=== PATIENT | female | born 1945 | race Caucasian/White ===

== ENCOUNTER → 2016-07-20 | Day surgery (SDC) | payer OTHER, MEDICARE ==
[2016-07-14 14:09] VITALS: Ht 161.3 cm; Wt 75.0 kg
[~2016-07-20] VITALS: Ht 161.3 cm; Wt 75.0 kg
[~2016-07-20] MED LIST: ACET-1256 PO; ACET-749 PO; ACETAMINOPHEN/CODEINE 300/30MG TAB PO PRN; ASPCH81X PO; ATEN-173 PO; ATOR10TA88 PO; ATROPINE SULFATE 0.1 MG/ML 5ML SYR IV PRN; BACL10TA PO; BIOT1CAP3 PO; BISA10SU3 PR; BUPIVACAINE 0.5 % 5 MG/1 ML MPF 30ML VIAL ONE; Baclofen PO; CEFAZOLIN 1000MG/55 ML D5W IV SCH; CEFAZOLIN SOD 1 GM VIAL IV ONE; CHOL100010 PO; CHOL1CAP95 PO; CLIN1GEL5 TOP; CLTP PO; CRDCD240 PO; Cardizem CD PO; DEXAMETHASONE SOD INJ 4 MG/ML VIAL ONE; DILT300C PO; DILT300C21 PO; DOCU100C31 PO; ESOM20CA PO; ESTR1.252 PO; EpHEDrine SULFATE INJ 50 MG/ML AMP IV PRN; FENTANYL CITRATE INJ 50 MCG/1 ML 2 ML VIAL ONE; FLUMAZENIL 0.1 MG/1 ML 10 ML VIAL IV PRN; FURO-85 PO; GLUC500C4 PO; HYDROmorphone INJ 1 MG/ML SYR IV PRN; KRIL1CAP7 PO; LABETALOL HCL IV 5 MG/ML 20ML IV PRN; LACTATED RINGER'S 1000ML 1,000 ML IV SCH; LIDOCAINE HCL 1% 20 ML VIAL ONE; LIDOCAINE HCL 2% 2 ML VIAL (20MG/ML) ONE; LOSA50TA6 PO; LPR25 PO; LXP10 PO; MAGN400T5 PO; MAGN400T6 PO; MCRK20 PO; METR0.754 TOP; METR1GEL3 TOP; MGCUDL400 PO; MIDAZOLAM HCL 1 MG/ML 2ML VIAL ONE; MOML PO; NALOXONE HCL 0.4 MG/1 ML VIAL/CARP IV PRN; NUTR-1048 PO; NUTR-977 PO; ONDA8TAB6 PO; ONDANSETRON INJ 2 MG/ML 2 ML VIAL IV PRN; ONDANSETRON INJ 2 MG/ML 2 ML VIAL ONE; PRD10 PO; PRED-301 PO; PRLSR20 PO; PROMETHAZINE HCL INJ 12.5 MG in SODIUM CHLORIDE 0.9% 50ML 50 ML IV PRN; PROPOFOL IV EMULSION 10 MG/ML 20 ML VIAL IV ONE; Premarin Cream PV; SENN-63 PO; SIMV10TA2 PO; SLOW; SLWMEC PO; SODIENE PR; SODIUM CHLORIDE 0.9% 1000ML 1,000 ML IV SCH; SPIR25TA PO; THIA50TA3 PO; THM50 PO; TOLV15TA PO; TRMCR515 TOP; Trazodone PO; [UNRECOGNIZED DRUG - CODE] PO; [UNRECOGNIZED DRUG - CODE] PO; [UNRECOGNIZED DRUG - OTHER] PO
--- NOTE | 2016-07-20 06:55 | History & Physical Bridge - SC ---
H&P Re-Evaluation Bridge Note: I have examined the patient, reviewed the History & Physical and in the interval since the performance of the History & Physical I have noted the following changes of clinical significance: No changes noted
[2016-07-20 07:40] VITALS: TEMP 36.4
--- NOTE | 2016-07-20 07:40 | [facility] Post Operative Brief Note ---
Immediate Operative Summary Operative Date Jul 20, 2016. 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 Schofield Washing Machine Repairer Surgeon(s) Trevon Vera PA-C Estimated Blood Loss Minimal Findings Subluxated 2nd claw toe Specimens A: Right second toe Anesthesia Local with sedation Complication(s) None Disposition Recovery Room / PACU
--- NOTE | 2016-07-20 07:40 | Discharge Instructions-SurgCtr ---
Discharge Instructions Visit Reason for Visit: Right Foot Acquired Hallux Malleous Discharge Discharge Diagnosis / Problem: RIGHT SECOND TOE HAMMER TOE Discharge Goals Goal(s): Decrease discomfort Activity Recommendations Weightbearing Status: Right weightbearing (as tolerated) Anesthesia . Post Anesthesia Instructions: If you have had General Anesthesia or IV Sedation: * Do not drive today. * Resume driving when surgeon permits. * Do not make important decisions or sign legal documents today. * Call surgeon for: 1. Temperature elevations greater than 101 degrees F. 2. Uncontrollable pain. 3. Excessive bleeding. 4. Persistent nausea and vomiting. 5. Medication intolerance (nausea, vomiting or rash). * For nausea and vomiting use only clear liquids such as: tea, soda, bouillon until nausea subsides, then gradually increase diet as tolerated. * If you have any concerns or questions, call your surgeon's office. If physician is unavailable and it is an emergency, call 911 or go to the nearest emergency room. . Instructions / Follow-Up Instructions / Follow-Up MEDICATIONS: * Resume previous medications unless instructed otherwise by your surgeon. * Always take pain medication on a full stomach or with food to avoid upset stomach. * Do not drink alcohol or drive while taking narcotics. * Ibuprofen or Tylenol may be taken if narcotic not needed. SPECIAL CARE INSTRUCTIONS: __ None __ Keep extremity elevated and iced x 48 hours; apply ice 20-30 minutes 8-10 times/day. May remove at night. __ Crutches __ May discard when able _X_ Post-op shoe FOR WEIGHTBEARING __ 24 hrs/day __ Remove at night _X_ Dressing _X_ Maintain until seen in office, may shower with plastic over site __ Remove dressings in 24-48 hours and then may shower __ Cover incisions with band-aids after showering __ Do not remove steri-strips Call physician if chills or temperature rises above 102 degrees or pain unrelieved by prescribed pain medications. Office [phone] FOLLOW UP IN 2 WEEKS Diet Recommendations Home Diet: resume previous diet Procedures Procedures Performed: Right Second Toe Amputation Pending Studies Studies pending at discharge: no Medical Emergencies . Who to Call and When: Medical Emergencies: If at any time you feel your situation is an emergency, please call 911 immediately. . Non-Emergent Contact Non-Emergency issues call your: Primary Care Provider, Surgeon . . "Provider Documentation" section prepared by Dominic Vera.
[2016-07-20 08:13] VITALS: BP 144/77; PULSE 63; O2SAT 100
--- NOTE | 2016-07-20 08:16 | Anesthesia Progress Nt - [facility] ---
Anesthesia Post Op Note Date & Time Jul 20, 2016 at 08:15 Vital Signs Pain Intensity: 0 Vital Signs Past 12 Hours Date Time Temp Pulse Resp B/P Pulse Ox O2 Delivery O2 Flow Rate FiO2 07/20/16 08:13 63 16 144/77 100 Room Air 07/20/16 07:40 36.4 64 16 131/76 94 Room Air 07/20/16 06:42 159/92 07/20/16 06:27 36.5 71 20 159/111 97 Room Air Notes Mental Status: alert / awake / arousable, participated in evaluation Pt Amnestic to Procedure: Yes Nausea / Vomiting: adequately controlled Pain: adequately controlled Airway Patency, RR, SpO2: stable & adequate BP & HR: stable & adequate Hydration State: stable & adequate Anesthetic Complications: no major complications apparent
--- NOTE | 2016-07-20 09:18 | OPERATIVE REPORT ---
DATE OF OPERATION: 07/20/2016 PREOPERATIVE DIAGNOSIS: Right 2nd clawtoe deformity with subluxation of the metatarsophalangeal joint. POSTOPERATIVE DIAGNOSIS: Same. PROCEDURE PERFORMED: Right second toe amputation. SURGEON: Berry Schofield M.D. BAKERY ASSOCIATE: Dominic Vera PA-C. COMPLICATIONS: None. ESTIMATED BLOOD LOSS: Minimal. TOURNIQUET TIME: 8 minutes at 300 mmHg. ANESTHESIA: Local with IV sedation. OPERATIVE INDICATIONS: The patient is a 70-year-old female who has had a several month history of right second toe pain, discomfort and swelling, unresponsive to conservative treatment. X-rays revealed clawtoe deformity of the second toe with diffuse fusiform swelling and subluxation of the joint. We talked about treatment options including conservative care versus clawtoe correction versus amputation. Considering everything I really felt amputation was the most predictable thing to give her a quick and predictable result and free of pain. The patient elected to proceed. I did not feel a clawtoe correction would predictably help her and would likely be a source of persistent pain and stiffness in the toe. OPERATION AND FINDINGS: OPERATIVE PROCEDURE: The patient taken to the operating room, identified and placed on the operating table in supine position. All contact areas were appropriately padded. IV antibiotics were provided by the anesthesia team. A right ankle tourniquet was placed. Some IV sedation was provided. The patient did receive preoperative antibiotics. The right foot was cleaned with alcohol. A 20 mL of 50:50 combination of 0.5% Marcaine and 2% lidocaine were then injected just proximal to the incision site. The right foot was then prepped and draped in the usual sterile fashion. The right leg was elevated and exsanguinated with Esmarch and tourniquet was placed at 300 mmHg. A fish mouth incision was made over the base of the second toe, both dorsally and plantarly. I dissected sharply directly down to the bone. The bone was skeletonized and the toe was amputated. It was disarticulated at the MTP joint. I then identified the flexor and extensor tendons, applied traction to them, cut them and allowed them to retract. I then irrigated the wound extensively. We then let the tourniquet down for final tourniquet time of 8 minutes. Hemostasis was assured with use of electrocautery. The skin was then closed with 4-0 nylon suture in a simple fashion. The foot was then cleaned and dried and a sterile dressing of Xeroform, 4 x 4's, sterile cast padding and a Coban wrap followed by postop shoe were applied. The patient then transferred to the recovery room in stable condition. The patient tolerated the procedure with no complications. All needle and sponge counts were correct at the end of the operation. I attest to the content of the Intraoperative Record and any orders documented therein. Any exceptio ns are noted below.
== END | disposition home or self-care (01) ==
LOC: X.SURG 06:05
PROVIDERS: ATTEND Orthopaedic Surgery Sports Medicine
DX: M20.5X1 Other deformities of toe(s) (acquired), right foot (principal); I34.8 Other nonrheumatic mitral valve disorders; I10 Essential (primary) hypertension; I25.10 Atherosclerotic heart disease of native coronary artery without angina pectoris

== ENCOUNTER → 2016-10-20 | Outpatient (CLI) | payer OTHER, MEDICARE ==
[~2016-10-20] MED LIST changes: -ACET-749 PO; -ACETAMINOPHEN/CODEINE 300/30MG TAB PO PRN; -ATEN-173 PO; +ATOR10TA82 PO; -ATOR10TA88 PO; -ATROPINE SULFATE 0.1 MG/ML 5ML SYR IV PRN; -BIOT1CAP3 PO; -BUPIVACAINE 0.5 % 5 MG/1 ML MPF 30ML VIAL ONE; -CEFAZOLIN 1000MG/55 ML D5W IV SCH; -CEFAZOLIN SOD 1 GM VIAL IV ONE; -CHOL100010 PO; -CLTP PO; -CRDCD240 PO; -DEXAMETHASONE SOD INJ 4 MG/ML VIAL ONE; -ESTR1.252 PO; -EpHEDrine SULFATE INJ 50 MG/ML AMP IV PRN; -FENTANYL CITRATE INJ 50 MCG/1 ML 2 ML VIAL ONE; -FLUMAZENIL 0.1 MG/1 ML 10 ML VIAL IV PRN; -GLUC500C4 PO; -HYDROmorphone INJ 1 MG/ML SYR IV PRN; -KRIL1CAP7 PO; -LABETALOL HCL IV 5 MG/ML 20ML IV PRN; -LACTATED RINGER'S 1000ML 1,000 ML IV SCH; -LIDOCAINE HCL 1% 20 ML VIAL ONE; -LIDOCAINE HCL 2% 2 ML VIAL (20MG/ML) ONE; -METR1GEL3 TOP; -MIDAZOLAM HCL 1 MG/ML 2ML VIAL ONE; -NALOXONE HCL 0.4 MG/1 ML VIAL/CARP IV PRN; -ONDANSETRON INJ 2 MG/ML 2 ML VIAL IV PRN; -ONDANSETRON INJ 2 MG/ML 2 ML VIAL ONE; -PROMETHAZINE HCL INJ 12.5 MG in SODIUM CHLORIDE 0.9% 50ML 50 ML IV PRN; -PROPOFOL IV EMULSION 10 MG/ML 20 ML VIAL IV ONE; -SODIUM CHLORIDE 0.9% 1000ML 1,000 ML IV SCH; -SPIR25TA PO
--- NOTE | 2016-10-20 13:07 | MAMMOGRAPHY REPORT ---
BILATERAL DIGITAL SCREENING MAMMOGRAM WITH CAD: 10/20/2016 CLINICAL HISTORY: Routine screening. Patient has no complaints. TECHNIQUE: Current study was also evaluated with a Computer Aided Detection (CAD) system. Bilatera l CC and MLO views were obtained. COMPARISON: Comparison is made to exams dated: 10/20/2015 mammogram, 10/15/2013 mammogram, 10/11/2012 m ammogram, 10/11/2011 mammogram, 10/05/2010 mammogram, and 10/16/2014 mammogram - [facility] nt. BREAST COMPOSITION: The tissue of both breasts is heterogeneously dense, which may obscure small ma sses. FINDINGS: No suspicious masses, calcifications, or areas of architectural distortion are noted in e ither breast. There has been no significant interval change compared to prior exams. Scattered bilat eral benign-appearing calcifications are not significantly changed. IMPRESSION: ACR BI-RADS CATEGORY 2: BENIGN There is no mammographic evidence of malignancy. A 1 year screening mammogram is recommended. The p atient will receive written notification of the results. Approximately 10% of breast cancers are not detected with mammography. A negative mammographic repor t should not delay biopsy if a clinically suggestive mass is present. Duyen James M.D. /:10/20/2016 12:27:07 Paint Spraying Machine Operator Helper: Tiff Velez, [facility] letter sent: Normal 1/2 BI-RADS Code: ACR BI-RADS Category 2: Benign
== END | disposition home or self-care (01) ==
LOC: C.MAMM 09:13
PROVIDERS: ATTEND Internal Medicine
DX: Z51.0 Encounter for antineoplastic radiation therapy (principal); Z12.31 Encounter for screening mammogram for malignant neoplasm of breast; C48.0 Malignant neoplasm of retroperitoneum

== ENCOUNTER 2017-01-20 15:49 | Inpatient (IN) | payer OTHER, MEDICARE ==
[~2017-01-20] VITALS: Ht 160 cm; Wt 65.5 kg
[~2017-01-20 15:49] MED LIST changes: -ACET-1256 PO; -ASPCH81X PO; -ATOR10TA82 PO; -BACL10TA PO; -BISA10SU3 PR; -Baclofen PO; -CHOL1CAP95 PO; -DILT300C PO; -DILT300C21 PO; -DOCU100C31 PO; -ESOM20CA PO; -LPR25 PO; -LXP10 PO; -MAGN400T5 PO; -MAGN400T6 PO; -MCRK20 PO; -MGCUDL400 PO; -MOML PO; -NUTR-1048 PO; -NUTR-977 PO; -ONDA8TAB6 PO; -PRD10 PO; -PRED-301 PO; -PRLSR20 PO; -Premarin Cream PV; -SENN-63 PO; -SIMV10TA2 PO; -SODIENE PR; -THIA50TA3 PO; -THM50 PO; -TOLV15TA PO; -Trazodone PO; -[UNRECOGNIZED DRUG - CODE] PO; -[UNRECOGNIZED DRUG - CODE] PO; -[UNRECOGNIZED DRUG - OTHER] PO
[2017-01-20] MEDS ORDERED: SODIUM CHLORIDE 0.9% 1000ML 1,000 ML IV STA (15:59)
--- NOTE | 2017-01-20 16:10 | EMERGENCY ROOM VISIT NOTE ---
History Report prepared by Ann: Vero Rao Under the Supervision of: Dr. Josiah Ogden D.O. First contact with patient: 15:56 Chief Complaint: ABNORMAL LABS Stated Complaint: LOW SODIUM LEVELS - FATIGUED History of Present Illness The patient is a 71 year old female who presents to the Emergency Room with complaints of abnormal labs which showed low sodium levels today. She also complains of having weakness, nausea, and vomiting. She denies having a headache , urinary symptoms, shortness of breath, and a cough. 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 Her insurance sales supervisor, Dr. Love, referred her to have blood work today and then sent her here because of her abnormal results. The patient denies being on any new medications. Source of History: patient Onset: today Position: other (global) Quality: other (low sodium levels ) Associated Symptoms: + nausea, + vomiting, + weakness, No headache, No cough , No SOB, No urinary symptoms Review of Systems See HPI for pertinent positives & negatives. A total of 10 systems reviewed and were otherwise negative. Past Medical & Surgical Medical Problems: (1) Amputated toe (2) C. difficile diarrhea (3) CAD (coronary artery disease) (4) CAD (coronary artery disease) (5) Dyslipidemia (6) History of nephrectomy, unilateral (7) HTN (hypertension) (8) Hyponatremia (9) Leiomyosarcoma of retroperitoneum (10) Refusal of blood transfusions as patient is Gnosticist Surgical Problems: (1) Carcinoma of kidney (2) H/O splenectomy (3) H/O total hysterectomy (4) History of cataract surgery (5) History of pancreatectomy (6) History of tonsillectomy and adenoidectomy (7) History of total bilateral knee replacement (8) S/P trigger finger release Family History No pertinent family history stated. Social History Smoking Status: Never Smoker Marital Status: Housing Status: lives with family Occupation Status: retired Current/Historical Medications Scheduled Aspirin (Aspirin Chewable), 81 MG PO QPM Atorvastatin (Lipitor), 1 TAB PO HS Diltiazem Hcl Coated Beads (Cartia Xt), 300 MG PO DAILY Furosemide (Lasix), 1 TAB PO DAILY Losartan Potassium (Cozaar), 50 MG PO BID Magnesium Chloride (Slow-Mag Tab), 1 TAB PO TID [Premarin Cream], 1 APPLN PV WK Scheduled PRN Acetaminophen (Tylenol), 500 MG PO Q6 PRN for Pain Clindamycin Phosphate (Topical (Clindamycin Phosphate), 1 APPLN TOP DAILY PRN for Affected Skin Folds Metronidazole (Topical) (Metrocream), 1 APPLN TOP BID PRN for Affected Skin Folds Omeprazole (Prilosec), 20 MG PO DAILY PRN for PRN Ondansetron Hcl (Zofran), 8 MG PO TID PRN for Nausea Triamcinolone Acet (Triamcinolone Acetonide), 1 APPLN TOP BID PRN for Affected Skin Folds Allergies Coded Allergies: Nickel (Verified Allergy, Unknown, RASH, 01/20/17) Physical Exam Vital Signs Date Time Temp Pulse Resp B/P (MAP) Pulse Ox O2 Delivery O2 Flow Rate FiO2 01/20/17 16:40 82 16 173/81 97 Room Air 91 167/97 92 133/88 01/20/17 16:21 82 01/20/17 16:15 Room Air 01/20/17 16:15 Room Air 01/20/17 15:52 36.6 92 15 139/79 97 Room Air Physical Exam GENERAL: Patient is awake, alert, and in no acute distress. Patient is resting comfortably and showing no signs of anxiety EYES: The conjunctivae are clear. The pupils are round and reactive. EARS, NOSE, MOUTH AND THROAT: The nose is without any evidence of any deformity. Mucous membranes are dry tongue is midline NECK: The neck is nontender and supple. RESPIRATORY: Normal respiratory effort is noted there is no evidence of wheezing rhonchi or rales CARDIOVASCULAR: Regular rate and rhythm noted there no murmurs rubs or gallops normal S1 normal S2 GASTROINTESTINAL: The abdomen is soft. Bowel sounds are present in all quadrants. Abdomen is nontender MUSCULOSKELETAL/EXTREMITIES: There is no evidence of gross deformity full range of motion is noted in the hips and shoulders SKIN: There is no obvious evidence of any rash. There are no petechiae, pallor or cyanosis noted. Pedal edema bilaterally. NEUROLOGIC: Patient is awake alert and oriented x3 strength is symmetric patellar reflexes are 1+ bilaterally Medical Decision & Procedures ER Provider Diagnostic Interpretation: X-ray results as stated below per interpretation by me and the radiologist. CHEST ONE VIEW PORTABLE CLINICAL HISTORY: 71 years-old Female presenting with EVALUATE ALTERED MENTAL STATUS/WEAKNESS. TECHNIQUE: Portable upright AP view of the chest was obtained. COMPARISON: 07/06/2012. FINDINGS: Atherosclerosis of aortic arch. Cardiac silhouette normal. Lungs and pleural spaces clear. Osseous structures normal. Upper abdomen normal. IMPRESSION: 1. No acute cardiopulmonary disease. Electronically signed by: Dixon Hernandez M.D. 01/20/2017 4:26 PM Dictated Date/Time: 01/20/2017 4:25 PM Laboratory Results 01/20/17 16:10 Red Blood Count 3.79, Mean Corpuscular Volume 84.7, Mean Corpuscular Hemoglobin 30.3, Mean Corpuscular Hemoglobin Concent 35.8, Mean Platelet Volume 8.8, Neutrophils (%) (Auto) 70.2, Lymphocytes (%) (Auto) 12.8, Monocytes (%) (Auto) 11.4, Eosinophils (%) (Auto) 4.6, Basophils (%) (Auto) 0.7, Neutrophils # (Auto ) 5.03, Lymphocytes # (Auto) 0.92, Monocytes # (Auto) 0.82, Eosinophils # (Auto ) 0.33, Basophils # (Auto) 0.05 01/20/17 16:10 Test 01/20/17 16:10 01/20/17 16:29 White Blood Count 7.17 K/uL (4.8-10.8) Red Blood Count 3.79 M/uL (4.2-5.4) Hemoglobin 11.5 g/dL (12.0-16.0) Hematocrit 32.1 % (37-47) Mean Corpuscular Volume 84.7 fL (80-100) Mean Corpuscular Hemoglobin 30.3 pg (25-34) Mean Corpuscular Hemoglobin Concent 35.8 g/dl (32-36) Platelet Count 677 K/uL (130-400) Mean Platelet Volume 8.8 fL (7.4-10.4) Neutrophils (%) (Auto) 70.2 % Lymphocytes (%) (Auto) 12.8 % Monocytes (%) (Auto) 11.4 % Eosinophils (%) (Auto) 4.6 % Basophils (%) (Auto) 0.7 % Neutrophils # (Auto) 5.03 K/uL (1.4-6.5) Lymphocytes # (Auto) 0.92 K/uL (1.2-3.4) Monocytes # (Auto) 0.82 K/uL (0.11-0.59) Eosinophils # (Auto) 0.33 K/uL (0-0.5) Basophils # (Auto) 0.05 K/uL (0-0.2) RDW Standard Deviation 40.2 fL (36.4-46.3) RDW Coefficient of Variation 13.2 % (11.5-14.5) Immature Granulocyte % (Auto) 0.3 % Immature Granulocyte # (Auto) 0.02 K/uL (0.00-0.02) Prothrombin Time 10.6 SECONDS (9.0-12.0) Prothromb Time International Ratio 1.0 (0.9-1.1) Activated Partial Thromboplast Time 35.3 SECONDS (21.0-31.0) Partial Thromboplastin Ratio 1.4 Anion Gap 12.0 mmol/L (3-11) Est Creatinine Clear Calc Drug Dose 54.4 ml/min Estimated GFR () 79.3 Estimated GFR (Non- 68.4 BUN/Creatinine Ratio 12.8 (10-20) Osmolality 247 mOsm/kg (280-300) Calcium Level 9.4 mg/dl (8.5-10.1) Magnesium Level 1.3 mg/dl (1.8-2.4) Total Bilirubin 0.4 mg/dl (0.2-1) Direct Bilirubin 0.2 mg/dl (0-0.2) Aspartate Amino Transf (AST/SGOT) 37 U/L (15-37) Alanine Aminotransferase (ALT/SGPT) 40 U/L (12-78) Alkaline Phosphatase 196 U/L (45-117) Troponin I < 0.015 ng/ml (0-0.045) Pro-B-Type Natriuretic Peptide 242 pg/ml (0-900) Total Protein 7.0 gm/dl (6.4-8.2) Albumin 2.8 gm/dl (3.4-5.0) Lipase 93 U/L (73-393) Thyroid Stimulating Hormone (TSH) 2.000 uIu/ml (0.300-4.500) Free Thyroxine 1.52 ng/dl (0.80-1.60) Bedside Glucose 115 mg/dl (70-90) Laboratory results per my review. Medications Administered Medications (Trade) Dose Ordered Sig/Ana Route Start Time Stop Time Status Last Admin Dose Admin Sodium Chloride 1,000 ml @ 999 mls/hr Q1H1M STAT IV 01/20/17 15:59 01/20/17 16:59 DC 01/20/17 16:37 999 MLS/HR ECG Indication: weakness Rate (beats per minute): 81 Rhythm: normal sinus Findings: no ectopy, other (no acute ST segments) Change: no significant change (from July 06, 2012) ED Course 1557: The patient was evaluated in room B10. A complete history and physical examination were performed. 1559: Ordered Sodium Chloride 1,000 ml @ 999 mls/hr IV. 1625: I discussed the patient's case with Hyun CARBONE. The patient will be evaluated for further management by her. Medical Decision Differential diagnosis: Etiologies such as metabolic, infection, hypo/hyperglycemia, electrolyte abnormalities, cardiac sources, intracerebral event, toxicologic, neurologic, as well as others were entertained. Nursing notes reviewed. The patient is a 71-year-old female who presented to the emergency department for weakness and abnormal laboratory studies. The patient has had electrolyte problems in the past and had labs drawn by her primary insurance sales supervisor. She was sent to the emergency department for an evaluation of weakness and significant hyponatremia. The patient was treated with IV fluids and also given IV magnesium replacement. I discussed her case with the on-call [facility] hospitalist group. They've agreed to evaluate the patient in the emergency department for further management and disposition of symptomatic hyponatremia. Medication Reconcilliation Current Medication List: was personally reviewed by me Blood Pressure Screening Patient's blood pressure: Normal blood pressure Consults Time Called: 1610 Consulting Physician: Hyun Caal Returned Call: 1625 I discussed the patient's case with Hyun CARBONE. The patient will be evaluated for further management. Impression Primary Impression: Hypernatremia Additional Impressions: Weakness Hypomagnesemia Scribe Attestation The scribe's documentation has been prepared under my direction and personally reviewed by me in its entirety. I confirm that the note above accurately reflects all work, treatment, procedures, and medical decision making performed by me. Departure Information Dispostion Being Evaluated By Hospitalist Referrals Rossy NAPOLES M.D. (PCP) Patient Instructions My [facility] Problem Qualifiers
--- NOTE | 2017-01-20 16:28 | DIAGNOSTIC IMAGING REPORT ---
CHEST ONE VIEW PORTABLE CLINICAL HISTORY: 71 years-old Female presenting with EVALUATE ALTERED MENTAL STATUS/WEAKNESS. TECHNIQUE: Portable upright AP view of the chest was obtained. COMPARISON: 07/06/2012. FINDINGS: Atherosclerosis of aortic arch. Cardiac silhouette normal. Lungs and pleural spaces clear. Osseous structures normal. Upper abdomen normal. IMPRESSION: 1. No acute cardiopulmonary disease. Electronically signed by: Dixon Hernandez M.D. 01/20/2017 4:26 PM Dictated Date/Time: 01/20/2017 4:25 PM
[2017-01-20] MEDS ORDERED: DOCU100C31 PO (16:36)
[2017-01-20] MEDS ORDERED: DILT300C21 PO (16:36)
[2017-01-20] MEDS ORDERED: ONDA8TAB6 PO (16:36)
[2017-01-20] MEDS ORDERED: PRLSR20 PO (16:36)
[2017-01-20 16:42] LABS: BASO % 0.7 %; BASO ABS # 0.05 K/uL (0-0.2); COMPLETE YES; EOS % 4.6 %; HEMATOCRIT 32.1 % (37-47); IG% 0.3 %; LYMPH % 12.8 %; LYMPH ABS # 0.92 K/uL (1.2-3.4); MEAN CELL VOLUME 84.7 fL (80-100); MEAN CORPUSCULAR HEMOGLOBIN 30.3 pg (25-34); MEAN CORPUSCULAR HGB CONC 35.8 g/dl (32-36); MEAN PLATELET VOLUME 8.8 fL (7.4-10.4); MONO % 11.4 %; NEUT % 70.2 %; PLATELET COUNT 677 K/uL (130-400); RED BLOOD COUNT 3.79 M/uL (4.2-5.4); WHITE BLOOD COUNT 7.17 K/uL (4.8-10.8)
[2017-01-20 16:54] LABS: PARTIAL THROMBOPLASTIN RATIO 1.4; PROTHROMBIN TIME (PATIENT) 10.6 SECONDS (9.0-12.0)
[2017-01-20] MEDS ORDERED: ONDANSETRON INJ 2 MG/ML 2 ML VIAL IV PRN (17:15)
[2017-01-20 17:19] LABS: ALT/SGPT 40 U/L (12-78); AST/SGOT 37 U/L (15-37); BLOOD UREA NITROGEN 11 mg/dl (7-18); BUN/CREATININE RATIO 12.8 (10-20); CALCIUM 9.4 mg/dl (8.5-10.1); CARBON DIOXIDE 25 mmol/L (21-32); CHLORIDE 81 mmol/L (98-107); CREATININE 0.86 mg/dl (0.60-1.20); GLUCOSE 101 mg/dl (70-99); MAGNESIUM 1.3 mg/dl (1.8-2.4); SODIUM 118 mmol/L (136-145)
[2017-01-20] MEDS ORDERED: MAGNESIUM SULFATE 1GM / D5W 1 GM BAG IV STA (17:22)
[2017-01-20 17:38] LABS: ALKALINE PHOSPHATASE 196 U/L (45-117)
--- NOTE | 2017-01-20 18:15 | History and Physical ---
History & Physical Date & Time of Service: Jan 20, 2017 ~ 16:45 Chief Complaint: Weakness, Low Sodium Primary Care Physician: Rossy NAPOLES M.D. History of Present Illness Source: patient, family 71 year old female who was referred to the ED by Dr. Escalera for hyponatremia. Patient has a history of chronic hyponatremia. 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 Patient was discharged to [facility] and went home 3 days ago. Post operatively, sodiums have been running in the high 120s. Outpatient labs today showed a critical sodium of 118. Patient reports she continues to feel generally weak since her surgery. She reports her appetite is very poor. She denies lightheadedness, dizziness, diaphoresis, or syncope. No fevers or chills. She reports some occasional incisional pain but denies nausea, vomiting, or diarrhea. She denies chest pain and shortness of breath. She has chronic lower extremity edema which is unchanged. Urine has been cloudy at times but denies dysuria. In the ER, sodium is 118. She was started on NSS infusion. Past Medical/Surgical History Medical Problems: (1) Amputated toe Status: Chronic (2) C. 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/16 - s/p resection with left nephrectomy, distal pancreatectomy, and splenectomy Status: Chronic (10) Refusal of blood transfusions as patient is Baptism Status: Chronic Surgical Problems: (1) Carcinoma of kidney Status: Resolved (2) H/O splenectomy Status: Chronic (3) H/O total hysterectomy Status: Chronic (4) History of cataract surgery Status: Chronic (5) History of pancreatectomy Status: Chronic (6) History of tonsillectomy and adenoidectomy Status: Chronic (7) History of total bilateral knee replacement Status: Chronic (8) S/P trigger finger release Status: Chronic Family History Hypertension BROTHER BROTHER Social History Smoking Status: Never Smoker Alcohol Use: occasionally Marital Status: Housing status: lives with family Immunizations History of Influenza Vaccine: Yes Influenza Vaccine Date: Feb 17, 2016 History of Tetanus Vaccine?: Yes Tetanus Immunization Date: Jul 11, 2009 History of Pneumococcal: Yes Pneumococcal Date: Dec 27, 2013 Multi-Drug Resistant Organisms History of MDRO: No Allergies Coded Allergies: Nickel (Verified Allergy, Unknown, RASH, 01/20/17) Home Medications Scheduled Aspirin (Aspirin Chewable), 81 MG PO QPM Atorvastatin (Lipitor), 1 TAB PO HS Diltiazem Hcl Coated Beads (Cartia Xt), 300 MG PO DAILY Furosemide (Lasix), 1 TAB PO DAILY Losartan Potassium (Cozaar), 50 MG PO BID Magnesium Chloride (Slow-Mag Tab), 1 TAB PO TID [Premarin Cream], 1 APPLN PV WK Scheduled PRN Acetaminophen (Tylenol), 500 MG PO Q6 PRN for Pain Clindamycin Phosphate (Topical (Clindamycin Phosphate), 1 APPLN TOP DAILY PRN for Affected Skin Folds Metronidazole (Topical) (Metrocream), 1 APPLN TOP BID PRN for Affected Skin Folds Omeprazole (Prilosec), 20 MG PO DAILY PRN for PRN Ondansetron Hcl (Zofran), 8 MG PO TID PRN for Nausea Triamcinolone Acet (Triamcinolone Acetonide), 1 APPLN TOP BID PRN for Affected Skin Folds Review of Systems ROS per HPI, all other systems reviewed and negative Physical Exam Vital Signs Date Time Temp Pulse Resp B/P (MAP) Pulse Ox O2 Delivery O2 Flow Rate FiO2 01/20/17 16:40 82 16 173/81 97 Room Air 91 167/97 92 133/88 01/20/17 16:21 82 01/20/17 16:15 Room Air 01/20/17 16:15 Room Air 01/20/17 15:52 36.6 92 15 139/79 97 Room Air General Appearance: no apparent distress Head: normocephalic, atraumatic Eyes: normal inspection, sclerae normal ENT: hearing grossly normal Neck: supple, no JVD Respiratory/Chest: lungs clear, normal breath sounds, no respiratory distress Cardiovascular: regular rate, rhythm, normal peripheral pulses, + pertinent finding (trace edema BLLE) Abdomen/GI: normal bowel sounds, non tender, soft, + pertinent finding (mid line incision scar noted - healing well, no drainage or surrounding redness) Extremities/Musculoskelatal: normal inspection, no calf tenderness Neurologic/Psych: no motor/sensory deficits, alert, normal mood/affect, oriented x 3 Skin: normal color, warm/dry Diagnostics Laboratory Results Results Past 24 Hours Test 01/20/17 16:10 01/20/17 16:29 01/20/17 17:54 Range/Units White Blood Count 7.17 4.8-10.8 K/uL Red Blood Count 3.79 4.2-5.4 M/uL Hemoglobin 11.5 12.0-16.0 g/dL Hematocrit 32.1 37-47 % Mean Corpuscular Volume 84.7 80-100 fL Mean Corpuscular Hemoglobin 30.3 25-34 pg Mean Corpuscular Hemoglobin Concent 35.8 32-36 g/dl Platelet Count 677 130-400 K/uL Mean Platelet Volume 8.8 7.4-10.4 fL Neutrophils (%) (Auto) 70.2 % Lymphocytes (%) (Auto) 12.8 % Monocytes (%) (Auto) 11.4 % Eosinophils (%) (Auto) 4.6 % Basophils (%) (Auto) 0.7 % Neutrophils # (Auto) 5.03 1.4-6.5 K/uL Lymphocytes # (Auto) 0.92 1.2-3.4 K/uL Monocytes # (Auto) 0.82 0.11-0.59 K/uL Eosinophils # (Auto) 0.33 0-0.5 K/uL Basophils # (Auto) 0.05 0-0.2 K/uL RDW Standard Deviation 40.2 36.4-46.3 fL RDW Coefficient of Variation 13.2 11.5-14.5 % Immature Granulocyte % (Auto) 0.3 % Immature Granulocyte # (Auto) 0.02 0.00-0.02 K/uL Prothrombin Time 10.6 9.0-12.0 SECONDS Prothromb Time International Ratio 1.0 0.9-1.1 Activated Partial Thromboplast Time 35.3 21.0-31.0 SECONDS Partial Thromboplastin Ratio 1.4 Sodium Level 118 136-145 mmol/L Potassium Level 4.0 3.5-5.1 mmol/L Chloride Level 81 98-107 mmol/L Carbon Dioxide Level 25 21-32 mmol/L Anion Gap 12.0 3-11 mmol/L Blood Urea Nitrogen 11 7-18 mg/dl Creatinine 0.86 0.60-1.20 mg/dl Est Creatinine Clear Calc Drug Dose 54.4 ml/min Estimated GFR () 79.3 Estimated GFR (Non- 68.4 BUN/Creatinine Ratio 12.8 10-20 Random Glucose 101 70-99 mg/dl Osmolality 247 280-300 mOsm/kg Calcium Level 9.4 8.5-10.1 mg/dl Magnesium Level 1.3 1.8-2.4 mg/dl Total Bilirubin 0.4 0.2-1 mg/dl Direct Bilirubin 0.2 0-0.2 mg/dl Aspartate Amino Transf (AST/SGOT) 37 15-37 U/L Alanine Aminotransferase (ALT/SGPT) 40 12-78 U/L Alkaline Phosphatase 196 45-117 U/L Troponin I < 0.015 0-0.045 ng/ml Pro-B-Type Natriuretic Peptide 242 0-900 pg/ml Total Protein 7.0 6.4-8.2 gm/dl Albumin 2.8 3.4-5.0 gm/dl Lipase 93 73-393 U/L Thyroid Stimulating Hormone (TSH) 2.000 0.300-4.500 uIu/ml Free Thyroxine 1.52 0.80-1.60 ng/dl Bedside Glucose 115 70-90 mg/dl Diagnostic Radiology CXR IMPRESSION: 1. No acute cardiopulmonary disease. Impression Assessment and Plan HYPONATREMIA - admit to tele - patient referred to the ER when outpatient labs showed Na+ 118; has history of chronic hyponatremia and recently underwent retroperitoneal sarcoma resection with left nephrectomy, distal pancreatectomy, and splenectomy at [facility] - Na+ has been running in the high 120s - suspect hyponatremia is due to volume depletion and dehydration from poor PO intake; also noted positive orthostatic BPs in the ED - urine and serum osmo, urine random sodium, U/A - NSS @ 80mls/hr - recheck Na+ at 2200 to monitor for overcorrection - case discussed with Dr. Escalera HYPOMAGNESEMIA - replace, follow up labs in AM THROMBOCYTOSIS - likely due to recent splenectomy - will need outpatient hematology follow up HTN - one high BP reading in ED - will continue Cartia and Losartan for now, make adjustments as needed CAD - stable, no reports of chest pain - 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 and statin MORMON DVT PROPHYLAXIS - SQ Lovenox DISPO - In my clinical judgment this beneficiary meets acute admission criteria, established by [facility], that includes being hospitalized through two midnights. - Recently d/c'd from [facility]; will have PT/OT evaluate patient Attending Note: Patient is a 71 yr female with with PMH of leiomyosarcoma, HTN, chronic hyponatremia and other comorbidities who was recently discharged from [facility] after undergoing surgery for leiomyosarcoma by presents for evaluation and further work up of Hyponatremia, generalized weakness, poor appetite and decreased urine output. Physical Exam: Vitals signs as noted above General Appearance:Moderately built and nourished, no apparent distress Head: normocephalic, Atraumatic Eyes: normal inspection, EOMI, PERRL Neck: supple, Trachea midline Respiratory/Chest: Normal breath sounds, CTA Cardiovascular: S1, S2, No murmur Abdomen/GI:Soft, Non tender, Bowel sounds present Extremities/Musculoskelatal:normal inspection, no edema Neurologic/Psych:grossly no focal neurological deficits, Chronic RLE weakness 4/ 5 Skin:normal color,warm, Surgical scar on abdomen healing Assessment and Plan: Hyposmolar Hyponatremia H/O chronic hyponatremia Likely worsened secondary to dehydration from poor oral intake Discussed with Nephrology Continue IV fluids Check Urine electrolytes monitor sodium levels Liberalize salt in diet Retroperitoneal leiomyosarcoma S/P Left Nephrectomy, Splenectomy and partial pancreatectomy S/P Radiation therapy prior to surgery Follows with at [facility] Planned for repeat CT scan in 4 months Thrombocytosis: Likely secondary to splenectomy worsened in setting of dehydration Monitor platelets My need Hemeonch follow up as OP DVT Px: Lovenox I personally reviewed the record. Patient is interviewed and examined at bedside. Patient's care is coordinated with Hyun Gerard [employer]. Please refer to the documentation above for details of patient's presentation and for discussion of other issues. VTE Prophylaxis VTE Risk Assessment Done? Y/N: Yes Risk Level: Moderate
[2017-01-20 19:36] VITALS: BP 160/86; PULSE 87; TEMP 36.9; O2SAT 99; Ht 160 cm; Wt 65.5 kg
[2017-01-20] MEDS: SODIUM CHLORIDE 0.9% 1000ML 1,000 ML IV SCH ×2 (19:39→23:31)
[2017-01-20 20:05] LABS: URINE APPEARANCE CLEAR (CLEAR); URINE BILIRUBIN NEG (NEG); URINE COLOR YELLOW; URINE EPITHELIAL CELL AUTO 20-30 /lpf (0-5); URINE NITRITE POS (NEG); URINE SPECIFIC GRAVITY 1.013 (1.000-1.030); UROBILINOGEN NEG (NEG); ZZURINE CULT IF INDIC CATH YES
[2017-01-20 20:08] LABS: MANUAL MICROSCOPIC REQUIRED? NO; REVIEW REQ? NO
[2017-01-20] MEDS: MAGNESIUM SULFATE 1GM / D5W 1 GM in PREMIXED IN D5W 100 ML IV SCH ×2 (20:45→21:50)
[2017-01-20 20:48] VITALS: BP 148/81; PULSE 87
[2017-01-20] MEDS: DOCUSATE SODIUM 100 MG CAP PO SCH (20:49)
[2017-01-20] MEDS: ASPIRIN 81 MG CHEW PO SCH (20:50)
[2017-01-20] MEDS: LOSARTAN POTASSIUM 50 MG TAB PO SCH (20:50)
[2017-01-20] MEDS: MAGNESIUM CHLORIDE 64MG DELAYED REL TAB PO SCH (20:51)
[2017-01-20] MEDS: ATORVASTATIN 10 MG TAB PO SCH (20:51)
[2017-01-20] MEDS: ENOXAPARIN 40 MG/0.4 ML SYR SC SCH (21:52)
[2017-01-20 23:41] VITALS: BP 120/68; PULSE 78; TEMP 36.5; O2SAT 95
[2017-01-21] VITALS (7 sets, daily range): BP systolic 112–157; BP diastolic 64–84; PULSE 80–108; TEMP 36.6–36.9; O2SAT 95–98
[2017-01-21 07:12] LABS: HEMATOCRIT 32.4 % (37-47); MEAN CELL VOLUME 86.4 fL (80-100); MEAN CORPUSCULAR HEMOGLOBIN 29.6 pg (25-34); MEAN CORPUSCULAR HGB CONC 34.3 g/dl (32-36); MEAN PLATELET VOLUME 8.3 fL (7.4-10.4); PLATELET COUNT 605 K/uL (130-400); RED BLOOD COUNT 3.75 M/uL (4.2-5.4); WHITE BLOOD COUNT 7.87 K/uL (4.8-10.8)
[2017-01-21 07:37] LABS: BUN/CREATININE RATIO 11.5 (10-20); CALCIUM 8.8 mg/dl (8.5-10.1); CREATININE 0.7 mg/dl (0.60-1.20); MAGNESIUM 1.7 mg/dl (1.8-2.4); POTASSIUM 3.7 mmol/L (3.5-5.1)
[2017-01-21] MEDS: MAGNESIUM CHLORIDE 64MG DELAYED REL TAB PO SCH ×3 (07:49→20:32)
[2017-01-21] MEDS: DILTIAZEM HCL 300 MG CAPCR PO SCH (07:49)
[2017-01-21] MEDS: DOCUSATE SODIUM 100 MG CAP PO SCH ×2 (07:49→20:34)
[2017-01-21] MEDS: LOSARTAN POTASSIUM 50 MG TAB PO SCH ×2 (07:50→20:33)
[2017-01-21] MEDS: MAGNESIUM SULFATE 1GM / D5W 1 GM in PREMIXED IN D5W 100 ML IV SCH ×2 (11:04→12:12)
--- NOTE | 2017-01-21 11:06 | Progress Note ---
Internal Med Progress Note Date of Service: Jan 21, 2017. Provider Documentation: SUBJECTIVE: Seen and examined at bedside States feeling better today but still has significant generalized weakness Denies chest pain, SOB, Urinary symptoms Offers no other complaints OBJECTIVE: Vital Signs-as noted below General Appearance:Moderately built and nourished, no apparent distress Head: normocephalic, Atraumatic Eyes: normal inspection, EOMI, PERRL Neck: supple, Trachea midline Respiratory/Chest: Normal breath sounds, CTA Cardiovascular: S1, S2, No murmur Abdomen/GI:Soft, Non tender, Bowel sounds present Extremities/Musculoskelatal:normal inspection, no edema Neurologic/Psych:grossly no focal neurological deficits, Chronic RLE weakness 4/ 5 Skin:normal color,warm, Surgical scar on abdomen healing Lab data as noted below. ASSESSMENT & PLAN: Patient is a 71 yr female with with PMH of leiomyosarcoma, HTN, chronic hyponatremia and other comorbidities who was recently discharged from [facility] after undergoing surgery for leiomyosarcoma by presents for evaluation and further work up of Hyponatremia, generalized weakness, poor appetite and decreased urine output. Hyposmolar Hyponatremia H/O chronic hyponatremia Likely worsened secondary to dehydration from poor oral intake Appreciate Nephrology help Continue IV fluids monitor sodium levels Liberalize salt in diet Urine sodium:41 UTI: Urine culture: gram negative bacilli Start IV Rocephin Follow up urine culture Hypomagnesemia: Chronic Replace and monitor Generalized weakness Likely Multifactorial TSH:wnl Check Ionized Ca++, Phosphorous H/O Retroperitoneal leiomyosarcoma S/P Left Nephrectomy, Splenectomy and partial pancreatectomy S/P Radiation therapy prior to surgery Follows with at [facility] Planned for repeat CT scan in 4 months Thrombocytosis: Likely secondary to splenectomy worsened in setting of dehydration Monitor platelets My need Hemeonch follow up as OP Improving HTN Continue Cardizem, losartan Lasix on hold CAD stable Denies chest pain 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, Statin DRUZE DVT Px SQ Lovenox DISPOSITION: Monitor in Tele May need SNF/Rehab placement Vital Signs: Date Time Temp Pulse Resp B/P (MAP) Pulse Ox O2 Delivery O2 Flow Rate FiO2 01/21/17 07:40 Room Air 01/21/17 07:38 36.9 81 18 151/76 (101) 98 01/21/17 04:00 Room Air 01/21/17 03:45 36.6 80 20 154/74 (100) 97 Room Air 90 157/77 (103) 88 118/73 (88) 01/21/17 00:00 Room Air 01/20/17 23:41 36.5 78 20 120/68 (85) 95 Room Air 01/20/17 20:48 87 148/81 (103) 01/20/17 20:00 Room Air 01/20/17 19:36 36.9 87 16 160/86 99 Room Air 01/20/17 18:14 87 16 145/80 96 01/20/17 16:40 82 16 173/81 97 Room Air 91 167/97 92 133/88 01/20/17 16:21 82 01/20/17 16:15 Room Air 01/20/17 16:15 Room Air 01/20/17 15:52 36.6 92 15 139/79 97 Room Air Lab Results: Results Past 24 Hours Test 01/20/17 16:10 01/20/17 16:29 01/20/17 19:30 01/20/17 19:49 Range/Units White Blood Count 7.17 4.8-10.8 K/uL Red Blood Count 3.79 4.2-5.4 M/uL Hemoglobin 11.5 12.0-16.0 g/dL Hematocrit 32.1 37-47 % Mean Corpuscular Volume 84.7 80-100 fL Mean Corpuscular Hemoglobin 30.3 25-34 pg Mean Corpuscular Hemoglobin Concent 35.8 32-36 g/dl Platelet Count 677 130-400 K/uL Mean Platelet Volume 8.8 7.4-10.4 fL Neutrophils (%) (Auto) 70.2 % Lymphocytes (%) (Auto) 12.8 % Monocytes (%) (Auto) 11.4 % Eosinophils (%) (Auto) 4.6 % Basophils (%) (Auto) 0.7 % Neutrophils # (Auto) 5.03 1.4-6.5 K/uL Lymphocytes # (Auto) 0.92 1.2-3.4 K/uL Monocytes # (Auto) 0.82 0.11-0.59 K/uL Eosinophils # (Auto) 0.33 0-0.5 K/uL Basophils # (Auto) 0.05 0-0.2 K/uL RDW Standard Deviation 40.2 36.4-46.3 fL RDW Coefficient of Variation 13.2 11.5-14.5 % Immature Granulocyte % (Auto) 0.3 % Immature Granulocyte # (Auto) 0.02 0.00-0.02 K/uL Prothrombin Time 10.6 9.0-12.0 SECONDS Prothromb Time International Ratio 1.0 0.9-1.1 Activated Partial Thromboplast Time 35.3 21.0-31.0 SECONDS Partial Thromboplastin Ratio 1.4 Sodium Level 118 136-145 mmol/L Potassium Level 4.0 3.5-5.1 mmol/L Chloride Level 81 98-107 mmol/L Carbon Dioxide Level 25 21-32 mmol/L Anion Gap 12.0 3-11 mmol/L Blood Urea Nitrogen 11 7-18 mg/dl Creatinine 0.86 0.60-1.20 mg/dl Est Creatinine Clear Calc Drug Dose 54.4 ml/min Estimated GFR () 79.3 Estimated GFR (Non- 68.4 BUN/Creatinine Ratio 12.8 10-20 Random Glucose 101 70-99 mg/dl Osmolality 247 280-300 mOsm/kg Calcium Level 9.4 8.5-10.1 mg/dl Magnesium Level 1.3 1.8-2.4 mg/dl Total Bilirubin 0.4 0.2-1 mg/dl Direct Bilirubin 0.2 0-0.2 mg/dl Aspartate Amino Transf (AST/SGOT) 37 15-37 U/L Alanine Aminotransferase (ALT/SGPT) 40 12-78 U/L Alkaline Phosphatase 196 45-117 U/L Troponin I < 0.015 0-0.045 ng/ml Pro-B-Type Natriuretic Peptide 242 0-900 pg/ml Total Protein 7.0 6.4-8.2 gm/dl Albumin 2.8 3.4-5.0 gm/dl Lipase 93 73-393 U/L Thyroid Stimulating Hormone (TSH) 2.000 0.300-4.500 uIu/ml Free Thyroxine 1.52 0.80-1.60 ng/dl Bedside Glucose 115 70-90 mg/dl Urine Color YELLOW Urine Appearance CLEAR CLEAR Urine pH 7.0 4.5-7.5 Urine Specific [place] 1.013 1.000-1.030 Urine Protein NEG NEG Urine Glucose (UA) NEG NEG Urine Ketones NEG NEG Urine Occult Blood NEG NEG Urine Nitrite POS NEG Urine Bilirubin NEG NEG Urine Urobilinogen NEG NEG Urine Leukocyte Esterase MODERATE NEG Urine WBC (Auto) 10-30 0-5 /hpf Urine RBC (Auto) 0-4 0-4 /hpf Urine Hyaline Casts (Auto) 1-5 0-5 /lpf Urine Epithelial Cells (Auto) 20-30 0-5 /lpf Urine Bacteria (Auto) NEG NEG Urine Osmolality 187 500-800 mOms/kg Urine Random Sodium 41 mEq/L Test 01/20/17 22:31 01/21/17 06:55 Range/Units Sodium Level 119 121 136-145 mmol/L White Blood Count 7.87 4.8-10.8 K/uL Red Blood Count 3.75 4.2-5.4 M/uL Hemoglobin 11.1 12.0-16.0 g/dL Hematocrit 32.4 37-47 % Mean Corpuscular Volume 86.4 80-100 fL Mean Corpuscular Hemoglobin 29.6 25-34 pg Mean Corpuscular Hemoglobin Concent 34.3 32-36 g/dl RDW Standard Deviation 41.9 36.4-46.3 fL RDW Coefficient of Variation 13.2 11.5-14.5 % Platelet Count 605 130-400 K/uL Mean Platelet Volume 8.3 7.4-10.4 fL Potassium Level 3.7 3.5-5.1 mmol/L Chloride Level 87 98-107 mmol/L Carbon Dioxide Level 27 21-32 mmol/L Anion Gap 7.0 3-11 mmol/L Blood Urea Nitrogen 8 7-18 mg/dl Creatinine 0.70 0.60-1.20 mg/dl Est Creatinine Clear Calc Drug Dose 69.5 ml/min Estimated GFR () 101.7 Estimated GFR (Non- 87.8 BUN/Creatinine Ratio 11.5 10-20 Random Glucose 112 70-99 mg/dl Calcium Level 8.8 8.5-10.1 mg/dl Magnesium Level 1.7 1.8-2.4 mg/dl Microbiology Results 01/20/17 Urine Culture - Preliminary, Resulted Gram Negative Bacilli
--- NOTE | 2017-01-21 12:24 | Nephrology Consultation ---
Nephrology Consultation Date of Consultation: Jan 21, 2017. Attending Physician: Dr Ayala Requesting Physician: Dr Ayala Reason for Consultation: Acute on chronic hyponatremia History of Present Illness 71 year old female sent to ER for admission yesterday afternoon on my advice after outpt surveillance labs showed sNa 118, an exacerbation of chronic problem x years for her including prior to recent surgery. Other PMH includes retroperitoneal resection at [facility] preceded by 3 mos of XRT, HTN, ASCVD, CAD, HL, OA. Admitted [facility] 07/2016 for sNa 123, w/ concern for dehydration. She struggles chronically to maintain po intake and this has worsened after recent surgery and contributed to intermittent hypomagnesemia as well. 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 Since surgery her appetite has been even worse than usual and ongoing generalized weakness. She was started on NS yesterday evening at 80 mL hourly and sNa this am is 121. SNa has been running in mid 120s during much of 01/2017 > she was d/c from [facility] on 01/03 after surgery and sent to [facility]. Was d/c'd on prednisone 10 mg daily from [facility] on recommendation of rheumatology after eval for weakness; neurology also saw pt at that admission as well for same issue. D/c sNa from [facility] was 128. Steroids have since been stopped; pt unsure when and records available do not support. Presenting Razia yesterday 41;, uOsm 187. Her biggest complaint is profound generalized weakness; no N/D; + constipation; no CARLOS, malaise. Past Medical/Surgical History Medical Problems: (1) Hypernatremia Status: Acute (2) Hypomagnesemia Status: Acute (3) Weakness Status: Acute Family History Hypertension BROTHER BROTHER Social History Smoking Status: Never Smoker Alcohol Use: none Marital Status: Housing Status: lives with family Allergies Coded Allergies: Nickel (Verified Allergy, Unknown, RASH, 01/20/17) Medications Current Inpatient Medications Medications (Trade) Dose Ordered Sig/Ana Route Start Time Stop Time Status Last Admin Dose Admin Enoxaparin Sodium (Lovenox Inj) 40 mg Q24H SC 01/20/17 21:00 02/19/17 20:59 01/20/17 21:52 40 MG Acetaminophen (Tylenol Tab) 650 mg Q4H PRN PO 01/20/17 17:15 02/19/17 17:14 Ondansetron HCl (Zofran Inj) 4 mg Q6H PRN IV 01/20/17 17:15 02/19/17 17:14 Docusate Sodium (coLACE CAP) 100 mg BID PO 01/20/17 21:00 02/19/17 20:59 01/21/17 07:49 100 MG Sodium Chloride 1,000 ml @ 80 mls/hr [id number] IV 01/20/17 17:15 02/19/17 17:14 01/20/17 23:31 80 MLS/HR Aspirin (Aspirin Chew) 81 mg QPM PO 01/20/17 21:00 02/19/17 20:59 01/20/17 20:50 81 MG Atorvastatin Calcium (Lipitor Tab) 10 mg HS PO 01/20/17 21:00 02/19/17 20:59 01/20/17 20:51 10 MG Diltiazem HCl (Cardizem Cd Cap) 300 mg DAILY PO 01/21/17 09:00 02/20/17 08:59 01/21/17 07:49 300 MG Losartan Potassium (coZAAR TAB) 50 mg BID PO 01/20/17 21:00 02/19/17 20:59 01/21/17 07:50 50 MG Magnesium Chloride (Slow-Mag Tab) 64 mg TID PO 01/20/17 21:00 02/19/17 20:59 01/21/17 07:49 64 MG Home Meds and Scripts Medications Dose Route/Sig Max Daily Dose Days Date Category Dose Instructions Tylenol (Acetaminophen) 500 Mg Tab 500 Mg PO Q6 PRN 01/20/17 Reported Zofran (Ondansetron HCl) 8 Mg Tab 8 Mg PO TID PRN 01/20/17 Reported Cartia Xt (Diltiazem Hcl Coated Beads) 300 Mg Cap 300 Mg PO DAILY 01/20/17 Reported Prilosec (Omeprazole) 20 Mg Capcr 20 Mg PO DAILY PRN 01/20/17 Reported Lipitor (Atorvastatin Calcium) 10 Mg Tab 1 Tab PO HS 30 10/24/16 Reported Lasix (Furosemide) 20 Mg Tab 1 Tab PO DAILY 90 10/10/16 Reported unsure if taking Triamcinolone Acetonide (Triamcinolone Acet) 45 Appln/15 Gm Cr 1 Appln TOP BID PRN 30 09/21/16 Reported 0.1% cream Clindamycin Phosphate (Clindamycin Phosphate (Topical) 1 % Gel 1 Appln TOP DAILY PRN 30 09/21/16 Reported Metrocream (Metronidazole (Topical)) 0.75 % Cre 1 Appln TOP BID PRN 09/21/16 Reported [Premarin Cream] 1 Appln PV WK 09/21/16 Reported 0.625mg/gm vaginal cream Cozaar (Losartan Potassium) 50 Mg Tab 50 Mg PO BID 07/14/16 Reported Aspirin Chewable (Aspirin) 81 Mg Chew 81 Mg PO QPM 07/06/12 Reported Review of Systems Constitutional: + see HPI, + weakness, + fatigue Eyes: No worsening of vision ENT: No hearing loss, No sore throat, No trouble swallowing Respiratory: No cough, No wheezing, No shortness of breath Cardiac: No chest pain, No orthopnea, No edema, No palpitations Abdomen: + see HPI, + constipation, No pain, No nausea, No vomiting, No diarrhea Musculoskeletal: No joint pain, No muscle pain Female : No dysuria, No urinary frequency, No hematuria Neuro: + weakness, + balance problems (unable prior to admission at home last week to ambulate to bathroom w/o assist), No memory loss, No numbness/tingling Psych: No depression symptoms, No anxiety Heme: No abnormal bleeding/bruising Endo: + fatigue, No excessive urination Skin: No rash, No new/changing skin lesions Physical Exam Date Time Temp Pulse Resp B/P (MAP) Pulse Ox O2 Delivery O2 Flow Rate FiO2 01/21/17 07:40 Room Air 01/21/17 07:38 36.9 81 18 151/76 (101) 98 01/21/17 04:00 Room Air 01/21/17 03:45 36.6 80 20 154/74 (100) 97 Room Air 90 157/77 (103) 88 118/73 (88) 01/21/17 00:00 Room Air 01/20/17 23:41 36.5 78 20 120/68 (85) 95 Room Air 01/20/17 20:48 87 148/81 (103) 01/20/17 20:00 Room Air 01/20/17 19:36 36.9 87 16 160/86 99 Room Air 01/20/17 18:14 87 16 145/80 96 01/20/17 16:40 82 16 173/81 97 Room Air 91 167/97 92 133/88 01/20/17 16:21 82 01/20/17 16:15 Room Air 01/20/17 16:15 Room Air 01/20/17 15:52 36.6 92 15 139/79 97 Room Air General Appearance: WD/WN, no apparent distress (on RA) Eyes: EOMI ENT: hearing grossly normal, + pertinent finding (dry mm) Neck: supple Respiratory/Chest: lungs clear, normal breath sounds, no respiratory distress Cardiovascular: regular rate, rhythm, no edema Abdomen: normal bowel sounds, non tender, soft, + pertinent finding (miles w/ ample urine) Extremities: non-tender, no pedal edema Neurologic/Psych: no motor/sensory deficits, alert, normal mood/affect, oriented x 3, + motor weakness (clearly takes effort to hold her head up during interview) Skin: normal color, no jaundice Diagnostics Last 24 Hours Test 01/20/17 16:10 01/20/17 16:29 01/20/17 19:30 01/20/17 19:49 White Blood Count 7.17 K/uL Red Blood Count 3.79 M/uL Hemoglobin 11.5 g/dL Hematocrit 32.1 % Mean Corpuscular Volume 84.7 fL Mean Corpuscular Hemoglobin 30.3 pg Mean Corpuscular Hemoglobin Concent 35.8 g/dl Platelet Count 677 K/uL Mean Platelet Volume 8.8 fL Neutrophils (%) (Auto) 70.2 % Lymphocytes (%) (Auto) 12.8 % Monocytes (%) (Auto) 11.4 % Eosinophils (%) (Auto) 4.6 % Basophils (%) (Auto) 0.7 % Neutrophils # (Auto) 5.03 K/uL Lymphocytes # (Auto) 0.92 K/uL Monocytes # (Auto) 0.82 K/uL Eosinophils # (Auto) 0.33 K/uL Basophils # (Auto) 0.05 K/uL RDW Standard Deviation 40.2 fL RDW Coefficient of Variation 13.2 % Immature Granulocyte % (Auto) 0.3 % Immature Granulocyte # (Auto) 0.02 K/uL Prothrombin Time 10.6 SECONDS Prothromb Time International Ratio 1.0 Activated Partial Thromboplast Time 35.3 SECONDS Partial Thromboplastin Ratio 1.4 Sodium Level 118 mmol/L Potassium Level 4.0 mmol/L Chloride Level 81 mmol/L Carbon Dioxide Level 25 mmol/L Anion Gap 12.0 mmol/L Blood Urea Nitrogen 11 mg/dl Creatinine 0.86 mg/dl Est Creatinine Clear Calc Drug Dose 54.4 ml/min Estimated GFR () 79.3 Estimated GFR (Non- 68.4 BUN/Creatinine Ratio 12.8 Random Glucose 101 mg/dl Osmolality 247 mOsm/kg Calcium Level 9.4 mg/dl Magnesium Level 1.3 mg/dl Total Bilirubin 0.4 mg/dl Direct Bilirubin 0.2 mg/dl Aspartate Amino Transf (AST/SGOT) 37 U/L Alanine Aminotransferase (ALT/SGPT) 40 U/L Alkaline Phosphatase 196 U/L Troponin I < 0.015 ng/ml Pro-B-Type Natriuretic Peptide 242 pg/ml Total Protein 7.0 gm/dl Albumin 2.8 gm/dl Lipase 93 U/L Thyroid Stimulating Hormone (TSH) 2.000 uIu/ml Free Thyroxine 1.52 ng/dl Bedside Glucose 115 mg/dl Urine Color YELLOW Urine Appearance CLEAR Urine pH 7.0 Urine Specific Palmer 1.013 Urine Protein NEG Urine Glucose (UA) NEG Urine Ketones NEG Urine Occult Blood NEG Urine Nitrite POS Urine Bilirubin NEG Urine Urobilinogen NEG Urine Leukocyte Esterase MODERATE Urine WBC (Auto) 10-30 /hpf Urine RBC (Auto) 0-4 /hpf Urine Hyaline Casts (Auto) 1-5 /lpf Urine Epithelial Cells (Auto) 20-30 /lpf Urine Bacteria (Auto) NEG Urine Osmolality 187 mOms/kg Urine Random Sodium 41 mEq/L Test 01/20/17 22:31 01/21/17 06:55 Sodium Level 119 mmol/L 121 mmol/L White Blood Count 7.87 K/uL Red Blood Count 3.75 M/uL Hemoglobin 11.1 g/dL Hematocrit 32.4 % Mean Corpuscular Volume 86.4 fL Mean Corpuscular Hemoglobin 29.6 pg Mean Corpuscular Hemoglobin Concent 34.3 g/dl RDW Standard Deviation 41.9 fL RDW Coefficient of Variation 13.2 % Platelet Count 605 K/uL Mean Platelet Volume 8.3 fL Potassium Level 3.7 mmol/L Chloride Level 87 mmol/L Carbon Dioxide Level 27 mmol/L Anion Gap 7.0 mmol/L Blood Urea Nitrogen 8 mg/dl Creatinine 0.70 mg/dl Est Creatinine Clear Calc Drug Dose 69.5 ml/min Estimated GFR () 101.7 Estimated GFR (Non- 87.8 BUN/Creatinine Ratio 11.5 Random Glucose 112 mg/dl Calcium Level 8.8 mg/dl Magnesium Level 1.7 mg/dl Diagnostic Radiology: CXR > no acute cardiopulmonary disease Assessment & Plan 71 y/o F w/ longstanding chronic hyponatremia, HTN, chronic hypomagnesemia 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, excision tail of pancreas admitted 12/20 for sNa outpt 118 and w/ profound generalized weakness acute on chronic hypotonic hyponatremia w/ chronic hypomagnesemia most consistent with volume depletion though relative excess of water intake w/ uOsm 187 a role as well; in setting of profound weakness, recent adrenalectomy and steroid therapy now stopped need to consider adrenal insuffficiency -sNa improving at acceptable rate > goal sNa for 01/22 am is 127 -would not be in hurry to d/c pt unless sNa maintained on po meds x 24-48 hrs -cont NS at 80 mL hourly -no indication at this time for 24 hr urine -check bmp and mag again 2000 today urgent but also at 1300 check bmp, tsh, phos , ionized Ca -offer protein supplements/solute rich diet <<protein shakes do not count toward fluid limit; d/w hospitalist importance of clarifying her diet prior to admission > currently on liquid diet and would advance as tolerated -2L fluid limit << mostly in interest of preventing low solute diet >>>do not believe she has acute adrenal insufficiency or needs urgent steroids though would consider this dx if she decompensates suddenly; would instead in am tomorrow check basal cortisol, plasma acth w/ am labs; then give 250 mcg IV cosyntropin and repeat cortisol 30-60 min after cosyntropin done; I will enter these orders Appreciate consult; will follow with you. Care coordinated w/ Dr Ayala.
[2017-01-21] MEDS: CEFTRIAXONE SOD INJ 1 GM in DEXTROSE 5% ADD-VANTAGE 50ML 50 ML IV SCH (13:29)
[2017-01-21 14:12] LABS: BUN/CREATININE RATIO 8.5 (10-20); CALCIUM 8.9 mg/dl (8.5-10.1); CREATININE 0.89 mg/dl (0.60-1.20); PHOSPHORUS 2.5 mg/dl (2.5-4.9); POTASSIUM 3.9 mmol/L (3.5-5.1)
[2017-01-21] MEDS ORDERED: FUROSEMIDE INJ 30 MG in SYRINGE 0 ML IV STA (15:20)
[2017-01-21] MEDS: SODIUM CHLORIDE 0.9% 1000ML 1,000 ML IV SCH ×2 (16:17→21:06)
[2017-01-21] MEDS ORDERED: LORAZEPAM 0.5 MG TAB PO ONE (20:15)
[2017-01-21] MEDS ORDERED: POLYETHYLENE (MIRALAX) 17 GM PACK PO PRN (20:15)
[2017-01-21] MEDS ORDERED: POLYETHYLENE (MIRALAX) 17 GM PACK PO ONE (20:15)
[2017-01-21] MEDS: ATORVASTATIN 10 MG TAB PO SCH (20:34)
[2017-01-21] MEDS: ASPIRIN 81 MG CHEW PO SCH (21:01)
[2017-01-21] MEDS: ENOXAPARIN 40 MG/0.4 ML SYR SC SCH (21:05)
[2017-01-21 21:31] LABS: BUN/CREATININE RATIO 9.8 (10-20); CALCIUM 8.6 mg/dl (8.5-10.1); CREATININE 0.85 mg/dl (0.60-1.20); MAGNESIUM 1.6 mg/dl (1.8-2.4); POTASSIUM 3.4 mmol/L (3.5-5.1)
[2017-01-21] MEDS ORDERED: POTASSIUM CHLORIDE 10 MEQ TABCR PO STA (23:00)
[2017-01-21] MEDS ORDERED: MAGNESIUM SULFATE 1GM / D5W 1 GM in PREMIXED IN D5W 100 ML IV ONE (23:15)
[2017-01-22] VITALS (11 sets, daily range): BP systolic 88–151; BP diastolic 57–82; PULSE 88–121; TEMP 36.3–37.1; O2SAT 95–100
[2017-01-22] MEDS ORDERED: POTASSIUM CHLORIDE 20 MEQ TABCR PO ONE (00:33)
[2017-01-22] MEDS: FUROSEMIDE INJ 30 MG in SYRINGE 0 ML IV SCH ×8 (01:15→22:02)
[2017-01-22] MEDS: SODIUM CHLORIDE 0.9% 1000ML 1,000 ML IV SCH (05:36)
[2017-01-22] MEDS ORDERED: COSYNTROPIN INJ 0.25 MCG in SYRINGE 4 ML IV ONE (08:15)
[2017-01-22 08:48] LABS: BUN/CREATININE RATIO 9.6 (10-20); CALCIUM 9.3 mg/dl (8.5-10.1); CREATININE 0.78 mg/dl (0.60-1.20); MAGNESIUM 1.7 mg/dl (1.8-2.4); POTASSIUM 4.3 mmol/L (3.5-5.1)
--- NOTE | 2017-01-22 12:15 | Progress Note ---
Internal Med Progress Note Date of Service: Jan 22, 2017. Provider Documentation: SUBJECTIVE: Seen and examined at bedside Reports still feels tired Has some musculoskeletal abd discomfort Denies chest pain, SOB Reports constipation Family at bedside OBJECTIVE: Vital Signs-as noted below General Appearance:Moderately built and nourished, no apparent distress Head: normocephalic, Atraumatic Eyes: normal inspection, EOMI, PERRL Neck: supple, Trachea midline Respiratory/Chest: Normal breath sounds, CTA Cardiovascular: S1, S2, No murmur Abdomen/GI:Soft, Non tender, Bowel sounds present Extremities/Musculoskelatal:normal inspection, no edema Neurologic/Psych:grossly no focal neurological deficits, Chronic RLE weakness 4/ 5 Skin:normal color,warm, Surgical scar on abdomen healing Lab data as noted below. ASSESSMENT & PLAN: Patient is a 71 yr female with with PMH of leiomyosarcoma, HTN, chronic hyponatremia and other comorbidities who was recently discharged from [facility] after undergoing surgery for leiomyosarcoma by presents for evaluation and further work up of Hyponatremia, generalized weakness, poor appetite and decreased urine output. Hyposmolar Hyponatremia H/O chronic hyponatremia Likely worsened secondary to dehydration Appreciate Nephrology help Continue IV fluids monitor sodium levels Liberalize salt in diet Urine sodium:41 Sodium levels:123 Receiving IV lasix today Adrenal Insufficiency work up pending UTI: Urine culture: gram negative bacilli Continue IV Rocephin Day # 2 Urine culture:E.coli Hypomagnesemia: Chronic Replace and monitor Generalized weakness Likely Multifactorial TSH:wnl Ionized Ca, Phos: wnl H/O Retroperitoneal leiomyosarcoma S/P Left Nephrectomy, Splenectomy and partial pancreatectomy S/P Radiation therapy prior to surgery Follows with at [facility] Planned for repeat CT scan in 4 months Thrombocytosis: Likely secondary to splenectomy worsened in setting of dehydration Monitor platelets My need Heme onch follow up as OP HTN Continue Cardizem, losartan Getting IV lasix Po lasix on hold CAD stable Denies chest pain 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, Statin CONGREGATION DVT Px SQ Lovenox DISPOSITION: Monitor in Tele May need SNF/Rehab placement Vital Signs: Date Time Temp Pulse Resp B/P (MAP) Pulse Ox O2 Delivery O2 Flow Rate FiO2 01/22/17 11:26 36.7 95 17 147/82 (103) 98 Room Air 01/22/17 08:17 104 20 95/61 (72) 96 Room Air 01/22/17 08:16 103 18 134/81 (98) 97 Room Air 01/22/17 08:13 36.8 94 18 122/73 (89) 99 Room Air 01/22/17 08:00 Room Air 01/22/17 04:00 Room Air 01/22/17 03:47 36.6 88 20 145/69 (94) 98 Room Air 104 137/78 (97) 120 107/59 (75) 01/22/17 00:19 36.6 88 18 131/76 (94) 95 Room Air 01/21/17 23:30 Room Air 01/21/17 20:00 95 Room Air 01/21/17 19:27 36.7 93 18 146/82 (103) 95 Room Air Oxymask 01/21/17 16:31 36.7 88 16 130/69 (89) 97 Room Air 144/78 (100) 112/70 (84) 01/21/17 16:00 97 Room Air Lab Results: Results Past 24 Hours Test 01/21/17 13:04 01/21/17 20:53 01/22/17 07:49 Range/Units Sodium Level 118 121 123 136-145 mmol/L Potassium Level 3.9 3.4 4.3 3.5-5.1 mmol/L Chloride Level 86 87 89 98-107 mmol/L Carbon Dioxide Level 23 25 26 21-32 mmol/L Anion Gap 9.0 9.0 8.0 3-11 mmol/L Blood Urea Nitrogen 8 8 8 7-18 mg/dl Creatinine 0.89 0.85 0.78 0.60-1.20 mg/dl Est Creatinine Clear Calc Drug Dose 54.6 57.2 61.3 ml/min Estimated GFR () 76.1 80.5 89.3 Estimated GFR (Non- 65.7 69.4 77.0 BUN/Creatinine Ratio 8.5 9.8 9.6 10-20 Random Glucose 143 130 125 70-99 mg/dl Calcium Level 8.9 8.6 9.3 8.5-10.1 mg/dl Ionized Calcium 1.14 1.12-1.32 mmol/l Phosphorus Level 2.5 2.5-4.9 mg/dl Chemistry Specimen Hemolysis Magnesium Level 1.6 1.7 1.8-2.4 mg/dl Cortisol Response to Stimulation Cortisol Baseline
[2017-01-22] MEDS ORDERED: MAGNESIUM SULFATE 1GM / D5W 1 GM in PREMIXED IN D5W 100 ML IV ONE (12:30)
[2017-01-22] MEDS: CEFTRIAXONE SOD INJ 1 GM in DEXTROSE 5% ADD-VANTAGE 50ML 50 ML IV SCH (12:32)
[2017-01-22] MEDS: POTASSIUM CHLORIDE 20 MEQ TABCR PO SCH ×2 (12:33→20:01)
[2017-01-22] MEDS: DOCUSATE SODIUM 100 MG CAP PO SCH ×2 (12:33→20:00)
[2017-01-22] MEDS: DILTIAZEM HCL 300 MG CAPCR PO SCH (12:34)
[2017-01-22] MEDS: MAGNESIUM CHLORIDE 64MG DELAYED REL TAB PO SCH ×3 (12:34→20:00)
[2017-01-22] MEDS: LOSARTAN POTASSIUM 50 MG TAB PO SCH (12:34)
--- NOTE | 2017-01-22 16:11 | Nephrology Progress Note ---
Nephrology Progress Note Date of Service: Jan 22, 2017. Subjective NS rate upped and started on lasix yesterday d/t worsening sodium back down to 118; at bedside today; 4L negative today; weaker though and ongoing hypotension intermittently/consistently w/ orthostasis; adrenal insufficiency labs show no adrenal insufficiency Objective Date Time Temp Pulse Resp B/P (MAP) Pulse Ox O2 Delivery O2 Flow Rate FiO2 01/22/17 12:00 Room Air 01/22/17 11:26 36.7 95 17 147/82 (103) 98 Room Air 01/22/17 08:17 104 20 95/61 (72) 96 Room Air 01/22/17 08:16 103 18 134/81 (98) 97 Room Air 01/22/17 08:13 36.8 94 18 122/73 (89) 99 Room Air 01/22/17 08:00 Room Air 01/22/17 04:00 Room Air 01/22/17 03:47 36.6 88 20 145/69 (94) 98 Room Air 104 137/78 (97) 120 107/59 (75) 01/22/17 00:19 36.6 88 18 131/76 (94) 95 Room Air 01/21/17 23:30 Room Air 01/21/17 20:00 95 Room Air 01/21/17 19:27 36.7 93 18 146/82 (103) 95 Room Air Oxymask 01/21/17 16:31 36.7 88 16 130/69 (89) 97 Room Air 144/78 (100) 112/70 (84) 01/21/17 16:00 97 Room Air Physical Exam: General Appearance: WD/WN, no apparent distress (on RA), very tired appearing, 2 person assist to sit up in bed Eyes: EOMI ENT: hearing grossly normal, + pertinent finding (dry mm) Neck: supple Respiratory/Chest: lungs clear, normal breath sounds, no respiratory distress Cardiovascular: regular rate, rhythm, no edema Abdomen: normal bowel sounds, non tender, soft, + pertinent finding (miles w/ ample urine) Extremities: non-tender, no pedal edema Neurologic/Psych: no motor/sensory deficits, alert, normal mood/affect, oriented x 3, + motor weakness (clearly takes effort to move during interview) Skin: normal color, no jaundice Current Inpatient Medications Medications (Trade) Dose Ordered Sig/Ana Route Start Time Stop Time Status Last Admin Dose Admin Enoxaparin Sodium (Lovenox Inj) 40 mg Q24H SC 01/20/17 21:00 02/19/17 20:59 01/21/17 21:05 40 MG Acetaminophen (Tylenol Tab) 650 mg Q4H PRN PO 01/20/17 17:15 02/19/17 17:14 Ondansetron HCl (Zofran Inj) 4 mg Q6H PRN IV 01/20/17 17:15 02/19/17 17:14 Docusate Sodium (coLACE CAP) 100 mg BID PO 01/20/17 21:00 02/19/17 20:59 01/22/17 12:33 100 MG Sodium Chloride 1,000 ml @ 125 mls/hr Q8H IV 01/20/17 17:15 02/19/17 17:14 01/22/17 05:36 125 MLS/HR Aspirin (Aspirin Chew) 81 mg QPM PO 01/20/17 21:00 02/19/17 20:59 01/21/17 21:01 81 MG Atorvastatin Calcium (Lipitor Tab) 10 mg HS PO 01/20/17 21:00 02/19/17 20:59 01/21/17 20:34 10 MG Diltiazem HCl (Cardizem Cd Cap) 300 mg DAILY PO 01/21/17 09:00 02/20/17 08:59 01/22/17 12:34 300 MG Losartan Potassium (coZAAR TAB) 50 mg BID PO 01/20/17 21:00 02/19/17 20:59 01/22/17 12:34 50 MG Magnesium Chloride (Slow-Mag Tab) 64 mg TID PO 01/20/17 21:00 02/19/17 20:59 01/22/17 12:34 64 MG Ceftriaxone Sodium 1 gm/ Dextrose 50 ml @ 100 mls/hr DAILY@1200 IV 01/21/17 12:00 01/26/17 11:59 01/22/17 12:32 100 MLS/HR Polyethylene (Miralax Powder Packet) 17 gm DAILY PRN PO 01/21/17 20:15 02/20/17 20:14 Furosemide 30 mg/ Syringe 3 ml @ 4 mls/min Q3H IV 01/22/17 01:00 02/21/17 00:44 01/22/17 12:35 4 MLS/MIN Potassium Chloride (Klor-Con Tab) 40 meq BID PO 01/22/17 09:00 02/21/17 08:59 01/22/17 12:33 40 MEQ Last 24 Hours Test 01/21/17 20:53 01/22/17 07:49 Sodium Level 121 mmol/L 123 mmol/L Potassium Level 3.4 mmol/L 4.3 mmol/L Chloride Level 87 mmol/L 89 mmol/L Carbon Dioxide Level 25 mmol/L 26 mmol/L Anion Gap 9.0 mmol/L 8.0 mmol/L Blood Urea Nitrogen 8 mg/dl 8 mg/dl Creatinine 0.85 mg/dl 0.78 mg/dl Est Creatinine Clear Calc Drug Dose 57.2 ml/min 61.3 ml/min Estimated GFR () 80.5 89.3 Estimated GFR (Non- 69.4 77.0 BUN/Creatinine Ratio 9.8 9.6 Random Glucose 130 mg/dl 125 mg/dl Calcium Level 8.6 mg/dl 9.3 mg/dl Magnesium Level 1.6 mg/dl 1.7 mg/dl Cortisol Response to Stimulation Cortisol Baseline Assessment & Plan 71 y/o F w/ longstanding chronic hyponatremia, HTN, chronic hypomagnesemia 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, excision tail of pancreas admitted 12/20 for sNa outpt 118 and w/ profound generalized weakness acute on chronic hypotonic hyponatremia w/ chronic hypomagnesemia most consistent with volume depletion though relative excess of water intake w/ uOsm 187 a role as well; in setting of profound weakness, recent adrenalectomy and steroid therapy now stopped; cosyntropin stim tests shows no adrenal insuffficiency -sNa worsened yesterday evening , improving this am at acceptable rate > goal sNa for 01/23 am is 128 -would not be in hurry to d/c pt unless sNa maintained on po meds x 24-48 hrs -with acutely worsening weakness, recheck stat labs now; she is already 4L negative; next bmp to depend on results of this one -cont NS at 125 mL hourly, cont 30 mg lasix q3h -offer protein supplements/solute rich diet <<protein shakes do not count toward fluid limit -2L fluid limit << mostly in interest of preventing low solute diet -given worsening generalized weakness, low threshold to continue neurology eval started at [facility] Appreciate consult; will follow with you. Care coordinated w/ Dr Ayala.
[2017-01-22 17:35] LABS: CALCIUM 9.6 mg/dl (8.5-10.1); CREATININE 1.2 mg/dl (0.60-1.20); POTASSIUM 3.8 mmol/L (3.5-5.1)
[2017-01-22] MEDS: NSS + 20MEQ KCL 1000ML 1,000 ML IV SCH (19:49)
[2017-01-22] MEDS: ATORVASTATIN 10 MG TAB PO SCH (20:01)
[2017-01-22] MEDS: ENOXAPARIN 40 MG/0.4 ML SYR SC SCH (20:02)
[2017-01-22] MEDS: ASPIRIN 81 MG CHEW PO SCH (20:02)
[2017-01-23] VITALS (14 sets, daily range): BP systolic 120–165; BP diastolic 72–82; PULSE 82–97; TEMP 36.4–37.1; O2SAT 93–100
[2017-01-23] MEDS: NSS + 20MEQ KCL 1000ML 1,000 ML IV SCH ×4 (00:50→17:10)
[2017-01-23] MEDS: ACETAMINOPHEN 325 MG TAB PO PRN ×2 (00:52→04:41)
[2017-01-23] MEDS: FUROSEMIDE INJ 30 MG in SYRINGE 0 ML IV SCH ×7 (00:52→22:32)
--- NOTE | 2017-01-23 05:08 | Progress Note ---
Internal Med Progress Note Date of Service: Jan 23, 2017. Provider Documentation: Made aware by RN of bradycardic episode, sinus pause during episode of emesis. AP Transient bradycardia, probable vaso-vagal reaction Check lytes Atropine when necessary We relay to AM provider. Vital Signs: Date Time Temp Pulse Resp B/P (MAP) Pulse Ox O2 Delivery O2 Flow Rate FiO2 01/23/17 06:41 82 120/72 (88) 01/23/17 05:15 87 129/76 (93) 01/23/17 04:00 96 Room Air 01/23/17 03:50 37.0 92 17 147/80 (102) 96 Room Air 01/23/17 00:49 97 136/75 (95) 01/22/17 23:59 100 Room Air 01/22/17 23:59 37.1 98 16 89/61 (70) 98 105 135/81 (99) 121 151/82 (105) 01/22/17 20:00 100 Room Air 01/22/17 19:50 100 16 150/76 (100) 100 Room Air 01/22/17 19:07 37.1 109 22 129/73 (91) 97 Room Air 01/22/17 16:00 Room Air 01/22/17 15:38 36.3 110 18 88/57 (67) 97 Room Air 01/22/17 12:00 Room Air 01/22/17 11:26 36.7 95 17 147/82 (103) 98 Room Air 01/22/17 08:17 104 20 95/61 (72) 96 Room Air 01/22/17 08:16 103 18 134/81 (98) 97 Room Air 01/22/17 08:13 36.8 94 18 122/73 (89) 99 Room Air 01/22/17 08:00 Room Air Lab Results: Results Past 24 Hours Test 01/22/17 07:49 01/22/17 16:00 01/22/17 16:15 01/23/17 05:54 Range/Units Sodium Level 123 125 126 136-145 mmol/L Potassium Level 4.3 3.8 4.3 3.5-5.1 mmol/L Chloride Level 89 87 92 98-107 mmol/L Carbon Dioxide Level 26 26 26 21-32 mmol/L Anion Gap 8.0 12.0 8.0 3-11 mmol/L Blood Urea Nitrogen 8 8 9 7-18 mg/dl Creatinine 0.78 1.20 0.89 0.60-1.20 mg/dl Est Creatinine Clear Calc Drug Dose 61.3 39.9 53.3 ml/min Estimated GFR () 89.3 53.0 76.1 Estimated GFR (Non- 77.0 45.8 65.7 BUN/Creatinine Ratio 9.6 7.0 10.4 10-20 Random Glucose 125 152 128 70-99 mg/dl Calcium Level 9.3 9.6 9.7 8.5-10.1 mg/dl Magnesium Level 1.7 2.0 1.5 1.8-2.4 mg/dl Cortisol Response to Stimulation Cortisol Baseline Urine Osmolality 281 500-800 mOms/kg Urine Random Sodium 86 mEq/L White Blood Count 8.80 4.8-10.8 K/uL Red Blood Count 3.60 4.2-5.4 M/uL Hemoglobin 11.0 12.0-16.0 g/dL Hematocrit 31.2 37-47 % Mean Corpuscular Volume 86.7 80-100 fL Mean Corpuscular Hemoglobin 30.6 25-34 pg Mean Corpuscular Hemoglobin Concent 35.3 32-36 g/dl Platelet Count 548 130-400 K/uL Mean Platelet Volume 8.2 7.4-10.4 fL Neutrophils (%) (Auto) 73.7 % Lymphocytes (%) (Auto) 11.5 % Monocytes (%) (Auto) 12.6 % Eosinophils (%) (Auto) 1.1 % Basophils (%) (Auto) 0.5 % Neutrophils # (Auto) 6.49 1.4-6.5 K/uL Lymphocytes # (Auto) 1.01 1.2-3.4 K/uL Monocytes # (Auto) 1.11 0.11-0.59 K/uL Eosinophils # (Auto) 0.10 0-0.5 K/uL Basophils # (Auto) 0.04 0-0.2 K/uL RDW Standard Deviation 43.0 36.4-46.3 fL RDW Coefficient of Variation 13.5 11.5-14.5 % Immature Granulocyte % (Auto) 0.6 % Immature Granulocyte # (Auto) 0.05 0.00-0.02 K/uL
[2017-01-23] MEDS ORDERED: ATROPINE SULFATE 0.1 MG/ML 5ML SYR IV PRN (06:00)
[2017-01-23 06:08] LABS: BASO % 0.5 %; BASO ABS # 0.04 K/uL (0-0.2); EOS % 1.1 %; HEMATOCRIT 31.2 % (37-47); IG% 0.6 %; LYMPH % 11.5 %; LYMPH ABS # 1.01 K/uL (1.2-3.4); MEAN CELL VOLUME 86.7 fL (80-100); MEAN CORPUSCULAR HEMOGLOBIN 30.6 pg (25-34); MEAN PLATELET VOLUME 8.2 fL (7.4-10.4); MONO % 12.6 %; NEUT % 73.7 %; PLATELET COUNT 548 K/uL (130-400)
[2017-01-23 06:20] LABS: COMPLETE YES; MEAN CORPUSCULAR HGB CONC 35.3 g/dl (32-36)
[2017-01-23 06:36] LABS: BUN/CREATININE RATIO 10.4 (10-20); CALCIUM 9.7 mg/dl (8.5-10.1); CREATININE 0.89 mg/dl (0.60-1.20); MAGNESIUM 1.5 mg/dl (1.8-2.4); POTASSIUM 4.3 mmol/L (3.5-5.1)
[2017-01-23] MEDS: MAGNESIUM SULFATE 1GM / D5W 1 GM in PREMIXED IN D5W 100 ML IV SCH ×2 (07:40→09:55)
[2017-01-23] MEDS ORDERED: NSS + 20MEQ KCL 1000ML 1,000 ML IV STA (07:41)
--- NOTE | 2017-01-23 08:30 | Nephrology Progress Note ---
Nephrology Progress Note Date of Service: Jan 23, 2017. Subjective marked emesis ON liquids; + constipation; 4L negative yesterday; sodium slowly improving; ongoing weakness Objective Date Time Temp Pulse Resp B/P (MAP) Pulse Ox O2 Delivery O2 Flow Rate FiO2 01/23/17 07:23 36.5 88 20 132/75 (94) 94 Room Air 01/23/17 06:41 82 120/72 (88) 01/23/17 05:15 87 129/76 (93) 01/23/17 04:00 96 Room Air 01/23/17 03:50 37.0 92 17 147/80 (102) 96 Room Air 01/23/17 00:49 97 136/75 (95) 01/22/17 23:59 100 Room Air 01/22/17 23:59 37.1 98 16 89/61 (70) 98 105 135/81 (99) 121 151/82 (105) 01/22/17 20:00 100 Room Air 01/22/17 19:50 100 16 150/76 (100) 100 Room Air 01/22/17 19:07 37.1 109 22 129/73 (91) 97 Room Air 01/22/17 16:00 Room Air 01/22/17 15:38 36.3 110 18 88/57 (67) 97 Room Air 01/22/17 12:00 Room Air 01/22/17 11:26 36.7 95 17 147/82 (103) 98 Room Air Physical Exam: General Appearance: WD/WN, mildly distressed w/ N, on RA, very tired appearing Eyes: EOMI ENT: hearing grossly normal, + pertinent finding (dry mm) Neck: supple Respiratory/Chest: lungs clear, normal breath sounds, no respiratory distress Cardiovascular: regular rate, rhythm, no edema Abdomen: slightly diminished bowel sounds, non tender, soft, + pertinent finding (miles w/ ample urine) Extremities: non-tender, no pedal edema Neurologic/Psych: no motor/sensory deficits, alert, normal mood/affect, oriented x 3, + motor weakness (clearly takes effort to hold head up during interview) Skin: normal color, no jaundice Current Inpatient Medications Medications (Trade) Dose Ordered Sig/Ana Route Start Time Stop Time Status Last Admin Dose Admin Enoxaparin Sodium (Lovenox Inj) 40 mg Q24H SC 01/20/17 21:00 02/19/17 20:59 01/22/17 20:02 40 MG Acetaminophen (Tylenol Tab) 650 mg Q4H PRN PO 01/20/17 17:15 02/19/17 17:14 01/23/17 04:41 650 MG Ondansetron HCl (Zofran Inj) 4 mg Q6H PRN IV 01/20/17 17:15 02/19/17 17:14 01/23/17 04:49 4 MG Docusate Sodium (coLACE CAP) 100 mg BID PO 01/20/17 21:00 02/19/17 20:59 01/22/17 20:00 100 MG Aspirin (Aspirin Chew) 81 mg QPM PO 01/20/17 21:00 02/19/17 20:59 01/22/17 20:02 81 MG Atorvastatin Calcium (Lipitor Tab) 10 mg HS PO 01/20/17 21:00 02/19/17 20:59 01/22/17 20:01 10 MG Diltiazem HCl (Cardizem Cd Cap) 300 mg DAILY PO 01/21/17 09:00 02/20/17 08:59 01/22/17 12:34 300 MG Magnesium Chloride (Slow-Mag Tab) 64 mg TID PO 01/20/17 21:00 02/19/17 20:59 01/22/17 20:00 64 MG Ceftriaxone Sodium 1 gm/ Dextrose 50 ml @ 100 mls/hr DAILY@1200 IV 01/21/17 12:00 01/26/17 11:59 01/22/17 12:32 100 MLS/HR Polyethylene (Miralax Powder Packet) 17 gm DAILY PRN PO 01/21/17 20:15 02/20/17 20:14 01/22/17 14:33 17 GM Furosemide 30 mg/ Syringe 3 ml @ 4 mls/min Q3H IV 01/22/17 01:00 02/21/17 00:44 01/23/17 06:42 4 MLS/MIN Potassium Chloride (Klor-Con Tab) 40 meq BID PO 01/22/17 09:00 02/21/17 08:59 01/22/17 20:01 40 MEQ Potassium Chloride/Sodium Chloride 1,000 ml @ 150 mls/hr Q6H40M IV 01/22/17 18:15 02/21/17 18:14 01/23/17 02:25 150 MLS/HR Atropine Sulfate (Atropine Sulfate 0.1MG/Ml Inj) 0.5 mg UD PRN IV 01/23/17 06:00 02/22/17 05:59 Magnesium Sulfate 1 gm/Prmx 100 ml @ 100 mls/hr Q1H IV 01/23/17 07:00 01/23/17 08:59 01/23/17 07:40 100 MLS/HR Potassium Chloride/Sodium Chloride 1,000 ml @ 150 mls/hr Q6H40M STAT IV 01/23/17 07:41 01/23/17 14:20 UNV Last 24 Hours Test 01/22/17 16:00 01/22/17 16:15 01/23/17 05:54 Urine Osmolality 281 mOms/kg Urine Random Sodium 86 mEq/L Sodium Level 125 mmol/L 126 mmol/L Potassium Level 3.8 mmol/L 4.3 mmol/L Chloride Level 87 mmol/L 92 mmol/L Carbon Dioxide Level 26 mmol/L 26 mmol/L Anion Gap 12.0 mmol/L 8.0 mmol/L Blood Urea Nitrogen 8 mg/dl 9 mg/dl Creatinine 1.20 mg/dl 0.89 mg/dl Est Creatinine Clear Calc Drug Dose 39.9 ml/min 53.3 ml/min Estimated GFR () 53.0 76.1 Estimated GFR (Non- 45.8 65.7 BUN/Creatinine Ratio 7.0 10.4 Random Glucose 152 mg/dl 128 mg/dl Calcium Level 9.6 mg/dl 9.7 mg/dl Magnesium Level 2.0 mg/dl 1.5 mg/dl White Blood Count 8.80 K/uL Red Blood Count 3.60 M/uL Hemoglobin 11.0 g/dL Hematocrit 31.2 % Mean Corpuscular Volume 86.7 fL Mean Corpuscular Hemoglobin 30.6 pg Mean Corpuscular Hemoglobin Concent 35.3 g/dl Platelet Count 548 K/uL Mean Platelet Volume 8.2 fL Neutrophils (%) (Auto) 73.7 % Lymphocytes (%) (Auto) 11.5 % Monocytes (%) (Auto) 12.6 % Eosinophils (%) (Auto) 1.1 % Basophils (%) (Auto) 0.5 % Neutrophils # (Auto) 6.49 K/uL Lymphocytes # (Auto) 1.01 K/uL Monocytes # (Auto) 1.11 K/uL Eosinophils # (Auto) 0.10 K/uL Basophils # (Auto) 0.04 K/uL RDW Standard Deviation 43.0 fL RDW Coefficient of Variation 13.5 % Immature Granulocyte % (Auto) 0.6 % Immature Granulocyte # (Auto) 0.05 K/uL Assessment & Plan 71 y/o F w/ longstanding chronic hyponatremia, HTN, chronic hypomagnesemia 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, excision tail of pancreas admitted 12/20 for sNa outpt 118 and w/ profound generalized weakness acute on chronic hypotonic hyponatremia w/ chronic hypomagnesemia most consistent with volume depletion though relative excess of water intake w/ uOsm 187 on admission a role as well; in setting of profound weakness, recent adrenalectomy and steroid therapy now stopped; cosyntropin stim tests shows no adrenal insuffficiency -goal sNa for 01/24 am is 133 -would not be in hurry to d/c pt unless sNa maintained on po meds x 24-48 hrs -cont NS w/ 20 mEq K at 125 mL hourly, cont 30 mg lasix IVq3h -offer protein supplements/solute rich diet <<protein shakes do not count toward fluid limit -2L fluid limit << mostly in interest of preventing low solute diet -f/u neurology recs -control N -r/o small bowel obstruction Appreciate consult; will follow with you. Care coordinated w/ Dr Ayala.
--- NOTE | 2017-01-23 09:28 | Progress Note ---
Internal Med Progress Note Date of Service: Jan 23, 2017. Provider Documentation: SUBJECTIVE: Seen and examined at bedside Reports feeling extremely tired even with minimal activity Denies chest pain, SOB Had nausea overnight but resolved currently Reports constipation, small BM Transient bradycardia overnight while vomiting OBJECTIVE: Vital Signs-as noted below General Appearance:Moderately built and nourished, no apparent distress Head: normocephalic, Atraumatic Eyes: normal inspection, EOMI, PERRL Neck: supple, Trachea midline Respiratory/Chest: Normal breath sounds, CTA Cardiovascular: S1, S2, No murmur Abdomen/GI:Soft, Non tender, Bowel sounds present Extremities/Musculoskelatal:normal inspection, no edema Neurologic/Psych:grossly no focal neurological deficits, Chronic RLE weakness 4/ 5 Skin:normal color,warm, Surgical scar on abdomen healing Lab data as noted below. ASSESSMENT & PLAN: Patient is a 71 yr female with with PMH of leiomyosarcoma, HTN, chronic hyponatremia and other comorbidities who was recently discharged from [facility] after undergoing surgery for leiomyosarcoma by presents for evaluation and further work up of Hyponatremia, generalized weakness, poor appetite and decreased urine output. Hyposmolar Hyponatremia H/O chronic hyponatremia Likely worsened secondary to dehydration Appreciate Nephrology help Continue IV fluids monitor sodium levels Urine sodium:41 Sodium levels:118>>>123 >>>126. Goal 133 on 01/24 On IV lasix as well Adrenal Insufficiency work:cosyntropin stim tests shows no adrenal insufficiency UTI: Urine culture: gram negative bacilli Continue IV Rocephin Day # 3 Urine culture:E.coli Nausea and Vomiting: Nausea improved Check KUB to r/o SBO Continue bowel regimen for constipation Hypomagnesemia: Chronic Replace and monitor Generalized weakness Likely Multifactorial TSH, B12:wnl Ionized Ca, Phos: wnl RPR:pending Will consult Neurology H/O Retroperitoneal leiomyosarcoma S/P Left Nephrectomy, Splenectomy and partial pancreatectomy S/P Radiation therapy prior to surgery Follows with at [facility] [place] Planned for repeat CT scan in 4 months Thrombocytosis: Likely secondary to splenectomy worsened in setting of dehydration Monitor platelets My need Heme onch follow up as OP Severe Protein Calorie Malnutrition: Creative Services Writer consulted HTN Continue Cardizem Getting IV lasix Po lasix on hold CAD stable Denies chest pain 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, Statin SABIANISM DVT Px SQ Lovenox DISPOSITION: Monitor in Tele May need SNF/Rehab placement Vital Signs: Date Time Temp Pulse Resp B/P (MAP) Pulse Ox O2 Delivery O2 Flow Rate FiO2 01/23/17 15:03 36.9 87 19 165/82 (109) 97 Room Air 01/23/17 12:35 36.5 82 18 121/79 (93) 100 Room Air 01/23/17 12:00 97 Room Air 01/23/17 08:33 122/75 (91) 01/23/17 08:30 96 Room Air 01/23/17 07:23 36.5 88 20 132/75 (94) 94 Room Air 01/23/17 06:41 82 120/72 (88) 01/23/17 05:15 87 129/76 (93) 01/23/17 04:00 96 Room Air 01/23/17 03:50 37.0 92 17 147/80 (102) 96 Room Air 01/23/17 00:49 97 136/75 (95) 01/22/17 23:59 100 Room Air 01/22/17 23:59 37.1 98 16 89/61 (70) 98 105 135/81 (99) 121 151/82 (105) 01/22/17 20:00 100 Room Air 01/22/17 19:50 100 16 150/76 (100) 100 Room Air 01/22/17 19:07 37.1 109 22 129/73 (91) 97 Room Air 01/22/17 16:00 Room Air 01/22/17 15:38 36.3 110 18 88/57 (67) 97 Room Air Lab Results: Results Past 24 Hours Test 01/22/17 16:00 01/22/17 16:15 01/23/17 05:54 01/23/17 14:01 Range/Units Urine Osmolality 281 500-800 mOms/kg Urine Random Sodium 86 mEq/L Sodium Level 125 126 126 136-145 mmol/L Potassium Level 3.8 4.3 4.0 3.5-5.1 mmol/L Chloride Level 87 92 89 98-107 mmol/L Carbon Dioxide Level 26 26 26 21-32 mmol/L Anion Gap 12.0 8.0 11.0 3-11 mmol/L Blood Urea Nitrogen 8 9 10 7-18 mg/dl Creatinine 1.20 0.89 0.93 0.60-1.20 mg/dl Est Creatinine Clear Calc Drug Dose 39.9 53.3 51.0 ml/min Estimated GFR () 53.0 76.1 72.2 Estimated GFR (Non- 45.8 65.7 62.3 BUN/Creatinine Ratio 7.0 10.4 10.5 10-20 Random Glucose 152 128 140 70-99 mg/dl Calcium Level 9.6 9.7 10.1 8.5-10.1 mg/dl Magnesium Level 2.0 1.5 2.1 1.8-2.4 mg/dl White Blood Count 8.80 4.8-10.8 K/uL Red Blood Count 3.60 4.2-5.4 M/uL Hemoglobin 11.0 12.0-16.0 g/dL Hematocrit 31.2 37-47 % Mean Corpuscular Volume 86.7 80-100 fL Mean Corpuscular Hemoglobin 30.6 25-34 pg Mean Corpuscular Hemoglobin Concent 35.3 32-36 g/dl Platelet Count 548 130-400 K/uL Mean Platelet Volume 8.2 7.4-10.4 fL Neutrophils (%) (Auto) 73.7 % Lymphocytes (%) (Auto) 11.5 % Monocytes (%) (Auto) 12.6 % Eosinophils (%) (Auto) 1.1 % Basophils (%) (Auto) 0.5 % Neutrophils # (Auto) 6.49 1.4-6.5 K/uL Lymphocytes # (Auto) 1.01 1.2-3.4 K/uL Monocytes # (Auto) 1.11 0.11-0.59 K/uL Eosinophils # (Auto) 0.10 0-0.5 K/uL Basophils # (Auto) 0.04 0-0.2 K/uL RDW Standard Deviation 43.0 36.4-46.3 fL RDW Coefficient of Variation 13.5 11.5-14.5 % Immature Granulocyte % (Auto) 0.6 % Immature Granulocyte # (Auto) 0.05 0.00-0.02 K/uL Vitamin B12 Level 986 211-911 pg/mL
--- NOTE | 2017-01-23 09:46 | Clinical Documentation Query ---
CLINICAL DOCUMENTATION QUERY Dr. MCGHEE, In your clinical opinion is this patient being managed for: ( X ) severe protein-calorie malnutrition ( ) Other explanation of clinical findings (Please Explain) ( ) Unable to determine (Please Define) ( ) Need to Discuss ( ) Not Agree The medical record reflects the following clinical findings, treatment, and risk factors. Clinical Indicators: 71 yo female presenting with hyponatremia. Noted to have had a wt loss of 7.4 kg (10%) in 2 1/2 months. Also reported as having a poor appetite. Treatment: daily wts being done in tele, monitor electrolytes and supplement prn, IV fluids, currently pt is NPO due to nausea and vomiting. Risk Factors: Leiomyosarcoma of retroperitoneum, poor appetite Severe Malnutrition Criteria: (2 criteria needed) Energy intake: <75% of estimated energy requirement for > 1 month Wt loss: >5% in 1 month, > 7.5% in 3 months, >10% in 6 months, >20% in 1 year Body fat: severe loss of SQ fat from the orbits, triceps or fat overlying the ribs Muscle mass: severe muscle wasting at the temples, clavicles, shoulders, interosseous spaces, scapula, thigh, calf Fluid accumulation: severe localized or generalized edema of the extremities, vulva, scrotum-wt loss may be masked by edema Please clarify and document your clinical opinion in the progress notes and discharge summary. Terms such as "probable", "suspected", "likely", "questionable", "possible", or "still to be ruled out" are acceptable. IF IN AGREEMENT, YOU MUST DOCUMENT ABOVE DIAGNOSTIC STATEMENT IN DAILY PROGRESS NOTES AND DISCHARGE SUMMARY. This document is not part of the patient's record. Thank You, Chantell Franks, CECE [phone]
--- NOTE | 2017-01-23 11:09 | DIAGNOSTIC IMAGING REPORT ---
KUB CLINICAL HISTORY: 71 years-old Female presenting with Nausea, vomiting, R/O SBO. TECHNIQUE: Single supine view of the abdomen was obtained. COMPARISON: CT from 08/30/2016. FINDINGS: Surgical clips noted in the region of the left renal hilum. Suture margins also noted in this region. Nonobstructive bowel gas pattern with gas noted in the colon. Large stool burden in the rectum. No gross pneumoperitoneum, pneumatosis, or portal venous gas. Degenerative changes of the lower lumbar spine. IMPRESSION: 1. No evidence of bowel obstruction. 2. Large stool burden in the rectum. Electronically signed by: Dixon Hernandez M.D. 01/23/2017 11:07 AM Dictated Date/Time: 01/23/2017 11:05 AM
[2017-01-23] MEDS: DILTIAZEM HCL 300 MG CAPCR PO SCH (11:39)
[2017-01-23] MEDS: DOCUSATE SODIUM 100 MG CAP PO SCH ×2 (11:39→19:55)
[2017-01-23] MEDS: MAGNESIUM CHLORIDE 64MG DELAYED REL TAB PO SCH ×3 (11:40→19:56)
[2017-01-23] MEDS: POTASSIUM CHLORIDE 20 MEQ TABCR PO SCH ×2 (11:40→19:55)
[2017-01-23] MEDS: CEFTRIAXONE SOD INJ 1 GM in DEXTROSE 5% ADD-VANTAGE 50ML 50 ML IV SCH (11:41)
[2017-01-23] MEDS ORDERED: SOD PHOSPHATE/SOD BIPHOSPHATE ENEMA 132 ML BTL PR ONE (11:45)
[2017-01-23] MEDS ORDERED: SOD PHOSPHATE/SOD BIPHOSPHATE ENEMA 132 ML BTL ONE (14:10)
[2017-01-23 14:28] LABS: BUN/CREATININE RATIO 10.5 (10-20); CALCIUM 10.1 mg/dl (8.5-10.1); CREATININE 0.93 mg/dl (0.60-1.20); MAGNESIUM 2.1 mg/dl (1.8-2.4)
[2017-01-23] MEDS: ATORVASTATIN 10 MG TAB PO SCH (19:55)
[2017-01-23] MEDS: ENOXAPARIN 40 MG/0.4 ML SYR SC SCH (19:55)
[2017-01-23] MEDS: ASPIRIN 81 MG CHEW PO SCH (20:27)
[2017-01-23] MEDS: POTASSIUM CHLORIDE 20 MEQ/15 ML UDC PO SCH (20:28)
[2017-01-24] MEDS: FUROSEMIDE INJ 30 MG in SYRINGE 0 ML IV SCH ×3 (01:19→06:40)
[2017-01-24] MEDS ORDERED: SIMETHICONE 80 MG CHEW PO STA (02:56)
[2017-01-24 03:26] VITALS: BP 137/79; PULSE 88; TEMP 36.8; O2SAT 96
[2017-01-24] MEDS: NSS + 20MEQ KCL 1000ML 1,000 ML IV SCH ×3 (04:00→18:06)
[2017-01-24] MEDS: METOCLOPRAMIDE HCL INJ 5 MG/ML 2 ML VIAL IV PRN (04:36)
[2017-01-24 06:54] LABS: HEMATOCRIT 35.3 % (37-47); MEAN CELL VOLUME 88.9 fL (80-100); MEAN CORPUSCULAR HEMOGLOBIN 29.5 pg (25-34); MEAN CORPUSCULAR HGB CONC 33.1 g/dl (32-36); MEAN PLATELET VOLUME 8.4 fL (7.4-10.4); PLATELET COUNT 604 K/uL (130-400); RED BLOOD COUNT 3.97 M/uL (4.2-5.4); WHITE BLOOD COUNT 8.56 K/uL (4.8-10.8)
[2017-01-24 07:32] LABS: CALCIUM 10.1 mg/dl (8.5-10.1); CREATININE 0.83 mg/dl (0.60-1.20); MAGNESIUM 1.5 mg/dl (1.8-2.4)
[2017-01-24 08:09] VITALS: BP 131/57; PULSE 89; TEMP 36.9; O2SAT 97
[2017-01-24] MEDS: POTASSIUM CHLORIDE 20 MEQ/15 ML UDC PO SCH (09:30)
[2017-01-24] MEDS: DOCUSATE SODIUM 100 MG CAP PO SCH ×2 (09:31→20:08)
[2017-01-24] MEDS: DILTIAZEM HCL 300 MG CAPCR PO SCH (09:31)
[2017-01-24] MEDS: MAGNESIUM CHLORIDE 64MG DELAYED REL TAB PO SCH ×3 (09:31→20:07)
[2017-01-24] MEDS: MAGNESIUM SULFATE 1GM / D5W 1 GM in PREMIXED IN D5W 100 ML IV SCH ×2 (09:32→10:59)
[2017-01-24] MEDS: FUROSEMIDE INJ 40 MG in SYRINGE 0 ML IV SCH ×5 (09:33→22:51)
[2017-01-24 11:52] VITALS: BP 126/82; PULSE 92; TEMP 36.8; O2SAT 98
[2017-01-24] MEDS ORDERED: MEGESTROL ACETATE 400 MG/10 ML UDP PO ONE (12:38)
[2017-01-24] MEDS ORDERED: PANTOprazole SOD 40 MG TAB PO ONE (12:38)
[2017-01-24] MEDS: CEFTRIAXONE SOD INJ 1 GM in DEXTROSE 5% ADD-VANTAGE 50ML 50 ML IV SCH (12:50)
--- NOTE | 2017-01-24 12:50 | Progress Note ---
Internal Med Progress Note Date of Service: Jan 24, 2017. Provider Documentation: SUBJECTIVE: The patient was seen and examined Complains of generalized weakness Denies any other symptoms OBJECTIVE: Vital Signs-as noted below Exam: General-no distress at rest Eyes-Normal ENT-normal Neck-supple Lungs-clear to auscultate bilaterally Heart-Regular,no murmur appreciated Abdomen-Benign,no masses,bowel sound present Extremities-Trace edema bilaterally Neuro-AAOx3 Generally weak ,no focal neuro deficit Lab data as noted below. 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 Hyposmolar Hyponatremia with H/O chronic hyponatremia Likely worsened secondary to dehydration Appreciate Nephrology input Urine sodium:41 Sodium levels:118>>>123 >>>126-127 0n 01/24/17. Goal 133 on 01/24 On IV lasix as well Adrenal Insufficiency work:cosyntropin stim tests shows no adrenal insufficiency Feeling better generally Will start PT/OT UTI: Urine culture: gram negative bacilli Continue IV Rocephin Day # 4 Urine culture:E.coli Will stop antibiotic after 5 days of IV Nausea and Vomiting-Improved : Check KUB to r/o SBO Continue bowel regimen for constipation Will start PPI and appetite stimulant Electrolytes Imbalance Chronic Replace and monitor Generalized weakness Likely Multifactorial TSH, B12:wnl Ionized Ca, Phos: wnl Will consult Neurology H/O Retroperitoneal leiomyosarcoma S/P Left Nephrectomy, Splenectomy and partial pancreatectomy S/P Radiation therapy prior to surgery [place] [facility] [place] Planned for repeat CT scan in 4 months PT/OT ordered Thrombocytosis: Likely secondary to splenectomy worsened in setting of dehydration Monitor platelets My need Heme oncology follow up as OP Severe Protein Calorie Malnutrition: Instrument/Control Technician consulted HTN Continue Cardizem Getting IV Lasix Po Lasix on hold CAD stable Denies chest pain 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, Statin HOLINESS Does not want any Blood products DVT Px SQ Lovenox DISPOSITION: Monitor in Tele May need SNF/Rehab placement Vital Signs: Date Time Temp Pulse Resp B/P (MAP) Pulse Ox O2 Delivery O2 Flow Rate FiO2 01/24/17 11:52 36.8 92 16 126/82 (97) 98 Room Air 01/24/17 08:09 36.9 89 16 131/57 (81) 97 Room Air 01/24/17 04:00 Room Air 01/24/17 03:26 36.8 88 20 137/79 (98) 96 Room Air 01/23/17 23:59 Room Air 01/23/17 23:54 36.4 93 18 156/79 (104) 97 Room Air 01/23/17 20:00 Room Air 01/23/17 19:10 37.1 90 19 129/76 (93) 93 Room Air 01/23/17 16:10 97 Room Air 01/23/17 15:03 36.9 87 19 165/82 (109) 97 Room Air Lab Results: Results Past 24 Hours Test 01/23/17 14:01 01/24/17 06:42 Range/Units Sodium Level 126 127 136-145 mmol/L Potassium Level 4.0 4.0 3.5-5.1 mmol/L Chloride Level 89 93 98-107 mmol/L Carbon Dioxide Level 26 26 21-32 mmol/L Anion Gap 11.0 8.0 3-11 mmol/L Blood Urea Nitrogen 10 9 7-18 mg/dl Creatinine 0.93 0.83 0.60-1.20 mg/dl Est Creatinine Clear Calc Drug Dose 51.0 56.7 ml/min Estimated GFR () 72.2 82.8 Estimated GFR (Non- 62.3 71.4 BUN/Creatinine Ratio 10.5 11.0 10-20 Random Glucose 140 135 70-99 mg/dl Calcium Level 10.1 10.1 8.5-10.1 mg/dl Magnesium Level 2.1 1.5 1.8-2.4 mg/dl White Blood Count 8.56 4.8-10.8 K/uL Red Blood Count 3.97 4.2-5.4 M/uL Hemoglobin 11.7 12.0-16.0 g/dL Hematocrit 35.3 37-47 % Mean Corpuscular Volume 88.9 80-100 fL Mean Corpuscular Hemoglobin 29.5 25-34 pg Mean Corpuscular Hemoglobin Concent 33.1 32-36 g/dl RDW Standard Deviation 44.6 36.4-46.3 fL RDW Coefficient of Variation 13.7 11.5-14.5 % Platelet Count 604 130-400 K/uL Mean Platelet Volume 8.4 7.4-10.4 fL
[2017-01-24 15:05] VITALS: BP 149/80; PULSE 91; TEMP 36.7; O2SAT 96
--- NOTE | 2017-01-24 15:57 | PROGRESS NOTE ---
DATE: 01/24/2017 DATE: 01/24/2017 Dilia looks actually better today. There are some mild elements of weakness in her extremities, again with the right side being a little more than the left, but compared to yesterday she is at least up a full grade weakness in all tested muscle groups and feels well. I did have a chance to review Dr. Martinez's note from her admission at [facility] following surgery back in late December and it looks as though she was diagnosed with a motor neuropathy syndrome of unknown causation. It sounds as though the workup, at least according to Dr. Martinez's note was fairly extensive and there are plans to have her followed up in February in their clinic. In light of all of this, I do not think neurology has much more to offer here. It sounds as though her workup has been complete. An electrodiagnostic study has shown a mild motor neuropathy. The exam does not show that much in terms of actual muscle weakness and I think a lot of this is a mixed picture due to her metabolic issues, perhaps underlying cancer and the effects of recovery from surgery. According to the history; however, there were elements of motor weakness preceding the diagnosis and treatment of her retroperitoneal sarcoma so a paraneoplastic process still might be in the running. I will yield the ultimate diagnosis of Dr. Martinez however and will be happy to take a look at her here in the hospital again as needed but for now we are going to sign off the case.
[2017-01-24 17:05] LABS: BUN/CREATININE RATIO 13.4 (10-20); CALCIUM 9.8 mg/dl (8.5-10.1); CREATININE 0.86 mg/dl (0.60-1.20); MAGNESIUM 1.8 mg/dl (1.8-2.4); POTASSIUM 4.1 mmol/L (3.5-5.1)
--- NOTE | 2017-01-24 17:56 | Nephrology Progress Note ---
Nephrology Progress Note Date of Service: Jan 24, 2017. Subjective nearly even I/O yesterday; some improvement in how she is feeling > looking to do PT; no further N/emesis. Objective Date Time Temp Pulse Resp B/P (MAP) Pulse Ox O2 Delivery O2 Flow Rate FiO2 01/24/17 08:09 36.9 89 16 131/57 (81) 97 Room Air 01/24/17 04:00 Room Air 01/24/17 03:26 36.8 88 20 137/79 (98) 96 Room Air 01/23/17 23:59 Room Air 01/23/17 23:54 36.4 93 18 156/79 (104) 97 Room Air 01/23/17 20:00 Room Air 01/23/17 19:10 37.1 90 19 129/76 (93) 93 Room Air 01/23/17 16:10 97 Room Air 01/23/17 15:03 36.9 87 19 165/82 (109) 97 Room Air 01/23/17 12:35 36.5 82 18 121/79 (93) 100 Room Air 01/23/17 12:00 97 Room Air Physical Exam: General Appearance: WD/WN, on RA, less tired appearing up in chair Eyes: EOMI ENT: hearing grossly normal, + pertinent finding (dry mm) Neck: supple Respiratory/Chest: lungs clear, normal breath sounds, no respiratory distress Cardiovascular: regular rate, rhythm, no edema Abdomen: slightly diminished bowel sounds, non tender, soft, + pertinent finding (miles w/ ample urine) Extremities: non-tender, no pedal edema Neurologic/Psych: no sensory deficits, alert, normal mood/affect, oriented x 3 , + motor weakness (today less effort to hold head up during interview; some odd facial expressions at times) Skin: normal color, no jaundice Current Inpatient Medications Medications (Trade) Dose Ordered Sig/Ana Route Start Time Stop Time Status Last Admin Dose Admin Enoxaparin Sodium (Lovenox Inj) 40 mg Q24H SC 01/20/17 21:00 02/19/17 20:59 01/23/17 19:55 40 MG Acetaminophen (Tylenol Tab) 650 mg Q4H PRN PO 01/20/17 17:15 02/19/17 17:14 01/23/17 04:41 650 MG Ondansetron HCl (Zofran Inj) 4 mg Q6H PRN IV 01/20/17 17:15 02/19/17 17:14 01/23/17 04:49 4 MG Docusate Sodium (coLACE CAP) 100 mg BID PO 01/20/17 21:00 02/19/17 20:59 01/23/17 19:55 100 MG Aspirin (Aspirin Chew) 81 mg QPM PO 01/20/17 21:00 02/19/17 20:59 01/23/17 20:27 81 MG Atorvastatin Calcium (Lipitor Tab) 10 mg HS PO 01/20/17 21:00 02/19/17 20:59 01/23/17 19:55 10 MG Diltiazem HCl (Cardizem Cd Cap) 300 mg DAILY PO 01/21/17 09:00 02/20/17 08:59 01/23/17 11:39 300 MG Magnesium Chloride (Slow-Mag Tab) 64 mg TID PO 01/20/17 21:00 02/19/17 20:59 01/23/17 19:56 64 MG Ceftriaxone Sodium 1 gm/ Dextrose 50 ml @ 100 mls/hr DAILY@1200 IV 01/21/17 12:00 01/26/17 11:59 01/23/17 11:41 100 MLS/HR Polyethylene (Miralax Powder Packet) 17 gm DAILY PRN PO 01/21/17 20:15 02/20/17 20:14 01/22/17 14:33 17 GM Furosemide 30 mg/ Syringe 3 ml @ 4 mls/min Q3H IV 01/22/17 01:00 02/21/17 00:44 01/24/17 06:40 4 MLS/MIN Potassium Chloride/Sodium Chloride 1,000 ml @ 150 mls/hr Q6H40M IV 01/22/17 18:15 02/21/17 18:14 01/24/17 04:00 150 MLS/HR Atropine Sulfate (Atropine Sulfate 0.1MG/Ml Inj) 0.5 mg UD PRN IV 01/23/17 06:00 02/22/17 05:59 Potassium Chloride (Paty Ciel Elix) 40 meq BID PO 01/23/17 21:00 02/22/17 20:59 01/23/17 20:28 40 MEQ Metoclopramide HCl (Reglan Inj) 10 mg Q6H PRN IV 01/24/17 03:00 02/23/17 02:59 01/24/17 04:36 10 MG Last 24 Hours Test 01/23/17 14:01 01/24/17 06:42 Sodium Level 126 mmol/L 127 mmol/L Potassium Level 4.0 mmol/L 4.0 mmol/L Chloride Level 89 mmol/L 93 mmol/L Carbon Dioxide Level 26 mmol/L 26 mmol/L Anion Gap 11.0 mmol/L 8.0 mmol/L Blood Urea Nitrogen 10 mg/dl 9 mg/dl Creatinine 0.93 mg/dl 0.83 mg/dl Est Creatinine Clear Calc Drug Dose 51.0 ml/min 56.7 ml/min Estimated GFR () 72.2 82.8 Estimated GFR (Non- 62.3 71.4 BUN/Creatinine Ratio 10.5 11.0 Random Glucose 140 mg/dl 135 mg/dl Calcium Level 10.1 mg/dl 10.1 mg/dl Magnesium Level 2.1 mg/dl 1.5 mg/dl White Blood Count 8.56 K/uL Red Blood Count 3.97 M/uL Hemoglobin 11.7 g/dL Hematocrit 35.3 % Mean Corpuscular Volume 88.9 fL Mean Corpuscular Hemoglobin 29.5 pg Mean Corpuscular Hemoglobin Concent 33.1 g/dl RDW Standard Deviation 44.6 fL RDW Coefficient of Variation 13.7 % Platelet Count 604 K/uL Mean Platelet Volume 8.4 fL Assessment & Plan 71 y/o F w/ longstanding chronic hyponatremia, HTN, chronic hypomagnesemia 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, excision tail of pancreas admitted 12/20 for sNa outpt 118 and w/ profound generalized weakness acute on chronic hypotonic hyponatremia w/ chronic hypomagnesemia, correcting slowly most consistent with volume depletion though relative excess of water intake w/ uOsm 187 on admission a role as well; in setting of profound weakness, recent adrenalectomy and steroid therapy now stopped; cosyntropin stim tests shows no adrenal insuffficiency -goal sNa for 823 am is 133 -would not be in hurry to d/c pt unless sNa maintained on po meds x 24-48 hrs -lowered rate of NS w/ 20 mEq K to 125 mL hourly; increased dose of 30 mg lasix IVq3h to 40 mg same frequency -offer protein supplements/solute rich diet <<protein shakes do not count toward fluid limit -2L fluid limit << mostly in interest of preventing low solute diet -f/u neurology recs -control N -recheck bmp ordered late this afternoon Appreciate consult; will follow with you. Care coordinated w/ Dr Chapa
[2017-01-24 18:39] VITALS: BP 138/86; PULSE 97; TEMP 36.8; O2SAT 99
[2017-01-24] MEDS: ASPIRIN 81 MG CHEW PO SCH (20:08)
[2017-01-24] MEDS: ENOXAPARIN 40 MG/0.4 ML SYR SC SCH (20:08)
[2017-01-24] MEDS: ATORVASTATIN 10 MG TAB PO SCH (20:09)
[2017-01-24] MEDS: POTASSIUM CHLORIDE 20 MEQ TABCR PO SCH (21:12)
[2017-01-24 23:23] VITALS: BP 153/76; PULSE 87; TEMP 36.6; O2SAT 99
[2017-01-25] MEDS: NSS + 20MEQ KCL 1000ML 1,000 ML IV SCH ×3 (01:05→19:35)
[2017-01-25] MEDS: FUROSEMIDE INJ 40 MG in SYRINGE 0 ML IV SCH ×8 (01:05→22:10)
[2017-01-25 03:48] VITALS: BP 160/83; PULSE 92; TEMP 36.6; O2SAT 99
[2017-01-25] MEDS: BOOST PLUS VANILLA PO SCH ×2 (07:30)
[2017-01-25 07:54] LABS: BUN/CREATININE RATIO 13.1 (10-20); CALCIUM 10.3 mg/dl (8.5-10.1); CREATININE 0.78 mg/dl (0.60-1.20); MAGNESIUM 1.2 mg/dl (1.8-2.4); POTASSIUM 3.8 mmol/L (3.5-5.1)
[2017-01-25 07:55] LABS: PHOSPHORUS 3.3 mg/dl (2.5-4.9)
[2017-01-25] MEDS: MEGESTROL ACETATE 400 MG/10 ML UDP PO SCH (08:03)
[2017-01-25] MEDS: POTASSIUM CHLORIDE 20 MEQ TABCR PO SCH ×2 (08:03→21:05)
[2017-01-25] MEDS: DILTIAZEM HCL 300 MG CAPCR PO SCH (08:04)
[2017-01-25] MEDS: MAGNESIUM CHLORIDE 64MG DELAYED REL TAB PO SCH ×3 (08:04→21:04)
[2017-01-25] MEDS: PANTOprazole SOD 40 MG TAB PO SCH (08:04)
[2017-01-25] MEDS: DOCUSATE SODIUM 100 MG CAP PO SCH ×2 (08:07→21:03)
[2017-01-25 08:09] VITALS: BP 138/74; PULSE 100; TEMP 37.1; O2SAT 98
[2017-01-25] MEDS: MAGNESIUM SULFATE 1GM / D5W 1 GM in PREMIXED IN D5W 100 ML IV SCH ×2 (10:13→10:30)
[2017-01-25 12:13] VITALS: BP 114/66; PULSE 102; TEMP 36.4; O2SAT 100
[2017-01-25] MEDS: CEFTRIAXONE SOD INJ 1 GM in DEXTROSE 5% ADD-VANTAGE 50ML 50 ML IV SCH (13:14)
--- NOTE | 2017-01-25 15:20 | Nephrology Progress Note ---
Nephrology Progress Note Date of Service: Jan 25, 2017. Subjective changed IVF/diuretics yesterday to have more negative; sNa plateau'd mid/high 120s; was weaker last night after doing better /more strong during day and stronger again this am Objective Date Time Temp Pulse Resp B/P (MAP) Pulse Ox O2 Delivery O2 Flow Rate FiO2 01/25/17 04:00 Room Air 01/25/17 03:48 36.6 92 18 160/83 (108) 99 Room Air 01/24/17 23:59 Room Air 01/24/17 23:23 36.6 87 18 153/76 (101) 99 Room Air 01/24/17 20:00 Room Air 01/24/17 18:39 36.8 97 20 138/86 (103) 99 Room Air 01/24/17 16:15 Room Air 01/24/17 15:05 36.7 91 20 149/80 (103) 96 Room Air 01/24/17 12:00 Room Air 01/24/17 11:52 36.8 92 16 126/82 (97) 98 Room Air 01/24/17 08:09 36.9 89 16 131/57 (81) 97 Room Air 01/24/17 08:00 Room Air Physical Exam: General Appearance: WD/WN, on RA, less tired appearing up in bed Eyes: EOMI ENT: hearing grossly normal, + pertinent finding (dry mm) Neck: supple Respiratory/Chest: lungs clear, normal breath sounds, no respiratory distress Cardiovascular: regular rate, rhythm, no edema Abdomen: slightly diminished bowel sounds, non tender, soft, + pertinent finding (miles w/ ample urine) Extremities: non-tender, no pedal edema Neurologic/Psych: no sensory deficits, alert, normal mood/affect, oriented x 3 , + motor weakness (today less effort to hold head up during interview; some odd facial expressions at times) Skin: normal color, no jaundice Current Inpatient Medications Medications (Trade) Dose Ordered Sig/Ana Route Start Time Stop Time Status Last Admin Dose Admin Enoxaparin Sodium (Lovenox Inj) 40 mg Q24H SC 01/20/17 21:00 02/19/17 20:59 01/24/17 20:08 40 MG Acetaminophen (Tylenol Tab) 650 mg Q4H PRN PO 01/20/17 17:15 9/17/17 17:14 01/23/17 04:41 650 MG Ondansetron HCl (Zofran Inj) 4 mg Q6H PRN IV 01/20/17 17:15 02/19/17 17:14 01/23/17 04:49 4 MG Docusate Sodium (coLACE CAP) 100 mg BID PO 01/20/17 21:00 02/19/17 20:59 01/24/17 20:08 100 MG Aspirin (Aspirin Chew) 81 mg QPM PO 01/20/17 21:00 02/19/17 20:59 01/24/17 20:08 81 MG Atorvastatin Calcium (Lipitor Tab) 10 mg HS PO 01/20/17 21:00 02/19/17 20:59 01/24/17 20:09 10 MG Diltiazem HCl (Cardizem Cd Cap) 300 mg DAILY PO 01/21/17 09:00 02/20/17 08:59 01/24/17 09:31 300 MG Magnesium Chloride (Slow-Mag Tab) 64 mg TID PO 01/20/17 21:00 02/19/17 20:59 01/24/17 20:07 64 MG Ceftriaxone Sodium 1 gm/ Dextrose 50 ml @ 100 mls/hr DAILY@1200 IV 01/21/17 12:00 01/26/17 11:59 01/24/17 12:50 100 MLS/HR Polyethylene (Miralax Powder Packet) 17 gm DAILY PRN PO 01/21/17 20:15 02/20/17 20:14 01/22/17 14:33 17 GM Potassium Chloride/Sodium Chloride 1,000 ml @ 125 mls/hr Q8H IV 01/22/17 18:15 02/21/17 18:14 01/25/17 01:05 125 MLS/HR Atropine Sulfate (Atropine Sulfate 0.1MG/Ml Inj) 0.5 mg UD PRN IV 01/23/17 06:00 02/22/17 05:59 Metoclopramide HCl (Reglan Inj) 10 mg Q6H PRN IV 01/24/17 03:00 02/23/17 02:59 01/24/17 04:36 10 MG Furosemide 40 mg/ Syringe 4 ml @ 4 mls/min Q3H IV 01/24/17 10:00 02/21/17 00:44 01/25/17 06:35 4 MLS/MIN Enteral Nutritional Formula (Boost Plus Vanilla) 1 can QDB PO 01/25/17 07:30 02/24/17 07:29 Pantoprazole Sodium (Protonix Tab) 40 mg QAM PO 01/25/17 09:00 02/24/17 08:59 Megestrol Acetate (Megace Susp) 400 mg QAM PO 01/25/17 09:00 02/24/17 08:59 Potassium Chloride (Klor-Con Tab) 40 meq BID PO 01/24/17 21:00 02/23/17 20:59 01/24/17 21:12 40 MEQ Last 24 Hours Test 01/24/17 16:30 01/25/17 06:54 Sodium Level 126 mmol/L Potassium Level 4.1 mmol/L Chloride Level 91 mmol/L Carbon Dioxide Level 27 mmol/L Anion Gap 8.0 mmol/L Blood Urea Nitrogen 12 mg/dl Creatinine 0.86 mg/dl Est Creatinine Clear Calc Drug Dose 54.7 ml/min Estimated GFR () 79.3 Estimated GFR (Non- 68.4 BUN/Creatinine Ratio 13.4 Random Glucose 142 mg/dl Calcium Level 9.8 mg/dl Magnesium Level 1.8 mg/dl Chemistry Specimen Hemolysis Assessment & Plan 71 y/o F w/ longstanding chronic hyponatremia, HTN, chronic hypomagnesemia 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, excision tail of pancreas admitted 12/20 for sNa outpt 118 and w/ profound generalized weakness acute on chronic hypotonic hyponatremia w/ chronic hypomagnesemia, correcting slowly most consistent with volume depletion though relative excess of water intake w/ uOsm 187 on admission a role as well; in setting of profound weakness, recent adrenalectomy and steroid therapy now stopped; cosyntropin stim tests shows no adrenal insuffficiency -goal sNa for 824 am is 135 > f/u pending labs -would not be in hurry to d/c pt unless sNa maintained on po meds x 24-48 hrs -cont current rate of NS w/ 20 mEq K to 125 mL hourly; cont increased dose of 30 mg lasix IVq3h to 40 mg same frequency -offer protein supplements/solute rich diet <<protein shakes do not count toward fluid limit -2L fluid limit << mostly in interest of preventing low solute diet -control N Appreciate consult; will follow with you. Care coordinated w/ Dr Chapa
[2017-01-25 15:22] VITALS: BP 149/85; PULSE 101; TEMP 36.5; O2SAT 97
[2017-01-25] MEDS: METOCLOPRAMIDE HCL INJ 5 MG/ML 2 ML VIAL IV PRN ×2 (15:46→22:11)
--- NOTE | 2017-01-25 15:56 | Progress Note ---
Internal Med Progress Note Date of Service: Jan 25, 2017. Provider Documentation: SUBJECTIVE: The patient was seen and examined Complains of generalized weakness Denies any other symptoms A little better today but remains weak and lethargic OBJECTIVE: Vital Signs-as noted below Exam: General-no distress at rest Eyes-Normal ENT-normal Neck-supple Lungs-clear to auscultate bilaterally Heart-Regular,no murmur appreciated Abdomen-Benign,no masses,bowel sound present Extremities-Trace edema bilaterally Neuro-AAOx3 Generally weak ,no focal neuro deficit Lab data as noted below. 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 Generalized weakness Likely Multifactorial and may be secondary to Leiomyosarcoma,recent extensive surgery and associated neuropathy Complicated by Hyponatremia TSH, B12:wnl Ionized Ca, Phos: wnl Appreciate Neurology input-no new recommendation Continue PT/OT Hyposmolar Hyponatremia with H/O chronic hyponatremia Likely worsened secondary to dehydration Appreciate Nephrology input Urine sodium:41 Sodium levels:118>>>123 >>>126-127 0n 01/24/17. Goal 133 on 01/24 On IV lasix as well Adrenal Insufficiency work:cosyntropin stim tests shows no adrenal insufficiency PT/OT requested Sodium 130 this morning Keep monitoring UTI: Urine culture: gram negative bacilli Continue IV Rocephin Day # 5 Urine culture:E.coli Will stop antibiotic after 5 days of IV Nausea and Vomiting-Improved : Check KUB to r/o SBO Continue bowel regimen for constipation Will start PPI and appetite stimulant Electrolytes Imbalance Chronic Replace and monitor H/O Retroperitoneal leiomyosarcoma S/P Left Nephrectomy, Splenectomy and partial pancreatectomy S/P Radiation therapy prior to surgery Follows with at [facility] [place] Planned for repeat CT scan in 4 months PT/OT ordered Thrombocytosis: Likely secondary to splenectomy worsened in setting of dehydration Monitor platelets My need Heme oncology follow up as OP Severe Protein Calorie Malnutrition: Route Sales Driver consulted HTN Continue Cardizem Getting IV Lasix Po Lasix on hold CAD stable Denies chest pain 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, 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 any Blood products DVT Px SQ Lovenox DISPOSITION: Monitor in Tele May need SNF/Rehab placement Vital Signs: Date Time Temp Pulse Resp B/P (MAP) Pulse Ox O2 Delivery O2 Flow Rate FiO2 01/25/17 15:06 Room Air 01/25/17 12:35 Room Air 01/25/17 12:13 36.4 102 16 114/66 (82) 100 Room Air 01/25/17 08:09 37.1 100 16 138/74 (95) 98 Room Air 01/25/17 08:00 Room Air 01/25/17 04:00 Room Air 01/25/17 03:48 36.6 92 18 160/83 (108) 99 Room Air 01/24/17 23:59 Room Air 01/24/17 23:23 36.6 87 18 153/76 (101) 99 Room Air 01/24/17 20:00 Room Air 01/24/17 18:39 36.8 97 20 138/86 (103) 99 Room Air 01/24/17 16:15 Room Air Lab Results: Results Past 24 Hours Test 01/24/17 16:30 01/25/17 06:54 01/25/17 15:43 Range/Units Sodium Level 126 130 136-145 mmol/L Potassium Level 4.1 3.8 3.5-5.1 mmol/L Chloride Level 91 92 98-107 mmol/L Carbon Dioxide Level 27 29 21-32 mmol/L Anion Gap 8.0 9.0 3-11 mmol/L Blood Urea Nitrogen 12 10 7-18 mg/dl Creatinine 0.86 0.78 0.60-1.20 mg/dl Est Creatinine Clear Calc Drug Dose 54.7 60.3 ml/min Estimated GFR () 79.3 89.3 Estimated GFR (Non- 68.4 77.0 BUN/Creatinine Ratio 13.4 13.1 10-20 Random Glucose 142 143 70-99 mg/dl Calcium Level 9.8 10.3 8.5-10.1 mg/dl Magnesium Level 1.8 1.2 1.8-2.4 mg/dl Chemistry Specimen Hemolysis Phosphorus Level 3.3 2.5-4.9 mg/dl
[2017-01-25 16:55] LABS: BUN/CREATININE RATIO 13.8 (10-20); CALCIUM 10.1 mg/dl (8.5-10.1); CREATININE 1.2 mg/dl (0.60-1.20); POTASSIUM 4.6 mmol/L (3.5-5.1)
[2017-01-25 19:47] VITALS: BP 155/82; PULSE 95; TEMP 37; O2SAT 99
[2017-01-25] MEDS: ATORVASTATIN 10 MG TAB PO SCH (21:03)
[2017-01-25] MEDS: ASPIRIN 81 MG CHEW PO SCH (21:03)
[2017-01-25] MEDS: ENOXAPARIN 40 MG/0.4 ML SYR SC SCH (21:04)
[2017-01-25 23:06] VITALS: BP 158/94; PULSE 94; TEMP 36.8; O2SAT 94
[2017-01-26] VITALS (7 sets, daily range): BP systolic 124–156; BP diastolic 79–82; PULSE 89–99; TEMP 36.4–36.9; O2SAT 95–99
[2017-01-26] MEDS: FUROSEMIDE INJ 40 MG in SYRINGE 0 ML IV SCH ×7 (01:17→19:33)
[2017-01-26] MEDS: NSS + 20MEQ KCL 1000ML 1,000 ML IV SCH ×2 (03:52→15:49)
[2017-01-26 07:48] LABS: BUN/CREATININE RATIO 13.9 (10-20); CALCIUM 10.4 mg/dl (8.5-10.1); MAGNESIUM 1.5 mg/dl (1.8-2.4); POTASSIUM 3.6 mmol/L (3.5-5.1)
[2017-01-26] MEDS: MAGNESIUM CHLORIDE 64MG DELAYED REL TAB PO SCH ×3 (07:48→19:41)
[2017-01-26] MEDS: BOOST PLUS VANILLA PO SCH ×2 (07:48)
[2017-01-26] MEDS: DILTIAZEM HCL 300 MG CAPCR PO SCH (07:49)
[2017-01-26] MEDS: MEGESTROL ACETATE 400 MG/10 ML UDP PO SCH (07:49)
[2017-01-26] MEDS: POTASSIUM CHLORIDE 20 MEQ TABCR PO SCH ×2 (07:50→19:41)
[2017-01-26] MEDS: DOCUSATE SODIUM 100 MG CAP PO SCH ×2 (07:50→19:42)
[2017-01-26] MEDS: PANTOprazole SOD 40 MG TAB PO SCH (07:50)
[2017-01-26] MEDS: MAGNESIUM SULFATE 1GM / D5W 1 GM in PREMIXED IN D5W 100 ML IV SCH ×2 (11:55→13:14)
--- NOTE | 2017-01-26 14:55 | Progress Note ---
Internal Med Progress Note Date of Service: Jan 26, 2017. Provider Documentation: SUBJECTIVE: The patient was seen and examined Complains of generalized weakness Denies any other symptoms Feels much better today OBJECTIVE: Vital Signs-as noted below Exam: General-no distress at rest Eyes-Normal ENT-normal Neck-supple Lungs-clear to auscultate bilaterally No crackles at the bases Heart-Regular,no murmur appreciated Abdomen-Benign,no masses,bowel sound present Extremities-Trace edema bilaterally Neuro-AAOx3 Generally weak ,no focal neuro deficit Lab data as noted below. 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 Generalized weakness Likely Multifactorial and may be secondary to Leiomyosarcoma,recent extensive surgery and associated neuropathy Complicated by Hyponatremia TSH, B12:wnl Ionized Ca, Phos: wnl Appreciate Neurology input-no new recommendation Continue PT/OT-participating and improving Hyposmolar Hyponatremia with H/O chronic hyponatremia Likely worsened secondary to dehydration Appreciate Nephrology input Urine sodium:41 Sodium levels:118>>>123 >>>126-127 0n 01/24/17. Goal 133 on 01/24 On IV lasix as well Adrenal Insufficiency work:cosyntropin stim tests shows no adrenal insufficiency PT/OT requested Sodium 130 this morning Keep monitoring:IVF and Lasix and electrolytes supplements as per Nephrology UTI: Urine culture: gram negative bacilli Continue IV Rocephin Day # 5 Urine culture:E.coli Will stop antibiotic after 5 days of IV Antibiotic stopped Nausea and Vomiting-Improved : Check KUB to r/o SBO Continue bowel regimen for constipation Will start PPI and appetite stimulant Eating reasonably well Electrolytes Imbalance Chronic Replace and monitor H/O Retroperitoneal leiomyosarcoma S/P Left Nephrectomy, Splenectomy and partial pancreatectomy S/P Radiation therapy prior to surgery Follows with at [facility] [place] Planned for repeat CT scan in 4 months PT/OT ordered Thrombocytosis: Likely secondary to splenectomy worsened in setting of dehydration Monitor platelets My need Heme oncology follow up as OP Severe Protein Calorie Malnutrition: Immigration Guard consulted HTN Continue Cardizem Getting IV Lasix Po Lasix on hold CAD stable Denies chest pain 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, Statin RASTAFARI Does not want any Blood products DVT Px SQ Lovenox DISPOSITION: Monitor in Tele May need SNF/Rehab placement Vital Signs: Date Time Temp Pulse Resp B/P (MAP) Pulse Ox O2 Delivery O2 Flow Rate FiO2 01/26/17 11:42 36.4 99 17 155/80 (105) 99 Room Air 01/26/17 11:20 Room Air 01/26/17 08:00 Room Air 01/26/17 07:27 36.9 89 18 124/79 (94) 95 Room Air 01/26/17 04:00 Room Air 01/26/17 03:28 36.9 91 20 143/80 (101) 97 Room Air 01/26/17 00:00 Room Air 01/25/17 23:06 36.8 94 18 158/94 (115) 94 Room Air 01/25/17 20:00 Room Air 01/25/17 19:47 37.0 95 20 155/82 (106) 99 Room Air 01/25/17 15:22 36.5 101 18 149/85 (106) 97 Room Air 01/25/17 15:06 Room Air Lab Results: Results Past 24 Hours Test 01/25/17 15:43 01/26/17 06:38 Range/Units Sodium Level 128 130 136-145 mmol/L Potassium Level 4.6 3.6 3.5-5.1 mmol/L Chloride Level 91 94 98-107 mmol/L Carbon Dioxide Level 28 30 21-32 mmol/L Anion Gap 9.0 6.0 3-11 mmol/L Blood Urea Nitrogen 17 14 7-18 mg/dl Creatinine 1.20 1.00 0.60-1.20 mg/dl Est Creatinine Clear Calc Drug Dose 39.2 47.1 ml/min Estimated GFR () 53.0 66.1 Estimated GFR (Non- 45.8 57.0 BUN/Creatinine Ratio 13.8 13.9 10-20 Random Glucose 137 145 70-99 mg/dl Calcium Level 10.1 10.4 8.5-10.1 mg/dl Magnesium Level 1.5 1.8-2.4 mg/dl Chemistry Specimen Hemolysis
--- NOTE | 2017-01-26 18:00 | Nephrology Progress Note ---
Nephrology Progress Note Date of Service: Jan 26, 2017. Subjective seen on rounds this am at 0930; feeling a bit stronger this am; no N but minimal po Objective Date Time Temp Pulse Resp B/P (MAP) Pulse Ox O2 Delivery O2 Flow Rate FiO2 01/26/17 16:08 36.9 98 20 150/82 (104) 95 Room Air 01/26/17 15:10 Room Air 01/26/17 11:42 36.4 99 17 155/80 (105) 99 Room Air 01/26/17 11:20 Room Air 01/26/17 08:00 Room Air 01/26/17 07:27 36.9 89 18 124/79 (94) 95 Room Air 01/26/17 04:00 Room Air 01/26/17 03:28 36.9 91 20 143/80 (101) 97 Room Air 01/26/17 00:00 Room Air 01/25/17 23:06 36.8 94 18 158/94 (115) 94 Room Air 01/25/17 20:00 Room Air 01/25/17 19:47 37.0 95 20 155/82 (106) 99 Room Air Physical Exam: General Appearance: WD/WN, on RA, less tired appearing up in chair Eyes: EOMI ENT: hearing grossly normal, + pertinent finding (dry mm) Neck: supple Respiratory/Chest: lungs clear, normal breath sounds, no respiratory distress Cardiovascular: regular rate, rhythm, no edema Abdomen: slightly diminished bowel sounds, non tender, soft, + pertinent finding (miles w/ ample urine) Extremities: non-tender, no pedal edema Neurologic/Psych: no sensory deficits, alert, normal mood/affect, oriented x 3 , + motor weakness (today still some effort to hold head up during interview; some odd facial expressions at times) Skin: normal color, no jaundice Current Inpatient Medications Medications (Trade) Dose Ordered Sig/Ana Route Start Time Stop Time Status Last Admin Dose Admin Enoxaparin Sodium (Lovenox Inj) 40 mg Q24H SC 01/20/17 21:00 02/19/17 20:59 01/25/17 21:04 40 MG Acetaminophen (Tylenol Tab) 650 mg Q4H PRN PO 01/20/17 17:15 02/19/17 17:14 01/23/17 04:41 650 MG Ondansetron HCl (Zofran Inj) 4 mg Q6H PRN IV 01/20/17 17:15 02/19/17 17:14 01/23/17 04:49 4 MG Docusate Sodium (coLACE CAP) 100 mg BID PO 01/20/17 21:00 02/19/17 20:59 01/26/17 07:50 100 MG Aspirin (Aspirin Chew) 81 mg QPM PO 01/20/17 21:00 02/19/17 20:59 01/25/17 21:03 81 MG Atorvastatin Calcium (Lipitor Tab) 10 mg HS PO 01/20/17 21:00 02/19/17 20:59 01/25/17 21:03 10 MG Diltiazem HCl (Cardizem Cd Cap) 300 mg DAILY PO 01/21/17 09:00 02/20/17 08:59 01/26/17 07:49 300 MG Magnesium Chloride (Slow-Mag Tab) 64 mg TID PO 01/20/17 21:00 02/19/17 20:59 01/26/17 13:15 64 MG Polyethylene (Miralax Powder Packet) 17 gm DAILY PRN PO 01/21/17 20:15 02/20/17 20:14 01/22/17 14:33 17 GM Potassium Chloride/Sodium Chloride 1,000 ml @ 125 mls/hr Q8H IV 01/22/17 18:15 02/21/17 18:14 01/26/17 15:49 125 MLS/HR Atropine Sulfate (Atropine Sulfate 0.1MG/Ml Inj) 0.5 mg UD PRN IV 01/23/17 06:00 02/22/17 05:59 Metoclopramide HCl (Reglan Inj) 10 mg Q6H PRN IV 01/24/17 03:00 02/23/17 02:59 01/25/17 22:11 10 MG Furosemide 40 mg/ Syringe 4 ml @ 4 mls/min Q3H IV 01/24/17 10:00 02/21/17 00:44 01/26/17 15:50 4 MLS/MIN Enteral Nutritional Formula (Boost Plus Vanilla) 1 can QDB PO 01/25/17 07:30 02/24/17 07:29 01/26/17 07:48 1 CAN Pantoprazole Sodium (Protonix Tab) 40 mg QAM PO 01/25/17 09:00 02/24/17 08:59 01/26/17 07:50 40 MG Megestrol Acetate (Megace Susp) 400 mg QAM PO 01/25/17 09:00 02/24/17 08:59 01/26/17 07:49 400 MG Potassium Chloride (Klor-Con Tab) 40 meq BID PO 01/24/17 21:00 02/23/17 20:59 01/26/17 07:50 40 MEQ Last 24 Hours Test 01/26/17 06:38 Sodium Level 130 mmol/L Potassium Level 3.6 mmol/L Chloride Level 94 mmol/L Carbon Dioxide Level 30 mmol/L Anion Gap 6.0 mmol/L Blood Urea Nitrogen 14 mg/dl Creatinine 1.00 mg/dl Est Creatinine Clear Calc Drug Dose 47.1 ml/min Estimated GFR () 66.1 Estimated GFR (Non- 57.0 BUN/Creatinine Ratio 13.9 Random Glucose 145 mg/dl Calcium Level 10.4 mg/dl Magnesium Level 1.5 mg/dl Chemistry Specimen Hemolysis Assessment & Plan 71 y/o F w/ longstanding chronic hyponatremia, HTN, chronic hypomagnesemia 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, excision tail of pancreas admitted 12/20 for sNa outpt 118 and w/ profound generalized weakness acute on chronic hypotonic hyponatremia w/ chronic hypomagnesemia, correcting slowly most consistent with volume depletion though relative excess of water intake w/ uOsm 187 on admission a role as well; in setting of profound weakness, recent adrenalectomy and steroid therapy now stopped; cosyntropin stim tests shows no adrenal insuffficiency -goal sNa for 01/27 am is 135 > f/u pending labs for this evening -cont po mag and prn IV -would not be in hurry to d/c pt unless sNa maintained on po meds x 24-48 hrs -cont current rate of NS w/ 20 mEq K to 125 mL hourly; cont increased dose of 30 mg lasix IVq3h to 40 mg same frequency -offer protein supplements/solute rich diet <<protein shakes do not count toward fluid limit -2L fluid limit << mostly in interest of preventing low solute diet -control N Appreciate consult; will follow with you. Care coordinated w/ Dr Chapa
[2017-01-26 19:04] LABS: CALCIUM 10.3 mg/dl (8.5-10.1); CREATININE 1.1 mg/dl (0.60-1.20); MAGNESIUM 1.9 mg/dl (1.8-2.4)
[2017-01-26] MEDS: METOCLOPRAMIDE HCL INJ 5 MG/ML 2 ML VIAL IV PRN (19:34)
[2017-01-26] MEDS: ATORVASTATIN 10 MG TAB PO SCH (19:41)
[2017-01-26] MEDS: ENOXAPARIN 40 MG/0.4 ML SYR SC SCH (19:42)
[2017-01-26] MEDS: ASPIRIN 81 MG CHEW PO SCH (19:42)
[2017-01-27 03:00] VITALS: BP 148/77; PULSE 97; TEMP 37.1; O2SAT 94
[2017-01-27] MEDS: FUROSEMIDE INJ 30 MG in SYRINGE 0 ML IV SCH ×3 (03:30→19:36)
[2017-01-27] MEDS: ACETAMINOPHEN 325 MG TAB PO PRN (03:39)
[2017-01-27] MEDS: BOOST PLUS VANILLA PO SCH ×2 (07:30)
[2017-01-27 07:47] VITALS: BP 132/74; PULSE 99; TEMP 36.8; O2SAT 93
[2017-01-27 07:53] LABS: HEMATOCRIT 31.7 % (37-47); MEAN CELL VOLUME 88.1 fL (80-100); MEAN CORPUSCULAR HEMOGLOBIN 30.3 pg (25-34); MEAN CORPUSCULAR HGB CONC 34.4 g/dl (32-36); MEAN PLATELET VOLUME 8.5 fL (7.4-10.4); PLATELET COUNT 677 K/uL (130-400); WHITE BLOOD COUNT 8.84 K/uL (4.8-10.8)
[2017-01-27 08:23] LABS: BUN/CREATININE RATIO 17.8 (10-20); CALCIUM 10.3 mg/dl (8.5-10.1); CREATININE 0.91 mg/dl (0.60-1.20); MAGNESIUM 1.4 mg/dl (1.8-2.4); POTASSIUM 3.6 mmol/L (3.5-5.1)
[2017-01-27] MEDS: DOCUSATE SODIUM 100 MG CAP PO SCH ×2 (08:33→20:32)
[2017-01-27] MEDS: DILTIAZEM HCL 300 MG CAPCR PO SCH (08:33)
[2017-01-27] MEDS: PANTOprazole SOD 40 MG TAB PO SCH (08:33)
[2017-01-27] MEDS: POTASSIUM CHLORIDE 20 MEQ TABCR PO SCH ×2 (08:34→20:33)
[2017-01-27] MEDS: MAGNESIUM CHLORIDE 64MG DELAYED REL TAB PO SCH ×3 (08:34→20:33)
[2017-01-27] MEDS: MEGESTROL ACETATE 400 MG/10 ML UDP PO SCH (08:41)
[2017-01-27] MEDS: MAGNESIUM SULFATE 1GM / D5W 1 GM in PREMIXED IN D5W 100 ML IV SCH ×2 (11:58→14:18)
[2017-01-27 12:01] VITALS: BP 129/81; PULSE 107; TEMP 36.4; O2SAT 97
[2017-01-27 15:43] VITALS: BP 164/85; PULSE 90; TEMP 36.4; O2SAT 99
--- NOTE | 2017-01-27 16:57 | Nephrology Progress Note ---
Nephrology Progress Note Date of Service: Jan 27, 2017. Subjective seen on rounds this am at 0930; feeling a bit stronger this am; still minimal po ; I had stopped IVF last evening Objective Date Time Temp Pulse Resp B/P (MAP) Pulse Ox O2 Delivery O2 Flow Rate FiO2 01/27/17 16:00 Room Air 01/27/17 15:43 36.4 90 20 164/85 (111) 99 Room Air 01/27/17 12:01 36.4 107 18 129/81 (97) 97 Room Air 01/27/17 12:00 Room Air 01/27/17 08:00 Room Air 01/27/17 07:47 36.8 99 18 132/74 (93) 93 Room Air 01/27/17 04:00 Room Air 01/27/17 03:00 37.1 97 18 148/77 (100) 94 Room Air 01/27/17 00:00 Room Air 01/26/17 23:33 36.9 94 18 146/80 (102) 96 Room Air 01/26/17 20:04 36.4 98 20 156/80 (105) 96 Room Air 01/26/17 20:00 96 Room Air Physical Exam: General Appearance: WD/WN, on RA, less tired appearing up in chair Eyes: EOMI ENT: hearing grossly normal, + pertinent finding (dry mm) Neck: supple Respiratory/Chest: lungs clear, normal breath sounds, no respiratory distress Cardiovascular: regular rate, rhythm, no edema Abdomen: slightly diminished bowel sounds, non tender, soft, + pertinent finding (miles w/ ample urine but darker today) Extremities: non-tender, no pedal edema Neurologic/Psych: no sensory deficits, alert, normal mood/affect, oriented x 3 , + motor weakness (today still some effort to hold head up during interview; some odd facial expressions at times) Skin: normal color, no jaundice Current Inpatient Medications Medications (Trade) Dose Ordered Sig/Ana Route Start Time Stop Time Status Last Admin Dose Admin Enoxaparin Sodium (Lovenox Inj) 40 mg Q24H SC 01/20/17 21:00 02/19/17 20:59 01/26/17 19:42 40 MG Acetaminophen (Tylenol Tab) 650 mg Q4H PRN PO 01/20/17 17:15 02/19/17 17:14 01/27/17 03:39 650 MG Ondansetron HCl (Zofran Inj) 4 mg Q6H PRN IV 01/20/17 17:15 02/19/17 17:14 01/23/17 04:49 4 MG Docusate Sodium (coLACE CAP) 100 mg BID PO 01/20/17 21:00 02/19/17 20:59 01/27/17 08:33 100 MG Aspirin (Aspirin Chew) 81 mg QPM PO 01/20/17 21:00 02/19/17 20:59 01/26/17 19:42 81 MG Atorvastatin Calcium (Lipitor Tab) 10 mg HS PO 01/20/17 21:00 02/19/17 20:59 01/26/17 19:41 10 MG Diltiazem HCl (Cardizem Cd Cap) 300 mg DAILY PO 01/21/17 09:00 02/20/17 08:59 01/27/17 08:33 300 MG Magnesium Chloride (Slow-Mag Tab) 64 mg TID PO 01/20/17 21:00 02/19/17 20:59 01/27/17 14:18 64 MG Polyethylene (Miralax Powder Packet) 17 gm DAILY PRN PO 01/21/17 20:15 02/20/17 20:14 01/22/17 14:33 17 GM Atropine Sulfate (Atropine Sulfate 0.1MG/Ml Inj) 0.5 mg UD PRN IV 01/23/17 06:00 02/22/17 05:59 Metoclopramide HCl (Reglan Inj) 10 mg Q6H PRN IV 01/24/17 03:00 02/23/17 02:59 01/26/17 19:34 10 MG Enteral Nutritional Formula (Boost Plus Vanilla) 1 can QDB PO 01/25/17 07:30 02/24/17 07:29 01/27/17 07:30 1 CAN Pantoprazole Sodium (Protonix Tab) 40 mg QAM PO 01/25/17 09:00 02/24/17 08:59 01/27/17 08:33 40 MG Megestrol Acetate (Megace Susp) 400 mg QAM PO 01/25/17 09:00 02/24/17 08:59 01/27/17 08:41 400 MG Potassium Chloride (Klor-Con Tab) 40 meq BID PO 01/24/17 21:00 02/23/17 20:59 01/27/17 08:34 40 MEQ Furosemide 30 mg/ Syringe 3 ml @ 4 mls/min Q8H IV 01/27/17 03:00 02/21/17 00:44 01/27/17 11:15 4 MLS/MIN Last 24 Hours Test 01/26/17 18:07 01/27/17 07:18 Sodium Level 126 mmol/L 127 mmol/L Potassium Level 4.0 mmol/L 3.6 mmol/L Chloride Level 89 mmol/L 90 mmol/L Carbon Dioxide Level 25 mmol/L 27 mmol/L Anion Gap 12.0 mmol/L 10.0 mmol/L Blood Urea Nitrogen 16 mg/dl 16 mg/dl Creatinine 1.10 mg/dl 0.91 mg/dl Est Creatinine Clear Calc Drug Dose 42.8 ml/min 51.8 ml/min Estimated GFR () 58.9 74.1 Estimated GFR (Non- 50.8 63.9 BUN/Creatinine Ratio 15.0 17.8 Random Glucose 192 mg/dl 144 mg/dl Calcium Level 10.3 mg/dl 10.3 mg/dl Magnesium Level 1.9 mg/dl 1.4 mg/dl White Blood Count 8.84 K/uL Red Blood Count 3.60 M/uL Hemoglobin 10.9 g/dL Hematocrit 31.7 % Mean Corpuscular Volume 88.1 fL Mean Corpuscular Hemoglobin 30.3 pg Mean Corpuscular Hemoglobin Concent 34.4 g/dl RDW Standard Deviation 44.6 fL RDW Coefficient of Variation 13.8 % Platelet Count 677 K/uL Mean Platelet Volume 8.5 fL Assessment & Plan 71 y/o F w/ longstanding chronic hyponatremia, HTN, chronic hypomagnesemia 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, excision tail of pancreas admitted 12/20 for sNa outpt 118 and w/ profound generalized weakness acute on chronic hypotonic hyponatremia w/ chronic hypomagnesemia, correcting slowly most consistent with volume depletion though relative excess of water intake w/ uOsm 187 on admission a role as well; in setting of profound weakness, recent adrenalectomy and steroid therapy now stopped; cosyntropin stim tests shows no adrenal insuffficiency -goal sNa for 01/28 am is 132 > f/u pending labs for this evening -cont po mag and prn IV -would not be in hurry to d/c pt unless sNa maintained on po meds x 24-48 hrs -off IVF since 01/26 hs; now on 30 mg lasix IVq8h and if labs stable will consider change to po in am -offer protein supplements/solute rich diet <<protein shakes do not count toward fluid limit -2L fluid limit << mostly in interest of preventing low solute diet -control N -if cloudy urine persists, needs uacm/and if indicated cx Appreciate consult; will follow with you. Care coordinated w/ Dr Chapa
[2017-01-27] MEDS ORDERED: LIDOCAINE HCL 2% JELLY 30 ML TUBE EXT ONE (17:46)
[2017-01-27 18:18] LABS: BUN/CREATININE RATIO 18.8 (10-20); CALCIUM 10.7 mg/dl (8.5-10.1); POTASSIUM 3.6 mmol/L (3.5-5.1)
--- NOTE | 2017-01-27 18:28 | Progress Note ---
Internal Med Progress Note Date of Service: Jan 27, 2017. Provider Documentation: SUBJECTIVE: The patient was seen and examined Complains of generalized weakness Denies any other symptoms Feels much better today but remains generally weak OBJECTIVE: Vital Signs-as noted below Exam: General-no distress at rest Eyes-Normal ENT-normal Neck-supple Lungs-clear to auscultate bilaterally No crackles at the bases Heart-Regular,no murmur appreciated Abdomen-Benign,no masses,bowel sound present Extremities-Trace edema bilaterally -improved Neuro-AAOx3 Generally weak ,no focal neuro deficit Lab data as noted below. 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 Generalized weakness Likely Multifactorial and may be secondary to Leiomyosarcoma,recent extensive surgery and associated neuropathy Complicated by Hyponatremia TSH, B12:wnl Ionized Ca, Phos: wnl Appreciate Neurology input-no new recommendation Continue PT/OT-participating and improving No new issues Wants to go home Hyposmolar Hyponatremia with H/O chronic hyponatremia Likely worsened secondary to dehydration Appreciate Nephrology input Urine sodium:41 Sodium levels:118>>>123 >>>126-127 0n 01/24/17. Goal 133 on 01/24 On IV lasix as well Adrenal Insufficiency work:cosyntropin stim tests shows no adrenal insufficiency PT/OT requested Sodium 130 this morning 01/26/17 Keep monitoring:IVF and Lasix and electrolytes supplements as per Nephrology Sodium decreased to 125 today on 01/27/17 UTI: Urine culture: gram negative bacilli Continue IV Rocephin Day # 5 Urine culture:E.coli Will stop antibiotic after 5 days of IV Antibiotic stopped Denies any symptoms Nausea and Vomiting-Improved : Check KUB to r/o SBO Continue bowel regimen for constipation Will start PPI and appetite stimulant Eating reasonably well Symptomatic treatment for Nausea Electrolytes Imbalance Chronic Replace and monitor H/O Retroperitoneal leiomyosarcoma S/P Left Nephrectomy, Splenectomy and partial pancreatectomy S/P Radiation therapy prior to surgery Follows with [place] [facility] [place] Planned for repeat CT scan in 4 months PT/OT ordered Thrombocytosis: Likely secondary to splenectomy worsened in setting of dehydration Monitor platelets My need Heme oncology follow up as OP Severe Protein Calorie Malnutrition: County Surveyor consulted HTN Continue Cardizem Getting IV Lasix Po Lasix on hold CAD stable Denies chest pain 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, Statin ALEVISM Does not want any Blood products DVT Px SQ Lovenox DISPOSITION: Monitor in Tele May need SNF/Rehab placement Vital Signs: Date Time Temp Pulse Resp B/P (MAP) Pulse Ox O2 Delivery O2 Flow Rate FiO2 01/27/17 16:00 Room Air 01/27/17 15:43 36.4 90 20 164/85 (111) 99 Room Air 01/27/17 12:01 36.4 107 18 129/81 (97) 97 Room Air 01/27/17 12:00 Room Air 01/27/17 08:00 Room Air 01/27/17 07:47 36.8 99 18 132/74 (93) 93 Room Air 01/27/17 04:00 Room Air 01/27/17 03:00 37.1 97 18 148/77 (100) 94 Room Air 01/27/17 00:00 Room Air 01/26/17 23:33 36.9 94 18 146/80 (102) 96 Room Air 01/26/17 20:04 36.4 98 20 156/80 (105) 96 Room Air 01/26/17 20:00 96 Room Air Lab Results: Results Past 24 Hours Test 01/27/17 07:18 01/27/17 17:30 Range/Units White Blood Count 8.84 4.8-10.8 K/uL Red Blood Count 3.60 4.2-5.4 M/uL Hemoglobin 10.9 12.0-16.0 g/dL Hematocrit 31.7 37-47 % Mean Corpuscular Volume 88.1 80-100 fL Mean Corpuscular Hemoglobin 30.3 25-34 pg Mean Corpuscular Hemoglobin Concent 34.4 32-36 g/dl RDW Standard Deviation 44.6 36.4-46.3 fL RDW Coefficient of Variation 13.8 11.5-14.5 % Platelet Count 677 130-400 K/uL Mean Platelet Volume 8.5 7.4-10.4 fL Sodium Level 127 125 136-145 mmol/L Potassium Level 3.6 3.6 3.5-5.1 mmol/L Chloride Level 90 89 98-107 mmol/L Carbon Dioxide Level 27 26 21-32 mmol/L Anion Gap 10.0 10.0 3-11 mmol/L Blood Urea Nitrogen 16 19 7-18 mg/dl Creatinine 0.91 1.00 0.60-1.20 mg/dl Est Creatinine Clear Calc Drug Dose 51.8 47.1 ml/min Estimated GFR () 74.1 66.1 Estimated GFR (Non- 63.9 57.0 BUN/Creatinine Ratio 17.8 18.8 10-20 Random Glucose 144 214 70-99 mg/dl Calcium Level 10.3 10.7 8.5-10.1 mg/dl Magnesium Level 1.4 1.8-2.4 mg/dl
[2017-01-27 18:49] VITALS: BP 161/84; PULSE 101; TEMP 36.6; O2SAT 96
[2017-01-27] MEDS: ASPIRIN 81 MG CHEW PO SCH (20:32)
[2017-01-27] MEDS: ATORVASTATIN 10 MG TAB PO SCH (20:33)
[2017-01-27] MEDS: ENOXAPARIN 40 MG/0.4 ML SYR SC SCH (20:34)
[2017-01-27] MEDS: METOCLOPRAMIDE HCL INJ 5 MG/ML 2 ML VIAL IV PRN (20:37)
[2017-01-27 23:19] VITALS: BP 139/84; PULSE 90; TEMP 37.1; O2SAT 97
[2017-01-28 02:27] VITALS: BP 130/72; PULSE 91; TEMP 37.1; O2SAT 95
[2017-01-28] MEDS: FUROSEMIDE INJ 30 MG in SYRINGE 0 ML IV SCH ×3 (03:53→19:28)
[2017-01-28] MEDS: BOOST PLUS VANILLA PO SCH ×2 (07:30)
[2017-01-28 08:01] VITALS: BP 135/77; PULSE 97; TEMP 36.7; O2SAT 95
[2017-01-28] MEDS: MAGNESIUM CHLORIDE 64MG DELAYED REL TAB PO SCH ×3 (08:28→20:22)
[2017-01-28] MEDS: DOCUSATE SODIUM 100 MG CAP PO SCH ×2 (08:28→20:22)
[2017-01-28] MEDS: DILTIAZEM HCL 300 MG CAPCR PO SCH (08:28)
[2017-01-28] MEDS: PANTOprazole SOD 40 MG TAB PO SCH (08:30)
[2017-01-28] MEDS: MEGESTROL ACETATE 400 MG/10 ML UDP PO SCH (08:30)
[2017-01-28] MEDS: POTASSIUM CHLORIDE 20 MEQ TABCR PO SCH ×2 (08:30→20:23)
[2017-01-28 08:36] LABS: CALCIUM 10.5 mg/dl (8.5-10.1); CREATININE 0.87 mg/dl (0.60-1.20); MAGNESIUM 1.4 mg/dl (1.8-2.4); POTASSIUM 3.3 mmol/L (3.5-5.1)
[2017-01-28] MEDS ORDERED: POTASSIUM CHLORIDE 10 MEQ TABCR PO STA (09:38)
[2017-01-28] MEDS: MAGNESIUM SULFATE 1GM / D5W 1 GM in PREMIXED IN D5W 100 ML IV SCH ×2 (10:30→11:39)
[2017-01-28 12:10] VITALS: BP 137/85; PULSE 110; TEMP 36.9; O2SAT 98
[2017-01-28] MEDS: ACETAMINOPHEN 325 MG TAB PO PRN (13:51)
--- NOTE | 2017-01-28 15:15 | Nephrology Progress Note ---
Nephrology Progress Note Date of Service: Jan 28, 2017. Subjective feeling a bit stronger this am; still minimal po; currently on intermittentlasix ; N better controlled Objective Date Time Temp Pulse Resp B/P (MAP) Pulse Ox O2 Delivery O2 Flow Rate FiO2 01/28/17 12:10 36.9 110 18 137/85 (102) 98 Room Air 01/28/17 08:01 36.7 97 18 135/77 (96) 95 Room Air 01/28/17 08:00 Room Air 01/28/17 04:00 Room Air 01/28/17 02:27 37.1 91 19 130/72 (91) 95 Room Air 01/28/17 00:01 Room Air 01/27/17 23:19 37.1 90 19 139/84 (102) 97 Room Air 01/27/17 20:00 Room Air 01/27/17 18:49 36.6 101 18 161/84 (109) 96 Room Air 01/27/17 16:00 Room Air 01/27/17 15:43 36.4 90 20 164/85 (111) 99 Room Air Physical Exam: General Appearance: WD/WN, on RA, less tired appearing up in bed Eyes: EOMI ENT: hearing grossly normal, + pertinent finding (dry mm) Neck: supple Respiratory/Chest: lungs clear, normal breath sounds, no respiratory distress Cardiovascular: regular rate, rhythm, no edema Abdomen: slightly diminished bowel sounds, non tender, soft, + pertinent finding (miles w/ ample urine) Extremities: non-tender, no pedal edema Neurologic/Psych: no sensory deficits, alert, normal mood/affect, oriented x 3 , + motor weakness ( some odd facial expressions/ hand positions at times) Skin: normal color, no jaundice Current Inpatient Medications Medications (Trade) Dose Ordered Sig/Ana Route Start Time Stop Time Status Last Admin Dose Admin Enoxaparin Sodium (Lovenox Inj) 40 mg Q24H SC 01/20/17 21:00 02/19/17 20:59 01/27/17 20:34 40 MG Acetaminophen (Tylenol Tab) 650 mg Q4H PRN PO 01/20/17 17:15 02/19/17 17:14 01/28/17 13:51 650 MG Ondansetron HCl (Zofran Inj) 4 mg Q6H PRN IV 01/20/17 17:15 02/19/17 17:14 01/23/17 04:49 4 MG Docusate Sodium (coLACE CAP) 100 mg BID PO 01/20/17 21:00 02/19/17 20:59 01/28/17 08:28 100 MG Aspirin (Aspirin Chew) 81 mg QPM PO 01/20/17 21:00 02/19/17 20:59 01/27/17 20:32 81 MG Atorvastatin Calcium (Lipitor Tab) 10 mg HS PO 01/20/17 21:00 02/19/17 20:59 01/27/17 20:33 10 MG Diltiazem HCl (Cardizem Cd Cap) 300 mg DAILY PO 01/21/17 09:00 02/20/17 08:59 01/28/17 08:28 300 MG Magnesium Chloride (Slow-Mag Tab) 64 mg TID PO 01/20/17 21:00 02/19/17 20:59 01/28/17 13:50 64 MG Polyethylene (Miralax Powder Packet) 17 gm DAILY PRN PO 01/21/17 20:15 02/20/17 20:14 01/22/17 14:33 17 GM Atropine Sulfate (Atropine Sulfate 0.1MG/Ml Inj) 0.5 mg UD PRN IV 01/23/17 06:00 02/22/17 05:59 Metoclopramide HCl (Reglan Inj) 10 mg Q6H PRN IV 01/24/17 03:00 02/23/17 02:59 01/27/17 20:37 10 MG Enteral Nutritional Formula (Boost Plus Vanilla) 1 can QDB PO 01/25/17 07:30 02/24/17 07:29 01/28/17 07:30 1 CAN Pantoprazole Sodium (Protonix Tab) 40 mg QAM PO 01/25/17 09:00 02/24/17 08:59 01/28/17 08:30 40 MG Megestrol Acetate (Megace Susp) 400 mg QAM PO 01/25/17 09:00 02/24/17 08:59 01/28/17 08:30 400 MG Potassium Chloride (Klor-Con Tab) 40 meq BID PO 01/24/17 21:00 02/23/17 20:59 01/28/17 08:30 40 MEQ Furosemide 30 mg/ Syringe 3 ml @ 4 mls/min Q8H IV 01/27/17 03:00 02/21/17 00:44 01/28/17 11:13 4 MLS/MIN Last 24 Hours Test 01/27/17 17:30 01/28/17 07:33 Sodium Level 125 mmol/L 127 mmol/L Potassium Level 3.6 mmol/L 3.3 mmol/L Chloride Level 89 mmol/L 89 mmol/L Carbon Dioxide Level 26 mmol/L 28 mmol/L Anion Gap 10.0 mmol/L 10.0 mmol/L Blood Urea Nitrogen 19 mg/dl 17 mg/dl Creatinine 1.00 mg/dl 0.87 mg/dl Est Creatinine Clear Calc Drug Dose 47.1 ml/min 55.7 ml/min Estimated GFR () 66.1 78.2 Estimated GFR (Non- 57.0 67.5 BUN/Creatinine Ratio 18.8 20.0 Random Glucose 214 mg/dl 144 mg/dl Calcium Level 10.7 mg/dl 10.5 mg/dl Osmolality 265 mOsm/kg Magnesium Level 1.4 mg/dl Albumin 2.7 gm/dl Assessment & Plan 71 y/o F w/ longstanding chronic hyponatremia, HTN, chronic hypomagnesemia 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, excision tail of pancreas admitted 12/20 for sNa outpt 118 and w/ profound generalized weakness acute on chronic hypotonic hyponatremia w/ chronic hypomagnesemia, correcting slowly most consistent with volume depletion though relative excess of water intake w/ uOsm 187 on admission a role as well; in setting of profound weakness, recent adrenalectomy and steroid therapy now stopped; cosyntropin stim tests shows no adrenal insuffficiency -goal sNa for 01/28 am is 132 > f/u pending labs for this afternoon -on max po mag and cont prn IV -would not be in hurry to d/c pt unless sNa maintained on po meds x 24-48 hrs -off IVF since 01/26 hs; now on 30 mg lasix IVq8h and if afternoon/ am labs stable will consider change to po in am -offer protein supplements/solute rich diet <<protein shakes do not count toward fluid limit -2L fluid limit << mostly in interest of preventing low solute diet -control N Appreciate consult; will follow with you. Care coordinated w/ Dr Chapa
[2017-01-28 15:44] VITALS: BP 147/82; PULSE 95; TEMP 37.1; O2SAT 96
--- NOTE | 2017-01-28 16:27 | Progress Note ---
Internal Med Progress Note Date of Service: Jan 28, 2017. Provider Documentation: SUBJECTIVE: The patient was seen and examined Complains of generalized weakness Denies any other symptoms Feels much better today OBJECTIVE: Vital Signs-as noted below Exam: General-no distress at rest Eyes-Normal ENT-normal Neck-supple Lungs-clear to auscultate bilaterally No crackles at the bases Heart-Regular,no murmur appreciated Abdomen-Benign,no masses,bowel sound present Extremities-Trace edema bilaterally -improved Neuro-AAOx3 Generally weak ,no focal neuro deficit Lab data as noted below. 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 Generalized weakness Likely Multifactorial and may be secondary to Leiomyosarcoma,recent extensive surgery and associated neuropathy Complicated by Hyponatremia TSH, B12:wnl Ionized Ca, Phos: wnl Appreciate Neurology input-no new recommendation Continue PT/OT-participating and improving No new issues Wants to go home but likely to need short term Rehab Hyposmolar Hyponatremia with H/O chronic hyponatremia Likely worsened secondary to dehydration Appreciate Nephrology input Urine sodium:41 Sodium levels:118>>>123 >>>126-127 0n 01/24/17. Goal 133 on 01/24 On IV lasix as well Adrenal Insufficiency work:cosyntropin stim tests shows no adrenal insufficiency PT/OT requested Sodium 130 this morning 01/26/17 Keep monitoring:IVF and Lasix and electrolytes supplements as per Nephrology Sodium decreased to 125 today on 01/27/17>127 on 01/28 UTI: Urine culture: gram negative bacilli Continue IV Rocephin Day # 5 Urine culture:E.coli Will stop antibiotic after 5 days of IV Antibiotic stopped Denies any symptoms Nausea and Vomiting-Improved : Check KUB to r/o SBO Continue bowel regimen for constipation Will start PPI and appetite stimulant Eating reasonably well Symptomatic treatment for Nausea Electrolytes Imbalance Chronic with acute worsening Replace and monitor H/O Retroperitoneal leiomyosarcoma S/P Left Nephrectomy, Splenectomy and partial pancreatectomy S/P Radiation therapy prior to surgery Follows with at [facility] [place] Planned for repeat CT scan in 4 months PT/OT ordered Thrombocytosis: Likely secondary to splenectomy worsened in setting of dehydration Monitor platelets My need Heme oncology follow up as OP Severe Protein Calorie Malnutrition: International Representative consulted HTN Continue Cardizem Getting IV Lasix Po Lasix on hold CAD stable Denies chest pain 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, Statin MANDAEN Does not want any Blood products DVT Px SQ Lovenox DISPOSITION: Monitor in Tele May need SNF/Rehab placement Vital Signs: Date Time Temp Pulse Resp B/P (MAP) Pulse Ox O2 Delivery O2 Flow Rate FiO2 01/28/17 15:44 37.1 95 22 147/82 (103) 96 Room Air 01/28/17 12:10 36.9 110 18 137/85 (102) 98 Room Air 01/28/17 12:00 Room Air 01/28/17 08:01 36.7 97 18 135/77 (96) 95 Room Air 01/28/17 08:00 Room Air 01/28/17 04:00 Room Air 01/28/17 02:27 37.1 91 19 130/72 (91) 95 Room Air 01/28/17 00:01 Room Air 01/27/17 23:19 37.1 90 19 139/84 (102) 97 Room Air 01/27/17 20:00 Room Air 01/27/17 18:49 36.6 101 18 161/84 (109) 96 Room Air Lab Results: Results Past 24 Hours Test 01/27/17 17:30 01/28/17 07:33 01/28/17 11:00 01/28/17 16:06 Range/Units Sodium Level 125 127 136-145 mmol/L Potassium Level 3.6 3.3 3.5-5.1 mmol/L Chloride Level 89 89 98-107 mmol/L Carbon Dioxide Level 26 28 21-32 mmol/L Anion Gap 10.0 10.0 3-11 mmol/L Blood Urea Nitrogen 19 17 7-18 mg/dl Creatinine 1.00 0.87 0.60-1.20 mg/dl Est Creatinine Clear Calc Drug Dose 47.1 55.7 ml/min Estimated GFR () 66.1 78.2 Estimated GFR (Non- 57.0 67.5 BUN/Creatinine Ratio 18.8 20.0 10-20 Random Glucose 214 144 70-99 mg/dl Calcium Level 10.7 10.5 8.5-10.1 mg/dl Osmolality 265 280-300 mOsm/kg Magnesium Level 1.4 1.8-2.4 mg/dl Albumin 2.7 3.4-5.0 gm/dl Urine Osmolality 295 500-800 mOms/kg Urine Random Sodium 58 mEq/L
[2017-01-28 17:08] LABS: BUN/CREATININE RATIO 18.2 (10-20); CALCIUM 10.4 mg/dl (8.5-10.1); CREATININE 1.2 mg/dl (0.60-1.20); POTASSIUM 4.4 mmol/L (3.5-5.1)
[2017-01-28 19:47] VITALS: BP 171/95; PULSE 104; TEMP 36.9; O2SAT 97
[2017-01-28] MEDS: ASPIRIN 81 MG CHEW PO SCH (20:22)
[2017-01-28] MEDS: ATORVASTATIN 10 MG TAB PO SCH (20:22)
[2017-01-28] MEDS: ENOXAPARIN 40 MG/0.4 ML SYR SC SCH (20:23)
[2017-01-28] MEDS: METOCLOPRAMIDE HCL INJ 5 MG/ML 2 ML VIAL IV PRN (20:27)
[2017-01-28 23:00] VITALS: BP 149/84; PULSE 96; TEMP 36.8; O2SAT 97
[2017-01-28] MEDS ORDERED: TOLVAPTAN TAB 15 MG TAB PO STA (23:41)
[2017-01-29 03:50] VITALS: BP 157/84; PULSE 92; TEMP 36.4; O2SAT 96
[2017-01-29] MEDS: BOOST PLUS VANILLA PO SCH ×2 (07:51)
[2017-01-29] MEDS: MAGNESIUM CHLORIDE 64MG DELAYED REL TAB PO SCH ×3 (07:53→21:08)
[2017-01-29] MEDS: DOCUSATE SODIUM 100 MG CAP PO SCH ×2 (07:55→21:09)
[2017-01-29] MEDS: PANTOprazole SOD 40 MG TAB PO SCH (07:55)
[2017-01-29] MEDS: DILTIAZEM HCL 300 MG CAPCR PO SCH (07:55)
[2017-01-29] MEDS: MEGESTROL ACETATE 400 MG/10 ML UDP PO SCH (07:55)
[2017-01-29 08:01] LABS: BLOOD UREA NITROGEN 23 mg/dl (7-18); CARBON DIOXIDE 28 mmol/L (21-32); CHLORIDE 92 mmol/L (98-107); GLUCOSE 182 mg/dl (70-99); SODIUM 127 mmol/L (136-145)
[2017-01-29 08:46] VITALS: BP 152/80; PULSE 97; TEMP 36.7; O2SAT 97
[2017-01-29 09:17] LABS: POTASSIUM 4.2 mmol/L (3.5-5.1)
[2017-01-29 09:19] LABS: MAGNESIUM 1.5 mg/dl (1.8-2.4)
[2017-01-29] MEDS ORDERED: THIAMINE HCL 50 MG TAB PO ONE (09:52)
[2017-01-29] MEDS ORDERED: MAGNESIUM SULFATE 1GM / D5W 1 GM in PREMIXED IN D5W 100 ML IV STA (10:06)
[2017-01-29 11:39] VITALS: BP 163/83; PULSE 98; TEMP 36.8; O2SAT 99
[2017-01-29 12:47] LABS: BUN/CREATININE RATIO 19.8 (10-20); CALCIUM 10.5 mg/dl (8.5-10.1); CREATININE 1.2 mg/dl (0.60-1.20); POTASSIUM 4.3 mmol/L (3.5-5.1)
[2017-01-29 12:59] LABS: BETA-HYDROXYBUTYRATE 0.97 mg/dL (0.2-2.81)
--- NOTE | 2017-01-29 14:05 | Nephrology Progress Note ---
Nephrology Progress Note Date of Service: Jan 29, 2017. Subjective see separate note same date Objective Date Time Temp Pulse Resp B/P (MAP) Pulse Ox O2 Delivery O2 Flow Rate FiO2 01/29/17 12:00 Room Air 01/29/17 11:39 36.8 98 18 163/83 (109) 99 Room Air 01/29/17 08:46 36.7 97 18 152/80 (104) 97 Room Air 01/29/17 08:00 Room Air 01/29/17 04:00 Room Air 01/29/17 03:50 36.4 92 16 157/84 (108) 96 Room Air 01/28/17 23:59 Room Air 01/28/17 23:00 36.8 96 16 149/84 (105) 97 Room Air 01/28/17 20:00 Room Air 01/28/17 19:47 36.9 104 22 171/95 (120) 97 Room Air 01/28/17 16:00 Room Air 01/28/17 15:44 37.1 95 22 147/82 (103) 96 Room Air Current Inpatient Medications Medications (Trade) Dose Ordered Sig/Ana Route Start Time Stop Time Status Last Admin Dose Admin Enoxaparin Sodium (Lovenox Inj) 40 mg Q24H SC 01/20/17 21:00 02/19/17 20:59 01/28/17 20:23 40 MG Acetaminophen (Tylenol Tab) 650 mg Q4H PRN PO 01/20/17 17:15 02/19/17 17:14 01/28/17 13:51 650 MG Ondansetron HCl (Zofran Inj) 4 mg Q6H PRN IV 01/20/17 17:15 02/19/17 17:14 01/23/17 04:49 4 MG Docusate Sodium (coLACE CAP) 100 mg BID PO 01/20/17 21:00 02/19/17 20:59 01/29/17 07:55 100 MG Aspirin (Aspirin Chew) 81 mg QPM PO 01/20/17 21:00 02/19/17 20:59 01/28/17 20:22 81 MG Atorvastatin Calcium (Lipitor Tab) 10 mg HS PO 01/20/17 21:00 02/19/17 20:59 01/28/17 20:22 10 MG Diltiazem HCl (Cardizem Cd Cap) 300 mg DAILY PO 01/21/17 09:00 02/20/17 08:59 01/29/17 07:55 300 MG Magnesium Chloride (Slow-Mag Tab) 64 mg TID PO 01/20/17 21:00 02/19/17 20:59 01/29/17 07:53 64 MG Polyethylene (Miralax Powder Packet) 17 gm DAILY PRN PO 01/21/17 20:15 02/20/17 20:14 01/22/17 14:33 17 GM Atropine Sulfate (Atropine Sulfate 0.1MG/Ml Inj) 0.5 mg UD PRN IV 01/23/17 06:00 02/22/17 05:59 Metoclopramide HCl (Reglan Inj) 10 mg Q6H PRN IV 01/24/17 03:00 02/23/17 02:59 01/28/17 20:27 10 MG Enteral Nutritional Formula (Boost Plus Vanilla) 1 can QDB PO 01/25/17 07:30 02/24/17 07:29 01/29/17 07:51 1 CAN Pantoprazole Sodium (Protonix Tab) 40 mg QAM PO 01/25/17 09:00 02/24/17 08:59 01/29/17 07:55 40 MG Megestrol Acetate (Megace Susp) 400 mg QAM PO 01/25/17 09:00 02/24/17 08:59 01/29/17 07:55 400 MG Thiamine HCl (Vitamin B-1 Tab) 50 mg QAM PO 01/30/17 09:00 03/01/17 08:59 Last 24 Hours Test 01/28/17 16:06 01/28/17 23:59 01/29/17 00:00 01/29/17 06:00 Sodium Level 123 mmol/L Potassium Level 4.4 mmol/L Chloride Level 87 mmol/L Carbon Dioxide Level 27 mmol/L Anion Gap 9.0 mmol/L Blood Urea Nitrogen 22 mg/dl Creatinine 1.20 mg/dl Est Creatinine Clear Calc Drug Dose 40.4 ml/min Estimated GFR () 53.0 Estimated GFR (Non- 45.8 BUN/Creatinine Ratio 18.2 Random Glucose 245 mg/dl Calcium Level 10.4 mg/dl Magnesium Level 2.0 mg/dl Urine Osmolality 348 mOms/kg 349 mOms/kg 274 mOms/kg Test 01/29/17 07:01 01/29/17 08:40 01/29/17 12:03 Sodium Level 127 mmol/L 123 mmol/L Potassium Level mmol/L 4.2 mmol/L 4.3 mmol/L Chloride Level 92 mmol/L 88 mmol/L Carbon Dioxide Level 28 mmol/L 25 mmol/L Anion Gap 7.0 mmol/L 10.0 mmol/L Blood Urea Nitrogen 23 mg/dl 24 mg/dl Creatinine 1.10 mg/dl 1.20 mg/dl Est Creatinine Clear Calc Drug Dose 43.3 ml/min 39.7 ml/min Estimated GFR () 58.9 53.0 Estimated GFR (Non- 50.8 45.8 BUN/Creatinine Ratio 21.0 19.8 Random Glucose 182 mg/dl 340 mg/dl Calcium Level 11.0 mg/dl 10.5 mg/dl Magnesium Level mg/dl 1.5 mg/dl Beta-Hydroxybutyric Acid 0.97 mg/dL
[2017-01-29] MEDS ORDERED: TOLVAPTAN TAB 15 MG TAB PO STA (14:14)
--- NOTE | 2017-01-29 15:26 | Progress Note ---
Internal Med Progress Note Date of Service: Jan 29, 2017. Provider Documentation: SUBJECTIVE: The patient was seen and examined Complains of generalized weakness Denies any other symptoms Feels much better today Participating in PT OBJECTIVE: Vital Signs-as noted below Exam: General-no distress at rest Eyes-Normal ENT-normal Neck-supple Lungs-clear to auscultate bilaterally No crackles at the bases Heart-Regular,no murmur appreciated Abdomen-Benign,no masses,bowel sound present Extremities-Trace edema bilaterally -improved Neuro-AAOx3 Generally weak ,no focal neuro deficit Lab data as noted below. 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 Generalized weakness Likely Multifactorial and may be secondary to Leiomyosarcoma,recent extensive surgery and associated neuropathy Complicated by Hyponatremia TSH, B12:wnl Ionized Ca, Phos: wnl Appreciate Neurology input-no new recommendation Continue PT/OT-participating and improving Wants to go home but likely to need short term Rehab Thiamin was borderline Low-supplementing Hyposmolar Hyponatremia with H/O chronic hyponatremia Likely worsened secondary to dehydration Appreciate Nephrology input Urine sodium:41 Sodium levels:118>>>123 >>>126-127 0n 01/24/17. Goal 133 on 01/24 On IV lasix as well Adrenal Insufficiency work:cosyntropin stim tests shows no adrenal insufficiency PT/OT requested Sodium 130 this morning 01/26/17 Keep monitoring:IVF and Lasix and electrolytes supplements as per Nephrology Sodium decreased to 125 today on 01/27/17>127 on 01/28 Sodium is 123 today Tried 1 dose of Tolvaptan yesterday without any increase in Sodium Tolvaptan started on daily basis Monitor PRP and Sodium UTI: Urine culture: gram negative bacilli Continue IV Rocephin Day # 5 Urine culture:E.coli Will stop antibiotic after 5 days of IV Antibiotic stopped Denies any symptoms Nausea and Vomiting-Improved : Check KUB to r/o SBO Continue bowel regimen for constipation Will start PPI and appetite stimulant Eating reasonably well Symptomatic treatment for Nausea Electrolytes Imbalance Chronic with acute worsening Replace and monitor H/O Retroperitoneal leiomyosarcoma S/P Left Nephrectomy, Splenectomy and partial pancreatectomy S/P Radiation therapy prior to surgery Follows with at [facility] [place] Planned for repeat CT scan in 4 months PT/OT ordered Thrombocytosis: Likely secondary to splenectomy worsened in setting of dehydration Monitor platelets My need Heme oncology follow up as OP Severe Protein Calorie Malnutrition: Delivery Rn consulted HTN Continue Cardizem Getting IV Lasix Po Lasix on hold CAD stable Denies chest pain 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, Statin SHINTO Does not want any Blood products DVT Px SQ Lovenox DISPOSITION: Monitor in Tele May need SNF/Rehab placement Vital Signs: Date Time Temp Pulse Resp B/P (MAP) Pulse Ox O2 Delivery O2 Flow Rate FiO2 01/29/17 12:00 Room Air 01/29/17 11:39 36.8 98 18 163/83 (109) 99 Room Air 01/29/17 08:46 36.7 97 18 152/80 (104) 97 Room Air 01/29/17 08:00 Room Air 01/29/17 04:00 Room Air 01/29/17 03:50 36.4 92 16 157/84 (108) 96 Room Air 01/28/17 23:59 Room Air 01/28/17 23:00 36.8 96 16 149/84 (105) 97 Room Air 01/28/17 20:00 Room Air 01/28/17 19:47 36.9 104 22 171/95 (120) 97 Room Air 01/28/17 16:00 Room Air 01/28/17 15:44 37.1 95 22 147/82 (103) 96 Room Air Lab Results: Results Past 24 Hours Test 01/28/17 16:06 01/28/17 23:59 01/29/17 00:00 01/29/17 06:00 Range/Units Sodium Level 123 136-145 mmol/L Potassium Level 4.4 3.5-5.1 mmol/L Chloride Level 87 98-107 mmol/L Carbon Dioxide Level 27 21-32 mmol/L Anion Gap 9.0 3-11 mmol/L Blood Urea Nitrogen 22 7-18 mg/dl Creatinine 1.20 0.60-1.20 mg/dl Est Creatinine Clear Calc Drug Dose 40.4 ml/min Estimated GFR () 53.0 Estimated GFR (Non- 45.8 BUN/Creatinine Ratio 18.2 10-20 Random Glucose 245 70-99 mg/dl Calcium Level 10.4 8.5-10.1 mg/dl Magnesium Level 2.0 1.8-2.4 mg/dl Urine Osmolality 348 349 274 500-800 mOms/kg Test 01/29/17 07:01 01/29/17 08:40 01/29/17 12:03 Range/Units Sodium Level 127 123 136-145 mmol/L Potassium Level 4.2 4.3 3.5-5.1 mmol/L Chloride Level 92 88 98-107 mmol/L Carbon Dioxide Level 28 25 21-32 mmol/L Anion Gap 7.0 10.0 3-11 mmol/L Blood Urea Nitrogen 23 24 7-18 mg/dl Creatinine 1.10 1.20 0.60-1.20 mg/dl Est Creatinine Clear Calc Drug Dose 43.3 39.7 ml/min Estimated GFR () 58.9 53.0 Estimated GFR (Non- 50.8 45.8 BUN/Creatinine Ratio 21.0 19.8 10-20 Random Glucose 182 340 70-99 mg/dl Calcium Level 11.0 10.5 8.5-10.1 mg/dl Magnesium Level 1.5 1.8-2.4 mg/dl Beta-Hydroxybutyric Acid 0.97 0.2-2.81 mg/dL
--- NOTE | 2017-01-29 15:29 | Nephrology Progress Note ---
Nephrology Progress Note Date of Service: Jan 29, 2017. Subjective optical effects line up person following/calorie count underway as is thiamine repletion; still minimal po no swallowing issues; hiccups miles frequent lab sticks bother her; no n or uncontrolled pain Objective Date Time Temp Pulse Resp B/P (MAP) Pulse Ox O2 Delivery O2 Flow Rate FiO2 01/29/17 04:00 Room Air 01/29/17 03:50 36.4 92 16 157/84 (108) 96 Room Air 01/28/17 23:59 Room Air 01/28/17 23:00 36.8 96 16 149/84 (105) 97 Room Air 01/28/17 20:00 Room Air 01/28/17 19:47 36.9 104 22 171/95 (120) 97 Room Air 01/28/17 16:00 Room Air 01/28/17 15:44 37.1 95 22 147/82 (103) 96 Room Air 01/28/17 12:10 36.9 110 18 137/85 (102) 98 Room Air 01/28/17 12:00 Room Air Physical Exam: General Appearance: WD/WN, on RA, less tired appearing up in bed Eyes: EOMI ENT: hearing grossly normal, + pertinent finding (dry mm) Neck: supple Respiratory/Chest: lungs clear, normal breath sounds, no respiratory distress Cardiovascular: regular rate, rhythm, no edema Abdomen: slightly diminished bowel sounds, non tender, soft, + pertinent finding (miles w/ ample urine) Extremities: non-tender, no pedal edema Neurologic/Psych: no sensory deficits, alert, normal mood/affect, oriented x 3 , + motor weakness ( some odd facial expressions/ hand and head positions at times) Skin: normal color, no jaundice Current Inpatient Medications Medications (Trade) Dose Ordered Sig/Ana Route Start Time Stop Time Status Last Admin Dose Admin Enoxaparin Sodium (Lovenox Inj) 40 mg Q24H SC 01/20/17 21:00 02/19/17 20:59 01/28/17 20:23 40 MG Acetaminophen (Tylenol Tab) 650 mg Q4H PRN PO 01/20/17 17:15 02/19/17 17:14 01/28/17 13:51 650 MG Ondansetron HCl (Zofran Inj) 4 mg Q6H PRN IV 01/20/17 17:15 02/19/17 17:14 01/23/17 04:49 4 MG Docusate Sodium (coLACE CAP) 100 mg BID PO 01/20/17 21:00 02/19/17 20:59 01/29/17 07:55 100 MG Aspirin (Aspirin Chew) 81 mg QPM PO 01/20/17 21:00 02/19/17 20:59 01/28/17 20:22 81 MG Atorvastatin Calcium (Lipitor Tab) 10 mg HS PO 01/20/17 21:00 02/19/17 20:59 01/28/17 20:22 10 MG Diltiazem HCl (Cardizem Cd Cap) 300 mg DAILY PO 01/21/17 09:00 02/20/17 08:59 01/29/17 07:55 300 MG Magnesium Chloride (Slow-Mag Tab) 64 mg TID PO 01/20/17 21:00 02/19/17 20:59 01/29/17 07:53 64 MG Polyethylene (Miralax Powder Packet) 17 gm DAILY PRN PO 01/21/17 20:15 02/20/17 20:14 01/22/17 14:33 17 GM Atropine Sulfate (Atropine Sulfate 0.1MG/Ml Inj) 0.5 mg UD PRN IV 01/23/17 06:00 02/22/17 05:59 Metoclopramide HCl (Reglan Inj) 10 mg Q6H PRN IV 01/24/17 03:00 02/23/17 02:59 01/28/17 20:27 10 MG Enteral Nutritional Formula (Boost Plus Vanilla) 1 can QDB PO 01/25/17 07:30 02/24/17 07:29 01/29/17 07:51 1 CAN Pantoprazole Sodium (Protonix Tab) 40 mg QAM PO 01/25/17 09:00 02/24/17 08:59 01/29/17 07:55 40 MG Megestrol Acetate (Megace Susp) 400 mg QAM PO 01/25/17 09:00 02/24/17 08:59 01/29/17 07:55 400 MG Last 24 Hours Test 01/28/17 11:00 01/28/17 16:06 01/28/17 23:59 01/29/17 06:00 Urine Osmolality 295 mOms/kg 348 mOms/kg 274 mOms/kg Urine Random Sodium 58 mEq/L Sodium Level 123 mmol/L Potassium Level 4.4 mmol/L Chloride Level 87 mmol/L Carbon Dioxide Level 27 mmol/L Anion Gap 9.0 mmol/L Blood Urea Nitrogen 22 mg/dl Creatinine 1.20 mg/dl Est Creatinine Clear Calc Drug Dose 40.4 ml/min Estimated GFR () 53.0 Estimated GFR (Non- 45.8 BUN/Creatinine Ratio 18.2 Random Glucose 245 mg/dl Calcium Level 10.4 mg/dl Magnesium Level 2.0 mg/dl Test 01/29/17 07:01 01/29/17 08:01 Sodium Level 127 mmol/L Potassium Level mmol/L Chloride Level 92 mmol/L Carbon Dioxide Level 28 mmol/L Anion Gap 7.0 mmol/L Blood Urea Nitrogen 23 mg/dl Creatinine 1.10 mg/dl Est Creatinine Clear Calc Drug Dose 43.3 ml/min Estimated GFR () 58.9 Estimated GFR (Non- 50.8 BUN/Creatinine Ratio 21.0 Random Glucose 182 mg/dl Calcium Level 11.0 mg/dl Magnesium Level mg/dl Assessment & Plan 71 y/o F w/ longstanding chronic hyponatremia, HTN, chronic hypomagnesemia 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 most consistent with volume depletion though relative excess of water intake w/ uOsm 187 on admission a role as well; in setting of profound weakness, recent adrenalectomy and steroid therapy now stopped; cosyntropin stim tests shows no adrenal insuffficiency. started tolvaptan 01/28 >acute on chronic hypotonic hyponatremia w/ chronic hypomagnesemia, resistant to correction w/ lasix/fluid restriction to achieve free water diuresis >on tolvaptan trial >started tolvaptan 01/28 and fluid limit stopped then; for another 7.5 mg today and to start qAM 7.5 tomorrow >FLUID LIMIT ON HOLD while on tolvaptan and monitoring urine osms, bmp regularly -goal sNa for 01/30 am is 129 -on max po mag and cont prn IV -would not be in hurry to d/c pt unless sNa maintained on po meds x 24-48 hrs -off IVF since 01/26 hs; stopped lasix IV q8h 01/28 -offer protein supplements/solute rich diet <<protein shakes do not count toward fluid limit -monitor fluid intake but stopped fluid limit on vaptan >> she is at risk to overcorrect -control N now w/ hypercalcemia worse as well but hope it will improve off of diuretics/ fluid limit > observe before beginning work up /tx Spent >20 min talking today w/ pt and about goals of sodium/electrolyte care, pathophysiology, mcc plan >pt interested in care / eval for depression and also in meds if possible to help w/ hiccup > did warn her that latter may not work w/ movement issues but will update Dr. Chapa Appreciate consult; will follow with you. Care coordinated w/ Dr Chapa
[2017-01-29 15:41] VITALS: BP 149/82; PULSE 98; TEMP 36.8; O2SAT 98
[2017-01-29 19:42] VITALS: BP 161/98; PULSE 102; TEMP 36.8; O2SAT 99
[2017-01-29 20:44] LABS: BUN/CREATININE RATIO 21.3 (10-20); CALCIUM 10.6 mg/dl (8.5-10.1); CREATININE 1.1 mg/dl (0.60-1.20); POTASSIUM 4.3 mmol/L (3.5-5.1)
[2017-01-29] MEDS: ASPIRIN 81 MG CHEW PO SCH (21:08)
[2017-01-29] MEDS: ATORVASTATIN 10 MG TAB PO SCH (21:08)
[2017-01-29] MEDS: ENOXAPARIN 40 MG/0.4 ML SYR SC SCH (21:10)
[2017-01-29 23:53] VITALS: BP 164/92; PULSE 93; TEMP 36.6; O2SAT 96
[2017-01-30] VITALS (9 sets, daily range): BP systolic 135–158; BP diastolic 74–85; PULSE 92–103; TEMP 36.4–37; O2SAT 95–99
[2017-01-30] MEDS: DILTIAZEM HCL 300 MG CAPCR PO SCH (07:16)
[2017-01-30] MEDS: DOCUSATE SODIUM 100 MG CAP PO SCH ×2 (07:16→21:17)
[2017-01-30] MEDS: THIAMINE HCL 50 MG TAB PO SCH (07:16)
[2017-01-30] MEDS: MEGESTROL ACETATE 400 MG/10 ML UDP PO SCH (07:16)
[2017-01-30] MEDS: PANTOprazole SOD 40 MG TAB PO SCH (07:16)
[2017-01-30] MEDS: TOLVAPTAN TAB 15 MG TAB PO SCH (07:17)
[2017-01-30] MEDS: MAGNESIUM CHLORIDE 64MG DELAYED REL TAB PO SCH ×3 (07:17→21:17)
[2017-01-30] MEDS: BOOST PLUS VANILLA PO SCH ×2 (07:30)
[2017-01-30 07:38] LABS: HEMATOCRIT 32.9 % (37-47); MEAN CELL VOLUME 86.8 fL (80-100); MEAN CORPUSCULAR HEMOGLOBIN 30.1 pg (25-34); MEAN CORPUSCULAR HGB CONC 34.7 g/dl (32-36); MEAN PLATELET VOLUME 8.4 fL (7.4-10.4); PLATELET COUNT 767 K/uL (130-400); RED BLOOD COUNT 3.79 M/uL (4.2-5.4); WHITE BLOOD COUNT 9.36 K/uL (4.8-10.8)
[2017-01-30 08:10] LABS: BUN/CREATININE RATIO 21.5 (10-20); CALCIUM 10.9 mg/dl (8.5-10.1); CREATININE 0.86 mg/dl (0.60-1.20); MAGNESIUM 1.4 mg/dl (1.8-2.4)
[2017-01-30] MEDS: MAGNESIUM SULFATE 1GM / D5W 1 GM in PREMIXED IN D5W 100 ML IV SCH ×2 (10:08→11:17)
--- NOTE | 2017-01-30 16:58 | Progress Note ---
Internal Med Progress Note Date of Service: Jan 30, 2017. Provider Documentation: SUBJECTIVE: The patient was seen and examined Complains of generalized weakness Denies any other symptoms Feels much better today Participating in PT and doing reasonably well OBJECTIVE: Vital Signs-as noted below Exam: General-no distress at rest Eyes-Normal ENT-normal Neck-supple Lungs-clear to auscultate bilaterally No crackles at the bases Heart-Regular,no murmur appreciated Abdomen-Benign,no masses,bowel sound present Extremities-Trace edema bilaterally -improved Neuro-AAOx3 Generally weak ,no focal neuro deficit Lab data as noted below. 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 Generalized weakness Likely Multifactorial and may be secondary to Leiomyosarcoma,recent extensive surgery and associated neuropathy Complicated by Hyponatremia TSH, B12:wnl Ionized Ca, Phos: wnl Appreciate Neurology input-no new recommendation Continue PT/OT-participating and improving Wants to go home but likely to need short term Rehab Thiamin was borderline Low-supplementing Clinically better and slowly improving Hyposmolar Hyponatremia with H/O chronic hyponatremia Likely worsened secondary to dehydration Appreciate Nephrology input Urine sodium:41 Sodium levels:118>>>123 >>>126-127 0n 01/24/17. Goal 133 on 01/24 On IV lasix as well Adrenal Insufficiency work:cosyntropin stim tests shows no adrenal insufficiency Sodium 130 this morning 01/26/17 Keep monitoring:IVF and Lasix and electrolytes supplements as per Nephrology Sodium decreased to 125 today on 01/27/17>127 on 01/28 Sodium is 123 today Tried 1 dose of Tolvaptan yesterday without any increase in Sodium Tolvaptan started on daily basis Sodium is up at 131 today Likely discharge tomorrow to short term rehab UTI: Urine culture: gram negative bacilli Continue IV Rocephin Day # 5 Urine culture:E.coli Will stop antibiotic after 5 days of IV Antibiotic stopped Denies any symptoms Nausea and Vomiting-Improved : Check KUB to r/o SBO Continue bowel regimen for constipation Will start PPI and appetite stimulant Eating reasonably well Symptomatic treatment for Nausea Electrolytes Imbalance Chronic with acute worsening Replace and monitor -improving H/O Retroperitoneal leiomyosarcoma S/P Left Nephrectomy, Splenectomy and partial pancreatectomy S/P Radiation therapy prior to surgery Follows with at [facility] Planned for repeat CT scan in 4 months PT/OT ordered Thrombocytosis: Likely secondary to splenectomy worsened in setting of dehydration Monitor platelets My need Heme oncology follow up as OP Severe Protein Calorie Malnutrition: Cyber Ops Planner consulted HTN Continue Cardizem Getting IV Lasix Po Lasix on hold CAD stable Denies chest pain 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, Statin BAHAI Does not want any Blood products DVT Px SQ Lovenox DISPOSITION: Monitor in Tele May need SNF/Rehab placement Vital Signs: Date Time Temp Pulse Resp B/P (MAP) Pulse Ox O2 Delivery O2 Flow Rate FiO2 01/30/17 16:20 98 Room Air 01/30/17 15:02 36.8 103 18 157/74 (101) 99 Room Air 01/30/17 12:28 36.9 102 19 135/85 (102) 97 Room Air 01/30/17 12:13 98 Room Air 01/30/17 08:20 98 Room Air 01/30/17 07:56 36.4 96 19 156/84 (108) 98 Room Air 01/30/17 04:20 36.8 92 16 146/82 (103) 95 Room Air 01/30/17 04:00 Room Air 01/30/17 00:01 Room Air 01/29/17 23:53 36.6 93 18 164/92 (116) 96 Room Air 01/29/17 20:10 Room Air 01/29/17 19:42 36.8 102 16 161/98 (119) 99 Room Air Lab Results: Results Past 24 Hours Test 01/29/17 19:08 01/29/17 19:46 01/30/17 00:54 01/30/17 07:21 Range/Units Urine Osmolality 312 213 500-800 mOms/kg Sodium Level 125 131 136-145 mmol/L Potassium Level 4.3 4.0 3.5-5.1 mmol/L Chloride Level 90 96 98-107 mmol/L Carbon Dioxide Level 27 25 21-32 mmol/L Anion Gap 8.0 10.0 3-11 mmol/L Blood Urea Nitrogen 23 19 7-18 mg/dl Creatinine 1.10 0.86 0.60-1.20 mg/dl Est Creatinine Clear Calc Drug Dose 43.3 55.6 ml/min Estimated GFR () 58.9 79.3 Estimated GFR (Non- 50.8 68.4 BUN/Creatinine Ratio 21.3 21.5 10-20 Random Glucose 269 153 70-99 mg/dl Calcium Level 10.6 10.9 8.5-10.1 mg/dl White Blood Count 9.36 4.8-10.8 K/uL Red Blood Count 3.79 4.2-5.4 M/uL Hemoglobin 11.4 12.0-16.0 g/dL Hematocrit 32.9 37-47 % Mean Corpuscular Volume 86.8 80-100 fL Mean Corpuscular Hemoglobin 30.1 25-34 pg Mean Corpuscular Hemoglobin Concent 34.7 32-36 g/dl RDW Standard Deviation 43.8 36.4-46.3 fL RDW Coefficient of Variation 13.8 11.5-14.5 % Platelet Count 767 130-400 K/uL Mean Platelet Volume 8.4 7.4-10.4 fL Magnesium Level 1.4 1.8-2.4 mg/dl
[2017-01-30] MEDS: ATORVASTATIN 10 MG TAB PO SCH (21:17)
[2017-01-30] MEDS: ENOXAPARIN 40 MG/0.4 ML SYR SC SCH (21:17)
[2017-01-30] MEDS: ASPIRIN 81 MG CHEW PO SCH (21:17)
[2017-01-31] VITALS (9 sets, daily range): BP systolic 150–166; BP diastolic 83–96; PULSE 79–113; TEMP 36.6–37.1; O2SAT 95–99
[2017-01-31] MEDS: BOOST PLUS VANILLA PO SCH ×2 (07:45)
[2017-01-31] MEDS: DOCUSATE SODIUM 100 MG CAP PO SCH ×2 (07:47→21:18)
[2017-01-31] MEDS: TOLVAPTAN TAB 15 MG TAB PO SCH (07:47)
[2017-01-31] MEDS: THIAMINE HCL 50 MG TAB PO SCH (07:47)
[2017-01-31] MEDS: MAGNESIUM CHLORIDE 64MG DELAYED REL TAB PO SCH ×3 (07:47→21:18)
[2017-01-31] MEDS: DILTIAZEM HCL 300 MG CAPCR PO SCH (07:47)
[2017-01-31] MEDS: MEGESTROL ACETATE 400 MG/10 ML UDP PO SCH (07:47)
[2017-01-31] MEDS: PANTOprazole SOD 40 MG TAB PO SCH (07:47)
[2017-01-31] MEDS: MAGNESIUM SULFATE 1GM / D5W 1 GM in PREMIXED IN D5W 100 ML IV SCH ×3 (09:36→12:21)
[2017-01-31 11:01] LABS: BUN/CREATININE RATIO 19.8 (10-20); CALCIUM 10.7 mg/dl (8.5-10.1); CREATININE 1.1 mg/dl (0.60-1.20); MAGNESIUM 1.4 mg/dl (1.8-2.4); POTASSIUM 3.9 mmol/L (3.5-5.1)
--- NOTE | 2017-01-31 13:50 | Progress Note ---
Medicine Progress Note Date & Time of Visit: Jan 31, 2017 at 13:10. Subjective Pt was seen and examined Sitting in chair comfortable with no distress Pt said that she continues to feel weak She denies any chest pain, palpitation, dizziness and SOB Objective Last 8 Hrs Date Time Temp Pulse Resp B/P (MAP) Pulse Ox O2 Delivery O2 Flow Rate FiO2 01/31/17 12:11 98 Room Air 01/31/17 10:49 37.1 113 18 150/90 (110) 98 Room Air 01/31/17 08:01 98 Room Air 01/31/17 06:49 36.8 79 16 166/90 (115) 97 Room Air Physical Exam: General- No acute distress Head- atraumatic Eyes- PERRL, EOMI ENT- oropharynx clear Neck- supple, no JVD Lungs- clear to auscultation Heart- regular rhythm; no murmur Abdomen- normal bowel sounds, soft, nontender Extremities- no calf tenderness Neuro- alert, oriented x 3; PERRL, EOMI; no facial palsy; no dysarthria; motor 5 /5 bilaterally Skin- warm & dry Laboratory Results: Last 24 Hours Test 01/31/17 10:12 Sodium Level 128 mmol/L Potassium Level 3.9 mmol/L Chloride Level 95 mmol/L Carbon Dioxide Level 22 mmol/L Anion Gap 11.0 mmol/L Blood Urea Nitrogen 22 mg/dl Creatinine 1.10 mg/dl Est Creatinine Clear Calc Drug Dose 43.2 ml/min Estimated GFR () 58.9 Estimated GFR (Non- 50.8 BUN/Creatinine Ratio 19.8 Random Glucose 267 mg/dl Calcium Level 10.7 mg/dl Magnesium Level 1.4 mg/dl Assessment & Plan Generalized weakness Likely Multifactorial and may be secondary to Leiomyosarcoma,recent extensive surgery and associated neuropathy Complicated by Hyponatremia TSH, B12:wnl Ionized Ca, Phos: wnl Appreciate Neurology input-no new recommendation Continue PT/OT-participating and improving PT recommended inpatient rehab, but pt wants to go home Continue PT/OT Hyposmolar Hyponatremia with H/O chronic hyponatremia Likely worsened secondary to dehydration Appreciate Nephrology input Serum Na on admission 118 and Urine sodium 41 Na dropped to 128 today from 131 yesterday Continue Tolvaptan that started on daily basis Continue monitor Na Na need to maintain on po meds x 24-48 hrs, before considering to discharge Will discuss case with Nephrology UTI: Urine culture: gram negative bacilli Urine culture:E.coli Completed 5 days course of IV Rocephin Nausea and Vomiting KUB showed no evidence of bowel obstruction. Large stool burden in the rectum. Continue bowel regimen for constipation Continue Zofran Resolved Electrolytes Imbalance Chronic with acute worsening Mg replaced continue mg supplement continue monitor electrolytes H/O Retroperitoneal leiomyosarcoma S/P Left Nephrectomy, Splenectomy and partial pancreatectomy S/P Radiation therapy prior to surgery Follows with at [facility] Planned for repeat CT scan in 4 months Thrombocytosis Likely secondary to splenectomy worsened in setting of dehydration Monitor platelets Follow up with Hem/Oncology as an outpatient Severe Protein Calorie Malnutrition advised pt to increase calories intake Continue Boost nutrition Nutrient Management Specialist consulted HTN Continue Cardizem BP has been fluctuated was on Losartan Will be cautions when restarted losartan because pt is on Tolvaptan continue hydralazine prn CAD stable Denies chest pain 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, Statin CATHOLIC Does not want any Blood products DVT Px SQ Lovenox DISPOSITION: Monitor in Tele Refused to go to SNF/Rehab placement Consultants: Neurology Nephrology Current Inpatient Medications: Current Inpatient Medications Medications (Trade) Dose Ordered Sig/Ana Route Start Time Stop Time Status Last Admin Dose Admin Enoxaparin Sodium (Lovenox Inj) 40 mg Q24H SC 01/20/17 21:00 02/19/17 20:59 01/30/17 21:17 40 MG Acetaminophen (Tylenol Tab) 650 mg Q4H PRN PO 01/20/17 17:15 02/19/17 17:14 01/28/17 13:51 650 MG Ondansetron HCl (Zofran Inj) 4 mg Q6H PRN IV 01/20/17 17:15 02/19/17 17:14 01/23/17 04:49 4 MG Docusate Sodium (coLACE CAP) 100 mg BID PO 01/20/17 21:00 02/19/17 20:59 01/31/17 07:47 100 MG Aspirin (Aspirin Chew) 81 mg QPM PO 01/20/17 21:00 02/19/17 20:59 01/30/17 21:17 81 MG Atorvastatin Calcium (Lipitor Tab) 10 mg HS PO 01/20/17 21:00 02/19/17 20:59 01/30/17 21:17 10 MG Diltiazem HCl (Cardizem Cd Cap) 300 mg DAILY PO 01/21/17 09:00 02/20/17 08:59 01/31/17 07:47 300 MG Magnesium Chloride (Slow-Mag Tab) 64 mg TID PO 01/20/17 21:00 02/19/17 20:59 01/31/17 12:22 64 MG Polyethylene (Miralax Powder Packet) 17 gm DAILY PRN PO 01/21/17 20:15 02/20/17 20:14 01/22/17 14:33 17 GM Atropine Sulfate (Atropine Sulfate 0.1MG/Ml Inj) 0.5 mg UD PRN IV 01/23/17 06:00 02/22/17 05:59 Metoclopramide HCl (Reglan Inj) 10 mg Q6H PRN IV 01/24/17 03:00 02/23/17 02:59 01/28/17 20:27 10 MG Enteral Nutritional Formula (Boost Plus Vanilla) 1 can QDB PO 01/25/17 07:30 02/24/17 07:29 01/31/17 07:45 1 CAN Pantoprazole Sodium (Protonix Tab) 40 mg QAM PO 01/25/17 09:00 02/24/17 08:59 01/31/17 07:47 40 MG Megestrol Acetate (Megace Susp) 400 mg QAM PO 01/25/17 09:00 02/24/17 08:59 01/31/17 07:47 400 MG Thiamine HCl (Vitamin B-1 Tab) 50 mg QAM PO 01/30/17 09:00 03/01/17 08:59 01/31/17 07:47 50 MG Tolvaptan (Samsca Tab) 7.5 mg QAM PO 01/30/17 09:00 03/01/17 08:59 01/31/17 07:47 7.5 MG Hydralazine HCl (HydrALAZINE INJ) 10 mg Q8 PRN IV. 01/30/17 02:15 03/01/17 02:14
[2017-01-31] MEDS: ASPIRIN 81 MG CHEW PO SCH (21:18)
[2017-01-31] MEDS: ENOXAPARIN 40 MG/0.4 ML SYR SC SCH (21:18)
[2017-01-31] MEDS: ATORVASTATIN 10 MG TAB PO SCH (21:18)
[2017-02-01] VITALS (8 sets, daily range): BP systolic 143–171; BP diastolic 76–96; PULSE 90–107; TEMP 36.5–37.2; O2SAT 96–100
[2017-02-01] MEDS: DOCUSATE SODIUM 100 MG CAP PO SCH ×2 (08:06→20:58)
[2017-02-01] MEDS: MAGNESIUM CHLORIDE 64MG DELAYED REL TAB PO SCH ×3 (08:06→20:57)
[2017-02-01] MEDS: PANTOprazole SOD 40 MG TAB PO SCH (08:06)
[2017-02-01] MEDS: TOLVAPTAN TAB 15 MG TAB PO SCH (08:06)
[2017-02-01] MEDS: THIAMINE HCL 50 MG TAB PO SCH (08:07)
[2017-02-01] MEDS: DILTIAZEM HCL 300 MG CAPCR PO SCH (08:07)
[2017-02-01] MEDS: MEGESTROL ACETATE 400 MG/10 ML UDP PO SCH (08:08)
[2017-02-01] MEDS: BOOST PLUS VANILLA PO SCH ×2 (08:08)
[2017-02-01 08:16] LABS: HEMATOCRIT 32.5 % (37-47); MEAN CELL VOLUME 88.6 fL (80-100); MEAN CORPUSCULAR HEMOGLOBIN 28.9 pg (25-34); MEAN CORPUSCULAR HGB CONC 32.6 g/dl (32-36); MEAN PLATELET VOLUME 8.9 fL (7.4-10.4); PLATELET COUNT 843 K/uL (130-400); RED BLOOD COUNT 3.67 M/uL (4.2-5.4); WHITE BLOOD COUNT 11.93 K/uL (4.8-10.8)
[2017-02-01 08:47] LABS: BUN/CREATININE RATIO 21.7 (10-20); CALCIUM 10.7 mg/dl (8.5-10.1); CREATININE 0.71 mg/dl (0.60-1.20); MAGNESIUM 1.4 mg/dl (1.8-2.4); POTASSIUM 3.6 mmol/L (3.5-5.1)
--- NOTE | 2017-02-01 09:17 | Nephrology Progress Note ---
Nephrology Progress Note Date of Service: Feb 01, 2017. Subjective 71 yo female with hypoosmolar hyponatremia, chronic hypomag, generalized weakness following extensive surgery in december while in [place] and then went to [facility] and finally home. while at home, found to have sodium of 118 and brought back into hospital. sodium levels have improved with the use of tolvaptan. looking at rehab to help regain strength. Objective Date Time Temp Pulse Resp B/P (MAP) Pulse Ox O2 Delivery O2 Flow Rate FiO2 02/01/17 09:08 37.2 95 18 97 02/01/17 08:38 97 Room Air 02/01/17 07:13 37.2 95 18 171/82 (111) 97 Room Air 02/01/17 04:39 36.7 90 16 164/80 (108) 96 Room Air 02/01/17 04:00 Room Air 02/01/17 00:15 36.5 96 16 152/82 (105) 99 Room Air 02/01/17 00:01 Room Air 01/31/17 20:00 Room Air 01/31/17 18:57 36.8 104 18 156/96 (116) 98 Room Air 01/31/17 16:00 Room Air 01/31/17 15:31 36.6 91 16 159/83 (108) 99 Room Air 01/31/17 14:59 36.7 96 162/83 (109) 98 Room Air 01/31/17 14:56 98 Room Air 01/31/17 12:11 98 Room Air 01/31/17 10:49 37.1 113 18 150/90 (110) 98 Room Air Physical Exam: General-aaox3 Eyes-no scleral icterus ENT-mmm Neck-supple Lungs-cta Heart-rrr Abdomen-bs+ s/nt/nd Extremities-no edema Neuro-nonfocal Current Inpatient Medications Medications (Trade) Dose Ordered Sig/Ana Route Start Time Stop Time Status Last Admin Dose Admin Enoxaparin Sodium (Lovenox Inj) 40 mg Q24H SC 01/20/17 21:00 02/19/17 20:59 01/31/17 21:18 40 MG Acetaminophen (Tylenol Tab) 650 mg Q4H PRN PO 01/20/17 17:15 02/19/17 17:14 01/28/17 13:51 650 MG Ondansetron HCl (Zofran Inj) 4 mg Q6H PRN IV 01/20/17 17:15 02/19/17 17:14 01/23/17 04:49 4 MG Docusate Sodium (coLACE CAP) 100 mg BID PO 01/20/17 21:00 02/19/17 20:59 02/01/17 08:06 100 MG Aspirin (Aspirin Chew) 81 mg QPM PO 01/20/17 21:00 02/19/17 20:59 01/31/17 21:18 81 MG Atorvastatin Calcium (Lipitor Tab) 10 mg HS PO 01/20/17 21:00 02/19/17 20:59 01/31/17 21:18 10 MG Diltiazem HCl (Cardizem Cd Cap) 300 mg DAILY PO 01/21/17 09:00 02/20/17 08:59 02/01/17 08:07 300 MG Magnesium Chloride (Slow-Mag Tab) 64 mg TID PO 01/20/17 21:00 02/19/17 20:59 02/01/17 08:06 64 MG Polyethylene (Miralax Powder Packet) 17 gm DAILY PRN PO 01/21/17 20:15 02/20/17 20:14 01/22/17 14:33 17 GM Atropine Sulfate (Atropine Sulfate 0.1MG/Ml Inj) 0.5 mg UD PRN IV 01/23/17 06:00 02/22/17 05:59 Metoclopramide HCl (Reglan Inj) 10 mg Q6H PRN IV 01/24/17 03:00 02/23/17 02:59 01/28/17 20:27 10 MG Enteral Nutritional Formula (Boost Plus Vanilla) 1 can QDB PO 01/25/17 07:30 02/24/17 07:29 02/01/17 08:08 1 CAN Pantoprazole Sodium (Protonix Tab) 40 mg QAM PO 01/25/17 09:00 02/24/17 08:59 02/01/17 08:06 40 MG Megestrol Acetate (Megace Susp) 400 mg QAM PO 01/25/17 09:00 02/24/17 08:59 02/01/17 08:08 400 MG Thiamine HCl (Vitamin B-1 Tab) 50 mg QAM PO 01/30/17 09:00 03/01/17 08:59 8/30/17 08:07 50 MG Tolvaptan (Samsca Tab) 7.5 mg QAM PO 01/30/17 09:00 03/01/17 08:59 02/01/17 08:06 7.5 MG Hydralazine HCl (HydrALAZINE INJ) 10 mg Q8 PRN IV. 01/30/17 02:15 03/01/17 02:14 Magnesium Sulfate 2 gm/Prmx 100 ml @ 100 mls/hr ONE ONCE IV 02/01/17 09:00 02/01/17 09:59 UNV Last 24 Hours Test 01/31/17 10:12 02/01/17 07:08 Sodium Level 128 mmol/L 132 mmol/L Potassium Level 3.9 mmol/L 3.6 mmol/L Chloride Level 95 mmol/L 97 mmol/L Carbon Dioxide Level 22 mmol/L 24 mmol/L Anion Gap 11.0 mmol/L 11.0 mmol/L Blood Urea Nitrogen 22 mg/dl 15 mg/dl Creatinine 1.10 mg/dl 0.71 mg/dl Est Creatinine Clear Calc Drug Dose 43.2 ml/min 67.1 ml/min Estimated GFR () 58.9 100.0 Estimated GFR (Non- 50.8 86.3 BUN/Creatinine Ratio 19.8 21.7 Random Glucose 267 mg/dl 142 mg/dl Calcium Level 10.7 mg/dl 10.7 mg/dl Magnesium Level 1.4 mg/dl 1.4 mg/dl White Blood Count 11.93 K/uL Red Blood Count 3.67 M/uL Hemoglobin 10.6 g/dL Hematocrit 32.5 % Mean Corpuscular Volume 88.6 fL Mean Corpuscular Hemoglobin 28.9 pg Mean Corpuscular Hemoglobin Concent 32.6 g/dl RDW Standard Deviation 44.9 fL RDW Coefficient of Variation 13.9 % Platelet Count 843 K/uL Mean Platelet Volume 8.9 fL Assessment & Plan hypoosmolar hyponatremia-sodium levels are improved. not on fluid restriction. continue tolvaptan at low dose of 7.5mg a day. on regular diet and on appetite stimulant as well. hypomag-mag stable at 1.4 and on oral mag supplementation and getting intermittent doses of iv mag. for additional 2 grams iv this morning. hypercalcemia-pt continues to have mild hypercalcemia. thought it would improve by stopping the fluid restriction. will check vitamin d, pth, pthrp, spep, constance to be thorough. When discharged to rehab, will need twice a week bmp and mag levels to follow sodium trend and mag trend.
[2017-02-01] MEDS: MAGNESIUM SULFATE 1GM / D5W 1 GM in PREMIXED IN D5W 100 ML IV SCH ×2 (09:59→11:25)
[2017-02-01] MEDS: HydrALAZINE HCL 20 MG/ML VIAL IV. PRN (10:03)
[2017-02-01] MEDS: METOCLOPRAMIDE HCL INJ 5 MG/ML 2 ML VIAL IV PRN (10:04)
--- NOTE | 2017-02-01 11:16 | Progress Note ---
Medicine Progress Note Date & Time of Visit: Feb 01, 2017 at 11:08. Subjective Pt was seen and examined Lying in bed with no distress Pt said the only thing that is bothering her is the hiccup Pt said that he feels fine Denies any chest pain, palpitation, dizziness and sob Objective Last 8 Hrs Date Time Temp Pulse Resp B/P (MAP) Pulse Ox O2 Delivery O2 Flow Rate FiO2 02/01/17 09:30 97 Room Air 02/01/17 09:08 37.2 95 18 97 02/01/17 08:38 97 Room Air 02/01/17 07:13 37.2 95 18 171/82 (111) 97 Room Air 02/01/17 04:39 36.7 90 16 164/80 (108) 96 Room Air 02/01/17 04:00 Room Air Physical Exam: General- No acute distress Head- atraumatic Eyes- PERRL, EOMI ENT- oropharynx clear Neck- supple, no JVD Lungs- clear to auscultation Heart- regular rhythm; no murmur Abdomen- normal bowel sounds, soft, nontender Extremities- no calf tenderness Neuro- alert, oriented x 3; PERRL, EOMI; no facial palsy; no dysarthria; motor 5 /5 bilaterally Skin- warm & dry Laboratory Results: Last 24 Hours Test 02/01/17 07:08 White Blood Count 11.93 K/uL Red Blood Count 3.67 M/uL Hemoglobin 10.6 g/dL Hematocrit 32.5 % Mean Corpuscular Volume 88.6 fL Mean Corpuscular Hemoglobin 28.9 pg Mean Corpuscular Hemoglobin Concent 32.6 g/dl RDW Standard Deviation 44.9 fL RDW Coefficient of Variation 13.9 % Platelet Count 843 K/uL Mean Platelet Volume 8.9 fL Sodium Level 132 mmol/L Potassium Level 3.6 mmol/L Chloride Level 97 mmol/L Carbon Dioxide Level 24 mmol/L Anion Gap 11.0 mmol/L Blood Urea Nitrogen 15 mg/dl Creatinine 0.71 mg/dl Est Creatinine Clear Calc Drug Dose 67.1 ml/min Estimated GFR () 100.0 Estimated GFR (Non- 86.3 BUN/Creatinine Ratio 21.7 Random Glucose 142 mg/dl Calcium Level 10.7 mg/dl Magnesium Level 1.4 mg/dl Assessment & Plan Generalized weakness Likely Multifactorial and may be secondary to Leiomyosarcoma,recent extensive surgery and associated neuropathy Complicated by Hyponatremia TSH, B12:wnl Ionized Ca, Phos: wnl Appreciate Neurology input-no new recommendation Continue PT/OT-participating and improving PT recommended inpatient rehab Continue PT/OT Agreed to go to inpatient rehab Hyposmolar Hyponatremia with H/O chronic hyponatremia Likely worsened secondary to dehydration Appreciate Nephrology input Serum Na on admission 118 and Urine sodium 41 Na dropped to 132 today from 128 yesterday Continue Tolvaptan that started on daily basis Continue monitor Na Na need to maintain on po meds x 24-48 hrs, before considering to discharge Will discuss case with Nephrology UTI: Urine culture: gram negative bacilli Urine culture:E.coli Completed 5 days course of IV Rocephin Nausea and Vomiting and hiccup KUB showed no evidence of bowel obstruction. Large stool burden in the rectum. 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 worsened in setting of dehydration Monitor platelets Follow up with Hem/Oncology as an outpatient Severe Protein Calorie Malnutrition advised pt to increase calories intake Continue Boost nutrition Accounts Supervisor consulted HTN Continue Cardizem BP has been fluctuated was on Losartan Will be cautions when restarted losartan because pt is on Tolvaptan continue hydralazine prn CAD stable Denies chest pain 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, Statin CHURCH Does not want any Blood products DVT Px SQ Lovenox DISPOSITION: Monitor in Tele Agreed to go to SNF/Rehab placement Consultants: Neurology Nephrology Current Inpatient Medications: Current Inpatient Medications Medications (Trade) Dose Ordered Sig/Ana Route Start Time Stop Time Status Last Admin Dose Admin Enoxaparin Sodium (Lovenox Inj) 40 mg Q24H SC 01/20/17 21:00 02/19/17 20:59 01/31/17 21:18 40 MG Acetaminophen (Tylenol Tab) 650 mg Q4H PRN PO 01/20/17 17:15 02/19/17 17:14 01/28/17 13:51 650 MG Ondansetron HCl (Zofran Inj) 4 mg Q6H PRN IV 01/20/17 17:15 02/19/17 17:14 01/23/17 04:49 4 MG Docusate Sodium (coLACE CAP) 100 mg BID PO 01/20/17 21:00 02/19/17 20:59 02/01/17 08:06 100 MG Aspirin (Aspirin Chew) 81 mg QPM PO 01/20/17 21:00 02/19/17 20:59 01/31/17 21:18 81 MG Atorvastatin Calcium (Lipitor Tab) 10 mg HS PO 01/20/17 21:00 02/19/17 20:59 01/31/17 21:18 10 MG Diltiazem HCl (Cardizem Cd Cap) 300 mg DAILY PO 01/21/17 09:00 02/20/17 08:59 02/01/17 08:07 300 MG Magnesium Chloride (Slow-Mag Tab) 64 mg TID PO 01/20/17 21:00 02/19/17 20:59 02/01/17 08:06 64 MG Polyethylene (Miralax Powder Packet) 17 gm DAILY PRN PO 01/21/17 20:15 02/20/17 20:14 01/22/17 14:33 17 GM Atropine Sulfate (Atropine Sulfate 0.1MG/Ml Inj) 0.5 mg UD PRN IV 01/23/17 06:00 02/22/17 05:59 Metoclopramide HCl (Reglan Inj) 10 mg Q6H PRN IV 01/24/17 03:00 02/23/17 02:59 02/01/17 10:04 10 MG Enteral Nutritional Formula (Boost Plus Vanilla) 1 can QDB PO 01/25/17 07:30 02/24/17 07:29 02/01/17 08:08 1 CAN Pantoprazole Sodium (Protonix Tab) 40 mg QAM PO 01/25/17 09:00 02/24/17 08:59 02/01/17 08:06 40 MG Megestrol Acetate (Megace Susp) 400 mg QAM PO 01/25/17 09:00 02/24/17 08:59 02/01/17 08:08 400 MG Thiamine HCl (Vitamin B-1 Tab) 50 mg QAM PO 01/30/17 09:00 03/01/17 08:59 02/01/17 08:07 50 MG Tolvaptan (Samsca Tab) 7.5 mg QAM PO 01/30/17 09:00 03/01/17 08:59 02/01/17 08:06 7.5 MG Hydralazine HCl (HydrALAZINE INJ) 10 mg Q8 PRN IV. 01/30/17 02:15 03/01/17 02:14 02/01/17 10:03 10 MG Magnesium Sulfate 1 gm/Prmx 100 ml @ 100 mls/hr Q1H IV 02/01/17 09:30 02/01/17 11:29 02/01/17 09:59 100 MLS/HR
[2017-02-01] MEDS: ACETAMINOPHEN 325 MG TAB PO PRN ×2 (13:33→21:03)
[2017-02-01] MEDS: ENOXAPARIN 40 MG/0.4 ML SYR SC SCH (20:57)
[2017-02-01] MEDS: ATORVASTATIN 10 MG TAB PO SCH (21:01)
[2017-02-01] MEDS: ASPIRIN 81 MG CHEW PO SCH (21:02)
[2017-02-02] VITALS (7 sets, daily range): BP systolic 111–182; BP diastolic 74–94; PULSE 89–100; TEMP 36.7–37.1; O2SAT 96–98
[2017-02-02] MEDS: BOOST PLUS VANILLA PO SCH ×2 (07:38)
[2017-02-02] MEDS: MEGESTROL ACETATE 400 MG/10 ML UDP PO SCH (07:38)
[2017-02-02] MEDS: MAGNESIUM CHLORIDE 64MG DELAYED REL TAB PO SCH ×2 (07:38→13:51)
[2017-02-02] MEDS: THIAMINE HCL 50 MG TAB PO SCH (07:39)
[2017-02-02] MEDS: PANTOprazole SOD 40 MG TAB PO SCH (07:39)
[2017-02-02] MEDS: HydrALAZINE HCL 20 MG/ML VIAL IV. PRN (07:39)
[2017-02-02] MEDS: TOLVAPTAN TAB 15 MG TAB PO SCH (07:39)
[2017-02-02] MEDS: DOCUSATE SODIUM 100 MG CAP PO SCH (07:39)
[2017-02-02] MEDS: DILTIAZEM HCL 300 MG CAPCR PO SCH (07:39)
[2017-02-02] MEDS: ACETAMINOPHEN 325 MG TAB PO PRN (07:42)
[2017-02-02 07:55] LABS: HEMATOCRIT 30.7 % (37-47); MEAN CORPUSCULAR HEMOGLOBIN 29.8 pg (25-34); MEAN CORPUSCULAR HGB CONC 33.9 g/dl (32-36); MEAN PLATELET VOLUME 8.7 fL (7.4-10.4); PLATELET COUNT 842 K/uL (130-400); RED BLOOD COUNT 3.49 M/uL (4.2-5.4); WHITE BLOOD COUNT 9.62 K/uL (4.8-10.8)
[2017-02-02 08:26] LABS: CREATININE 0.77 mg/dl (0.60-1.20)
[2017-02-02] MEDS: METOCLOPRAMIDE HCL INJ 5 MG/ML 2 ML VIAL IV PRN (10:48)
[2017-02-02 11:13] LABS: BUN/CREATININE RATIO 14.5 (10-20); CALCIUM 11.1 mg/dl (8.5-10.1); MAGNESIUM 1.4 mg/dl (1.8-2.4); POTASSIUM 3.6 mmol/L (3.5-5.1)
[2017-02-02] MEDS: MAGNESIUM SULFATE 1GM / D5W 1 GM in PREMIXED IN D5W 100 ML IV SCH ×3 (13:51→16:42)
[2017-02-02 14:09] LABS: ESTIMATED AVERAGE GLUCOSE 154 mg/dl; HA1C FLAG Normal (Normal)
--- NOTE | 2017-02-02 16:58 | Progress Note ---
Medicine Progress Note Date & Time of Visit: Feb 02, 2017 at 16:54. Subjective Pt was seen and examined Pt lying in bed with no distress Pt said that she feels weak Denies any chest pain, palpitation, dizziness and SOB Objective Last 8 Hrs Date Time Temp Pulse Resp B/P (MAP) Pulse Ox O2 Delivery O2 Flow Rate FiO2 02/02/17 16:03 36.8 100 20 98 Room Air 02/02/17 14:51 36.8 100 20 124/76 (92) 98 02/02/17 09:53 99 111/74 (86) Physical Exam: General- No acute distress Head- atraumatic Eyes- PERRL, EOMI ENT- oropharynx clear Neck- supple, no JVD Lungs- clear to auscultation Heart- regular rhythm; no murmur Abdomen- normal bowel sounds, soft, nontender Extremities- no calf tenderness Neuro- alert, oriented x 3; PERRL, EOMI; no facial palsy; no dysarthria; motor 5 /5 bilaterally Skin- warm & dry Laboratory Results: Last 24 Hours Test 02/02/17 06:56 02/02/17 10:18 02/02/17 10:31 White Blood Count 9.62 K/uL Red Blood Count 3.49 M/uL Hemoglobin 10.4 g/dL Hematocrit 30.7 % Mean Corpuscular Volume 88.0 fL Mean Corpuscular Hemoglobin 29.8 pg Mean Corpuscular Hemoglobin Concent 33.9 g/dl RDW Standard Deviation 45.0 fL RDW Coefficient of Variation 14.0 % Platelet Count 842 K/uL Mean Platelet Volume 8.7 fL Creatinine 0.77 mg/dl 1.00 mg/dl Est Creatinine Clear Calc Drug Dose 61.9 ml/min 47.6 ml/min Estimated GFR () 90.7 66.1 Estimated GFR (Non- 78.2 57.0 Estimated Average Glucose 154 mg/dl Hemoglobin A1c 7.0 % 25-Hydroxy Vitamin D Total 32.3 ng/ml Sodium Level 131 mmol/L Potassium Level 3.6 mmol/L Chloride Level 98 mmol/L Carbon Dioxide Level 20 mmol/L Anion Gap 13.0 mmol/L Blood Urea Nitrogen 15 mg/dl BUN/Creatinine Ratio 14.5 Random Glucose 297 mg/dl Calcium Level 11.1 mg/dl Magnesium Level 1.4 mg/dl Parathyroid Hormone (Intact) 15.5 pg/mL Assessment & Plan Generalized weakness Likely Multifactorial and may be secondary to Leiomyosarcoma,recent extensive surgery and associated neuropathy Complicated by Hyponatremia TSH, B12:wnl Ionized Ca, Phos: wnl Appreciate Neurology input-no new recommendation Continue PT/OT-participating and improving PT recommended inpatient rehab Continue PT/OT Agreed to go to inpatient rehab will transfer to rehab today for inpt PT Hyposmolar Hyponatremia with H/O chronic hyponatremia Likely worsened secondary to dehydration Appreciate Nephrology input Serum Na on admission 118 and Urine sodium 41 Na dropped to 132 today from 128 yesterday Continue Tolvaptan that started on daily basis Continue monitor Na Na need to maintain on po meds x 24-48 hrs, before considering to discharge Will discuss case with Nephrology UTI: Urine culture: gram negative bacilli Urine culture:E.coli Completed 5 days course of IV Rocephin New onset of DM type 2 Hba1c 7 (01/19) will not start on any med discussed about Lifestyle modification Limited concentrated sweet intake Will change ensure to Glucerna Check Hab1c in 3 months Nausea and Vomiting and hiccup KUB showed no evidence of bowel obstruction. Large stool burden in the rectum. Continue bowel regimen for constipation Continue Zofran and Reglan prn Resolved Electrolytes Imbalance Chronic with acute worsening Mg continue to drop Mg replaced continue Mg supplement continue monitor electrolytes will check BMP and Mg twice weekly while in Rehab H/O Retroperitoneal leiomyosarcoma S/P Left Nephrectomy, Splenectomy and partial pancreatectomy S/P Radiation therapy prior to surgery Follows with at [facility] Plan to repeat CT scan in 4 months Thrombocytosis Likely secondary to splenectomy worsened in setting of dehydration Monitor platelets Follow up with Hem/Oncology as an outpatient Severe Protein Calorie Malnutrition advised pt to increase calories intake Continue Boost nutrition Distance Learning Coordinator consulted HTN Continue Cardizem BP has been fluctuated was on Losartan Will be cautions when restarted losartan because pt is on Tolvaptan continue hydralazine prn CAD stable Denies chest pain 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, Statin YARSANI Does not want any Blood products DVT Px SQ Lovenox DISPOSITION: Monitor in Tele transfer to SNF/Rehab today Consultants: Neurology Nephrology Current Inpatient Medications: Current Inpatient Medications Medications (Trade) Dose Ordered Sig/Ana Route Start Time Stop Time Status Last Admin Dose Admin Enoxaparin Sodium (Lovenox Inj) 40 mg Q24H SC 01/20/17 21:00 02/19/17 20:59 02/01/17 20:57 40 MG Acetaminophen (Tylenol Tab) 650 mg Q4H PRN PO 01/20/17 17:15 02/19/17 17:14 02/02/17 07:42 650 MG Ondansetron HCl (Zofran Inj) 4 mg Q6H PRN IV 01/20/17 17:15 02/19/17 17:14 01/23/17 04:49 4 MG Docusate Sodium (coLACE CAP) 100 mg BID PO 01/20/17 21:00 02/19/17 20:59 02/02/17 07:39 100 MG Aspirin (Aspirin Chew) 81 mg QPM PO 01/20/17 21:00 02/19/17 20:59 02/01/17 21:02 81 MG Atorvastatin Calcium (Lipitor Tab) 10 mg HS PO 01/20/17 21:00 02/19/17 20:59 02/01/17 21:01 10 MG Diltiazem HCl (Cardizem Cd Cap) 300 mg DAILY PO 01/21/17 09:00 02/20/17 08:59 02/02/17 07:39 300 MG Magnesium Chloride (Slow-Mag Tab) 64 mg TID PO 01/20/17 21:00 02/19/17 20:59 02/02/17 13:51 64 MG Polyethylene (Miralax Powder Packet) 17 gm DAILY PRN PO 01/21/17 20:15 02/20/17 20:14 01/22/17 14:33 17 GM Atropine Sulfate (Atropine Sulfate 0.1MG/Ml Inj) 0.5 mg UD PRN IV 01/23/17 06:00 02/22/17 05:59 Metoclopramide HCl (Reglan Inj) 10 mg Q6H PRN IV 01/24/17 03:00 02/23/17 02:59 02/02/17 10:48 10 MG Enteral Nutritional Formula (Boost Plus Vanilla) 1 can QDB PO 01/25/17 07:30 02/24/17 07:29 02/02/17 07:38 1 CAN Pantoprazole Sodium (Protonix Tab) 40 mg QAM PO 01/25/17 09:00 02/24/17 08:59 02/02/17 07:39 40 MG Megestrol Acetate (Megace Susp) 400 mg QAM PO 01/25/17 09:00 02/24/17 08:59 02/02/17 07:38 400 MG Thiamine HCl (Vitamin B-1 Tab) 50 mg QAM PO 01/30/17 09:00 03/01/17 08:59 02/02/17 07:39 50 MG Tolvaptan (Samsca Tab) 7.5 mg QAM PO 01/30/17 09:00 03/01/17 08:59 02/02/17 07:39 7.5 MG Hydralazine HCl (HydrALAZINE INJ) 10 mg Q8 PRN IV. 01/30/17 02:15 03/01/17 02:14 02/02/17 07:39 10 MG
[2017-02-02] MEDS ORDERED: [UNRECOGNIZED DRUG - CODE] PO (17:10)
[2017-02-02] MEDS ORDERED: MGCUDL400 PO (17:10)
[2017-02-02] MEDS ORDERED: NUTR-977 PO (17:10)
[2017-02-02] MEDS ORDERED: THM50 PO (17:10)
--- NOTE | 2017-02-02 17:19 | Discharge Instructions ---
Discharge Instructions Date of Service Feb 02, 2017. Admission Reason for Admission: Hyponatremia Discharge Discharge Diagnosis / Problem: Hyponatremia, Generalized Weakness, Hypomagnesemia, New onset DM Type 2 Discharge Goals Goal(s): Decrease discomfort, Improve function, Improve disease control Activity Recommendations Activity Limitations: resume your previous activity (as tolerated) . Instructions / Follow-Up Instructions / Follow-Up Discharge to [facility] Follow up with your PCP once discharge from rehab Follow up with nephrology Check BMP and Magnesium twice a week Resume Lasix and losartan after you see the nephrology next week ( appointment already schedule) Monitor blood pressure Continue Tolvaptan daily Follow a low salt diet and limited concentrated sugar Continue PT/OT Fall precaution Current Hospital Diet Patient's current hospital diet: Regular Diet Discharge Diet Recommended Diet: Diabetes Type 2 Diet Pending Studies Studies pending at discharge: no Laboratory Results Hemoglobin A1c Test 02/02/17 06:56 Range/Units Estimated Average Glucose 154 mg/dl Hemoglobin A1c 7.0 H 4.5-5.6 % Medical Emergencies . Who to Call and When: Medical Emergencies: If at any time you feel your situation is an emergency, please call 911 immediately. . Non-Emergent Contact Non-Emergency issues call your: Primary Care Provider Call Non-Emergent contact if: you have any medication questions . . "Provider Documentation" section prepared by Siddhartha Sanchez. . VTE Core Measure Inpt VTE Proph given/why not?: Enoxaparin (Lovenox)SQ
[2017-02-02] MEDS ORDERED: [UNRECOGNIZED DRUG - CODE] PO (17:39)
--- NOTE | 2017-02-05 16:04 | Discharge Summary ---
Discharge Summary Date of Service Feb 05, 2017. Discharge Summary Admission Date: Jan 20, 2017 at 17:06 Discharge Date: Feb 02, 2017 Discharge Disposition: Rehab Principal Diagnosis: Generalized Weakness Secondary Diagnoses/Problems: Hyponatremia Hypomagnesemia New onset DM Type 2 Nausea and Vomiting and hiccup UTI Electrolytes Imbalance Thrombocytosis H/O Retroperitoneal leiomyosarcoma HTN CAD Severe Protein Calorie Malnutrition Jehovah' s Witness Procedures: KUB CLINICAL HISTORY: 71 years-old Female presenting with Nausea, vomiting, R/O SBO. TECHNIQUE: Single supine view of the abdomen was obtained. COMPARISON: CT from 08/30/2016. FINDINGS: Surgical clips noted in the region of the left renal hilum. Suture margins also noted in this region. Nonobstructive bowel gas pattern with gas noted in the colon. Large stool burden in the rectum. No gross pneumoperitoneum, pneumatosis, or portal venous gas. Degenerative changes of the lower lumbar spine. IMPRESSION: 1. No evidence of bowel obstruction. 2. Large stool burden in the rectum. Electronically signed by: Dixon Hernandez M.D. 01/23/2017 11:07 AM Dictated Date/Time: 01/23/2017 11:05 AM [~ rep ct add3]] CHEST ONE VIEW PORTABLE CLINICAL HISTORY: 71 years-old Female presenting with EVALUATE ALTERED MENTAL STATUS/WEAKNESS. TECHNIQUE: Portable upright AP view of the chest was obtained. COMPARISON: 07/06/2012. FINDINGS: Atherosclerosis of aortic arch. Cardiac silhouette normal. Lungs and pleural spaces clear. Osseous structures normal. Upper abdomen normal. IMPRESSION: 1. No acute cardiopulmonary disease. Electronically signed by: Dixon Hernandez M.D. 01/20/2017 4:26 PM Dictated Date/Time: 01/20/2017 4:25 PM Consultations: Neurology Nephrology Medication Reconciliation New Medications: Nutritional Supplements (Glucerna 1.0 [place]/Fiber) 1 Liq Liq 1 CAN PO DAILY for 7 Days Thiamine HCl (Vitamin B-1) 50 Mg Tab 50 MG PO QAM for 30 Days, TAB Tolvaptan (Samsca) 15 Mg Tab 7.5 MG PO QAM for 30 Days, TAB Continued Medications: Acetaminophen (Tylenol) 500 Mg Tab 500 MG PO Q6 PRN for Pain, TAB Aspirin (Aspirin Chewable) 81 Mg Chew 81 MG PO QPM, TAB Atorvastatin (Lipitor) 10 Mg Tab 1 TAB PO HS for 30 Days, TAB 5 Refills Clindamycin Phosphate (Topical (Clindamycin Phosphate) 1 % Gel 1 APPLN TOP DAILY PRN for Affected Skin Folds for 30 Days, #30 GM 5 Refills Diltiazem Hcl Coated Beads (Cartia Xt) 300 Mg Cap 300 MG PO DAILY Magnesium Chloride (Slow-Mag Tab) 64 Mg Tabcr 1 TAB PO TID, TAB Metronidazole (Topical) (Metrocream) 0.75 % Cre 1 APPLN TOP BID PRN for Affected Skin Folds, #45 GM Omeprazole (Prilosec) 20 Mg Capcr 20 MG PO DAILY PRN for PRN, CAP Ondansetron Hcl (Zofran) 8 Mg Tab 8 MG PO TID PRN for Nausea, TAB Triamcinolone Acet (Triamcinolone Acetonide) 45 Appln/15 Gm Cr 1 APPLN TOP BID PRN for Affected Skin Folds for 30 Days, #30 GM 0.1% cream [Premarin Cream] () 1 APPLN PV WK 0.625mg/gm vaginal cream Discontinued Medications: Furosemide (Lasix) 20 Mg Tab 1 TAB PO DAILY for 90 Days, #90 TAB 1 Refill unsure if taking Losartan Potassium (Cozaar) 50 Mg Tab 50 MG PO BID, TAB Admission Information HPI (per Admitting provider): 71 year old female who was referred to the ED by Dr. Escalera for hyponatremia. Patient has a history of chronic hyponatremia. She was recently found to have a retroperitoneal sarcoma and underwent resection with left nephrectomy, distal pancreatectomy, and splenectomy at [facility] 12/30/16. Patient was discharged to [facility] and went home 3 days ago. Post operatively, sodiums have been running in the high 120s. Outpatient labs today showed a critical sodium of 118. Patient reports she continues to feel generally weak since her surgery. She reports her appetite is very poor. She denies lightheadedness, dizziness, diaphoresis, or syncope. No fevers or chills. She reports some occasional incisional pain but denies nausea, vomiting, or diarrhea. She denies chest pain and shortness of breath. She has chronic lower extremity edema which is unchanged. Urine has been cloudy at times but denies dysuria. In the ER, sodium is 118. She was started on NSS infusion. Physical Exam (per Admitting): General Appearance: no apparent distress Head: normocephalic, atraumatic Eyes: normal inspection, sclerae normal ENT: hearing grossly normal Neck: supple, no JVD Respiratory/Chest: lungs clear, normal breath sounds, no respiratory distress Cardiovascular: regular rate, rhythm, normal peripheral pulses, + pertinent finding (trace edema BLLE) Abdomen/GI: normal bowel sounds, non tender, soft, + pertinent finding (mid line incision scar noted - healing well, no drainage or surrounding redness) Extremities/Musculoskelatal: normal inspection, no calf tenderness Neurologic/Psych: no motor/sensory deficits, alert, normal mood/affect, oriented x 3 Skin: normal color, warm/dry Hospital Course Generalized weakness Likely Multifactorial and may be secondary to Leiomyosarcoma,recent extensive surgery and associated neuropathy Complicated by Hyponatremia TSH, B12:wnl Ionized Ca, Phos: wnl Appreciate Neurology input-no new recommendation Continue PT/OT-participating and improving PT recommended inpatient rehab Continue PT/OT Agreed to go to inpatient rehab will transfer to rehab today for inpt PT Hyposmolar Hyponatremia with H/O chronic hyponatremia Likely worsened secondary to dehydration Appreciate Nephrology input Serum Na on admission 118 and Urine sodium 41 Na dropped to 132 today from 128 yesterday Continue Tolvaptan that started on daily basis Continue monitor Na Na need to maintain on po meds x 24-48 hrs, before considering to discharge Will discuss case with Nephrology UTI: Urine culture: gram negative bacilli Urine culture:E.coli Completed 5 days course of IV Rocephin New onset of DM type 2 Hba1c 7 (01/19) will not start on any med discussed about Lifestyle modification Limited concentrated sweet intake Will change ensure to Glucerna Check Hab1c in 3 months Nausea and Vomiting and hiccup KUB showed no evidence of bowel obstruction. Large stool burden in the rectum. Continue bowel regimen for constipation Continue Zofran and Reglan prn Resolved Electrolytes Imbalance Chronic with acute worsening Mg continue to drop Mg replaced continue Mg supplement continue monitor electrolytes will check BMP and Mg twice weekly while in Rehab H/O Retroperitoneal leiomyosarcoma S/P Left Nephrectomy, Splenectomy and partial pancreatectomy S/P Radiation therapy prior to surgery Follows with at [facility] Plan to repeat CT scan in 4 months Thrombocytosis Likely secondary to splenectomy worsened in setting of dehydration Monitor platelets Follow up with Hem/Oncology as an outpatient Severe Protein Calorie Malnutrition advised pt to increase calories intake Continue Boost nutrition Batch Or Continuous Still Operator consulted HTN Continue Cardizem BP has been fluctuated was on Losartan Will be cautions when restarted losartan because pt is on Tolvaptan continue hydralazine prn CAD stable Denies chest pain 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, Statin ORTHODOXY Does not want any Blood products DVT Px SQ Lovenox DISPOSITION: Monitor in Tele transfer to SNF/Rehab today Total time spent on discharge = 35 minutes This includes examination of the patient, discharge planning, medication reconciliation, and communication with other providers. Discharge Instructions Discharge Instructions Date of Service Feb 02, 2017. Admission Reason for Admission: Hyponatremia Discharge Discharge Diagnosis / Problem: Hyponatremia, Generalized Weakness, Hypomagnesemia, New onset DM Type 2 Discharge Goals Goal(s): Decrease discomfort, Improve function, Improve disease control Activity Recommendations Activity Limitations: resume your previous activity (as tolerated) . Instructions / Follow-Up Instructions / Follow-Up [facility]charge to [facility] Follow up with your PCP once discharge from rehab Follow up with nephrology Check BMP and Magnesium twice a week Resume Lasix and losartan after you see the nephrology next week ( appointment already schedule) Monitor blood pressure Continue Tolvaptan daily Follow a low salt diet and limited concentrated sugar Continue PT/OT Fall precaution Current Hospital Diet Patient's current hospital diet: Regular Diet Discharge Diet Recommended Diet: Diabetes Type 2 Diet Pending Studies Studies pending at discharge: no Laboratory Results Hemoglobin A1c Test 02/02/17 06:56 Range/Units Estimated Average Glucose 154 mg/dl Hemoglobin A1c 7.0 H 4.5-5.6 % Medical Emergencies . Who to Call and When: Medical Emergencies: If at any time you feel your situation is an emergency, please call 911 immediately. . Non-Emergent Contact Non-Emergency issues call your: Primary Care Provider Call Non-Emergent contact if: you have any medication questions . . "Provider Documentation" section prepared by Siddhartha Sanchez. . VTE Core Measure Inpt VTE Proph given/why not?: Enoxaparin (Lovenox)SQ Additional Copies To Priyanka Curtis Anitha ., M.D.
[2017-02-08] MEDS ORDERED: Baclofen PO (13:00)
[2017-02-08] MEDS ORDERED: Trazodone PO (13:04)
[2017-02-08] MEDS ORDERED: TOLV15TA PO (13:04)
[2017-02-09 02:22] LABS: ALBUMIN 2.7 G/DL (3.8-4.8); GAMMA GLOBULIN 0.7 G/DL (0.8-1.7); PARATHYR RELATED PROT *34478X 12 pg/mL (14-27); TOTAL PROTEIN 6.1 G/DL (6.2-8.3)
[2017-02-21] MEDS ORDERED: ASPCH81X PO (06:43)
[2017-02-21] MEDS ORDERED: Premarin Cream PV (11:17)
[2017-02-21] MEDS ORDERED: ESOM20CA PO (13:00)
[2017-02-21] MEDS ORDERED: ACET-1256 PO ×2 (16:36→18:28)
[2017-03-02] MEDS ORDERED: PRD10 PO (10:15)
[2017-03-02] MEDS ORDERED: LPR25 PO (10:15)
[2017-03-02] MEDS ORDERED: LXP10 PO (10:15)
[2017-03-02] MEDS ORDERED: MCRK20 PO (10:36)
== END 2017-02-02 19:59 | DRG 640 ==
LOC: C.EDB 15:51 → C.2T 17:06 → ENRESERV 17:57 → C.MS4W 02-01 09:32
PROVIDERS: ADMIT Internal Medicine; ATTEND Internal Medicine
DX: E87.1 Hypo-osmolality and hyponatremia (principal); E43 Unspecified severe protein-calorie malnutrition; N39.0 Urinary tract infection, site not specified; C48.0 Malignant neoplasm of retroperitoneum; Z90.5 Acquired absence of kidney; Z90.411 Acquired partial absence of pancreas; Z90.81 Acquired absence of spleen; Z92.3 Personal history of irradiation; E83.42 Hypomagnesemia; B96.20 Unspecified Escherichia coli [E. coli] as the cause of diseases classified elsewhere; R53.1 Weakness; D47.3 Essential (hemorrhagic) thrombocythemia; K59.00 Constipation, unspecified; E83.52 Hypercalcemia; E11.9 Type 2 diabetes mellitus without complications; R00.1 Bradycardia, unspecified; R11.2 Nausea with vomiting, unspecified; R06.6 Hiccough; G60.9 Hereditary and idiopathic neuropathy, unspecified; I10 Essential (primary) hypertension; I25.10 Atherosclerotic heart disease of native coronary artery without angina pectoris; E78.5 Hyperlipidemia, unspecified; Z72.89 Other problems related to lifestyle; Z79.82 Long term (current) use of aspirin; Z79.890 Hormone replacement therapy; Z79.899 Other long term (current) drug therapy; Z90.710 Acquired absence of both cervix and uterus; Z96.653 Presence of artificial knee joint, bilateral; Z82.49 Family history of ischemic heart disease and other diseases of the circulatory system

== ENCOUNTER 2017-02-21 17:03 | Inpatient (IN) | payer OTHER, MEDICARE ==
[~2017-02-21] VITALS: Ht 160 cm; Wt 64.5 kg
[~2017-02-21 17:03] MED LIST changes: +ACET-1256 PO; +ASPCH81X PO; +Baclofen PO; -Cardizem CD PO; +DILT300C21 PO; +ESOM20CA PO; -FURO-85 PO; -LOSA50TA6 PO; +ONDA8TAB6 PO; +Premarin Cream PV; -SLOW; +THM50 PO; +TOLV15TA PO; +Trazodone PO
[2017-02-21] MEDS ORDERED: ATOR10TA88 PO (17:11)
--- NOTE | 2017-02-21 17:39 | EMERGENCY ROOM VISIT NOTE ---
History Report prepared by Ann: Cruzito Farah Under the Supervision of: Dr. Jesus Naranjo M.D. First contact with patient: 17:12 Stated Complaint: WEAKNESS, LETHARGY History of Present Illness The patient is a 71 year old white female with a past medical history of CAD, HTN, dyslipidemia who presents to the ED via EMS from [facility] with a cc of worsening weakness recently. Positive fatigue, difficulty walking. Negative fever, chills, cp, sob, nausea, vomiting, congestion. The patient had her left kidney and spleen removed 3 weeks ago due to cancer. The patient has been in rehab after her surgery. Per the nursing report, she had lab-work yesterday that was abnormal, with an elevated SED rate and a sodium of 133. Per the patient's doctor, the patient has had a major decline in her neurologic status the past 2 weeks. She has been unable to sit or walk. Source of History: patient, other (nursing report) Onset: Recently Position: other (global - weakness) Symptom Intensity: difficulty walking Timing: worsening Associated Symptoms: + fatigue, No fevers, No chills, No chest pain, No SOB , No nausea, No vomiting Note: Associated symptoms: Abnormal labs yesterday. Negative congestion. Review of Systems See HPI for pertinent positives and negatives. A total of ten systems were reviewed and were otherwise negative. Past Medical & Surgical Medical Problems: (1) Amputated toe (2) C. difficile diarrhea (3) CAD (coronary artery disease) (4) CAD (coronary artery disease) (5) Dyslipidemia (6) History of nephrectomy, unilateral (7) HTN (hypertension) (8) Hyponatremia (9) Leiomyosarcoma of retroperitoneum (10) Refusal of blood transfusions as patient is [employer] Surgical Problems: (1) Carcinoma of kidney (2) H/O splenectomy (3) H/O total hysterectomy (4) History of cataract surgery (5) History of pancreatectomy (6) History of tonsillectomy and adenoidectomy (7) History of total bilateral knee replacement (8) S/P trigger finger release Family History Hypertension BROTHER BROTHER Social History Smoking Status: Never Smoker Alcohol Use: none Marital Status: Housing Status: lives with family Current/Historical Medications Scheduled Acetaminophen (Tylenol), 500 MG PO Q6H Aspirin (Aspirin Chewable), 81 MG PO QPM Atorvastatin (Lipitor), 10 MG PO HS Cholecalciferol (Vitamin D3), 50,000 INTER.UNIT PO 2XWK Diltiazem Hcl Coated Beads (Diltiazem Hcl Er), 300 MG PO DAILY Esomeprazole Magnesium (Nexium), 20 MG PO DAILY Magnesium Oxide (Mag-Ox), 400 MG PO QID Nutritional Supplements (Prosource), 30 ML PO BID Prednisone (Prednisone), 5 MG PO QAM Sennosides (Senokot), 8.6 MG PO QAM Thiamine Hcl (Vitamin B-1), 50 MG PO QAM [Fortified Milkshake], 1 EA PO DAILY [Premarin Cream], 1 APPLN PV WK Scheduled PRN Acetaminophen (Tylenol), 500 MG PO Q6H PRN for Pain Bisacodyl (Dulcolax), 1 SUPP VT UD PRN for Constipation Magnesium Hydroxide (Milk Of Magnesia), 30 ML PO UD PRN for Constipation Sodium Phosphate/Biphosphate (Fleet Enema), 1 EA VT UD PRN for Constipation Allergies Coded Allergies: Nickel (Verified Allergy, Unknown, RASH, 01/20/17) Physical Exam Vital Signs Date Time Temp Pulse Resp B/P (MAP) Pulse Ox O2 Delivery O2 Flow Rate FiO2 02/21/17 19:57 99 18 170/99 96 02/21/17 18:03 101 20 98 02/21/17 17:59 97 Room Air 02/21/17 17:33 100 20 97 02/21/17 17:16 36.8 98 18 175/99 95 Room Air 02/21/17 17:07 100 02/21/17 17:05 175/99 Physical Exam GENERAL: Awake, alert, well-appearing, NAD HENT: Normocephalic, atraumatic. EYES: Normal conjunctiva. Sclera non-icteric. NECK: Supple. No nuchal rigidity. FROM. RESPIRATORY: CTAB, no rhonchi, wheezing, crackles CARDIAC: RRR, no MRG. Systolic ejection murmur. ABDOMEN: Soft, NTND, BS+. Midline incisional scar well-healing, no erythema, tenderness, calor or fluctuance. MSK: No chest wall TTP, no LE edema NEURO: GCS 15, follows commands. CN 2-12 intact, moves all 4s on command. 5/5 UE strength, 4/5 LE strength sabrina. Prolonged finger to nose in RUE, not complete finger to nose in LUE. Normal reflexes 2+ bilaterally. SKIN: No rash or jaundice noted. Medical Decision & Procedures ER Provider Diagnostic Interpretation: Radiology results as stated below per my review and radiologist interpretation: HEAD WITHOUT CONTRAST (CT) CT DOSE: 537.48 mGy.cm HISTORY: Mental status change EVALUATE WEAKNESS TECHNIQUE: Multiaxial CT images of the head were performed without the use of intravenous contrast. A dose lowering technique was utilized adhering to the principles of ALARA. Comparison: None. Findings: The paranasal sinuses and mastoid air cells are clear. The calvarium and skull base are intact. The ventricles and sulci are within normal limits. There is no mass, hematoma, midline shift, or acute infarct. Age-related atrophy and chronic small vessel change Impression: No acute intracranial abnormality. Age-related change The above report was generated using voice recognition software. It may contain grammatical, syntax or spelling errors. Electronically signed by: Anurag Loving M.D 02/21/2017 7:09 PM Dictated Date/Time: 02/21/2017 7:09 PM CHEST ONE VIEW PORTABLE CLINICAL HISTORY: weakness dyspnea COMPARISON STUDY: 01/20/2017 FINDINGS: The bones soft tissues and hemidiaphragms are normal. The cardiomediastinal silhouette is normal. The lungs are clear. The pulmonary vasculature is normal. IMPRESSION: Negative chest. The above report was generated using voice recognition software. It may contain grammatical, syntax or spelling errors. Electronically signed by: Anurag Loving M.D. 02/21/2017 7:42 PM Dictated Date/Time: 02/21/2017 7:42 PM Laboratory Results 02/21/17 18:35 Red Blood Count 4.15, Mean Corpuscular Volume 86.5, Mean Corpuscular Hemoglobin 28.9, Mean Corpuscular Hemoglobin Concent 33.4, Mean Platelet Volume 9.0, Neutrophils (%) (Auto) 78.9, Lymphocytes (%) (Auto) 13.7, Monocytes (%) (Auto) 5.5, Eosinophils (%) (Auto) 1.1, Basophils (%) (Auto) 0.5, Neutrophils # (Auto) 8.64, Lymphocytes # (Auto) 1.50, Monocytes # (Auto) 0.60, Eosinophils # (Auto) 0.12, Basophils # (Auto) 0.05 02/21/17 18:35 Test 02/21/17 18:35 White Blood Count 10.94 K/uL (4.8-10.8) Red Blood Count 4.15 M/uL (4.2-5.4) Hemoglobin 12.0 g/dL (12.0-16.0) Hematocrit 35.9 % (37-47) Mean Corpuscular Volume 86.5 fL (80-100) Mean Corpuscular Hemoglobin 28.9 pg (25-34) Mean Corpuscular Hemoglobin Concent 33.4 g/dl (32-36) Platelet Count 669 K/uL (130-400) Mean Platelet Volume 9.0 fL (7.4-10.4) Neutrophils (%) (Auto) 78.9 % Lymphocytes (%) (Auto) 13.7 % Monocytes (%) (Auto) 5.5 % Eosinophils (%) (Auto) 1.1 % Basophils (%) (Auto) 0.5 % Neutrophils # (Auto) 8.64 K/uL (1.4-6.5) Lymphocytes # (Auto) 1.50 K/uL (1.2-3.4) Monocytes # (Auto) 0.60 K/uL (0.11-0.59) Eosinophils # (Auto) 0.12 K/uL (0-0.5) Basophils # (Auto) 0.05 K/uL (0-0.2) RDW Standard Deviation 47.0 fL (36.4-46.3) RDW Coefficient of Variation 14.9 % (11.5-14.5) Immature Granulocyte % (Auto) 0.3 % Immature Granulocyte # (Auto) 0.03 K/uL (0.00-0.02) Prothrombin Time 10.4 SECONDS (9.0-12.0) Prothromb Time International Ratio 1.0 (0.9-1.1) Activated Partial Thromboplast Time 28.4 SECONDS (21.0-31.0) Partial Thromboplastin Ratio 1.1 Anion Gap 11.0 mmol/L (3-11) Est Creatinine Clear Calc Drug Dose 52.9 ml/min Estimated GFR () 75.1 Estimated GFR (Non- 64.8 BUN/Creatinine Ratio 14.8 (10-20) Calcium Level 11.4 mg/dl (8.5-10.1) Magnesium Level 1.4 mg/dl (1.8-2.4) Total Bilirubin 0.2 mg/dl (0.2-1) Direct Bilirubin < 0.1 mg/dl (0-0.2) Aspartate Amino Transf (AST/SGOT) 22 U/L (15-37) Alanine Aminotransferase (ALT/SGPT) 25 U/L (12-78) Alkaline Phosphatase 150 U/L (45-117) Troponin I < 0.015 ng/ml (0-0.045) Total Protein 7.2 gm/dl (6.4-8.2) Albumin 3.3 gm/dl (3.4-5.0) Lipase 57 U/L (73-393) Thyroid Stimulating Hormone (TSH) 1.490 uIu/ml (0.300-4.500) Laboratory results reviewed by me Medications Administered Medications (Trade) Dose Ordered Sig/Ana Route Start Time Stop Time Status Last Admin Dose Admin Sodium Chloride 500 ml @ 999 mls/hr Q31M STAT IV 02/21/17 17:53 02/21/17 18:23 DC 02/21/17 18:38 999 MLS/HR ECG Indication: weakness Rate (beats per minute): 96 Rhythm: normal sinus Findings: other (normal axis, normal intervals, no sts changes or TWI) ED Course 1731: The patient was evaluated in room B11B. A complete history and physical exam was performed. 1934: I reevaluated the patient and she is resting. The patient verbally expressed understanding and agreement of the treatment plan. The patient will be evaluated for further treatment. 1948: I discussed the patient with Dr. Guzman - Diana supervisor gas meter repair - he will evaluate the patient for further treatment. Medical Decision The patient is a 71 year old white female with a past medical history of CAD, HTN, dyslipidemia who presents to the ED via EMS from [facility] with a cc of worsening weakness beginning today. Positive fatigue, difficulty walking. Negative fever, chills, cp, sob, n/v, congestion. Differential diagnosis: Etiologies such as metabolic, infection, hypo/hyperglycemia, electrolyte abnormalities, cardiac sources, intracerebral event, toxicologic, neurologic, as well as others were entertained. Patient was seen and evaluated at the bedside. Patient had blood work and imaging completed. Patient did have noted bilateral lower extremity weakness greater than upper extremity. Patient denied any additional symptoms. Patient denies any chest pain, shortness of breath, fevers, chills, infectious symptoms , urinary symptoms. Patient denies any bowel or bladder incontinence. Patient denied any recent trauma. Patient's blood work showed that she had improving hyponatremia and sodium was 132. Patient's chest x-ray and CT negative acute. Patient was still pending a urinalysis. Patient did have some thrombocytosis likely secondary to her prior splenectomy. The electronic medical record was further reviewed in the neurology note was seen and it appears as though there is a fair amount of work done at [facility] and she had some sort of motor neuropathy of unclear etiology. Unsure as to total workup at this time given inability to view in current EMR. It is unclear whether or not she is having acute or chronic symptoms. However per the custodial physician's report to nursing, they had an acute concern for worsening clinical neurologic deterioration over last 1-2 weeks. I spoke with the admitting physician agreed that the patient would benefit from further treatment and testing and observation. Medication Reconcilliation Current Medication List: was personally reviewed by me Blood Pressure Screening Patient's blood pressure: Elevated blood pressure Referred to hospitalist. Consults Time Called: 1934 Consulting Physician: Dr. Thomas Ortiz supervisor gas meter repair Returned Call: 1948 (in person) I discussed the patient with Dr. Thomas Ortiz supervisor gas meter repair - he will evaluate the patient for further treatment. Impression Primary Impression: Generalized weakness Scribe Attestation The scribe's documentation has been prepared under my direction and personally reviewed by me in its entirety. I confirm that the note above accurately reflects all work, treatment, procedures, and medical decision making performed by me. Departure Information Dispostion Being Evaluated By Hospitalist Referrals No Doctor, Assigned (PCP)
[2017-02-21] MEDS ORDERED: SODIUM CHLORIDE 0.9% 500ML 500 ML IV STA (17:53)
[2017-02-21] MEDS ORDERED: BISA10SU3 PR (18:01)
[2017-02-21] MEDS ORDERED: MOML PO (18:01)
[2017-02-21] MEDS ORDERED: NUTR-1048 PO (18:08)
[2017-02-21] MEDS ORDERED: [UNRECOGNIZED DRUG - OTHER] PO (18:08)
[2017-02-21] MEDS ORDERED: SODIENE PR (18:08)
[2017-02-21] MEDS ORDERED: PRED-301 PO (18:26)
[2017-02-21] MEDS ORDERED: DILT300C PO (18:26)
[2017-02-21] MEDS ORDERED: SENN-63 PO (18:26)
[2017-02-21] MEDS ORDERED: MAGN400T5 PO (18:26)
[2017-02-21] MEDS ORDERED: THIA50TA3 PO (18:27)
[2017-02-21] MEDS ORDERED: ACET-1256 PO (18:28)
[2017-02-21] MEDS ORDERED: CHOL1CAP95 PO (18:31)
[2017-02-21 18:53] LABS: BASO % 0.5 %; BASO ABS # 0.05 K/uL (0-0.2); COMPLETE YES; EOS % 1.1 %; HEMATOCRIT 35.9 % (37-47); IG% 0.3 %; LYMPH % 13.7 %; MEAN CELL VOLUME 86.5 fL (80-100); MEAN CORPUSCULAR HEMOGLOBIN 28.9 pg (25-34); MEAN CORPUSCULAR HGB CONC 33.4 g/dl (32-36); MONO % 5.5 %; NEUT % 78.9 %; PLATELET COUNT 669 K/uL (130-400); RED BLOOD COUNT 4.15 M/uL (4.2-5.4); WHITE BLOOD COUNT 10.94 K/uL (4.8-10.8)
[2017-02-21 19:09] LABS: PARTIAL THROMBOPLASTIN RATIO 1.1; PROTHROMBIN TIME (PATIENT) 10.4 SECONDS (9.0-12.0)
--- NOTE | 2017-02-21 19:11 | DIAGNOSTIC IMAGING REPORT ---
HEAD WITHOUT CONTRAST (CT) CT DOSE: 537.48 mGy.cm HISTORY: Mental status change EVALUATE WEAKNESS TECHNIQUE: Multiaxial CT images of the head were performed without the use of intravenous contrast. A dose lowering technique was utilized adhering to the principles of ALARA. Comparison: None. Findings: The paranasal sinuses and mastoid air cells are clear. The calvarium and skull base are intact. The ventricles and sulci are within normal limits. There is no mass, hematoma, midline shift, or acute infarct. Age-related atrophy and chronic small vessel change Impression: No acute intracranial abnormality. Age-related change The above report was generated using voice recognition software. It may contain grammatical, syntax or spelling errors. Electronically signed by: Anurag Loving M.D. 02/21/2017 7:09 PM Dictated Date/Time: 02/21/2017 7:09 PM
[2017-02-21 19:15] LABS: ALT/SGPT 25 U/L (12-78); BLOOD UREA NITROGEN 13 mg/dl (7-18); BUN/CREATININE RATIO 14.8 (10-20); CALCIUM 11.4 mg/dl (8.5-10.1); CARBON DIOXIDE 22 mmol/L (21-32); CHLORIDE 99 mmol/L (98-107); GLUCOSE 166 mg/dl (70-99); MAGNESIUM 1.4 mg/dl (1.8-2.4); POTASSIUM 3.9 mmol/L (3.5-5.1); SODIUM 132 mmol/L (136-145)
[2017-02-21 19:27] LABS: ALKALINE PHOSPHATASE 150 U/L (45-117); AST/SGOT 22 U/L (15-37)
--- NOTE | 2017-02-21 19:43 | DIAGNOSTIC IMAGING REPORT ---
CHEST ONE VIEW PORTABLE CLINICAL HISTORY: weakness dyspnea COMPARISON STUDY: 01/20/2017 FINDINGS: The bones soft tissues and hemidiaphragms are normal. The cardiomediastinal silhouette is normal. The lungs are clear. The pulmonary vasculature is normal. IMPRESSION: Negative chest. The above report was generated using voice recognition software. It may contain grammatical, syntax or spelling errors. Electronically signed by: Anurag Loving M.D. 02/21/2017 7:42 PM Dictated Date/Time: 02/21/2017 7:42 PM
[2017-02-21] MEDS: ATORVASTATIN 10 MG TAB PO SCH (21:00)
[2017-02-21 21:53] VITALS: Ht 160 cm; Wt 64.5 kg
[2017-02-21] MEDS ORDERED: BACL10TA PO (22:07)
[2017-02-21] MEDS ORDERED: MAGNESIUM SULFATE 1GM / D5W 1 GM BAG ONE ×2 (22:14→22:20)
[2017-02-21] MEDS ORDERED: BISACODYL 10 MG SUPP PR PRN (22:15)
[2017-02-21] MEDS ORDERED: MAGNESIUM HYDROXIDE SUSP 30 ML UDC PO PRN (22:15)
[2017-02-21] MEDS ORDERED: BACLOFEN 10 MG TAB PO PRN (22:15)
[2017-02-21 23:11] LABS: URINE APPEARANCE CLOUDY (CLEAR); URINE BILIRUBIN NEG (NEG); URINE COLOR YELLOW; URINE EPITHELIAL CELL AUTO >30 /lpf (0-5); URINE NITRITE NEG (NEG); URINE SPECIFIC GRAVITY 1.023 (1.000-1.030); UROBILINOGEN NEG (NEG)
[2017-02-21 23:12] LABS: MANUAL MICROSCOPIC REQUIRED? NO; REVIEW REQ? NO
[2017-02-21] MEDS ORDERED: LORAZEPAM INJ 0.5 MG in SYRINGE 0.25 ML IV PRN (23:15)
--- NOTE | 2017-02-21 23:38 | History and Physical ---
History & Physical Date & Time of Service: Feb 21, 2017 ~ 21:30 Chief Complaint: Weakness Primary Care Physician: Dr. Vance History of Present Illness 71 year old female who presents to the ER with worsening generalized weakness. Patient recent past medical is complication. A few months ago, patient was found to have a retroperitoneal sarcoma and underwent resection with left nephrectomy, distal pancreatectomy, and splenectomy at [facility] 12/30/16. Course has been complicated since that time with progressive generalized weakness and critical hyponatremia. Patient was admitted to [facility] 01/20 - 02/02 for generalized weakness and hyponatremia. Patient was evaluated by neurology who advised no further work up at that time. Weakness was felt to be due to patient's recent surgery and electrolyte derangements. At discharge, patient was started on Tolvaptan for the hyponatremia which can only be taken for month. Patient completed the course a couple of days ago. She was discharged to [facility] for rehab. Patient has continued to get worse. She currently requires assist of two to get out of bed to the chair and cannot bear weight on her legs. She has weakness in her upper extremities as well however the legs are worse. She denies any pain, numbness, or tingling. She denies any difficulty speaking or swallowing. No chest pain or shortness of breath. Chronic lower extremity weakness is unchanged. She denies lightheadedness and dizziness. Appetite has been fair. She denies abdominal pain, nausea, vomiting, or diarrhea. She reports feeling chills on occasion but denies fevers. Reports some urinary burning recently. Work up in the ED is unremarkable. Past Medical/Surgical History Medical Problems: (1) Amputated toe Status: Chronic (2) C. 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 Surgical Problems: (1) Carcinoma of kidney Status: Resolved (2) H/O splenectomy Status: Chronic (3) H/O total hysterectomy Status: Chronic (4) History of cataract surgery Status: Chronic (5) History of pancreatectomy Status: Chronic (6) History of tonsillectomy and adenoidectomy Status: Chronic (7) History of total bilateral knee replacement Status: Chronic (8) S/P trigger finger release Status: Chronic Family History Hypertension BROTHER BROTHER Social History Smoking Status: Never Smoker Alcohol Use: none Marital Status: Immunizations History of Influenza Vaccine: Yes Influenza Vaccine Date: Feb 17, 2016 History of Tetanus Vaccine?: Yes Tetanus Immunization Date: Jul 11, 2009 History of Pneumococcal: Yes Pneumococcal Date: Dec 27, 2013 Multi-Drug Resistant Organisms History of MDRO: No Allergies Coded Allergies: Nickel (Verified Allergy, Unknown, RASH, 01/20/17) Home Medications Scheduled Aspirin (Aspirin Chewable), 81 MG PO QPM Atorvastatin (Lipitor), 10 MG PO HS Cholecalciferol (Vitamin D3), 50,000 INTER.UNIT PO 2XWK Diltiazem Hcl Coated Beads (Diltiazem Hcl Er), 300 MG PO DAILY Esomeprazole Magnesium (Nexium), 20 MG PO DAILY Magnesium Oxide (Mag-Ox), 400 MG PO QID Nutritional Supplements (Prosource), 30 ML PO BID Prednisone (Prednisone), 5 MG PO QAM Sennosides (Senokot), 8.6 MG PO QAM Thiamine Hcl (Vitamin B-1), 50 MG PO QAM [Fortified Milkshake], 1 EA PO DAILY [Premarin Cream], 1 APPLN PV WK Scheduled PRN Acetaminophen (Tylenol), 500 MG PO Q6H PRN for Pain Baclofen (Lioresal), 5 MG PO Q12H PRN for hiccups Bisacodyl (Dulcolax), 1 SUPP PA UD PRN for Constipation Magnesium Hydroxide (Milk Of Magnesia), 30 ML PO UD PRN for Constipation Sodium Phosphate/Biphosphate (Fleet Enema), 1 EA PA UD PRN for Constipation Review of Systems ROS per HPI, all other systems reviewed and negative Physical Exam Vital Signs Date Time Temp Pulse Resp B/P (MAP) Pulse Ox O2 Delivery O2 Flow Rate FiO2 02/21/17 22:25 99 18 159/91 96 Room Air 02/21/17 21:53 Room Air 02/21/17 21:07 98 02/21/17 19:57 99 18 170/99 96 02/21/17 18:03 101 20 98 02/21/17 17:59 97 Room Air 02/21/17 17:33 100 20 97 02/21/17 17:16 36.8 98 18 175/99 95 Room Air 02/21/17 17:07 100 02/21/17 17:05 175/99 General Appearance: no apparent distress Head: normocephalic, atraumatic Eyes: normal inspection, sclerae normal ENT: hearing grossly normal Neck: supple, no JVD Respiratory/Chest: lungs clear, normal breath sounds, no respiratory distress Cardiovascular: regular rate, rhythm, normal peripheral pulses, + pertinent finding (+1-2 BLLE edema) Abdomen/GI: normal bowel sounds, non tender, soft Extremities/Musculoskelatal: normal inspection, no calf tenderness Neurologic/Psych: alert, oriented x 3, + motor weakness (BLLE > BLUE ) Skin: normal color, warm/dry Diagnostics Laboratory Results Results Past 24 Hours Test 02/21/17 18:35 02/21/17 22:17 Range/Units White Blood Count 10.94 4.8-10.8 K/uL Red Blood Count 4.15 4.2-5.4 M/uL Hemoglobin 12.0 12.0-16.0 g/dL Hematocrit 35.9 37-47 % Mean Corpuscular Volume 86.5 80-100 fL Mean Corpuscular Hemoglobin 28.9 25-34 pg Mean Corpuscular Hemoglobin Concent 33.4 32-36 g/dl Platelet Count 669 130-400 K/uL Mean Platelet Volume 9.0 7.4-10.4 fL Neutrophils (%) (Auto) 78.9 % Lymphocytes (%) (Auto) 13.7 % Monocytes (%) (Auto) 5.5 % Eosinophils (%) (Auto) 1.1 % Basophils (%) (Auto) 0.5 % Neutrophils # (Auto) 8.64 1.4-6.5 K/uL Lymphocytes # (Auto) 1.50 1.2-3.4 K/uL Monocytes # (Auto) 0.60 0.11-0.59 K/uL Eosinophils # (Auto) 0.12 0-0.5 K/uL Basophils # (Auto) 0.05 0-0.2 K/uL RDW Standard Deviation 47.0 36.4-46.3 fL RDW Coefficient of Variation 14.9 11.5-14.5 % Immature Granulocyte % (Auto) 0.3 % Immature Granulocyte # (Auto) 0.03 0.00-0.02 K/uL Prothrombin Time 10.4 9.0-12.0 SECONDS Prothromb Time International Ratio 1.0 0.9-1.1 Activated Partial Thromboplast Time 28.4 21.0-31.0 SECONDS Partial Thromboplastin Ratio 1.1 Sodium Level 132 136-145 mmol/L Potassium Level 3.9 3.5-5.1 mmol/L Chloride Level 99 98-107 mmol/L Carbon Dioxide Level 22 21-32 mmol/L Anion Gap 11.0 3-11 mmol/L Blood Urea Nitrogen 13 7-18 mg/dl Creatinine 0.90 0.60-1.20 mg/dl Est Creatinine Clear Calc Drug Dose 52.9 ml/min Estimated GFR () 75.1 Estimated GFR (Non- 64.8 BUN/Creatinine Ratio 14.8 10-20 Random Glucose 166 70-99 mg/dl Calcium Level 11.4 8.5-10.1 mg/dl Magnesium Level 1.4 1.8-2.4 mg/dl Total Bilirubin 0.2 0.2-1 mg/dl Direct Bilirubin < 0.1 0-0.2 mg/dl Aspartate Amino Transf (AST/SGOT) 22 15-37 U/L Alanine Aminotransferase (ALT/SGPT) 25 12-78 U/L Alkaline Phosphatase 150 45-117 U/L Troponin I < 0.015 0-0.045 ng/ml Total Protein 7.2 6.4-8.2 gm/dl Albumin 3.3 3.4-5.0 gm/dl Lipase 57 73-393 U/L Thyroid Stimulating Hormone (TSH) 1.490 0.300-4.500 uIu/ml Microbiology Results 02/21/17 Urine Culture, Received Pending 02/21/17 Urine Culture, Anibal Batch Pending Diagnostic Radiology Head CT Impression: No acute intracranial abnormality. Age-related change CXR IMPRESSION: Negative chest. Impression Assessment and Plan PROGRESSIVE WEAKNESS HX LEIOMYOSARCOMA - admit to med/surg - patient presenting with progressive generalized weakness, BLLE > BLUE over the past couple of months - patient is s/p resection retroperitoneal sarcoma with left nephrectomy, distal pancreatectomy, and splenectomy at [facility] 12/30/16 - has had progressive weakness that started during her hospitalization for the surgery - had extensive work up with rheumatology and neurology prior to discharge - will start with repeating brain and c-spine MRIs and also obtain thoracic and lumbar MRIs - neurology consult with Dr. Hoang; consider contact [facility] neurology Dr. Martinez - noted PA-C at [facility] ordered for Prednisone to start today to santa's helper with symptoms - will hold on starting for now HYPONATREMIA, HYPOMAGNESEMIA, HYPERCALCEMIA - has been a chronic ongoing issue; Na+ and Mg+ mildly low today - Ca+ with steady rise over the past month - patient recently completed 30 days of Tolvaptan - continue outpatient regimen of 1500ml FR and Mg+ replacements - s/p 1 liter IVF in the ED, will hold on further for now - nephro consult UTI - patient reports dysuria, U/A suggest UTI - last urine culture grew E. Coli, sensitive to ceftriaxone - will start and adjust per cultures results - no signs of sepsis HTN - continue diltiazem HLD - continue statin DVT PROPHYLAXIS - SQ Lovenox CODE STATUS - Patient is a full code as per my discussion with her. DISPO - In my clinical judgment this beneficiary meets acute admission criteria, established by [facility], that includes being hospitalized through two midnights. Advanced Directives Existing Living Will: Yes Existing Power of Dive Master: Yes VTE Prophylaxis VTE Risk Assessment Done? Y/N: Yes Risk Level: Moderate Note ATTENDING ADDENDUM Record reviewed. Patient interviewed and examined. Care coordinated with [facility]. Please refer to her documentation for patient's history. Briefly, 71 YO female with retroperitoneal leiomyosarcoma resected in December with progressive weakness since then- mostly in lower extremities. EXAM: General- no acute distress VS- as noted HEENT- anicteric Neck- supple Lungs- clear Heart- RRR Abdomen- + BS, soft, nontender; midline incision well-healed Extremities- trace pretibial edema, no calf tenderness Neuro- alert, oriented to person, place, month and year; PERRL, EOMI; no facial palsy; soft phonation; no dysarthria or aphasia; motor strength upper extremities 4/5; strength lower extremities 3/5 proximally, 4/5 distally; patellar reflexes 1/2 bilat; plantar reflexes equivocal, probably downgoing bilat DATA: Lab studies as noted. ASSESSMENT AND PLAN: Progressive weakness. Resection of retroperitoneal leiomyosarcoma about 2 months ago. Consider metastatic disease- check MRI brain and spine. Consider paraneoplastic syndrome. Calcium has risen since December; hypercalcemia may explain some of her symptoms. Consult Neurology and Nephrology. PT / OT as tolerated. Please refer to RADHA Gerard's documentation for discussion of other issues. Hector Guzman MD .
[2017-02-22 00:30] VITALS: BP 186/96; PULSE 98; TEMP 36.7; O2SAT 97
[2017-02-22] MEDS ORDERED: MAGNESIUM SULFATE 1GM / D5W 1 GM in PREMIXED IN D5W 100 ML IV SCH ×2 (01:15→19:15)
[2017-02-22 01:25] VITALS: O2SAT 97
[2017-02-22] MEDS: CEFTRIAXONE SOD INJ 1 GM in DEXTROSE 5% ADD-VANTAGE 50ML 50 ML IV SCH (02:51)
[2017-02-22 07:16] LABS: MEAN CELL VOLUME 85.2 fL (80-100); MEAN CORPUSCULAR HEMOGLOBIN 28.1 pg (25-34); MEAN CORPUSCULAR HGB CONC 32.9 g/dl (32-36); MEAN PLATELET VOLUME 8.5 fL (7.4-10.4); PLATELET COUNT 614 K/uL (130-400); RED BLOOD COUNT 3.99 M/uL (4.2-5.4); WHITE BLOOD COUNT 9.88 K/uL (4.8-10.8)
[2017-02-22 07:35] VITALS: BP 176/90; PULSE 92; TEMP 36.8; O2SAT 97
[2017-02-22 07:51] LABS: BUN/CREATININE RATIO 14.2 (10-20); CALCIUM 11.3 mg/dl (8.5-10.1); CREATININE 0.67 mg/dl (0.60-1.20); MAGNESIUM 1.7 mg/dl (1.8-2.4); POTASSIUM 3.1 mmol/L (3.5-5.1)
[2017-02-22 08:00] VITALS: O2SAT 97
[2017-02-22] MEDS ORDERED: PROSOURCE NOCARB 30ML/PKT PO SCH (08:00)
[2017-02-22] MEDS: SENNA 8.6 MG TAB PO SCH (08:23)
[2017-02-22] MEDS: DILTIAZEM HCL 300 MG CAPCR PO SCH (08:23)
[2017-02-22] MEDS: MAGNESIUM OXIDE 400 MG TAB PO SCH ×4 (08:23→19:57)
[2017-02-22] MEDS: THIAMINE HCL 50 MG TAB PO SCH (08:23)
[2017-02-22] MEDS: PANTOprazole SOD 40 MG TAB PO SCH (08:23)
[2017-02-22] MEDS: ASPIRIN 81 MG ECTAB PO SCH (08:24)
[2017-02-22] MEDS ORDERED: MAGNESIUM SULFATE 1GM / D5W 1 GM in PREMIXED IN D5W 100 ML IV ONE (08:30)
[2017-02-22] MEDS ORDERED: POTASSIUM CHLORIDE 10 MEQ TABCR PO ONE ×2 (08:30→15:00)
[2017-02-22] MEDS: ENOXAPARIN 40 MG/0.4 ML SYR SQ SCH (08:32)
[2017-02-22] MEDS: SODIUM CHLORIDE 0.9% 1000ML 1,000 ML IV SCH ×2 (09:41→14:55)
--- NOTE | 2017-02-22 10:19 | DIAGNOSTIC IMAGING REPORT ---
ORBITS FOR MRI HISTORY: Pre-MRI pre-MRI screening. COMPARISON: None. FINDINGS: There are no radiopaque foreign bodies identified within the orbits. IMPRESSION: No radiopaque foreign bodies identified within the orbits. The above report was generated using voice recognition software. It may contain grammatical, syntax or spelling errors. Electronically signed by: Anurag Loving M.D. 02/22/2017 10:17 AM Dictated Date/Time: 02/22/2017 10:17 AM
--- NOTE | 2017-02-22 10:49 | NEPHROLOGY CONSULTATION ---
DATE OF CONSULTATION: 02/22/2017 ATTENDING OF RECORD: Dr. Soto. REASON FOR CONSULTATION: Hypercalcemia, chronic hyponatremia and hypomagnesemia. HISTORY OF PRESENT ILLNESS: This is a 71-year-old female followed closely by my partner, Dr. Tiff Escalera, last seen in the office February 08. 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 Did do radiation therapy prior to the surgery. The patient went from [place] to [facility] and eventually home and then at home, the patient did not do well and was subsequently readmitted to [facility] and then from [facility] discharged to a residential. The patient has had hyponatremia dating back to last summer as well as a chronically low magnesium levels as well. The patient once again had the significant surgery on December 30 in [place], sent to [facility]. He went home from [facility] January 17 with a serum sodium in the high 120s and was subsequently readmitted January 20 with a serum sodium 118 and generalized weakness, was discharged from [facility] on February 02 on tolvaptan and in the residential, the sodium levels were stable with the tolvaptan; however tolvaptan was recently stopped since only can use it for a month. The patient has had generalized weakness and chronic hypercalcemia. The patient did do an outpatient workup for the hypercalcemia with an SPEP, which was negative, 1,25-dihydroxy vitamin D level was low at 9, a 25-hydroxy vitamin D which was normal at 39. A PTHrP which was normal at 14. Sed rate is mildly elevated at 49. The patient's labs on admission here have a sodium level of 132, which is good for her. Creatinine is normal at 0.9. Her magnesium level is chronically low at 1.4 and a calcium level was elevated at 11.4. Thyroid levels are stable at 1.49, albumin levels are relatively good at 3.3 as well. H&H of 12 and 35 and a platelet count is 669. UA is concerning for urinary tract infection. Urine culture is pending and the patient is currently on ceftriaxone for the presumed urinary tract infection and continuing with the magnesium oxide 4 times a day for her chronically low magnesium levels. The patient this morning has a stiff neck, generalized weakness and overall has been slowly worsening. There is a consideration to start oral prednisone in the residential; however, that has not been started yet and is currently on hold. PAST MEDICAL HISTORY: Coronary artery disease, hyperlipidemia, hypertension, leiomyosarcoma. The patient is a [employer] and no blood transfusions, hypomagnesemia, hypercalcemia of unclear etiology. PAST SURGICAL HISTORY: Splenectomy, nephrectomy, pancreatectomy, cataract surgery, tonsillectomy, bilateral knee replacements. FAMILY HISTORY: Significant for hypertension. SOCIAL HISTORY: No smoking, no alcohol. CURRENT MEDICATIONS: Vitamin D 50,000 units twice a week, Lovenox 40 mg a day, aspirin 81 mg daily, magnesium 400 mg four times a day, Boost nutrition 30 mL p.o. twice a day, senna 8.6 mg daily, thiamine 50 mg daily, Protonix 40 mg daily, ceftriaxone 1 gram IV daily, Lipitor 10 mg at night. REVIEW OF SYSTEMS: Positive generalized weakness. No headaches, no blurry vision, no dysphagia, no chest pain, no shortness of breath. No nausea, vomiting. Positive neck stiffness which she attributes to sleeping the wrong way. All other review of systems otherwise negative. PHYSICAL EXAMINATION: VITAL SIGNS: Temperature 36.7, pulse 98, respiratory rate is 20, blood pressure is 186/96, satting 97% on room air. GENERAL: Awake, alert, oriented x3, answering questions appropriately, very fatigued. EYES: No scleral icterus. HEENT: Moist mucous membranes. NECK: Supple/stiff. PULMONARY: Decreased breath sounds at bases. CARDIAC: Regular rate and rhythm. ABDOMEN: Bowel sounds positive, soft, nontender. EXTREMITIES: Mild edema, no clubbing or cyanosis. NEUROLOGICALLY: significant lower extremity weakness DERMATOLOGIC: No rash or ulcers noted. LABORATORY DATA: UA suggests urinary tract infection with moderate leuk esterase, greater than 30 WBCs, 10-30 RBCs and sodium level is good at 132, potassium 3.9, chloride 99, bicarb of 22, BUN 13, creatinine 0.9, calcium level 11.4, mag is 1.4, albumin is 3.3. TSH 1.49. White count is 10, H&H 12 and 35, platelet count 669. INR is 1. Urine culture is pending. IMAGING DATA: Chest x-ray shows normal chest. Head CT shows no acute intracranial abnormalities. ASSESSMENT AND PLAN: 1. Hyponatremia. The patient with history of hyponatremia, sodium levels stable at 132, was on tolvaptan. No longer on tolvaptan. We will follow sodium levels closely. For now, no changes to the current medical regimen. 2. Hypomagnesemia. The patient on oral magnesium supplementation. Last magnesium was 1.4. We will redose IV magnesium accordingly and would recommend following magnesium levels on a daily basis. 3. Hypercalcemia. A workup as an outpatient was unrevealing and my clinical opinion, this is hypercalcemia from immobilization since the patient has been quite lethargic, and bed bound. Treatment for hypercalcemia would be normal saline. However, we will discuss further with the primary hospitalist and follow this morning's labs to follow the trend, hesitant to start normal saline currently at this time. 4. Generalized malaise and fatigue. Question if the patient would benefit from steroids, would recommend doing a cosyntropin stim test to check to see if the adrenal glands are working well. Given the fact that she has a stiff neck, question other neurologic etiologies. With the generalized weakness, limited mobility and now stiff neck, although no documented fevers, I will discuss further with the hospitalist. For now, I feel the worsening lethargy could be attributed to urinary tract infection, although likely multifactorial. The patient overall has not been doing well over the past year, and trying our best to optimize electrolytes as well as possible. Question would be does this patient have need for steroids at this time or not. I recommend a cosyntropin stim test to see if there is an appropriate response and consider gentle hydration to help with the hypercalcemia. I appreciate the consultation. ABHIJEET
[2017-02-22 11:47] VITALS: BP 176/79; PULSE 93; TEMP 36.7; O2SAT 97
--- NOTE | 2017-02-22 13:10 | Progress Note ---
Medicine Progress Note Date & Time of Visit: Feb 22, 2017 at 13:10. Subjective seen with at bedside patient alert, appears weak but in good spirits states she feels slightly better but still has generalized weakness denies shortness of breath, dysphagia no other symptoms Objective Last 8 Hrs Date Time Temp Pulse Resp B/P (MAP) Pulse Ox O2 Delivery O2 Flow Rate FiO2 02/22/17 11:47 36.7 93 18 176/79 (111) 97 Room Air 02/22/17 08:00 97 Room Air 02/22/17 07:35 36.8 92 18 176/90 (118) 97 Room Air Physical Exam: General- oriented x 3, not in distress, speaks in sentences with no effort Eyes- EOMI, anicteric Neck- supple, no JVD Lungs- clear breath sounds bilaterally Heart- regular rhythm; no murmur, normal rate Abdomen- normal bowel sounds, soft, nontender, no masses Extremities- no pretibial edema, no calf tenderness Neuro- alert, oriented x 3; PERRL, EOMI; no facial palsy; no dysarthria; motor 3 -4/5 Upper Ext and 3/5 Lower Ext ; sensation 100% Skin- warm & dry Laboratory Results: Last 24 Hours Test 02/21/17 18:35 02/21/17 22:17 02/22/17 07:04 02/22/17 08:43 White Blood Count 10.94 K/uL 9.88 K/uL Red Blood Count 4.15 M/uL 3.99 M/uL Hemoglobin 12.0 g/dL 11.2 g/dL Hematocrit 35.9 % 34.0 % Mean Corpuscular Volume 86.5 fL 85.2 fL Mean Corpuscular Hemoglobin 28.9 pg 28.1 pg Mean Corpuscular Hemoglobin Concent 33.4 g/dl 32.9 g/dl Platelet Count 669 K/uL 614 K/uL Mean Platelet Volume 9.0 fL 8.5 fL Neutrophils (%) (Auto) 78.9 % Lymphocytes (%) (Auto) 13.7 % Monocytes (%) (Auto) 5.5 % Eosinophils (%) (Auto) 1.1 % Basophils (%) (Auto) 0.5 % Neutrophils # (Auto) 8.64 K/uL Lymphocytes # (Auto) 1.50 K/uL Monocytes # (Auto) 0.60 K/uL Eosinophils # (Auto) 0.12 K/uL Basophils # (Auto) 0.05 K/uL RDW Standard Deviation 47.0 fL 46.5 fL RDW Coefficient of Variation 14.9 % 14.9 % Immature Granulocyte % (Auto) 0.3 % Immature Granulocyte # (Auto) 0.03 K/uL Prothrombin Time 10.4 SECONDS Prothromb Time International Ratio 1.0 Activated Partial Thromboplast Time 28.4 SECONDS Partial Thromboplastin Ratio 1.1 Sodium Level 132 mmol/L 132 mmol/L Potassium Level 3.9 mmol/L 3.1 mmol/L Chloride Level 99 mmol/L 100 mmol/L Carbon Dioxide Level 22 mmol/L 23 mmol/L Anion Gap 11.0 mmol/L 9.0 mmol/L Blood Urea Nitrogen 13 mg/dl 10 mg/dl Creatinine 0.90 mg/dl 0.67 mg/dl Est Creatinine Clear Calc Drug Dose 52.9 ml/min 70.6 ml/min Estimated GFR () 75.1 103.2 Estimated GFR (Non- 64.8 89.1 BUN/Creatinine Ratio 14.8 14.2 Random Glucose 166 mg/dl 126 mg/dl Calcium Level 11.4 mg/dl 11.3 mg/dl Magnesium Level 1.4 mg/dl 1.7 mg/dl Total Bilirubin 0.2 mg/dl Direct Bilirubin < 0.1 mg/dl Aspartate Amino Transf (AST/SGOT) 22 U/L Alanine Aminotransferase (ALT/SGPT) 25 U/L Alkaline Phosphatase 150 U/L Troponin I < 0.015 ng/ml Total Protein 7.2 gm/dl Albumin 3.3 gm/dl Lipase 57 U/L Thyroid Stimulating Hormone (TSH) 1.490 uIu/ml Urine Color YELLOW Urine Appearance CLOUDY Urine pH 5.0 Urine Specific [place] 1.023 Urine Protein NEG Urine Glucose (UA) NEG Urine Ketones NEG Urine Occult Blood NEG Urine Nitrite NEG Urine Bilirubin NEG Urine Urobilinogen NEG Urine Leukocyte Esterase MODERATE Urine WBC (Auto) >30 /hpf Urine RBC (Auto) 10-30 /hpf Urine Hyaline Casts (Auto) 1-5 /lpf Urine Epithelial Cells (Auto) >30 /lpf Urine Bacteria (Auto) 1+ Ionized Calcium 1.36 mmol/l Test 02/22/17 12:17 02/22/17 12:32 Ionized Calcium 1.32 mmol/l Date/Time Source Procedure Growth Status 02/21/17 22:17 Urine , Clean Catch Urine Culture Pending Received Assessment & Plan PROGRESSIVE WEAKNESS HX LEIOMYOSARCOMA - admit to med/surg - patient presenting with progressive generalized weakness, BLLE > BLUE over the past couple of months - patient is s/p resection retroperitoneal sarcoma with left nephrectomy, distal pancreatectomy, and splenectomy at [facility] 12/30/16 - has had progressive weakness that started during her hospitalization for the surgery - had extensive work up with rheumatology and neurology prior to discharge --likely Multifactorial: Electrolyte Imbalance- management per #1 r/o Neurologic Etiology- Neuro consulted Deconditioning- PT/OT HYPONATREMIA, HYPOMAGNESEMIA, HYPERCALCEMIA - has been a chronic ongoing issue; Na+ and Mg+ mildly low today - Ca+ with steady rise over the past month -- IV fluids ordered replete Mg and K monitor levels -- Nephro consulted UTI - patient reports dysuria, U/A suggest UTI - last urine culture grew E. Coli, sensitive to ceftriaxone - will start and adjust per cultures results - no signs of sepsis HTN - continue diltiazem HLD - continue statin DVT PROPHYLAXIS - SQ Lovenox CODE STATUS - Patient is a full code as per my discussion with her. DISPO pending Current Inpatient Medications: Current Inpatient Medications Medications (Trade) Dose Ordered Sig/Ana Route Start Time Stop Time Status Last Admin Dose Admin Enoxaparin Sodium (Lovenox Inj) 40 mg Q24H SQ 02/22/17 09:00 03/24/17 08:59 02/22/17 08:32 40 MG Acetaminophen (Tylenol Tab) 650 mg Q4H PRN PO 02/21/17 21:45 03/23/17 21:44 Ondansetron HCl (Zofran Inj) 4 mg Q6H PRN IV 02/21/17 21:45 03/23/17 21:44 Aspirin (Ecotrin Tab) 81 mg QAM PO 02/22/17 08:00 03/24/17 08:59 02/22/17 08:24 81 MG Atorvastatin Calcium (Lipitor Tab) 10 mg HS PO 02/21/17 21:00 03/23/17 20:59 Baclofen (Lioresal Tab) 5 mg Q12H PRN PO 02/21/17 22:15 03/23/17 22:14 02/22/17 08:28 5 MG Bisacodyl (Dulcolax Supp) 10 mg DAILY PRN CO 02/21/17 22:15 03/23/17 22:14 Diltiazem HCl (Cardizem Cd Cap) 300 mg DAILY PO 02/22/17 08:00 03/24/17 08:59 02/22/17 08:23 300 MG Magnesium Hydroxide (Milk Of Magnesia Susp) 30 ml DAILY PRN PO 02/21/17 22:15 03/23/17 22:14 Magnesium Oxide (Mag-Ox Tab) 400 mg QID PO 02/22/17 08:00 03/24/17 08:59 02/22/17 12:37 400 MG Enteral Nutritional Formula (Prosource No Carb) 30 ml BID PO 02/22/17 08:00 03/24/17 08:59 02/22/17 08:25 30 ML Senna (Senokot Tab) 8.6 mg QAM PO 02/22/17 08:00 03/24/17 08:59 02/22/17 08:23 8.6 MG Thiamine HCl (Vitamin B-1 Tab) 50 mg QAM PO 02/22/17 08:00 03/24/17 08:59 02/22/17 08:23 50 MG Ergocalciferol (Vitamin D Cap) 50,000 interunit TuFr@0900 PO 02/24/17 09:00 03/26/17 08:59 Pantoprazole Sodium (Protonix Tab) 40 mg QAM PO 02/22/17 08:00 03/24/17 08:59 02/22/17 08:23 40 MG Lorazepam 0.5 mg/ Syringe 0.5 ml @ 0.5 mls/min ONE PRN IV 02/21/17 23:15 02/22/17 18:00 Ceftriaxone Sodium 1 gm/ Dextrose 50 ml @ 100 mls/hr Q24H IV 02/22/17 01:30 02/27/17 01:29 02/22/17 02:51 100 MLS/HR Sodium Chloride 1,000 ml @ 150 mls/hr Q6H40M IV 02/22/17 08:30 03/24/17 08:29 02/22/17 09:41 150 MLS/HR
[2017-02-22 13:20] LABS: BUN/CREATININE RATIO 14.4 (10-20); CALCIUM 10.8 mg/dl (8.5-10.1); CREATININE 0.78 mg/dl (0.60-1.20); MAGNESIUM 1.9 mg/dl (1.8-2.4); POTASSIUM 3.3 mmol/L (3.5-5.1)
--- NOTE | 2017-02-22 13:29 | Neurology Consultation ---
Neurology Consultation Date of Consultation: Feb 22, 2017. Attending Physician: Jamey Soto MD Primary Care Physician: Rossy NAPOLES M.D. Reason for Consultation: progressive weakness History of Present Illness Source: patient Dilia is a 71 year old female with worsening generalized weakness. She had a retroperitoneal sarcoma and underwent resection with left nephrectomy, distal pancreatectomy, and splenectomy at [facility] 12/30/16. Course has been complicated since that time with progressive generalized weakness and critical hyponatremia. Patient was admitted to [facility] 01/20 - 02/02 for generalized weakness and hyponatremia. She was evaluated by neurology who advised no further work up at that time. Weakness was felt to be due to patient's recent surgery and electrolyte derangements. At discharge, patient was started on Tolvaptan for the hyponatremia which can only be taken for month. She completed the course a couple of days ago. She was discharged to [facility] for rehab. Patient has continued to get worse. She currently requires assist of two to get out of bed to the chair and cannot bear weight on her legs. She has weakness in her upper extremities as well however the legs are worse. She denies any pain, numbness, or tingling. She denies any difficulty speaking or swallowing. No chest pain or shortness of breath. Chronic lower extremity weakness is unchanged. Today she does have a headache but she was given Tylenol which is helping. Past Medical/Surgical History Medical Problems: (1) Hypernatremia Status: Acute (2) Hypomagnesemia Status: Acute (3) Weakness Status: Acute Social History Smoking Status: Never smoker Alcohol Use: none Marital Status: Housing Status: lives with family Allergies Coded Allergies: Nickel (Verified Allergy, Unknown, RASH, 01/20/17) Current Inpatient Medications Current Inpatient Medications Medications (Trade) Dose Ordered Sig/Ana Route Start Time Stop Time Status Last Admin Dose Admin Enoxaparin Sodium (Lovenox Inj) 40 mg Q24H SQ 02/22/17 09:00 03/24/17 08:59 02/22/17 08:32 40 MG Acetaminophen (Tylenol Tab) 650 mg Q4H PRN PO 02/21/17 21:45 03/23/17 21:44 Ondansetron HCl (Zofran Inj) 4 mg Q6H PRN IV 02/21/17 21:45 03/23/17 21:44 Aspirin (Ecotrin Tab) 81 mg QAM PO 02/22/17 08:00 03/24/17 08:59 02/22/17 08:24 81 MG Atorvastatin Calcium (Lipitor Tab) 10 mg HS PO 02/21/17 21:00 03/23/17 20:59 Baclofen (Lioresal Tab) 5 mg Q12H PRN PO 02/21/17 22:15 03/23/17 22:14 02/22/17 08:28 5 MG Bisacodyl (Dulcolax Supp) 10 mg DAILY PRN OK 02/21/17 22:15 03/23/17 22:14 Diltiazem HCl (Cardizem Cd Cap) 300 mg DAILY PO 02/22/17 08:00 03/24/17 08:59 02/22/17 08:23 300 MG Magnesium Hydroxide (Milk Of Magnesia Susp) 30 ml DAILY PRN PO 02/21/17 22:15 03/23/17 22:14 Magnesium Oxide (Mag-Ox Tab) 400 mg QID PO 02/22/17 08:00 03/24/17 08:59 02/22/17 12:37 400 MG Enteral Nutritional Formula (Prosource No Carb) 30 ml BID PO 02/22/17 08:00 03/24/17 08:59 02/22/17 08:25 30 ML Senna (Senokot Tab) 8.6 mg QAM PO 02/22/17 08:00 03/24/17 08:59 02/22/17 08:23 8.6 MG Thiamine HCl (Vitamin B-1 Tab) 50 mg QAM PO 02/22/17 08:00 03/24/17 08:59 02/22/17 08:23 50 MG Ergocalciferol (Vitamin D Cap) 50,000 interunit TuFr@0900 PO 02/24/17 09:00 03/26/17 08:59 Pantoprazole Sodium (Protonix Tab) 40 mg QAM PO 02/22/17 08:00 03/24/17 08:59 02/22/17 08:23 40 MG Lorazepam 0.5 mg/ Syringe 0.5 ml @ 0.5 mls/min ONE PRN IV 02/21/17 23:15 02/22/17 18:00 Ceftriaxone Sodium 1 gm/ Dextrose 50 ml @ 100 mls/hr Q24H IV 02/22/17 01:30 02/27/17 01:29 02/22/17 02:51 100 MLS/HR Sodium Chloride 1,000 ml @ 150 mls/hr Q6H40M IV 02/22/17 08:30 03/24/17 08:29 02/22/17 09:41 150 MLS/HR Physical Exam Vital Signs (Past 24 Hrs): Date Time Temp Pulse Resp B/P (MAP) Pulse Ox O2 Delivery O2 Flow Rate FiO2 02/22/17 11:47 36.7 93 18 176/79 (111) 97 Room Air 02/22/17 08:00 97 Room Air 02/22/17 07:35 36.8 92 18 176/90 (118) 97 Room Air 02/22/17 01:25 97 Room Air 02/22/17 00:30 36.7 98 20 186/96 (126) 97 Room Air 02/22/17 00:12 95 20 153/90 95 Room Air 02/21/17 23:35 96 20 158/88 96 Room Air 02/21/17 22:25 99 18 159/91 96 Room Air 02/21/17 21:53 Room Air 02/21/17 21:07 98 02/21/17 19:57 99 18 170/99 96 02/21/17 18:03 101 20 98 02/21/17 17:59 97 Room Air 02/21/17 17:33 100 20 97 02/21/17 17:16 36.8 98 18 175/99 95 Room Air 02/21/17 17:07 100 02/21/17 17:05 175/99 Physical Exam: Constitutional:appearance thin frail Ears, Nose, Mouth and Throat: mucous membranes moist, no injection and skin normal, eyes normal Cardiovascular: normal S-1 and S-2 and regular rate and rhythm Respiratory: clear to auscultation (CTA) and no rales, rhonchi or wheeze Musculoskeletal: no peripheral edema , severe deformity of lumbar spine, bilateral foot deformity Skin: multiple skin tears Eyes: extraocular muscles intact (EOMI) and pupils equal, round and reactive to light (PERRL) NEUROLOGIC EXAMINATION: Mental status: Alert and interactive, denies ever being in [place] but does remember the surgery. 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 biceps triceps 4/5 bilaterally equal, hip flex against gravity but not against resistance, plantar flex ext limited due to foot deformity Laboratory Results Past 24 Hours: 02/22/17 07:04 Test 02/21/17 18:35 02/21/17 22:17 02/22/17 07:04 02/22/17 12:17 Immature Granulocyte % (Auto) 0.3 % White Blood Count 10.94 K/uL (4.8-10.8) Red Blood Count 4.15 M/uL (4.2-5.4) 3.99 M/uL (4.2-5.4) Hemoglobin 12.0 g/dL (12.0-16.0) Hematocrit 35.9 % (37-47) Mean Corpuscular Volume 86.5 fL (80-100) 85.2 fL (80-100) Mean Corpuscular Hemoglobin 28.9 pg (25-34) 28.1 pg (25-34) Mean Corpuscular Hemoglobin Concent 33.4 g/dl (32-36) 32.9 g/dl (32-36) Platelet Count 669 K/uL (130-400) Mean Platelet Volume 9.0 fL (7.4-10.4) 8.5 fL (7.4-10.4) Neutrophils (%) (Auto) 78.9 % Lymphocytes (%) (Auto) 13.7 % Monocytes (%) (Auto) 5.5 % Eosinophils (%) (Auto) 1.1 % Basophils (%) (Auto) 0.5 % Neutrophils # (Auto) 8.64 K/uL (1.4-6.5) Lymphocytes # (Auto) 1.50 K/uL (1.2-3.4) Monocytes # (Auto) 0.60 K/uL (0.11-0.59) Eosinophils # (Auto) 0.12 K/uL (0-0.5) Basophils # (Auto) 0.05 K/uL (0-0.2) Immature Granulocyte # (Auto) 0.03 K/uL (0.00-0.02) Prothrombin Time 10.4 SECONDS (9.0-12.0) Prothromb Time International Ratio 1.0 (0.9-1.1) Activated Partial Thromboplast Time 28.4 SECONDS (21.0-31.0) Partial Thromboplastin Ratio 1.1 Total Bilirubin 0.2 mg/dl (0.2-1) Direct Bilirubin < 0.1 mg/dl (0-0.2) Aspartate Amino Transf (AST/SGOT) 22 U/L (15-37) Alanine Aminotransferase (ALT/SGPT) 25 U/L (12-78) Alkaline Phosphatase 150 U/L (45-117) Troponin I < 0.015 ng/ml (0-0.045) Total Protein 7.2 gm/dl (6.4-8.2) Albumin 3.3 gm/dl (3.4-5.0) Lipase 57 U/L (73-393) Thyroid Stimulating Hormone (TSH) 1.490 uIu/ml (0.300-4.500) Urine Color YELLOW Urine Appearance CLOUDY (CLEAR) Urine pH 5.0 (4.5-7.5) Urine Specific [place] 1.023 (1.000-1.030) Urine Protein NEG (NEG) Urine Glucose (UA) NEG (NEG) Urine Ketones NEG (NEG) Urine Occult Blood NEG (NEG) Urine Nitrite NEG (NEG) Urine Bilirubin NEG (NEG) Urine Urobilinogen NEG (NEG) Urine Leukocyte Esterase MODERATE (NEG) Urine WBC (Auto) >30 /hpf (0-5) Urine RBC (Auto) 10-30 /hpf (0-4) Urine Hyaline Casts (Auto) 1-5 /lpf (0-5) Urine Epithelial Cells (Auto) >30 /lpf (0-5) Urine Bacteria (Auto) 1+ (NEG) RDW Standard Deviation 46.5 fL (36.4-46.3) RDW Coefficient of Variation 14.9 % (11.5-14.5) Est Creatinine Clear Calc Drug Dose 70.6 ml/min Test 02/22/17 12:32 Ionized Calcium 1.32 mmol/l (1.12-1.32) Imaging CT head- No acute intracranial abnormality. Age-related change Impression 71 year old female with progressive LE weakness, electrolyte abnormalities Plan 1. MRI brain, c/t/l spine ordered 2. electrolyte imbalance currently correcting 3. PT/OT for discharge needs 4. will need a muscle biopsy at some point 5. fall precautions 6. 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 despite the "benign" nature of her mass but a low dose of steroids has been recommended Currently back in for weakness electrolyte issues and possible infection and at this point we do not have many suggestions other than those outlined above In the future she will need a muscle nerve biopsy but this is outpatient process I would suggest the rheumatology evaluate her as well possibly as an inpatient in light of the recommendations by [place] [facility] that she be placed on low dose steroids ie 10 mg daily She does have a prominent degree of pain with joint movement today and might improve on steroids and her sodium level may also respond favorably will follow up tomorrow abdirizak Hoang MD
[2017-02-22 15:22] VITALS: BP 150/73; PULSE 93; TEMP 36.7; O2SAT 97
[2017-02-22 17:22] LABS: URINE APPEARANCE CLEAR (CLEAR); URINE BILIRUBIN NEG (NEG); URINE COLOR YELLOW; URINE EPITHELIAL CELL AUTO >30 /lpf (0-5); URINE NITRITE NEG (NEG); URINE PH 5.5 (4.5-7.5); UROBILINOGEN NEG (NEG)
[2017-02-22 17:23] LABS: MANUAL MICROSCOPIC REQUIRED? NO; REVIEW REQ? NO
[2017-02-22 18:14] LABS: CALCIUM 10.5 mg/dl (8.5-10.1); CREATININE 0.74 mg/dl (0.60-1.20); MAGNESIUM 1.7 mg/dl (1.8-2.4); POTASSIUM 4.1 mmol/L (3.5-5.1)
[2017-02-22] MEDS: PROSOURCE NOCARB 30ML/PKT PO SCH (20:16)
[2017-02-22] MEDS ORDERED: LORAZEPAM INJ 0.5 MG in SYRINGE 0.25 ML IV PRN (21:45)
[2017-02-23 02:50] VITALS: BP 179/96; PULSE 94; TEMP 36.7; O2SAT 97
[2017-02-23] MEDS: SODIUM CHLORIDE 0.9% 1000ML 1,000 ML IV SCH ×2 (02:55→20:36)
[2017-02-23] MEDS: CEFTRIAXONE SOD INJ 1 GM in DEXTROSE 5% ADD-VANTAGE 50ML 50 ML IV SCH (02:55)
[2017-02-23 06:25] LABS: BASO % 0.6 %; BASO ABS # 0.07 K/uL (0-0.2); COMPLETE YES; EOS % 3.5 %; HEMATOCRIT 32.5 % (37-47); IG% 0.2 %; LYMPH % 14.7 %; LYMPH ABS # 1.86 K/uL (1.2-3.4); MEAN CELL VOLUME 86.9 fL (80-100); MEAN CORPUSCULAR HEMOGLOBIN 28.9 pg (25-34); MEAN CORPUSCULAR HGB CONC 33.2 g/dl (32-36); MEAN PLATELET VOLUME 8.8 fL (7.4-10.4); MONO % 10.3 %; NEUT % 70.7 %; PLATELET COUNT 670 K/uL (130-400); RED BLOOD COUNT 3.74 M/uL (4.2-5.4); WHITE BLOOD COUNT 12.69 K/uL (4.8-10.8)
--- NOTE | 2017-02-23 06:38 | DIAGNOSTIC IMAGING REPORT ---
MRI OF THE BRAIN WITHOUT CONTRAST CLINICAL HISTORY: Progressive generalized weakness, streaky of leiomyosarcoma. COMPARISON STUDY: Head CT February 21, 2017. TECHNIQUE: Utilizing a 1.5 Hetal magnet and dedicated coil, multiplanar, multiecho imaging of the brain was performed without IV contrast. FINDINGS: There are no areas are restricted diffusion. No acute intracranial hemorrhage, midline shift or mass effect is present. There is moderate dilatation of the lateral and third ventricles. There is moderate atrophy. The basilar cisterns are patent. There may be a retrocerebellar arachnoid cyst versus penny cisterna magna. No intracranial masses are identified on this unenhanced examination. Moderate subcortical and periventricular white matter T2 hypertense foci are noted. Calvarial signal is maintained. Note is made of a mucous retention cyst or polyp within the right maxillary sinus. There is mild mucosal thickening of the ethmoid sinuses. Flow-voids for the major intracranial vessels are present. IMPRESSION: 1. No acute intracranial findings. 2. Moderate ventricular dilatation. This is likely due to central atrophy. Normal pressure hydrocephalus could appear similar although is considered less likely. 3. Numerous white matter T2 hyperintense foci which likely reflect small vessel disease. Electronically signed by: Alvaro Ramos M.D. 02/23/2017 6:37 AM Dictated Date/Time: 02/23/2017 6:32 AM
[2017-02-23 06:54] LABS: BUN/CREATININE RATIO 14.8 (10-20); CALCIUM 10.7 mg/dl (8.5-10.1); CREATININE 0.66 mg/dl (0.60-1.20); MAGNESIUM 1.8 mg/dl (1.8-2.4); POTASSIUM 3.7 mmol/L (3.5-5.1)
--- NOTE | 2017-02-23 06:57 | DIAGNOSTIC IMAGING REPORT ---
CERVICAL WITHOUT CONTRAST HISTORY: Neurologic deficit. Weakness. progressive generalized weakness, hx of leiomyosarcoma TECHNIQUE: Multiplanar multisequence MRI of the cervical spine was performed without the use of contrast. COMPARISON STUDY: None available. FINDINGS: Limited exam due to considerable patient motion and inability to cooperate. Moderate degenerative disc changes throughout. This is most prominent at C6-C7. Signal characteristics of the cervical cord are difficult to quantify given patient motion. Transaxial images indicate signal characteristics to be unremarkable. No major compromise of the spinal canal. Moderate osteophytic narrowing of the bulk of the neuroforamina bilaterally. No major space-occupying lesion. No major compromise of the spinal canal. IMPRESSION: 1. Limited study due to the patient's limited ability to cooperate. 2. Moderate degenerative disc change throughout the entire cervical region most prominent at C6-C7. 3. No major compromise of the spinal canal. 4. Mild/moderate osteophytic narrowing of the bulk of the neuroforamina bilaterally. 5. 9 mm cyst posterior aspect left thyroid lobe. The above report was generated using voice recognition software. It may contain grammatical, syntax or spelling errors. Electronically signed by: Anurag Loving M.D. 02/23/2017 6:55 AM Dictated Date/Time: 02/23/2017 6:48 AM
[2017-02-23 07:20] VITALS: BP 116/65; PULSE 98; TEMP 37.1; O2SAT 95
[2017-02-23 08:00] VITALS: O2SAT 95
[2017-02-23] MEDS ORDERED: COSYNTROPIN INJ 250 MCG in SYRINGE 4 ML IV ONE (08:00)
[2017-02-23] MEDS ORDERED: COSYNTROPIN INJ 0.25 MCG in SYRINGE 4 ML IV ONE (08:00)
--- NOTE | 2017-02-23 08:23 | DIAGNOSTIC IMAGING REPORT ---
MRI OF THE THORACIC SPINE WITHOUT IV CONTRAST CLINICAL HISTORY: Generalized weakness. Reported history of leiomyosarcoma. COMPARISON STUDY: Chest CT dated 09/09/2016. TECHNIQUE: MRI of the thoracic spine is performed utilizing various T1 and T2-weighted sequences in the sagittal and coronal planes. IV contrast was not administered for this examination. The examination is compromised by motion artifact. The STIR sequences are noncontributory. The patient declined further imaging and axial sequences were not obtained. FINDINGS: Vertebral body height and alignment are maintained throughout the thoracic spine. No destructive bony lesion is seen. There is diffuse fatty marrow signal change. The spinous processes appear intact. Tiny anterior osteophytes are seen throughout. Mild degenerative disc desiccation and loss of height is seen throughout the thoracic spine. There is no large disc herniation or acquired compromise of the central canal. The thoracic spinal cord is normal in morphology and signal intensity. The conus medullaris terminates at the level of L1. IMPRESSION: 1. Motion compromised examination. The patient declined to complete all of the sequences for the study. 2. Vertebral body height and alignment are maintained. No destructive lesion is suggested. 3. There is no disc herniation or acquired compromise of the central canal. 4. The thoracic spinal cord is normal in morphology and signal intensity. Dictated: 02/23/2017 7:30 AM Transcribed: 02/23/2017 8:23 AM Cleo Electronically signed by: Jeremias More M.D. 02/23/2017 8:24 AM Dictated Date/Time: 02/23/2017 7:30 AM
[2017-02-23] MEDS: PROSOURCE NOCARB 30ML/PKT PO SCH ×2 (09:08→20:35)
[2017-02-23] MEDS: THIAMINE HCL 50 MG TAB PO SCH (09:09)
[2017-02-23] MEDS: SENNA 8.6 MG TAB PO SCH (09:09)
[2017-02-23] MEDS: ASPIRIN 81 MG ECTAB PO SCH (09:09)
[2017-02-23] MEDS: MAGNESIUM OXIDE 400 MG TAB PO SCH ×4 (09:09→20:34)
[2017-02-23] MEDS: DILTIAZEM HCL 300 MG CAPCR PO SCH (09:09)
[2017-02-23] MEDS: PANTOprazole SOD 40 MG TAB PO SCH (09:09)
[2017-02-23] MEDS: ENOXAPARIN 40 MG/0.4 ML SYR SQ SCH (09:10)
--- NOTE | 2017-02-23 12:57 | Rheumatology Consultation ---
Rheumatology Consultation Date of Consultation: Feb 23, 2017. Requesting Physician: Dr Hoang Attending Physician: Dr Minor Reason for Consultation: weakness, h/o ? seronegative arthritis History of Present Illness Dilia has had a complictaed medical history over these last 3 months. She was admitted to [facility] on December for retroperitoneal mass that ended up being of leiomyosarcoma. she underwent an extensive surgery and radiation treatment. During that hospitalization she had generalized weakness along with a inflammatory arthritis. during the hospitalization December she had a nerve conduction study that showed predominantly motor neuropathy but no evidence of a myopathy. She had been followed by Neurology there and it was noted that she had a diffuse giveaway weakness 1 muscle testing. During that hospitalization she had lab work that showed a sed rate that was greater than 100, a negative rheumatoid factor and CCP antibody and negative ANCA screen. MRI of the brain and C-spine did not show any evidence of stroke or myelitis. There was some question of NPH. Spinal tap was relatively benign with negative cytology but there was oligoclonal bands noted. rheumatology department had seen the patient and noted a synovitis of both hands of this 2nd through 4th MCPs and likely shoulders. She was placed on steroids and that seemed to help and was to be discharged on 10 milligrams of prednisone with outpatient Rheumatology follow-up. OTONIEL testing at that time showed a low positive OTONIEL of 1-160 with a weakly positive CLAIM INSPECTOR. anticardiolipin antibodies Fong and anti DNA were all normal. since her discharge she is unfortunately not gotten better as continued to get worse. She did not come to her outpatient Rheumatology visit likely secondary to repeat hospitalization over these last 2 months. She was recently readmitted for worsening weakness from the [facility]. It was noted that she was failing to progress with PT and was felt to be getting worse. Repeat inflammatory markers several days ago showed a sed rate of 49. in this hospitalization her sed rate was 41. she is also in the last couple months had an admissions for hyponatremia and hypomagnesium. she has been followed by Nephrology as an outpatient and was seen yesterday as an inpatient as well. Her electrolytes so far have been okay. a cortisol stem test is pending. It appears that she has been off steroids since sometime in January. The examination today was very limited at secondary to the patient 's current medical state. She appeared very groggy and tired and was not able to answer many questions. She fell asleep multiple times while talking to her. Most of the history was gathered from reading the medical chart and this hospitalization as well as the [facility] chart. I also spoke with the nursing staff hospitalist and neurologist. the nurses report that her mental status wax and wanes. There time for she is more awake and active in seems to have little better strength and then times where she has really out of it and sleepy and is very diffusely weak. The nurses reported very poor, weak general practice. a report the patient seems to slumped to the left side a lot. Dr. Hoang also reports that he discussed with neurologist and damp fill and her musculoskeletal exam does fluctuate which is unusual. she reports diffuse it joint pains but is not very specific in which joints are hurting her. She was examined lying in the bed. she denied any chest pain shortness of breath nausea vomiting diarrhea or dysphagia. Past Medical/Surgical History Medical History: hypertension, other ( leiomyosarcoma, history of a inflammatory arthritis, generalized weakness) Surgical History: hysterectomy, orthopedic surgery ( bilateral knee replacements, right 2nd toe amputation), other ( cataract surgery, abdominal surgery for leiomyosarcoma with left nephrectomy) Social History Smoking Status: Never Smoker History of Alcohol Use: No Marital Status: Allergies Coded Allergies: Nickel (Verified Allergy, Unknown, RASH, 01/20/17) Medications Current Inpatient Medications Medications (Trade) Dose Ordered Sig/Ana Route Start Time Stop Time Status Last Admin Dose Admin Enoxaparin Sodium (Lovenox Inj) 40 mg Q24H SQ 02/22/17 09:00 03/24/17 08:59 02/22/17 08:32 40 MG Acetaminophen (Tylenol Tab) 650 mg Q4H PRN PO 02/21/17 21:45 03/23/17 21:44 Ondansetron HCl (Zofran Inj) 4 mg Q6H PRN IV 02/21/17 21:45 03/23/17 21:44 Aspirin (Ecotrin Tab) 81 mg QAM PO 02/22/17 08:00 03/24/17 08:59 02/22/17 08:24 81 MG Atorvastatin Calcium (Lipitor Tab) 10 mg HS PO 02/21/17 21:00 03/23/17 20:59 Baclofen (Lioresal Tab) 5 mg Q12H PRN PO 02/21/17 22:15 03/23/17 22:14 02/22/17 08:28 5 MG Bisacodyl (Dulcolax Supp) 10 mg DAILY PRN NE 02/21/17 22:15 03/23/17 22:14 Diltiazem HCl (Cardizem Cd Cap) 300 mg DAILY PO 02/22/17 08:00 03/24/17 08:59 02/22/17 08:23 300 MG Magnesium Hydroxide (Milk Of Magnesia Susp) 30 ml DAILY PRN PO 02/21/17 22:15 03/23/17 22:14 Magnesium Oxide (Mag-Ox Tab) 400 mg QID PO 02/22/17 08:00 03/24/17 08:59 02/22/17 19:57 400 MG Senna (Senokot Tab) 8.6 mg QAM PO 02/22/17 08:00 03/24/17 08:59 02/22/17 08:23 8.6 MG Thiamine HCl (Vitamin B-1 Tab) 50 mg QAM PO 02/22/17 08:00 03/24/17 08:59 02/22/17 08:23 50 MG Ergocalciferol (Vitamin D Cap) 50,000 interunit TuFr@0900 PO 02/24/17 09:00 03/26/17 08:59 Pantoprazole Sodium (Protonix Tab) 40 mg QAM PO 02/22/17 08:00 03/24/17 08:59 02/22/17 08:23 40 MG Ceftriaxone Sodium 1 gm/ Dextrose 50 ml @ 100 mls/hr Q24H IV 02/22/17 01:30 02/27/17 01:29 02/23/17 02:55 100 MLS/HR Sodium Chloride 1,000 ml @ 50 mls/hr Q20H IV 02/22/17 08:30 03/24/17 08:29 02/23/17 02:55 50 MLS/HR Enteral Nutritional Formula (Prosource No Carb) 30 ml BID PO 02/22/17 20:00 03/24/17 19:59 02/22/17 20:16 30 ML Cosyntropin 250 mcg/Syringe 5 ml @ 2.5 mls/min TODAY@0800 ONCE IV 02/23/17 08:00 02/23/17 08:01 Physical Exam Date Time Temp Pulse Resp B/P (MAP) Pulse Ox O2 Delivery O2 Flow Rate FiO2 02/23/17 07:20 37.1 98 16 116/65 (82) 95 Room Air 02/23/17 02:55 Room Air 02/23/17 02:50 36.7 94 18 179/96 (123) 97 Room Air 02/22/17 16:00 Room Air 02/22/17 15:22 36.7 93 18 150/73 (98) 97 Room Air 02/22/17 11:47 36.7 93 18 176/79 (111) 97 Room Air 02/22/17 08:00 97 Room Air General Appearance: + pertinent finding (very lethargic, answers questons at times, fell asleep multiple times during evaluation) ENT: hearing grossly normal Respiratory: chest non-tender, lungs clear, normal breath sounds Cardiovascular: regular rate, rhythm, no edema, no gallop, no murmur Abdomen: normal bowel sounds, soft, + tenderness Musculoskeletal: exam was very limited given patient 's lethargy and cooperation there is no synovitis of the small joints of the hands no synovitis of the feet noted bilateral knee replacements appear to be very weak in the legs with that no bili to hold legs up against gravity patient noted diffuse joint pain on exam but was not specifics which joints hurt her left biceps strength was 3-/ 5 she did not act cooperate for right biceps testing she cannot lift head off pillow Skin: normal color, warm/dry, no rash Laboratory Results Last 24 Hours Test 02/22/17 08:43 02/22/17 12:17 02/22/17 12:32 02/22/17 14:13 Ionized Calcium 1.36 mmol/l 1.32 mmol/l Sodium Level 134 mmol/L Potassium Level 3.3 mmol/L Chloride Level 101 mmol/L Carbon Dioxide Level 23 mmol/L Anion Gap 10.0 mmol/L Blood Urea Nitrogen 11 mg/dl Creatinine 0.78 mg/dl Est Creatinine Clear Calc Drug Dose 60.6 ml/min Estimated GFR () 89.3 Estimated GFR (Non- 77.0 BUN/Creatinine Ratio 14.4 Random Glucose 141 mg/dl Calcium Level 10.8 mg/dl Magnesium Level 1.9 mg/dl Parathyroid Hormone (Intact) 8.1 pg/mL Erythrocyte Sedimentation Rate 41 mm/hr Test 02/22/17 16:55 02/22/17 17:31 02/23/17 04:44 02/23/17 06:05 Urine Color YELLOW Urine Appearance CLEAR Urine pH 5.5 Urine Specific [place] 1.020 Urine Protein NEG Urine Glucose (UA) NEG Urine Ketones NEG Urine Occult Blood TRACE Urine Nitrite NEG Urine Bilirubin NEG Urine Urobilinogen NEG Urine Leukocyte Esterase SMALL Urine WBC (Auto) 10-30 /hpf Urine RBC (Auto) 0-4 /hpf Urine Hyaline Casts (Auto) 1-5 /lpf Urine Epithelial Cells (Auto) >30 /lpf Urine Bacteria (Auto) NEG Sodium Level 134 mmol/L 135 mmol/L Potassium Level 4.1 mmol/L 3.7 mmol/L Chloride Level 104 mmol/L 102 mmol/L Carbon Dioxide Level 23 mmol/L 24 mmol/L Anion Gap 7.0 mmol/L 9.0 mmol/L Blood Urea Nitrogen 13 mg/dl 10 mg/dl Creatinine 0.74 mg/dl 0.66 mg/dl Est Creatinine Clear Calc Drug Dose 63.9 ml/min 71.7 ml/min Estimated GFR () 95.1 103.7 Estimated GFR (Non- 82.1 89.5 BUN/Creatinine Ratio 18.0 14.8 Random Glucose 124 mg/dl 126 mg/dl Calcium Level 10.5 mg/dl 10.7 mg/dl Ionized Calcium 1.33 mmol/l 1.32 mmol/l Magnesium Level 1.7 mg/dl 1.8 mg/dl White Blood Count 12.69 K/uL Red Blood Count 3.74 M/uL Hemoglobin 10.8 g/dL Hematocrit 32.5 % Mean Corpuscular Volume 86.9 fL Mean Corpuscular Hemoglobin 28.9 pg Mean Corpuscular Hemoglobin Concent 33.2 g/dl Platelet Count 670 K/uL Mean Platelet Volume 8.8 fL Neutrophils (%) (Auto) 70.7 % Lymphocytes (%) (Auto) 14.7 % Monocytes (%) (Auto) 10.3 % Eosinophils (%) (Auto) 3.5 % Basophils (%) (Auto) 0.6 % Neutrophils # (Auto) 8.98 K/uL Lymphocytes # (Auto) 1.86 K/uL Monocytes # (Auto) 1.31 K/uL Eosinophils # (Auto) 0.44 K/uL Basophils # (Auto) 0.07 K/uL RDW Standard Deviation 48.0 fL RDW Coefficient of Variation 15.1 % Immature Granulocyte % (Auto) 0.2 % Immature Granulocyte # (Auto) 0.03 K/uL Assessment & Plan Assessment & Plan: assessment: Dilia is a very unfortunate elderly female this had multiple medical issues in the last several months. It appears that she had developed a seroma negative arthritis during her hospitalization in December of 2016 that responded to oral prednisone. Her overall autoimmune workup was relatively benign with only a low positive OTONIEL and weakly positive CLAIM INSPECTOR and highly elevated sed rate. It is unclear if this low positive OTONIEL is relevant. Her exam today does not demonstrate a noticeable active inflammatory arthritis is the hand as noted back in December. It is unclear to me why she is weak and why her status wax and wanes the weighs been reported. It is hard to correlate the inflammatory arthritis with the profound weakness given the lack of synovitis on exam. I have spoken with Neurology in her underlying diagnosis is not clear. Reviewed the MRIs that did not show any evidence of inflammation or transverse myelitis but these MRIs were limited. I have also spoken with the hospitalist regarding her case. I wonder if her weakness is related to inactivity in her multiple hospitalizations and medical issues more than an autoimmune inflammatory process. Doubt myositis given her EMG knees in December, normal CK and lack of rash. Unclear to me how useful a muscle biopsy would be at this time. Given she does keep noting diffuse joint pains might be reasonable to retry prednisone at 10 milligrams a day for a week or 2 to see if that helps. Will need to wait for the cortisol stimulation test 1st though. plan: 1. Await cortisol stem test 2. if cortisol stim test is normal could try prednisone 10 milligrams a day and date response 3. case has been discussed with Neurology and hospital service 4. will try to stop by later today to re-examine given this exam was very limited 5. thank you for the consult involving me in this patient 's care 6. rheumatology Outpatient follow-up will be arranged at the time of discharge
[2017-02-23] MEDS ORDERED: METOCLOPRAMIDE HCL INJ 5 MG/ML 2 ML VIAL IV PRN (13:30)
[2017-02-23] MEDS ORDERED: FLUMAZENIL 0.1 MG/1 ML 10 ML VIAL IV ONE (13:45)
--- NOTE | 2017-02-23 14:09 | Progress Note ---
Medicine Progress Note Date & Time of Visit: Feb 23, 2017 at 13:54. Subjective patient seen resting in bed, drowsy but rousable answers questions appropriately but drifts back to sleep weakness about the same denies abdominal pain, nausea no other symptoms asked patient if she feels sad often, or if she feels depressed, patient became teary eyed, states she misses her family discussed case with Jez states patient seemed to be more withdrawn lately, not motivated compared to when a few weeks ago, also observed to be more tearful lately Objective Last 8 Hrs Date Time Temp Pulse Resp B/P (MAP) Pulse Ox O2 Delivery O2 Flow Rate FiO2 02/23/17 08:00 95 Room Air 02/23/17 07:20 37.1 98 16 116/65 (82) 95 Room Air Physical Exam: General- oriented x 3, not in distress, speaks in sentences with no effort Eyes- anicteric Neck- no JVD Lungs- clear breath sounds bilaterally, no rales/wheezes Heart- regular rhythm; no murmur, normal rate Abdomen- normal bowel sounds, soft, nontender Extremities- no pretibial edema, no calf tenderness Neuro- alert, oriented x 2; motor strength 4/5 UE, 2-3/5 LE Skin- warm & dry Laboratory Results: Last 24 Hours Test 02/22/17 14:13 02/22/17 16:55 02/22/17 17:31 02/23/17 06:05 Erythrocyte Sedimentation Rate 41 mm/hr Urine Color YELLOW Urine Appearance CLEAR Urine pH 5.5 Urine Specific [place] 1.020 Urine Protein NEG Urine Glucose (UA) NEG Urine Ketones NEG Urine Occult Blood TRACE Urine Nitrite NEG Urine Bilirubin NEG Urine Urobilinogen NEG Urine Leukocyte Esterase SMALL Urine WBC (Auto) 10-30 /hpf Urine RBC (Auto) 0-4 /hpf Urine Hyaline Casts (Auto) 1-5 /lpf Urine Epithelial Cells (Auto) >30 /lpf Urine Bacteria (Auto) NEG Sodium Level 134 mmol/L 135 mmol/L Potassium Level 4.1 mmol/L 3.7 mmol/L Chloride Level 104 mmol/L 102 mmol/L Carbon Dioxide Level 23 mmol/L 24 mmol/L Anion Gap 7.0 mmol/L 9.0 mmol/L Blood Urea Nitrogen 13 mg/dl 10 mg/dl Creatinine 0.74 mg/dl 0.66 mg/dl Est Creatinine Clear Calc Drug Dose 63.9 ml/min 71.7 ml/min Estimated GFR () 95.1 103.7 Estimated GFR (Non- 82.1 89.5 BUN/Creatinine Ratio 18.0 14.8 Random Glucose 124 mg/dl 126 mg/dl Calcium Level 10.5 mg/dl 10.7 mg/dl Ionized Calcium 1.33 mmol/l 1.32 mmol/l Magnesium Level 1.7 mg/dl 1.8 mg/dl White Blood Count 12.69 K/uL Red Blood Count 3.74 M/uL Hemoglobin 10.8 g/dL Hematocrit 32.5 % Mean Corpuscular Volume 86.9 fL Mean Corpuscular Hemoglobin 28.9 pg Mean Corpuscular Hemoglobin Concent 33.2 g/dl Platelet Count 670 K/uL Mean Platelet Volume 8.8 fL Neutrophils (%) (Auto) 70.7 % Lymphocytes (%) (Auto) 14.7 % Monocytes (%) (Auto) 10.3 % Eosinophils (%) (Auto) 3.5 % Basophils (%) (Auto) 0.6 % Neutrophils # (Auto) 8.98 K/uL Lymphocytes # (Auto) 1.86 K/uL Monocytes # (Auto) 1.31 K/uL Eosinophils # (Auto) 0.44 K/uL Basophils # (Auto) 0.07 K/uL RDW Standard Deviation 48.0 fL RDW Coefficient of Variation 15.1 % Immature Granulocyte % (Auto) 0.2 % Immature Granulocyte # (Auto) 0.03 K/uL Test 02/23/17 07:52 Cortisol Response to Stimulation Cortisol Baseline Assessment & Plan PROGRESSIVE WEAKNESS HX LEIOMYOSARCOMA - admit to med/surg - patient presenting with progressive generalized weakness, BLLE > BLUE over the past couple of months - patient is s/p resection retroperitoneal sarcoma with left nephrectomy, distal pancreatectomy, and [place] [facility] [place] - has had progressive weakness that started during her hospitalization for the surgery - had extensive work up with rheumatology and neurology prior to discharge --likely Multifactorial: Electrolyte Imbalance - given IV fluids, K and Mg supplements: now normal - Cosyntropin Test negative r/o Neurologic Etiology- Neuro consulted MRI Brain and Cervical Spine: unrevealing studies for MG pending r/o Rheumatologic Etiology discussed with Dr. Bedoya will start trial of Prednisone 10mg po daily for joint pains Deconditioning - STOP Baclofen PRN for hiccups, change to Reglan PRN - PT/OT Component of Depression? will consult Psych HYPONATREMIA, HYPOMAGNESEMIA, HYPERCALCEMIA - has been a chronic ongoing issue; Na+ and Mg+ mildly low today - Ca+ with steady rise over the past month -- IV fluids ordered repleted Mg and K -- improved monitor levels -- Nephro consulted UTI - patient reports dysuria, U/A suggest UTI - last urine culture grew E. Coli, sensitive to ceftriaxone - Streptococcus species 100k ff up final urine cultures - no signs of sepsis HTN - continue diltiazem HLD - continue statin DVT PROPHYLAXIS - SQ Lovenox CODE STATUS - Patient is a full code as per my discussion with her. DISPO pending will need SNF/Rehab Current Inpatient Medications: Current Inpatient Medications Medications (Trade) Dose Ordered Sig/Ana Route Start Time Stop Time Status Last Admin Dose Admin Enoxaparin Sodium (Lovenox Inj) 40 mg Q24H SQ 02/22/17 09:00 03/24/17 08:59 02/23/17 09:10 40 MG Acetaminophen (Tylenol Tab) 650 mg Q4H PRN PO 02/21/17 21:45 03/23/17 21:44 Ondansetron HCl (Zofran Inj) 4 mg Q6H PRN IV 02/21/17 21:45 03/23/17 21:44 Aspirin (Ecotrin Tab) 81 mg QAM PO 02/22/17 08:00 03/24/17 08:59 02/23/17 09:09 81 MG Atorvastatin Calcium (Lipitor Tab) 10 mg HS PO 02/21/17 21:00 03/23/17 20:59 Bisacodyl (Dulcolax Supp) 10 mg DAILY PRN PA 02/21/17 22:15 03/23/17 22:14 Diltiazem HCl (Cardizem Cd Cap) 300 mg DAILY PO 02/22/17 08:00 03/24/17 08:59 02/23/17 09:09 300 MG Magnesium Hydroxide (Milk Of Magnesia Susp) 30 ml DAILY PRN PO 02/21/17 22:15 03/23/17 22:14 Magnesium Oxide (Mag-Ox Tab) 400 mg QID PO 02/22/17 08:00 03/24/17 08:59 02/23/17 09:09 400 MG Senna (Senokot Tab) 8.6 mg QAM PO 02/22/17 08:00 03/24/17 08:59 02/23/17 09:09 8.6 MG Thiamine HCl (Vitamin B-1 Tab) 50 mg QAM PO 02/22/17 08:00 03/24/17 08:59 02/23/17 09:09 50 MG Ergocalciferol (Vitamin D Cap) 50,000 interunit TuFr@0900 PO 02/24/17 09:00 03/26/17 08:59 Pantoprazole Sodium (Protonix Tab) 40 mg QAM PO 02/22/17 08:00 03/24/17 08:59 02/23/17 09:09 40 MG Ceftriaxone Sodium 1 gm/ Dextrose 50 ml @ 100 mls/hr Q24H IV 02/22/17 01:30 02/27/17 01:29 02/23/17 02:55 100 MLS/HR Sodium Chloride 1,000 ml @ 50 mls/hr Q20H IV 02/22/17 08:30 03/24/17 08:29 02/23/17 02:55 50 MLS/HR Enteral Nutritional Formula (Prosource No Carb) 30 ml BID PO 02/22/17 20:00 03/24/17 19:59 02/23/17 09:08 30 ML
[2017-02-23 15:55] VITALS: BP 156/78; PULSE 92; TEMP 37.2; O2SAT 94
--- NOTE | 2017-02-23 16:10 | Nephrology Progress Note ---
Nephrology Progress Note Date of Service: Feb 23, 2017. Subjective 71 yo female with hyponatremia/hypomag who has been slowly worsening over the past couple of months. being treated for uti. continues to have profound muscle weakness. neuro and rheum also following. getting EEG currently. Objective Date Time Temp Pulse Resp B/P (MAP) Pulse Ox O2 Delivery O2 Flow Rate FiO2 02/23/17 15:55 37.2 92 18 156/78 (104) 94 Room Air 02/23/17 08:00 95 Room Air 02/23/17 07:20 37.1 98 16 116/65 (82) 95 Room Air 02/23/17 02:55 Room Air 02/23/17 02:50 36.7 94 18 179/96 (123) 97 Room Air Physical Exam: General-aaox3 Eyes-no scleral icterus ENT-mmm Neck-supple Lungs-cta Heart-rrr Abdomen-bs+ s/nt/nd Extremities-+1 edema Neuro-generalized muscle weakness, limited mobility of the lower extremities. Current Inpatient Medications Medications (Trade) Dose Ordered Sig/Ana Route Start Time Stop Time Status Last Admin Dose Admin Enoxaparin Sodium (Lovenox Inj) 40 mg Q24H SQ 02/22/17 09:00 03/24/17 08:59 02/23/17 09:10 40 MG Acetaminophen (Tylenol Tab) 650 mg Q4H PRN PO 02/21/17 21:45 03/23/17 21:44 Ondansetron HCl (Zofran Inj) 4 mg Q6H PRN IV 02/21/17 21:45 03/23/17 21:44 Aspirin (Ecotrin Tab) 81 mg QAM PO 02/22/17 08:00 03/24/17 08:59 02/23/17 09:09 81 MG Atorvastatin Calcium (Lipitor Tab) 10 mg HS PO 02/21/17 21:00 03/23/17 20:59 Bisacodyl (Dulcolax Supp) 10 mg DAILY PRN ME 02/21/17 22:15 03/23/17 22:14 Diltiazem HCl (Cardizem Cd Cap) 300 mg DAILY PO 02/22/17 08:00 03/24/17 08:59 02/23/17 09:09 300 MG Magnesium Hydroxide (Milk Of Magnesia Susp) 30 ml DAILY PRN PO 02/21/17 22:15 03/23/17 22:14 Magnesium Oxide (Mag-Ox Tab) 400 mg QID PO 02/22/17 08:00 03/24/17 08:59 02/23/17 09:09 400 MG Senna (Senokot Tab) 8.6 mg QAM PO 02/22/17 08:00 03/24/17 08:59 02/23/17 09:09 8.6 MG Thiamine HCl (Vitamin B-1 Tab) 50 mg QAM PO 02/22/17 08:00 03/24/17 08:59 02/23/17 09:09 50 MG Ergocalciferol (Vitamin D Cap) 50,000 interunit TuFr@0900 PO 02/24/17 09:00 03/26/17 08:59 Pantoprazole Sodium (Protonix Tab) 40 mg QAM PO 02/22/17 08:00 03/24/17 08:59 02/23/17 09:09 40 MG Ceftriaxone Sodium 1 gm/ Dextrose 50 ml @ 100 mls/hr Q24H IV 02/22/17 01:30 02/27/17 01:29 02/23/17 02:55 100 MLS/HR Sodium Chloride 1,000 ml @ 50 mls/hr Q20H IV 02/22/17 08:30 03/24/17 08:29 02/23/17 02:55 50 MLS/HR Enteral Nutritional Formula (Prosource No Carb) 30 ml BID PO 02/22/17 20:00 03/24/17 19:59 02/23/17 09:08 30 ML Metoclopramide HCl (Reglan Inj) 10 mg Q6H PRN IV 02/23/17 13:30 03/25/17 13:29 Last 24 Hours Test 02/22/17 16:55 02/22/17 17:31 02/23/17 06:05 02/23/17 07:52 Urine Color YELLOW Urine Appearance CLEAR Urine pH 5.5 Urine Specific [place] 1.020 Urine Protein NEG Urine Glucose (UA) NEG Urine Ketones NEG Urine Occult Blood TRACE Urine Nitrite NEG Urine Bilirubin NEG Urine Urobilinogen NEG Urine Leukocyte Esterase SMALL Urine WBC (Auto) 10-30 /hpf Urine RBC (Auto) 0-4 /hpf Urine Hyaline Casts (Auto) 1-5 /lpf Urine Epithelial Cells (Auto) >30 /lpf Urine Bacteria (Auto) NEG Sodium Level 134 mmol/L 135 mmol/L Potassium Level 4.1 mmol/L 3.7 mmol/L Chloride Level 104 mmol/L 102 mmol/L Carbon Dioxide Level 23 mmol/L 24 mmol/L Anion Gap 7.0 mmol/L 9.0 mmol/L Blood Urea Nitrogen 13 mg/dl 10 mg/dl Creatinine 0.74 mg/dl 0.66 mg/dl Est Creatinine Clear Calc Drug Dose 63.9 ml/min 71.7 ml/min Estimated GFR () 95.1 103.7 Estimated GFR (Non- 82.1 89.5 BUN/Creatinine Ratio 18.0 14.8 Random Glucose 124 mg/dl 126 mg/dl Calcium Level 10.5 mg/dl 10.7 mg/dl Ionized Calcium 1.33 mmol/l 1.32 mmol/l Magnesium Level 1.7 mg/dl 1.8 mg/dl White Blood Count 12.69 K/uL Red Blood Count 3.74 M/uL Hemoglobin 10.8 g/dL Hematocrit 32.5 % Mean Corpuscular Volume 86.9 fL Mean Corpuscular Hemoglobin 28.9 pg Mean Corpuscular Hemoglobin Concent 33.2 g/dl Platelet Count 670 K/uL Mean Platelet Volume 8.8 fL Neutrophils (%) (Auto) 70.7 % Lymphocytes (%) (Auto) 14.7 % Monocytes (%) (Auto) 10.3 % Eosinophils (%) (Auto) 3.5 % Basophils (%) (Auto) 0.6 % Neutrophils # (Auto) 8.98 K/uL Lymphocytes # (Auto) 1.86 K/uL Monocytes # (Auto) 1.31 K/uL Eosinophils # (Auto) 0.44 K/uL Basophils # (Auto) 0.07 K/uL RDW Standard Deviation 48.0 fL RDW Coefficient of Variation 15.1 % Immature Granulocyte % (Auto) 0.2 % Immature Granulocyte # (Auto) 0.03 K/uL Cortisol Response to Stimulation Cortisol Baseline Assessment & Plan hyponatremia-sodium stable in the mid 130s. no changes at this time. hypomag-mag levels are also good. continue current care. hypercalcemia-calcium levels are slowly improving. calcium workup negative as outpt. pth appropriately low. feel hypercalcemia from immobilization. continue low rate of normal saline at 50cc/hr. unclear etiology to the profound weakness. greatly appreciate neuro and rheum input. cortisol stim test is appropriate.
--- NOTE | 2017-02-23 16:13 | PROGRESS NOTE ---
DATE: 02/23/2017 DATE: 02/23/2017 I saw Dilia today. She is more awake, alert. Her exam continues to reveal variable degrees of muscle weakness. She certainly can extend her quads, flex at her thighs and distal weakness is virtually nonexistent in the lower extremities. Upper extremity function today is good, but she does have a lot of pain with passive and active movement of her joints. Dr. Xie saw her today and we discussed her case by phone, but he saw her early in the morning and at the time she was very lethargic and history was hard to obtain. She is apparently going to have another series of tests for possible underlying Kaz's disease, although after discussing things with her today, it appears that she may have had this done on an outpatient basis and this needs to be checked. This will be a nice explanation for her hyponatremia and fluctuating degrees of weakness, but suspect it will not be the diagnosis. I think the plan at this point is to wait for the results of the Kaz's testing and then empirically place her on some low dose steroids 5-10 mg a day and I will defer to Dr. Xie's decision on this one. In terms of neurologic dysfunction, her MRI does show evidence for possible normal pressure hydrocephalus, but this was seen on the MRIs in [place] in December and has not changed and clinically this is not normal pressure hydrocephalus whatsoever. 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 Whatever the case, for now I do not think neurology is going to offer much more. Dr. Martinez has suggested a potential muscle and nerve biopsy but I think this should be done outpatient. I am not sure we will be able to get a nerve biopsy done here by any of our surgeons and a muscle biopsy certainly could be done easily. Pending laboratory studies include the testing for Lambert-Eaton myasthenic syndrome and this is a send out may be weeks away and again clinically I do not think this is operating here. Further imaging studies have included the cervical spine and again there is no cord compromise nor clinically does she have myopathy. The cause for this woman woman's fluctuating weakness remains unclear. I will check back with her tomorrow. [facility] INSANEOwen
[2017-02-23] MEDS: ONDANSETRON INJ 2 MG/ML 2 ML VIAL IV PRN (19:00)
[2017-02-23] MEDS: ATORVASTATIN 10 MG TAB PO SCH (20:35)
[2017-02-23 23:32] VITALS: BP 177/93; PULSE 91; TEMP 36.4; O2SAT 94
[2017-02-24] VITALS (10 sets, daily range): BP systolic 134–183; BP diastolic 78–103; PULSE 91–101; TEMP 36.3–37.1; O2SAT 93–97
[2017-02-24] MEDS: ENALAPRILAT IV 0.625 MG in DEXTROSE 5% 25ML 25 ML IV PRN ×2 (00:06→07:48)
[2017-02-24] MEDS: CEFTRIAXONE SOD INJ 1 GM in DEXTROSE 5% ADD-VANTAGE 50ML 50 ML IV SCH (01:12)
[2017-02-24] MEDS ORDERED: ENALAPRILAT IV 0.625 MG in DEXTROSE 5% 25ML 25 ML IV STA (04:28)
[2017-02-24 07:44] LABS: BASO % 0.2 %; BASO ABS # 0.03 K/uL (0-0.2); COMPLETE YES; EOS % 0.1 %; HEMATOCRIT 32.6 % (37-47); IG% 0.4 %; LYMPH % 14.6 %; LYMPH ABS # 2.07 K/uL (1.2-3.4); MEAN CELL VOLUME 85.8 fL (80-100); MEAN CORPUSCULAR HEMOGLOBIN 29.5 pg (25-34); MEAN CORPUSCULAR HGB CONC 34.4 g/dl (32-36); MEAN PLATELET VOLUME 9.1 fL (7.4-10.4); MONO % 10.9 %; NEUT % 73.8 %; PLATELET COUNT 614 K/uL (130-400); WHITE BLOOD COUNT 14.14 K/uL (4.8-10.8)
[2017-02-24] MEDS: ONDANSETRON INJ 2 MG/ML 2 ML VIAL IV PRN (07:47)
[2017-02-24 08:15] LABS: BUN/CREATININE RATIO 16.3 (10-20); CALCIUM 10.9 mg/dl (8.5-10.1); CREATININE 0.75 mg/dl (0.60-1.20); MAGNESIUM 1.5 mg/dl (1.8-2.4); POTASSIUM 3.9 mmol/L (3.5-5.1)
[2017-02-24] MEDS: SENNA 8.6 MG TAB PO SCH (08:44)
[2017-02-24] MEDS: PROSOURCE NOCARB 30ML/PKT PO SCH ×2 (08:44→20:00)
[2017-02-24] MEDS: PANTOprazole SOD 40 MG TAB PO SCH (08:44)
[2017-02-24] MEDS: THIAMINE HCL 50 MG TAB PO SCH (08:44)
[2017-02-24] MEDS: DILTIAZEM HCL 300 MG CAPCR PO SCH (08:44)
[2017-02-24] MEDS: ERGOCALCIFEROL 50,000 INTER.UNIT CAP PO SCH (08:45)
[2017-02-24] MEDS: MAGNESIUM OXIDE 400 MG TAB PO SCH ×4 (08:45→20:00)
[2017-02-24] MEDS: ENOXAPARIN 40 MG/0.4 ML SYR SQ SCH (08:45)
[2017-02-24] MEDS: ASPIRIN 81 MG ECTAB PO SCH (08:45)
--- NOTE | 2017-02-24 10:29 | Psychiatric Consultation ---
Consultation Date of Consultation Feb 24, 2017. Identifying Data Mrs. Santos is a 71 yo female who has been receiving care at [facility]. She was admitted on 02/21 with generalized weakness and hyponatremia and consult is by Dr. Soto for depression. Much of history was obtained from the patient's as she remains quite fatigued. Chief Complaint "She apologizes a lot for being a burden". 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 Course has been complicated by repeat hospitalizations at [facility] for generalized weakness and hyponatremia. Her reports a progressive decline in her mood and interest in things since July. He describes her "passing out" in his arms around that time and being incontinent and then confused for a few days after. He reports an EEG was performed this admission but report is apparently not yet available. He states she generally experiences some lower energy in the fall/ winter as can't get out as much and feels that it wears on her that she isn't getting better. They are generally very active in their sabianist community but she's not even able to attend to services via phone conference any more. She doesn't seem interested in looking at pictures of their grandchildren. She isn't eating much. She hasn't made any suicidal statements but repeatedly apologizes for being a burden. Past Psychiatric History Current OP Treatment: no current treatment Prior OP Treatment: no prior treatment Access to a Gun: No Suicide Attempts: No Past Medication Trials none Past Medical/Surgical History (1) HTN (hypertension) (2) Hyponatremia (3) Dyslipidemia (4) CAD (coronary artery disease) (5) C. difficile diarrhea (6) Refusal of blood transfusions as patient is [place] (7) Leiomyosarcoma of retroperitoneum (8) Amputated toe (9) History of nephrectomy, unilateral (10) History of cataract surgery (11) History of tonsillectomy and adenoidectomy (12) History of total bilateral knee replacement (13) S/P trigger finger release (14) H/O total hysterectomy (15) History of pancreatectomy (16) H/O splenectomy Allergies Allergies: Coded Allergies: Nickel (Verified Allergy, Unknown, RASH, 01/20/17) Home Medications Scheduled Aspirin (Aspirin Chewable), 81 MG PO QPM Atorvastatin (Lipitor), 10 MG PO HS Cholecalciferol (Vitamin D3), 50,000 INTER.UNIT PO 2XWK Diltiazem Hcl Coated Beads (Diltiazem Hcl Er), 300 MG PO DAILY Esomeprazole Magnesium (Nexium), 20 MG PO DAILY Magnesium Oxide (Mag-Ox), 400 MG PO QID Nutritional Supplements (Prosource), 30 ML PO BID Prednisone (Prednisone), 5 MG PO QAM Sennosides (Senokot), 8.6 MG PO QAM Thiamine Hcl (Vitamin B-1), 50 MG PO QAM [Fortified Milkshake], 1 EA PO DAILY [Premarin Cream], 1 APPLN PV WK Scheduled PRN Acetaminophen (Tylenol), 500 MG PO Q6H PRN for Pain Baclofen (Lioresal), 5 MG PO Q12H PRN for hiccups Bisacodyl (Dulcolax), 1 SUPP GA UD PRN for Constipation Magnesium Hydroxide (Milk Of Magnesia), 30 ML PO UD PRN for Constipation Sodium Phosphate/Biphosphate (Fleet Enema), 1 EA GA UD PRN for Constipation Family History Hypertension BROTHER BROTHER History of Suicide: No History of Substance Abuse: No Psychiatric History: No Alcohol Use Alcohol Use In Past 12 Months: No Smoking Use Smoking Status: Never Smoker Substance History none reported Personal History Lives in: [place] with of [place] years [place] their [address] Children: 1 son and 1 daughter (vacationing in [place]), 1 teenage grandson Spiritual Affiliation: Taoist Legal History: none Psychological Trauma History: Denies Hx Traumatic Event Review of Systems patient unable to complete due to fatigue Examination Vital Signs Vital Signs Past 12 Hours Date Time Temp Pulse Resp B/P (MAP) Pulse Ox O2 Delivery O2 Flow Rate FiO2 02/24/17 07:33 36.8 93 20 179/96 (123) 97 Room Air 02/24/17 07:22 36.6 95 20 167/92 (117) 97 Room Air 02/24/17 06:00 97 165/91 (115) 02/24/17 04:00 101 183/101 (128) 02/24/17 02:30 166/103 (124) 02/23/17 23:35 Room Air 02/23/17 23:32 36.4 91 16 177/93 (121) 94 Room Air Laboratory Results Last 24 Hours Test 02/24/17 07:21 White Blood Count 14.14 K/uL Red Blood Count 3.80 M/uL Hemoglobin 11.2 g/dL Hematocrit 32.6 % Mean Corpuscular Volume 85.8 fL Mean Corpuscular Hemoglobin 29.5 pg Mean Corpuscular Hemoglobin Concent 34.4 g/dl Platelet Count 614 K/uL Mean Platelet Volume 9.1 fL Neutrophils (%) (Auto) 73.8 % Lymphocytes (%) (Auto) 14.6 % Monocytes (%) (Auto) 10.9 % Eosinophils (%) (Auto) 0.1 % Basophils (%) (Auto) 0.2 % Neutrophils # (Auto) 10.43 K/uL Lymphocytes # (Auto) 2.07 K/uL Monocytes # (Auto) 1.54 K/uL Eosinophils # (Auto) 0.02 K/uL Basophils # (Auto) 0.03 K/uL RDW Standard Deviation 48.5 fL RDW Coefficient of Variation 15.4 % Immature Granulocyte % (Auto) 0.4 % Immature Granulocyte # (Auto) 0.05 K/uL Sodium Level 130 mmol/L Potassium Level 3.9 mmol/L Chloride Level 98 mmol/L Carbon Dioxide Level 24 mmol/L Anion Gap 8.0 mmol/L Blood Urea Nitrogen 12 mg/dl Creatinine 0.75 mg/dl Est Creatinine Clear Calc Drug Dose 63.1 ml/min Estimated GFR () 93.6 Estimated GFR (Non- 80.8 BUN/Creatinine Ratio 16.3 Random Glucose 151 mg/dl Calcium Level 10.9 mg/dl Ionized Calcium 1.26 mmol/l Magnesium Level 1.5 mg/dl Mental Examination During interview pt is: other (pleasant/calm but falling asleep repeatedly) Appearance: appropriately groomed Eye contact is: other (limited by sedation) Motor behavior is: no abnormal motor movements Speech: other (soft, slow) Affect: blunted Mood is: anxious Thought process: concrete Thought content: reality based without delusions Suicidal thought are: denied Homicidal thoughts are: denied Hallucinations: other (did not appear to be responding to internal stimuli) Cognition: language grossly intact Insight: limited Judgement: limited Impression / Recommendations Impression 71 yo female with a history of seasonal mood changes who presents with vegetative symptoms of depression in the setting of multiple medical co- morbidities. Major depressive disorder (either primary or due to [facility]) Recommendations is obviously very devoted to the patient, even shaving her legs this am. He supports a trial of an antidepressant medication to hopefully help with her recovery, improve ability to participate in rehab services. Reviewed that SSRIs are generally primary but can contribute to hyponatremia. My preference would be for Lexapro 5 mg daily and increase to 10 mg if sodium remains stable. I'm concerned Remeron may add to her fatigue (though generally less issues with sodium) and would not suggest Wellbutrin until EEG report available. agreed to trial of Lexapro, I did not write order as when reviewed am labs sodium dropped again from 135 yesterday to 130 today. Will defer to primary team on order/timing of trial. There is no indication for inpatient psychiatric hospitalization.
[2017-02-24] MEDS: SODIUM CHLORIDE 0.9% 1000ML 1,000 ML IV SCH (11:53)
[2017-02-24] MEDS: MAGNESIUM SULFATE 1GM / D5W 1 GM in PREMIXED IN D5W 100 ML IV SCH ×2 (12:07→13:04)
[2017-02-24] MEDS ORDERED: INFLUENZA ADMINISTRATION CHARGE ONE (12:30)
[2017-02-24] MEDS ORDERED: INFLUENZA VACCINE HIGH DOSE 65+ 0.5 ML SYR IM. ONE (12:30)
--- NOTE | 2017-02-24 14:44 | Progress Note ---
Medicine Progress Note Date & Time of Visit: Feb 24, 2017 at 14:43. Subjective sitting in bedside chair appears more awake, answers more questions, although still looks weak agrees that she looks improved today still has extremity weakness, slightly better no joint pains no other symptoms Objective Last 8 Hrs Date Time Temp Pulse Resp B/P (MAP) Pulse Ox O2 Delivery O2 Flow Rate FiO2 02/24/17 07:45 97 Room Air 02/24/17 07:33 36.8 93 20 179/96 (123) 97 Room Air 02/24/17 07:22 36.6 95 20 167/92 (117) 97 Room Air Physical Exam: General- oriented x 3, not in distress, speaks in sentences with no effort Eyes- anicteric Neck- no JVD Lungs- clear BS BL, no rales/wheezes Heart- regular rhythm; no murmur, normal rate Abdomen- normal bowel sounds, soft, nontender Extremities- no pretibial edema, no calf tenderness Neuro- alert, oriented x 2; motor strength 4/5 UE, 2-3/5 LE Skin- warm & dry Laboratory Results: Last 24 Hours Test 02/24/17 07:21 White Blood Count 14.14 K/uL Red Blood Count 3.80 M/uL Hemoglobin 11.2 g/dL Hematocrit 32.6 % Mean Corpuscular Volume 85.8 fL Mean Corpuscular Hemoglobin 29.5 pg Mean Corpuscular Hemoglobin Concent 34.4 g/dl Platelet Count 614 K/uL Mean Platelet Volume 9.1 fL Neutrophils (%) (Auto) 73.8 % Lymphocytes (%) (Auto) 14.6 % Monocytes (%) (Auto) 10.9 % Eosinophils (%) (Auto) 0.1 % Basophils (%) (Auto) 0.2 % Neutrophils # (Auto) 10.43 K/uL Lymphocytes # (Auto) 2.07 K/uL Monocytes # (Auto) 1.54 K/uL Eosinophils # (Auto) 0.02 K/uL Basophils # (Auto) 0.03 K/uL RDW Standard Deviation 48.5 fL RDW Coefficient of Variation 15.4 % Immature Granulocyte % (Auto) 0.4 % Immature Granulocyte # (Auto) 0.05 K/uL Sodium Level 130 mmol/L Potassium Level 3.9 mmol/L Chloride Level 98 mmol/L Carbon Dioxide Level 24 mmol/L Anion Gap 8.0 mmol/L Blood Urea Nitrogen 12 mg/dl Creatinine 0.75 mg/dl Est Creatinine Clear Calc Drug Dose 63.1 ml/min Estimated GFR () 93.6 Estimated GFR (Non- 80.8 BUN/Creatinine Ratio 16.3 Random Glucose 151 mg/dl Calcium Level 10.9 mg/dl Ionized Calcium 1.26 mmol/l Magnesium Level 1.5 mg/dl Assessment & Plan PROGRESSIVE WEAKNESS HX LEIOMYOSARCOMA - admit to med/surg - patient presenting with progressive generalized weakness, BLLE > BLUE over the past couple of months - patient is s/p resection retroperitoneal sarcoma with left nephrectomy, distal pancreatectomy, and splenectomy at [facility] [place] [place] 12/30/16 - has had progressive weakness that started during her hospitalization for the surgery - had extensive work up with rheumatology and neurology prior to discharge --likely Multifactorial: Electrolyte Imbalance - given IV fluids, K and Mg supplements: replace Mg, CA and K improved - Cosyntropin Test negative r/o Neurologic Etiology- Neuro consulted MRI Brain and Cervical Spine: unrevealing studies for MG pending r/o Rheumatologic Etiology discussed with Dr. Bedoya started trial of Prednisone 10mg po daily for joint pains, improving Deconditioning - STOP Baclofen PRN for hiccups, change to Reglan PRN - PT/OT Component of Depression consulted Psych, Lexapro to be started when Na has improved HYPONATREMIA, HYPOMAGNESEMIA, HYPERCALCEMIA - has been a chronic ongoing issue; Na+ and Mg+ mildly low today - Ca+ with steady rise over the past month -- IV fluids ordered repleted Mg and K -- Na decreased IV NSS monitor Na -- improved monitor levels -- Nephro consulted UTI - patient reports dysuria, U/A suggest UTI - last urine culture grew E. Coli, sensitive to ceftriaxone - Streptococcus species 100k Ceftri changed to Unasyn - no signs of sepsis HTN - Enalapril PRN added - continue diltiazem HLD - continue statin DVT PROPHYLAXIS - SQ Lovenox CODE STATUS - Patient is a full code as per my discussion with her. DISPO pending will need SNF/Rehab Current Inpatient Medications: Current Inpatient Medications Medications (Trade) Dose Ordered Sig/Ana Route Start Time Stop Time Status Last Admin Dose Admin Enoxaparin Sodium (Lovenox Inj) 40 mg Q24H SQ 02/22/17 09:00 03/24/17 08:59 02/24/17 08:45 40 MG Acetaminophen (Tylenol Tab) 650 mg Q4H PRN PO 02/21/17 21:45 03/23/17 21:44 Ondansetron HCl (Zofran Inj) 4 mg Q6H PRN IV 02/21/17 21:45 03/23/17 21:44 02/24/17 07:47 4 MG Aspirin (Ecotrin Tab) 81 mg QAM PO 02/22/17 08:00 03/24/17 08:59 02/24/17 08:45 81 MG Atorvastatin Calcium (Lipitor Tab) 10 mg HS PO 02/21/17 21:00 03/23/17 20:59 02/23/17 20:35 10 MG Bisacodyl (Dulcolax Supp) 10 mg DAILY PRN LA 02/21/17 22:15 03/23/17 22:14 Diltiazem HCl (Cardizem Cd Cap) 300 mg DAILY PO 02/22/17 08:00 03/24/17 08:59 02/24/17 08:44 300 MG Magnesium Hydroxide (Milk Of Magnesia Susp) 30 ml DAILY PRN PO 02/21/17 22:15 03/23/17 22:14 Magnesium Oxide (Mag-Ox Tab) 400 mg QID PO 02/22/17 08:00 03/24/17 08:59 02/24/17 11:53 400 MG Senna (Senokot Tab) 8.6 mg QAM PO 02/22/17 08:00 03/24/17 08:59 02/24/17 08:44 8.6 MG Thiamine HCl (Vitamin B-1 Tab) 50 mg QAM PO 02/22/17 08:00 03/24/17 08:59 02/24/17 08:44 50 MG Ergocalciferol (Vitamin D Cap) 50,000 interunit TuFr@0900 PO 02/24/17 09:00 03/26/17 08:59 02/24/17 08:45 50,000 INTERUNIT Pantoprazole Sodium (Protonix Tab) 40 mg QAM PO 02/22/17 08:00 03/24/17 08:59 02/24/17 08:44 40 MG Enteral Nutritional Formula (Prosource No Carb) 30 ml BID PO 02/22/17 20:00 03/24/17 19:59 02/24/17 08:44 30 ML Metoclopramide HCl (Reglan Inj) 10 mg Q6H PRN IV 02/23/17 13:30 03/25/17 13:29 02/24/17 07:47 10 MG Prednisone (PredniSONE TAB) 10 mg DAILY PO 02/24/17 08:00 03/26/17 07:59 02/24/17 08:45 10 MG Enalaprilat 0.625 mg/Dextrose 25.5 ml @ 100 mls/hr Q6H PRN IV 02/23/17 23:30 03/25/17 23:29 02/24/17 07:48 100 MLS/HR Sodium Chloride 1,000 ml @ 80 mls/hr [id number] IV 02/24/17 11:15 03/26/17 11:14 02/24/17 11:53 80 MLS/HR Ampicillin Sodium/ Sulbactam Sodium 3000 mg/Sodium Chloride 108 ml @ 200 mls/hr Q6@0200,0800,1400,2000 IV 02/24/17 15:00 03/06/17 14:59
[2017-02-24] MEDS: AMPICILLIN/SULBACTAM SOD INJ 3,000 MG in SODIUM CHLORIDE 0.9% 100ML 100 ML IV SCH ×2 (14:54→20:00)
--- NOTE | 2017-02-24 15:17 | PROGRESS NOTE ---
DATE: 02/24/2017 DATE: 02/24/2017 I saw Dilia today. She is with her family. She is sitting in a chair. She is lethargic. She can move her extremities against gravity and she has been all along and again there is some variability in the degree of effort she puts forth. She is now with her chin hanging down. I really cannot get her to extend her neck muscles but yesterday I could. Here sodium is down a little bit to 130, the tests for Kaz's is negative. She has been placed on 10 mg of prednisone and psychiatry has seen her and started her on some Lexapro as she does have a history of seasonal affective disorder. It is hard to get a feel for her cognitively. 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 I am reluctant to go any further neurologically. Dr. Martinez had talked about a nerve and muscle biopsy, but this certainly could be done outpatient and I am afraid we are not going to see much other than some 2B atrophy of the muscle due to disuse and a nonspecific axonal neuropathy and I really do not want to put this woman through the risk of a burning dysesthetic foot with the sural nerve biopsy at this point. I will continue to follow her episodically, but for now I do not have any further recommendations and hopefully with some Lexapro and steroids things will begin to turn around. ABHIJEET
[2017-02-24 16:40] LABS: BUN/CREATININE RATIO 17.9 (10-20); CALCIUM 10.1 mg/dl (8.5-10.1); CREATININE 0.78 mg/dl (0.60-1.20); MAGNESIUM 2.1 mg/dl (1.8-2.4); POTASSIUM 4.2 mmol/L (3.5-5.1)
[2017-02-24] MEDS: ATORVASTATIN 10 MG TAB PO SCH (20:00)
[2017-02-25] MEDS: AMPICILLIN/SULBACTAM SOD INJ 3,000 MG in SODIUM CHLORIDE 0.9% 100ML 100 ML IV SCH ×4 (01:37→20:09)
[2017-02-25] MEDS: SODIUM CHLORIDE 0.9% 1000ML 1,000 ML IV SCH ×2 (01:37→19:11)
[2017-02-25 07:01] VITALS: BP 176/95; PULSE 90; TEMP 36.9; O2SAT 95
[2017-02-25] MEDS: PANTOprazole SOD 40 MG TAB PO SCH (08:27)
[2017-02-25] MEDS: MAGNESIUM OXIDE 400 MG TAB PO SCH ×4 (08:27→19:55)
[2017-02-25] MEDS: PROSOURCE NOCARB 30ML/PKT PO SCH ×2 (08:27→19:56)
[2017-02-25] MEDS: ASPIRIN 81 MG ECTAB PO SCH (08:27)
[2017-02-25] MEDS: THIAMINE HCL 50 MG TAB PO SCH (08:28)
[2017-02-25] MEDS: SENNA 8.6 MG TAB PO SCH (08:28)
[2017-02-25] MEDS: ENOXAPARIN 40 MG/0.4 ML SYR SQ SCH (08:28)
[2017-02-25] MEDS: DILTIAZEM HCL 300 MG CAPCR PO SCH (08:28)
[2017-02-25 08:55] LABS: BASO % 0.2 %; BASO ABS # 0.03 K/uL (0-0.2); COMPLETE YES; EOS % 1.6 %; HEMATOCRIT 32.3 % (37-47); IG% 0.2 %; LYMPH % 14.4 %; LYMPH ABS # 1.94 K/uL (1.2-3.4); MEAN CELL VOLUME 87.3 fL (80-100); MEAN CORPUSCULAR HEMOGLOBIN 28.4 pg (25-34); MEAN CORPUSCULAR HGB CONC 32.5 g/dl (32-36); MEAN PLATELET VOLUME 9.2 fL (7.4-10.4); MONO % 13.6 %; PLATELET COUNT 706 K/uL (130-400); WHITE BLOOD COUNT 13.48 K/uL (4.8-10.8)
[2017-02-25 09:25] LABS: BUN/CREATININE RATIO 16.3 (10-20); CALCIUM 10.9 mg/dl (8.5-10.1); CREATININE 0.72 mg/dl (0.60-1.20); MAGNESIUM 1.4 mg/dl (1.8-2.4); POTASSIUM 3.2 mmol/L (3.5-5.1)
[2017-02-25] MEDS: ACETAMINOPHEN 325 MG TAB PO PRN (11:34)
[2017-02-25] MEDS: MAGNESIUM SULFATE 1GM / D5W 1 GM in PREMIXED IN D5W 100 ML IV SCH ×2 (14:14→16:12)
[2017-02-25 14:57] VITALS: BP 170/84; PULSE 97; TEMP 36.8; O2SAT 96
--- NOTE | 2017-02-25 15:35 | NEUROLOGY PROGRESS NOTE ---
DATE: 02/25/2017 DATE: 02/25/2017 I saw Dilia today. She is back in bed sitting up, is conversing with her family. She still is somewhat lethargic. Her speech is a little slurred and her ability to cooperate with muscle strength testing is severely limited by less than optimal volitional effort. I can get her to move her legs with a great degree of encouragement and distal strength remains normal or nearly so but proximal strength may actually be a little weak, but it is difficult to rate. In the upper extremities again proximal muscle strength when one continues to stimulate her is nearly normal and distal strength is good. Neck flexor strength is excellent. Extensors are difficult to assess and there is no cranial neuropathies. She does not have any significant sensory loss and the reflexes are hypoactive and absent at the ankles. 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 CPKs have been normal, sed rates were falling, testing for Kaz's disease has been negative. Her electrolytes continue to be abnormal with some persistent recurrent mild hyponatremia and hypomagnesemia but some of this may be nutritional. She has been empirically placed on 10 mg of prednisone which was something Dr. Pandey at [facility] wanted to do back in December and psychiatry has seen her and starting low dose Lexapro 5 mg. She has only been on these 2 medications for a day now. Diagnosis remains uncertain. There are a number of nonorganic elements operating here. This woman appears to be depressed. She has a lot of pain with joint movement and actual pain with touching the actual muscle fibers themselves. One wonders if there is not a secondary fibromyalgia developing or something magalys to fibromyalgia that is coloring the picture. Her weakness correlates with less than optimal volitional effort. At this point, I am not sure neurology has a lot more to offer. Dr. Martinez had suggested a empiric muscle and nerve biopsy but this is something that could be done outpatient and I really as noted previously, do not want to subject this woman a sural nerve biopsy with the possibility of creating post-biopsy dysesthetic pain syndrome in our zeal to make a diagnosis that clinically is not really responsible for her weakness. I would hold off on both these procedures. I would suggest considering a trial of gabapentin or even Lyrica in this setting just to see if some of her pain might respond to that in the future, but until another week or so of lexapro and prednisone is used I would not bother with this. I am going to make one more visit tomorrow, check things out, but if there has been not much progress then I think neurology is going to back out of the case as I do not think we really have anything more to offer here. I will wait to see what the testing for Lambert-Eaton myasthenic syndrome proves to be but this is going to be send out and will be delayed for several weeks and again I really do not think this is a paraneoplastic disorder. 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 She really has not had any significant motor activity for several months now. ABHIJEET
[2017-02-25] MEDS ORDERED: MAGNESIUM SULFATE 1GM / D5W 2 GM in PREMIXED IN D5W 100 ML IV SCH (16:30)
[2017-02-25] MEDS ORDERED: POTASSIUM CHLORIDE 10 MEQ TABCR PO ONE (16:30)
[2017-02-25] MEDS ORDERED: ESCITALOPRAM OXALATE 10 MG TAB PO ONE (16:59)
--- NOTE | 2017-02-25 17:05 | Progress Note ---
Medicine Progress Note Date & Time of Visit: Feb 25, 2017 at 16:54. Subjective patient seen resting in bed, sitting up , awake, alert appears brighter than yesterday, more engaged, conversant less weak today, appetite improving slowly has some low back pain and pain under the left subcostal region no other symptoms would like to go outside if possible Objective Last 8 Hrs Date Time Temp Pulse Resp B/P (MAP) Pulse Ox O2 Delivery O2 Flow Rate FiO2 02/25/17 14:57 36.8 97 20 170/84 (112) 96 Room Air Physical Exam: General- oriented x 3, not in distress, speaks in sentences with no effort Eyes- anicteric Lungs- clear breath sounds Heart- regular rhythm; no murmur, normal rate Abdomen- normal bowel sounds, soft, nontender Back- essentially normal Extremities- no pretibial edema, no calf tenderness Neuro- alert, oriented x 2; motor strength 4/5 UE, 2-3/5 LE Skin- warm & dry Laboratory Results: Last 24 Hours Test 02/25/17 08:30 White Blood Count 13.48 K/uL Red Blood Count 3.70 M/uL Hemoglobin 10.5 g/dL Hematocrit 32.3 % Mean Corpuscular Volume 87.3 fL Mean Corpuscular Hemoglobin 28.4 pg Mean Corpuscular Hemoglobin Concent 32.5 g/dl Platelet Count 706 K/uL Mean Platelet Volume 9.2 fL Neutrophils (%) (Auto) 70.0 % Lymphocytes (%) (Auto) 14.4 % Monocytes (%) (Auto) 13.6 % Eosinophils (%) (Auto) 1.6 % Basophils (%) (Auto) 0.2 % Neutrophils # (Auto) 9.43 K/uL Lymphocytes # (Auto) 1.94 K/uL Monocytes # (Auto) 1.84 K/uL Eosinophils # (Auto) 0.21 K/uL Basophils # (Auto) 0.03 K/uL RDW Standard Deviation 49.6 fL RDW Coefficient of Variation 15.5 % Immature Granulocyte % (Auto) 0.2 % Immature Granulocyte # (Auto) 0.03 K/uL Sodium Level 132 mmol/L Potassium Level 3.2 mmol/L Chloride Level 97 mmol/L Carbon Dioxide Level 24 mmol/L Anion Gap 11.0 mmol/L Blood Urea Nitrogen 12 mg/dl Creatinine 0.72 mg/dl Est Creatinine Clear Calc Drug Dose 65.7 ml/min Estimated GFR () 98.3 Estimated GFR (Non- 84.9 BUN/Creatinine Ratio 16.3 Random Glucose 141 mg/dl Calcium Level 10.9 mg/dl Ionized Calcium 1.24 mmol/l Magnesium Level 1.4 mg/dl Assessment & Plan PROGRESSIVE WEAKNESS HX LEIOMYOSARCOMA - admit to med/surg - patient presenting with progressive generalized weakness, BLLE > BLUE over the past couple of months - patient is s/p resection retroperitoneal sarcoma with left nephrectomy, distal pancreatectomy, [place] [facility] [place] - has had progressive weakness that started during her hospitalization for the surgery - had extensive work up with rheumatology and neurology prior to discharge --likely Multifactorial: Electrolyte Imbalance - IV fluids, K and Mg supplements - Cosyntropin Test negative - Nephro on board, appreciate the consult r/o Neurologic Etiology- Neuro consulted MRI Brain and Cervical Spine: unrevealing studies for MG pending may need muscle and nerve biopsy as an outpatient Neuro on board- appreciate the input r/o Rheumatologic Etiology discussed with Dr. Bedoya started trial of Prednisone 10mg po daily for joint pains, improving otherwise, does not fit any rheumatologic condition Deconditioning - STOP Baclofen PRN for hiccups, change to Reglan PRN - PT/OT Component of Depression consulted Psych, Lexapro to be started when Na has improved -- overall, patient's generalized weakness and mood is improving daily will allow patient to walk/be wheelchaired in the halls and even outside tonight HYPONATREMIA, HYPOMAGNESEMIA, HYPERCALCEMIA - has been a chronic ongoing issue; Na+ and Mg+ mildly low today - Ca+ with steady rise over the past month -- Na stable IV NSS , monitor Na -- replacing K and Mg monitor levels UTI - patient reports dysuria, U/A suggest UTI - last urine culture grew E. Coli, sensitive to ceftriaxone - Streptococcus species 100k Ceftri changed to Unasyn Day 2 - no signs of sepsis - afebrile, clinically improving HTN - Enalapril PRN added - continue diltiazem HLD - check lipid profile - hold lipitor for now as patient having muscle weakness DVT PROPHYLAXIS - SQ Lovenox CODE STATUS - Patient is a full code as per my discussion with her. DISPO pending will need SNF/Rehab Current Inpatient Medications: Current Inpatient Medications Medications (Trade) Dose Ordered Sig/Ana Route Start Time Stop Time Status Last Admin Dose Admin Enoxaparin Sodium (Lovenox Inj) 40 mg Q24H SQ 02/22/17 09:00 03/24/17 08:59 02/25/17 08:28 40 MG Acetaminophen (Tylenol Tab) 650 mg Q4H PRN PO 02/21/17 21:45 03/23/17 21:44 02/25/17 11:34 650 MG Ondansetron HCl (Zofran Inj) 4 mg Q6H PRN IV 02/21/17 21:45 03/23/17 21:44 02/24/17 07:47 4 MG Aspirin (Ecotrin Tab) 81 mg QAM PO 02/22/17 08:00 03/24/17 08:59 02/25/17 08:27 81 MG Atorvastatin Calcium (Lipitor Tab) 10 mg HS PO 02/21/17 21:00 03/23/17 20:59 02/24/17 20:00 10 MG Bisacodyl (Dulcolax Supp) 10 mg DAILY PRN HI 02/21/17 22:15 03/23/17 22:14 Diltiazem HCl (Cardizem Cd Cap) 300 mg DAILY PO 02/22/17 08:00 03/24/17 08:59 02/25/17 08:28 300 MG Magnesium Hydroxide (Milk Of Magnesia Susp) 30 ml DAILY PRN PO 02/21/17 22:15 03/23/17 22:14 Magnesium Oxide (Mag-Ox Tab) 400 mg QID PO 02/22/17 08:00 03/24/17 08:59 02/25/17 16:16 400 MG Senna (Senokot Tab) 8.6 mg QAM PO 02/22/17 08:00 03/24/17 08:59 02/25/17 08:28 8.6 MG Thiamine HCl (Vitamin B-1 Tab) 50 mg QAM PO 02/22/17 08:00 03/24/17 08:59 02/25/17 08:28 50 MG Ergocalciferol (Vitamin D Cap) 50,000 interunit TuFr@0900 PO 02/24/17 09:00 03/26/17 08:59 02/24/17 08:45 50,000 INTERUNIT Pantoprazole Sodium (Protonix Tab) 40 mg QAM PO 02/22/17 08:00 03/24/17 08:59 02/25/17 08:27 40 MG Enteral Nutritional Formula (Prosource No Carb) 30 ml BID PO 02/22/17 20:00 03/24/17 19:59 02/25/17 08:27 30 ML Metoclopramide HCl (Reglan Inj) 10 mg Q6H PRN IV 02/23/17 13:30 03/25/17 13:29 02/24/17 07:47 10 MG Prednisone (PredniSONE TAB) 10 mg DAILY PO 02/24/17 08:00 03/26/17 07:59 02/25/17 08:27 10 MG Enalaprilat 0.625 mg/Dextrose 25.5 ml @ 100 mls/hr Q6H PRN IV 02/23/17 23:30 03/25/17 23:29 02/24/17 07:48 100 MLS/HR Sodium Chloride 1,000 ml @ 60 mls/hr [id number] IV 02/24/17 11:15 03/26/17 11:14 02/25/17 01:37 60 MLS/HR Ampicillin Sodium/ Sulbactam Sodium 3000 mg/Sodium Chloride 108 ml @ 200 mls/hr Q6@0200,0800,1400,2000 IV 02/24/17 15:00 03/06/17 14:59 02/25/17 13:43 200 MLS/HR
[2017-02-25] MEDS ORDERED: LIDODERM (LIDOCAINE) PATCH 5% TD ONE (17:10)
[2017-02-25 17:23] VITALS: BP 169/83; PULSE 98; TEMP 36.8; O2SAT 95
[2017-02-25] MEDS: ENALAPRILAT IV 0.625 MG in DEXTROSE 5% 25ML 25 ML IV PRN (23:18)
[2017-02-25 23:28] VITALS: BP 190/88; PULSE 100; TEMP 36.8; O2SAT 91
[2017-02-26] VITALS (7 sets, daily range): BP systolic 134–183; BP diastolic 70–92; PULSE 77–98; TEMP 36.5–36.7; O2SAT 93–96
[2017-02-26 00:38] LABS: RECEPTOR BINDING AB <0.30 nmol/L (<=0.30)
[2017-02-26] MEDS ORDERED: METOPROLOL TARTRATE 25 MG TAB PO ONE (00:44)
[2017-02-26] MEDS: AMPICILLIN/SULBACTAM SOD INJ 3,000 MG in SODIUM CHLORIDE 0.9% 100ML 100 ML IV SCH ×4 (02:04→20:59)
[2017-02-26 08:08] LABS: BASO % 0.4 %; BASO ABS # 0.05 K/uL (0-0.2); COMPLETE YES; EOS % 1.5 %; HEMATOCRIT 32.4 % (37-47); IG% 0.4 %; LYMPH % 11.7 %; LYMPH ABS # 1.48 K/uL (1.2-3.4); MEAN CELL VOLUME 85.9 fL (80-100); MEAN CORPUSCULAR HEMOGLOBIN 28.4 pg (25-34); MEAN PLATELET VOLUME 9.2 fL (7.4-10.4); PLATELET COUNT 686 K/uL (130-400); RED BLOOD COUNT 3.77 M/uL (4.2-5.4); WHITE BLOOD COUNT 12.68 K/uL (4.8-10.8)
[2017-02-26] MEDS: METOPROLOL TARTRATE 25 MG TAB PO SCH ×2 (08:10→21:03)
[2017-02-26] MEDS: MAGNESIUM OXIDE 400 MG TAB PO SCH ×4 (08:10→21:03)
[2017-02-26] MEDS: THIAMINE HCL 50 MG TAB PO SCH (08:10)
[2017-02-26] MEDS: DILTIAZEM HCL 300 MG CAPCR PO SCH (08:10)
[2017-02-26] MEDS: ESCITALOPRAM OXALATE 10 MG TAB PO SCH (08:12)
[2017-02-26] MEDS: SENNA 8.6 MG TAB PO SCH (08:13)
[2017-02-26] MEDS: ASPIRIN 81 MG ECTAB PO SCH (08:13)
[2017-02-26] MEDS: PROSOURCE NOCARB 30ML/PKT PO SCH ×2 (08:14→21:04)
[2017-02-26] MEDS: ENOXAPARIN 40 MG/0.4 ML SYR SQ SCH (08:16)
[2017-02-26] MEDS: LIDODERM (LIDOCAINE) PATCH 5% TD SCH (08:18)
[2017-02-26 08:39] LABS: BUN/CREATININE RATIO 18.3 (10-20); CALCIUM 10.1 mg/dl (8.5-10.1); CREATININE 0.64 mg/dl (0.60-1.20); MAGNESIUM 1.4 mg/dl (1.8-2.4)
[2017-02-26 08:50] LABS: CHOLESTEROL/HDL RATIO 2.7
[2017-02-26 08:54] LABS: POTASSIUM 3.3 mmol/L (3.5-5.1)
[2017-02-26] MEDS: SODIUM CHLORIDE 0.9% 1000ML 1,000 ML IV SCH ×2 (10:50→21:28)
--- NOTE | 2017-02-26 13:35 | NEPHROLOGY PROGRESS NOTE ---
DATE: 02/26/2017 SUBJECTIVE: Overnight, no new symptoms. She is a 71-year-old female who we are following because of hyponatremia and hypomagnesemia. She has been slowly worsening over the past few months. She is also being treated for a UTI at this time. She continues to have severe weakness. She is not eating. According to the , she eats barely 10% of the food. PHYSICAL EXAMINATION: VITAL SIGNS: Blood pressure 165/88, 95% on room air, pulse rate 77, temperature 36.5. HEENT: Mucous membrane is moist. NECK: Supple. LUNGS: Clear to auscultation. CARDIOVASCULAR: Regular rate and rhythm. ABDOMEN: Soft, nontender. EXTREMITIES: Shows trace to 1+ edema. NEUROLOGIC: Generalized muscle weakness. LABORATORY DATA: Hemoglobin 10.7, WBC count 12.68, platelet count 686. Sodium 130, potassium 3.3, BUN 12, creatinine 0.64, magnesium 1.4. Urine osmolality, I did not see any. ASSESSMENT AND PLAN: 1. Hyponatremia. Serum sodium is drifting down again. We do not have a urine osmolality during this admission, we will do one including urine osmolality, urine sodium and urine creatinine. Given that it is a chronic hyponatremia, which is almost always is caused by the syndrome of inappropriate antidiuretic hormone secretion. She may need saline as well as Lasix to get the serum sodium up. change IV fluids to normal saline at 100 mL per hour and give Lasix 20 mg IV b.i.d. 2. Hypomagnesemia, magnesium levels are low again, will give 2 gram IV today. 3. Hypercalcemia. It is slowly improving and is now normal. Thank you very much for the consult. ABHIJEET
[2017-02-26] MEDS: MAGNESIUM SULFATE 1GM / D5W 1 GM in PREMIXED IN D5W 100 ML IV SCH ×2 (14:38→16:24)
--- NOTE | 2017-02-26 15:19 | PROGRESS NOTE ---
DATE: 02/26/2017 I saw Dilia today. No family members are present in the room, but she was more conversant than usual, states that she feels a little better than she had 2 days ago, but still has a lot of generalized pain, particularly when moving her shoulders now and again has diffuse tenderness to touch over all of her muscles and some pain with joint movement passively and actively at her wrists and obviously the shoulders. Again, I cannot tow picker any clear-cut objective muscle weakness. There is a lot of suboptimal effort and distal function appears to be excellent in the lower extremities when one can get her to cooperate and the upper extremity home health rn strength is good. There is a lot of proximal pain in the shoulders, but in the past her upper extremity function was pretty good. It is the lower extremity function that is in question here and in the past I have had times when I think this was actually fairly strong but today I could not convince her to move or exert much effort. Again, as stated in prior notes, we do not have strong evidence for a significant neuromuscular disorder here other than an EMG that showed a mild motor, more than sensory axonal polyneuropathy and there was nothing about this study to suggest a myopathy or defect in neuromuscular transmission. Anti-acetylcholine receptor antibody titer has been negative, CK levels have been normal and the only outstanding lab is the Lambert-Eaton myasthenic syndrome test which I doubt will be positive and her clinical presentation does make a lot of sense for this. At this point, I would continue the low dose prednisone and Lexapro for another week or so to see if she will improve on this. I mentioned the possibility of trying some Neurontin or Lyrica later, acting on the assumption that some of her complaints might be a variant of fibromyalgia, occurring in the setting of her chronic illness. For now, however, I do not think neurology has much more to offer and are going to sign off. We will be around if there are any changes in her overall condition. ABHIJEET
[2017-02-26] MEDS: FUROSEMIDE INJ 20 MG in SYRINGE 0 ML IV SCH (16:24)
--- NOTE | 2017-02-26 19:03 | Progress Note ---
Medicine Progress Note Date & Time of Visit: Feb 26, 2017 at 18:58. Subjective patient seen resting in bed, sleeping but easily rousable states she feels fine today conversant, smiling weakness about the same as yesterday appetite improving no pain on my exam denies others symptoms Objective Last 8 Hrs Date Time Temp Pulse Resp B/P (MAP) Pulse Ox O2 Delivery O2 Flow Rate FiO2 02/26/17 15:00 36.7 78 18 162/92 (115) 93 Room Air Physical Exam: General- oriented x 3, not in distress, speaks in sentences with no effort Eyes- anicteric Lungs- clear breath sounds, no rales, no wheezes Heart- regular rhythm; no murmur, normal rate Abdomen- normal bowel sounds, soft, nontender Back- essentially normal Extremities- no pretibial edema, no calf tenderness Neuro- alert, oriented x 2; motor strength 4/5 UE, 2-3/5 LE Skin- warm & dry Laboratory Results: Last 24 Hours Test 02/26/17 07:35 02/26/17 16:15 White Blood Count 12.68 K/uL Red Blood Count 3.77 M/uL Hemoglobin 10.7 g/dL Hematocrit 32.4 % Mean Corpuscular Volume 85.9 fL Mean Corpuscular Hemoglobin 28.4 pg Mean Corpuscular Hemoglobin Concent 33.0 g/dl Platelet Count 686 K/uL Mean Platelet Volume 9.2 fL Neutrophils (%) (Auto) 73.0 % Lymphocytes (%) (Auto) 11.7 % Monocytes (%) (Auto) 13.0 % Eosinophils (%) (Auto) 1.5 % Basophils (%) (Auto) 0.4 % Neutrophils # (Auto) 9.26 K/uL Lymphocytes # (Auto) 1.48 K/uL Monocytes # (Auto) 1.65 K/uL Eosinophils # (Auto) 0.19 K/uL Basophils # (Auto) 0.05 K/uL RDW Standard Deviation 48.8 fL RDW Coefficient of Variation 15.4 % Immature Granulocyte % (Auto) 0.4 % Immature Granulocyte # (Auto) 0.05 K/uL Sodium Level 130 mmol/L Potassium Level 3.3 mmol/L Chloride Level 96 mmol/L Carbon Dioxide Level 24 mmol/L Anion Gap 10.0 mmol/L Blood Urea Nitrogen 12 mg/dl Creatinine 0.64 mg/dl Est Creatinine Clear Calc Drug Dose 73.9 ml/min Estimated GFR () 104.8 Estimated GFR (Non- 90.4 BUN/Creatinine Ratio 18.3 Random Glucose 141 mg/dl Calcium Level 10.1 mg/dl Ionized Calcium 1.18 mmol/l Magnesium Level 1.4 mg/dl Triglycerides Level 118 mg/dl Cholesterol Level 156 mg/dl HDL Cholesterol 57 mg/dl LDL Cholesterol, Calculated 75 mg/dl VLDL Cholesterol, Calculated 24 mg/dl Cholesterol/HDL Ratio 2.7 Urine Osmolality 455 mOms/kg Urine Random Creatinine 23.0 mg/dl Urine Random Sodium 121 mEq/L Assessment & Plan PROGRESSIVE WEAKNESS HX LEIOMYOSARCOMA - admit to med/surg - patient presenting with progressive generalized weakness, BLLE > BLUE over the past couple of months - patient is s/p resection retroperitoneal sarcoma with left nephrectomy, distal pancreatectomy, and splenectomy [place] [facility] [place] - has had progressive weakness that started during her hospitalization for the surgery - had extensive work up with rheumatology and neurology prior to discharge --likely Multifactorial: Electrolyte Imbalance - IV lasix and IV NSS, K and Mg supplements - Cosyntropin Test negative - Nephro on board, appreciate the consult r/o Neurologic Etiology- Neuro consulted MRI Brain and Cervical Spine: unrevealing studies for MG pending may need muscle and nerve biopsy as an outpatient Neuro on board- appreciate the input r/o Rheumatologic Etiology discussed with Dr. Bedoya started trial of Prednisone 10mg po daily for joint pains, improving otherwise, does not fit any rheumatologic condition Deconditioning - STOP Baclofen PRN for hiccups, change to Reglan PRN - PT/OT Component of Depression consulted Psych, Nimo started, monitor Na -- overall, patient's generalized weakness and mood is improving daily will allow patient to walk/be wheelchaired in the halls and even outside tonight HYPONATREMIA, HYPOMAGNESEMIA, HYPERCALCEMIA - has been a chronic ongoing issue; Na+ and Mg+ mildly low today - Ca+ with steady rise over the past month -- Na decreased to 130 IV NSS + Lasix -- monitor Na -- replacing K and Mg monitor levels UTI - patient reports dysuria, U/A suggest UTI - last urine culture grew E. Coli, sensitive to ceftriaxone - Streptococcus species 100k Ceftri changed to Unasyn Day 3 - no signs of sepsis - afebrile, clinically improving HTN - Metoprolol 25mg BID added monitor BP - on usual Diltiazem PRN Enalapril HLD - LDL 75 - hold lipitor for now as patient having muscle weakness DVT PROPHYLAXIS - SQ Lovenox CODE STATUS - Patient is a full code as per my discussion with her. DISPO pending will need SNF/Rehab Current Inpatient Medications: Current Inpatient Medications Medications (Trade) Dose Ordered Sig/Ana Route Start Time Stop Time Status Last Admin Dose Admin Enoxaparin Sodium (Lovenox Inj) 40 mg Q24H SQ 02/22/17 09:00 03/24/17 08:59 02/26/17 08:16 40 MG Acetaminophen (Tylenol Tab) 650 mg Q4H PRN PO 02/21/17 21:45 03/23/17 21:44 02/25/17 11:34 650 MG Ondansetron HCl (Zofran Inj) 4 mg Q6H PRN IV 02/21/17 21:45 03/23/17 21:44 02/24/17 07:47 4 MG Aspirin (Ecotrin Tab) 81 mg QAM PO 02/22/17 08:00 03/24/17 08:59 02/26/17 08:13 81 MG Bisacodyl (Dulcolax Supp) 10 mg DAILY PRN ID 02/21/17 22:15 03/23/17 22:14 Diltiazem HCl (Cardizem Cd Cap) 300 mg DAILY PO 02/22/17 08:00 03/24/17 08:59 02/26/17 08:10 300 MG Magnesium Hydroxide (Milk Of Magnesia Susp) 30 ml DAILY PRN PO 02/21/17 22:15 03/23/17 22:14 Magnesium Oxide (Mag-Ox Tab) 400 mg QID PO 02/22/17 08:00 03/24/17 08:59 02/26/17 16:26 400 MG Senna (Senokot Tab) 8.6 mg QAM PO 02/22/17 08:00 03/24/17 08:59 02/26/17 08:13 8.6 MG Thiamine HCl (Vitamin B-1 Tab) 50 mg QAM PO 02/22/17 08:00 03/24/17 08:59 02/26/17 08:10 50 MG Ergocalciferol (Vitamin D Cap) 50,000 interunit TuFr@0900 PO 02/24/17 09:00 03/26/17 08:59 02/24/17 08:45 50,000 INTERUNIT Enteral Nutritional Formula (Prosource No Carb) 30 ml BID PO 02/22/17 20:00 03/24/17 19:59 02/26/17 08:14 30 ML Metoclopramide HCl (Reglan Inj) 10 mg Q6H PRN IV 02/23/17 13:30 03/25/17 13:29 02/24/17 07:47 10 MG Prednisone (PredniSONE TAB) 10 mg DAILY PO 02/24/17 08:00 03/26/17 07:59 02/26/17 08:13 10 MG Enalaprilat 0.625 mg/Dextrose 25.5 ml @ 100 mls/hr Q6H PRN IV 02/23/17 23:30 03/25/17 23:29 02/25/17 23:18 100 MLS/HR Sodium Chloride 1,000 ml @ 100 mls/hr Q10H IV 02/24/17 11:15 03/26/17 11:14 02/26/17 10:50 60 MLS/HR Ampicillin Sodium/ Sulbactam Sodium 3000 mg/Sodium Chloride 108 ml @ 200 mls/hr Q6@0200,0800,1400,2000 IV 02/24/17 15:00 03/06/17 14:59 02/26/17 13:18 200 MLS/HR Escitalopram Oxalate (Lexapro Tab) 5 mg QAM PO 02/26/17 08:00 03/28/17 07:59 02/26/17 08:12 5 MG Lidocaine (Lidoderm Patch 5%) 1 patch QAM TD 02/26/17 08:00 03/28/17 07:59 02/26/17 08:18 1 PATCH Miscellaneous (Remove Lidoderm Patch) 1 ea DAILY@21 N/A 02/25/17 21:00 03/27/17 20:59 02/26/17 03:03 1 EA Metoprolol Tartrate (Lopressor Tab) 25 mg BID PO 02/26/17 08:00 03/28/17 07:59 02/26/17 08:10 25 MG Furosemide 20 mg/ Syringe 2 ml @ 4 mls/min [id number] IV 02/26/17 14:00 03/28/17 13:59 02/26/17 16:24 4 MLS/MIN
[2017-02-27] MEDS: AMPICILLIN/SULBACTAM SOD INJ 3,000 MG in SODIUM CHLORIDE 0.9% 100ML 100 ML IV SCH ×4 (02:21→20:40)
[2017-02-27] MEDS: ACETAMINOPHEN 325 MG TAB PO PRN ×2 (02:30→08:59)
[2017-02-27] MEDS: FUROSEMIDE INJ 20 MG in SYRINGE 0 ML IV SCH ×2 (06:38→13:42)
[2017-02-27] MEDS: SODIUM CHLORIDE 0.9% 1000ML 1,000 ML IV SCH ×2 (06:38→17:19)
[2017-02-27 07:18] VITALS: BP 152/77; PULSE 71; TEMP 36.7; O2SAT 95
[2017-02-27 08:00] VITALS: O2SAT 95
[2017-02-27] MEDS: MAGNESIUM OXIDE 400 MG TAB PO SCH ×4 (08:09→20:44)
[2017-02-27] MEDS: ASPIRIN 81 MG ECTAB PO SCH (08:09)
[2017-02-27] MEDS: PROSOURCE NOCARB 30ML/PKT PO SCH ×2 (08:09→20:45)
[2017-02-27] MEDS: DILTIAZEM HCL 300 MG CAPCR PO SCH (08:09)
[2017-02-27] MEDS: SENNA 8.6 MG TAB PO SCH (08:10)
[2017-02-27] MEDS: THIAMINE HCL 50 MG TAB PO SCH (08:10)
[2017-02-27] MEDS: ESCITALOPRAM OXALATE 10 MG TAB PO SCH (08:10)
[2017-02-27] MEDS: METOPROLOL TARTRATE 25 MG TAB PO SCH ×2 (08:10→20:44)
[2017-02-27] MEDS: LIDODERM (LIDOCAINE) PATCH 5% TD SCH (08:10)
[2017-02-27] MEDS: ENOXAPARIN 40 MG/0.4 ML SYR SQ SCH (08:11)
[2017-02-27 08:41] LABS: BASO % 0.5 %; BASO ABS # 0.05 K/uL (0-0.2); COMPLETE YES; EOS % 1.9 %; HEMATOCRIT 32.6 % (37-47); IG% 0.3 %; LYMPH % 17.1 %; LYMPH ABS # 1.74 K/uL (1.2-3.4); MEAN CELL VOLUME 86.5 fL (80-100); MEAN CORPUSCULAR HEMOGLOBIN 27.9 pg (25-34); MEAN CORPUSCULAR HGB CONC 32.2 g/dl (32-36); MEAN PLATELET VOLUME 8.7 fL (7.4-10.4); MONO % 14.6 %; NEUT % 65.6 %; PLATELET COUNT 743 K/uL (130-400); RED BLOOD COUNT 3.77 M/uL (4.2-5.4); WHITE BLOOD COUNT 10.18 K/uL (4.8-10.8)
[2017-02-27 09:23] LABS: CALCIUM 10.4 mg/dl (8.5-10.1); CREATININE 0.67 mg/dl (0.60-1.20); MAGNESIUM 1.5 mg/dl (1.8-2.4); POTASSIUM 2.6 mmol/L (3.5-5.1)
[2017-02-27] MEDS ORDERED: POTASSIUM CHLORIDE 10 MEQ TABCR PO ONE (11:00)
[2017-02-27] MEDS: MAGNESIUM SULFATE 1GM / D5W 1 GM in PREMIXED IN D5W 100 ML IV SCH ×2 (11:38→12:53)
[2017-02-27] MEDS: POTASSIUM CHLR 10 MEQ / WTR 10 MEQ in PREMIXED WATER 100 ML IV SCH ×4 (11:38→15:55)
[2017-02-27 15:25] VITALS: BP 122/74; PULSE 70; TEMP 36.6; O2SAT 96
[2017-02-27 16:51] LABS: BUN/CREATININE RATIO 22.8 (10-20); CREATININE 0.82 mg/dl (0.60-1.20)
--- NOTE | 2017-02-27 21:39 | Progress Note ---
Medicine Progress Note Date & Time of Visit: Feb 27, 2017 at 14:26. Subjective patient seen resting in bed, comfortable, awake states she feels ok overall today awake, alert, conversant states appetite is improving denies pain no other symptoms Objective Last 8 Hrs Date Time Temp Pulse Resp B/P (MAP) Pulse Ox O2 Delivery O2 Flow Rate FiO2 02/27/17 08:00 95 Room Air 02/27/17 07:18 36.7 71 20 152/77 (102) 95 Room Air Physical Exam: General- oriented x 3, not in distress, speaks in sentences with no effort Lungs- clear BS bilaterally Heart- regular rhythm; no murmur, normal rate Abdomen- normal bowel sounds, soft, nontender Back- essentially normal Extremities- no pretibial edema, no calf tenderness Neuro- alert, oriented x 2; motor strength 4/5 UE, 2-3/5 LE Skin- warm & dry Laboratory Results: Last 24 Hours Test 02/26/17 16:15 02/27/17 08:18 Urine Osmolality 455 mOms/kg Urine Random Creatinine 23.0 mg/dl Urine Random Sodium 121 mEq/L White Blood Count 10.18 K/uL Red Blood Count 3.77 M/uL Hemoglobin 10.5 g/dL Hematocrit 32.6 % Mean Corpuscular Volume 86.5 fL Mean Corpuscular Hemoglobin 27.9 pg Mean Corpuscular Hemoglobin Concent 32.2 g/dl Platelet Count 743 K/uL Mean Platelet Volume 8.7 fL Neutrophils (%) (Auto) 65.6 % Lymphocytes (%) (Auto) 17.1 % Monocytes (%) (Auto) 14.6 % Eosinophils (%) (Auto) 1.9 % Basophils (%) (Auto) 0.5 % Neutrophils # (Auto) 6.68 K/uL Lymphocytes # (Auto) 1.74 K/uL Monocytes # (Auto) 1.49 K/uL Eosinophils # (Auto) 0.19 K/uL Basophils # (Auto) 0.05 K/uL RDW Standard Deviation 48.0 fL RDW Coefficient of Variation 15.2 % Immature Granulocyte % (Auto) 0.3 % Immature Granulocyte # (Auto) 0.03 K/uL Sodium Level 131 mmol/L Potassium Level 2.6 mmol/L Chloride Level 94 mmol/L Carbon Dioxide Level 28 mmol/L Anion Gap 9.0 mmol/L Blood Urea Nitrogen 13 mg/dl Creatinine 0.67 mg/dl Est Creatinine Clear Calc Drug Dose 70.6 ml/min Estimated GFR () 103.2 Estimated GFR (Non- 89.1 BUN/Creatinine Ratio 19.0 Random Glucose 141 mg/dl Calcium Level 10.4 mg/dl Ionized Calcium 1.22 mmol/l Magnesium Level 1.5 mg/dl Assessment & Plan PROGRESSIVE WEAKNESS HX LEIOMYOSARCOMA - admit to med/surg - patient presenting with progressive generalized weakness, BLLE > BLUE over the past couple of months - patient is s/p resection retroperitoneal sarcoma with left nephrectomy, distal pancreatectomy, and [place] [facility] [place] - has had progressive weakness that started during her hospitalization for the surgery - had extensive work up with rheumatology and neurology prior to discharge --likely Multifactorial: Electrolyte Imbalance: Hypo Na, K, Mg - d/c IV lasix and NSS, K and Mg supplements - Cosyntropin Test negative - Nephro on board, appreciate the consult Neurologic Etiology - Neuro consulted MRI Brain and Cervical Spine: unrevealing studies for MG pending may need muscle and nerve biopsy as an outpatient no specific neuromuscular disorder identified at this time Rheumatologic Etiology discussed with Dr. Bedoya started trial of Prednisone 10mg po daily for joint pains, improving otherwise, does not fit any rheumatologic condition Deconditioning - STOP Baclofen PRN for hiccups, change to Reglan PRN - PT/OT Component of Depression consulted Psych, Lexapro started, monitor Na -- will order CT chest and CT of abdomen and pelvis to check for possible recurrence -- overall, patient's generalized weakness and mood is improving daily although slowly HYPONATREMIA, HYPOMAGNESEMIA, HYPERCALCEMIA - has been a chronic ongoing issue; Na+ and Mg+ mildly low today - Ca+ with steady rise over the past month -- Na 129 IV NSS + Lasix--> discontinued per discussion with Nephro -- monitor Na -- replacing K and Mg monitor levels UTI - patient reports dysuria, U/A suggest UTI - last urine culture grew E. Coli, sensitive to ceftriaxone - Streptococcus species 100k Ceftri changed to Unasyn Day 4 - no signs of sepsis - afebrile, clinically improving HTN - Metoprolol 25mg BID added BP improving - on usual Diltiazem PRN Enalapril HLD - LDL 75 - hold lipitor for now as patient having muscle weakness DVT PROPHYLAXIS - SQ Lovenox CODE STATUS - Patient is a full code as per my discussion with her. DISPO pending will need SNF/Rehab Current Inpatient Medications: Current Inpatient Medications Medications (Trade) Dose Ordered Sig/Ana Route Start Time Stop Time Status Last Admin Dose Admin Enoxaparin Sodium (Lovenox Inj) 40 mg Q24H SQ 02/22/17 09:00 03/24/17 08:59 02/27/17 08:11 40 MG Acetaminophen (Tylenol Tab) 650 mg Q4H PRN PO 02/21/17 21:45 03/23/17 21:44 02/27/17 08:59 650 MG Ondansetron HCl (Zofran Inj) 4 mg Q6H PRN IV 02/21/17 21:45 03/23/17 21:44 02/24/17 07:47 4 MG Aspirin (Ecotrin Tab) 81 mg QAM PO 02/22/17 08:00 03/24/17 08:59 02/27/17 08:09 81 MG Bisacodyl (Dulcolax Supp) 10 mg DAILY PRN NV 02/21/17 22:15 03/23/17 22:14 Diltiazem HCl (Cardizem Cd Cap) 300 mg DAILY PO 02/22/17 08:00 03/24/17 08:59 02/27/17 08:09 300 MG Magnesium Hydroxide (Milk Of Magnesia Susp) 30 ml DAILY PRN PO 02/21/17 22:15 03/23/17 22:14 Magnesium Oxide (Mag-Ox Tab) 400 mg QID PO 02/22/17 08:00 03/24/17 08:59 02/27/17 11:38 400 MG Senna (Senokot Tab) 8.6 mg QAM PO 02/22/17 08:00 03/24/17 08:59 02/27/17 08:10 8.6 MG Thiamine HCl (Vitamin B-1 Tab) 50 mg QAM PO 02/22/17 08:00 03/24/17 08:59 02/27/17 08:10 50 MG Ergocalciferol (Vitamin D Cap) 50,000 interunit TuFr@0900 PO 02/24/17 09:00 03/26/17 08:59 02/24/17 08:45 50,000 INTERUNIT Enteral Nutritional Formula (Prosource No Carb) 30 ml BID PO 02/22/17 20:00 03/24/17 19:59 02/27/17 08:09 30 ML Metoclopramide HCl (Reglan Inj) 10 mg Q6H PRN IV 02/23/17 13:30 03/25/17 13:29 02/24/17 07:47 10 MG Prednisone (PredniSONE TAB) 10 mg DAILY PO 02/24/17 08:00 03/26/17 07:59 02/27/17 08:10 10 MG Enalaprilat 0.625 mg/Dextrose 25.5 ml @ 100 mls/hr Q6H PRN IV 02/23/17 23:30 03/25/17 23:29 02/25/17 23:18 100 MLS/HR Sodium Chloride 1,000 ml @ 100 mls/hr Q10H IV 02/24/17 11:15 03/26/17 11:14 02/27/17 06:38 100 MLS/HR Ampicillin Sodium/ Sulbactam Sodium 3000 mg/Sodium Chloride 108 ml @ 200 mls/hr Q6@0200,0800,1400,2000 IV 02/24/17 15:00 03/06/17 14:59 02/27/17 13:42 200 MLS/HR Escitalopram Oxalate (Lexapro Tab) 5 mg QAM PO 02/26/17 08:00 03/28/17 07:59 02/27/17 08:10 5 MG Lidocaine (Lidoderm Patch 5%) 1 patch QAM TD 02/26/17 08:00 03/28/17 07:59 02/27/17 08:10 1 PATCH Miscellaneous (Remove Lidoderm Patch) 1 ea DAILY@21 N/A 02/25/17 21:00 03/27/17 20:59 02/26/17 21:16 1 EA Metoprolol Tartrate (Lopressor Tab) 25 mg BID PO 02/26/17 08:00 03/28/17 07:59 02/27/17 08:10 25 MG Furosemide 20 mg/ Syringe 2 ml @ 4 mls/min [id number] IV 02/26/17 14:00 03/28/17 13:59 02/27/17 13:42 4 MLS/MIN Potassium Chloride 10 meq/ Prmx 100 ml @ 100 mls/hr Q1H IV 02/27/17 11:00 02/27/17 14:59 02/27/17 13:43 100 MLS/HR
[2017-02-27 21:41] VITALS: BP 134/68; PULSE 70; O2SAT 95
[2017-02-27 22:43] LABS: BUN/CREATININE RATIO 23.9 (10-20); CALCIUM 9.5 mg/dl (8.5-10.1); CREATININE 0.75 mg/dl (0.60-1.20); POTASSIUM 3.5 mmol/L (3.5-5.1)
[2017-02-28 00:35] VITALS: BP 148/72; PULSE 74; TEMP 36.7; O2SAT 92
[2017-02-28] MEDS: AMPICILLIN/SULBACTAM SOD INJ 3,000 MG in SODIUM CHLORIDE 0.9% 100ML 100 ML IV SCH ×4 (02:06→20:32)
[2017-02-28 07:37] VITALS: BP 149/70; PULSE 74; TEMP 36.7; O2SAT 95
[2017-02-28] MEDS: THIAMINE HCL 50 MG TAB PO SCH (07:49)
[2017-02-28] MEDS: METOPROLOL TARTRATE 25 MG TAB PO SCH ×2 (07:49→19:47)
[2017-02-28] MEDS: MAGNESIUM OXIDE 400 MG TAB PO SCH ×4 (07:49→19:47)
[2017-02-28] MEDS: ASPIRIN 81 MG ECTAB PO SCH (07:49)
[2017-02-28] MEDS: SENNA 8.6 MG TAB PO SCH (07:49)
[2017-02-28] MEDS: PROSOURCE NOCARB 30ML/PKT PO SCH ×2 (07:49→19:46)
[2017-02-28] MEDS: ESCITALOPRAM OXALATE 10 MG TAB PO SCH (07:49)
[2017-02-28] MEDS: LIDODERM (LIDOCAINE) PATCH 5% TD SCH (07:50)
[2017-02-28] MEDS: ERGOCALCIFEROL 50,000 INTER.UNIT CAP PO SCH (07:50)
[2017-02-28] MEDS: ENOXAPARIN 40 MG/0.4 ML SYR SQ SCH (07:50)
[2017-02-28] MEDS: DILTIAZEM HCL 300 MG CAPCR PO SCH (07:50)
[2017-02-28 08:00] VITALS: O2SAT 95
[2017-02-28 09:22] LABS: BUN/CREATININE RATIO 19.4 (10-20); CALCIUM 10.1 mg/dl (8.5-10.1); CREATININE 0.68 mg/dl (0.60-1.20); POTASSIUM 3.1 mmol/L (3.5-5.1)
[2017-02-28] MEDS ORDERED: POTASSIUM CHLORIDE 10 MEQ TABCR PO STA (10:37)
--- NOTE | 2017-02-28 10:52 | Nephrology Progress Note ---
Nephrology Progress Note Date of Service: Feb 28, 2017. Subjective 71 yo female with hyponatremia/hypomag who has been slowly worsening over the past couple of months. pt with generalized weakness and tender points. has had multiple specialties doing extensive workup trying to determine the etiology of her weakness. Nephrology has been following for hyponatremia and hypomag which are chronic issues for her. pt was started on normal saline and lasix on monday to try to help with her hyponatremia and sodium levels worsened. meds were stopped. Objective Date Time Temp Pulse Resp B/P (MAP) Pulse Ox O2 Delivery O2 Flow Rate FiO2 02/28/17 08:00 95 Room Air 02/28/17 07:37 36.7 74 20 149/70 (96) 95 02/28/17 00:35 36.7 74 18 148/72 (97) 92 Room Air 02/28/17 00:15 Room Air 02/27/17 21:41 70 18 134/68 (90) 95 02/27/17 21:00 Room Air 02/27/17 15:25 36.6 70 18 122/74 (90) 96 Room Air Physical Exam: General-aaox3 Eyes-no scleral icterus ENT-mmm Neck-supple Lungs-clear Heart-regular Abdomen-bs+ s/nt/nd Extremities-no edema Neuro-generalized muscle weakness Current Inpatient Medications Medications (Trade) Dose Ordered Sig/Ana Route Start Time Stop Time Status Last Admin Dose Admin Enoxaparin Sodium (Lovenox Inj) 40 mg Q24H SQ 02/22/17 09:00 03/24/17 08:59 02/28/17 07:50 40 MG Acetaminophen (Tylenol Tab) 650 mg Q4H PRN PO 02/21/17 21:45 03/23/17 21:44 02/27/17 08:59 650 MG Ondansetron HCl (Zofran Inj) 4 mg Q6H PRN IV 02/21/17 21:45 03/23/17 21:44 02/24/17 07:47 4 MG Aspirin (Ecotrin Tab) 81 mg QAM PO 02/22/17 08:00 03/24/17 08:59 02/28/17 07:49 81 MG Bisacodyl (Dulcolax Supp) 10 mg DAILY PRN ID 02/21/17 22:15 03/23/17 22:14 Diltiazem HCl (Cardizem Cd Cap) 300 mg DAILY PO 02/22/17 08:00 03/24/17 08:59 02/28/17 07:50 300 MG Magnesium Hydroxide (Milk Of Magnesia Susp) 30 ml DAILY PRN PO 02/21/17 22:15 03/23/17 22:14 Magnesium Oxide (Mag-Ox Tab) 400 mg QID PO 02/22/17 08:00 03/24/17 08:59 02/28/17 07:49 400 MG Senna (Senokot Tab) 8.6 mg QAM PO 02/22/17 08:00 03/24/17 08:59 02/28/17 07:49 8.6 MG Thiamine HCl (Vitamin B-1 Tab) 50 mg QAM PO 02/22/17 08:00 03/24/17 08:59 02/28/17 07:49 50 MG Ergocalciferol (Vitamin D Cap) 50,000 interunit TuFr@0900 PO 02/24/17 09:00 03/26/17 08:59 02/28/17 07:50 50,000 INTERUNIT Enteral Nutritional Formula (Prosource No Carb) 30 ml BID PO 02/22/17 20:00 03/24/17 19:59 02/28/17 07:49 30 ML Metoclopramide HCl (Reglan Inj) 10 mg Q6H PRN IV 02/23/17 13:30 03/25/17 13:29 02/24/17 07:47 10 MG Prednisone (PredniSONE TAB) 10 mg DAILY PO 02/24/17 08:00 03/26/17 07:59 02/28/17 07:49 10 MG Enalaprilat 0.625 mg/Dextrose 25.5 ml @ 100 mls/hr Q6H PRN IV 02/23/17 23:30 03/25/17 23:29 02/25/17 23:18 100 MLS/HR Ampicillin Sodium/ Sulbactam Sodium 3000 mg/Sodium Chloride 108 ml @ 200 mls/hr Q6@0200,0800,1400,2000 IV 02/24/17 15:00 03/06/17 14:59 02/28/17 07:49 200 MLS/HR Escitalopram Oxalate (Lexapro Tab) 5 mg QAM PO 02/26/17 08:00 03/28/17 07:59 02/28/17 07:49 5 MG Lidocaine (Lidoderm Patch 5%) 1 patch QAM TD 02/26/17 08:00 03/28/17 07:59 02/28/17 07:50 1 PATCH Miscellaneous (Remove Lidoderm Patch) 1 ea DAILY@21 N/A 02/25/17 21:00 03/27/17 20:59 02/27/17 20:57 1 EA Metoprolol Tartrate (Lopressor Tab) 25 mg BID PO 02/26/17 08:00 03/28/17 07:59 02/28/17 07:49 25 MG Last 24 Hours Test 02/27/17 15:54 02/27/17 22:11 02/28/17 08:47 Sodium Level 129 mmol/L 130 mmol/L 132 mmol/L Potassium Level 4.0 mmol/L 3.5 mmol/L 3.1 mmol/L Chloride Level 92 mmol/L 94 mmol/L 96 mmol/L Carbon Dioxide Level 26 mmol/L 25 mmol/L 24 mmol/L Anion Gap 11.0 mmol/L 11.0 mmol/L 12.0 mmol/L Blood Urea Nitrogen 19 mg/dl 18 mg/dl 13 mg/dl Creatinine 0.82 mg/dl 0.75 mg/dl 0.68 mg/dl Est Creatinine Clear Calc Drug Dose 57.7 ml/min 63.1 ml/min 69.6 ml/min Estimated GFR () 84.0 93.6 102.7 Estimated GFR (Non- 72.5 80.8 88.6 BUN/Creatinine Ratio 22.8 23.9 19.4 Random Glucose 256 mg/dl 215 mg/dl 162 mg/dl Calcium Level 10.0 mg/dl 9.5 mg/dl 10.1 mg/dl Assessment & Plan hyponatremia-sodium stable off the normal saline and lasix combination. goal is to keep sodium above 130. no changes for now. volume status appears appropriate to me. hypomag-mag levels are stable. last checked yesterday and were stable at 1.5. hypercalcemia-attributed hypercalcemia to immobilization. calcium levels have improved and are in the normal range now. no changes from renal perspective. will continue to follow labs.
--- NOTE | 2017-02-28 13:54 | DIAGNOSTIC IMAGING REPORT ---
CT OF THE CHEST WITH IV CONTRAST CLINICAL HISTORY: Leiomyosarcoma. History of resection. COMPARISON STUDY: Chest x-ray dated 02/21/2017 TECHNIQUE: Following the IV administration of 94 mL of Optiray-320, CT of the thorax was performed from the thoracic inlet to the lung bases. Images are reviewed in the axial, sagittal, and coronal planes. IV contrast was administered without complication. A dose lowering technique was utilized adhering to the principles of ALARA. CT DOSE: 1479.15 mGycm FINDINGS: Thyroid: Imaged portions of the thyroid gland are normal in appearance. Thoracic aorta: The thoracic aorta is normal in course and caliber, noting standard 3-vessel arch anatomy. No aneurysm or dissection is seen. Pulmonary vasculature: The pulmonary trunk is normal in caliber. There are no central filling defects identified to suggest pulmonary embolus. Note that this examination was not protocoled for the evaluation of pulmonary emboli. HEART: There are coronary artery calcifications present. The heart is normal in size. Lungs and pleural spaces: No pleural effusions are visualized. There is no focal pulmonary consolidation. There are mild bibasal atelectatic changes. There is a 2 mm left lower lobe pulmonary nodule as visualized in image #[id number]. This remains unchanged from the prior outside [facility] CT scan dated 09/09/2016 Mediastinum: There is no mediastinal lymphadenopathy. Kathrin: Clear. Axilla: Clear. Upper abdomen: There is nonspecific soft tissue encasing the visualized portions of the celiac and superior mesenteric arteries. This would better assessed on abdominal CT scan. Skeletal structures: There are no lytic or blastic osseous lesions. IMPRESSION: 1. 2 mm left lower lobe pulmonary nodule, unchanged the prior August 2016 study 2. The visualized portions of the upper abdomen reveal nonspecific soft tissue surrounding the origins of the celiac and superior mesenteric arteries. This is incompletely assessed. Electronically signed by: Juanpablo Steele M.D. 02/28/2017 1:52 PM Dictated Date/Time: 02/28/2017 1:43 PM
--- NOTE | 2017-02-28 14:05 | DIAGNOSTIC IMAGING REPORT ---
ABD/PELVIS IV CONTRAST ONLY HISTORY: 71 years-old Female r/o recurrence acute generalized weakness. Concern for recurrent disease. COMPARISON: CT abdomen and pelvis 09/22/2016 and 08/30/2016 TECHNIQUE: Multiple axial CT images of the abdomen and pelvis were obtained following the intravenous administration of 94 mL Optiray 320. A dose lowering technique was used consistent with the principals of ANTHONY. FINDINGS: There is minimal dependent bibasilar atelectasis. There is no pneumoperitoneum identified. Imaged inferior cardiac chambers are mildly enlarged with coronary arterial calcifications. The liver and right adrenal gland are unremarkable. Gallbladder is mildly contracted. Post surgical changes of the upper abdomen are seen with interval resection of the large heterogeneous lobulated mass of the left upper abdomen. There is been resection of the left adrenal gland and partial resection of the pancreas with removal of the distal body and tail. Prior splenectomy and left-sided nephrectomy as well. There is mild stranding surrounding the celiac axis. Small 1.3 x 1.1 cm low attenuating collection is noted adjacent to suture material in the region of the anterior para renal space at the resection site of the pancreas. There are additional postsurgical changes of the central abdomen and mid mesentery with some stranding and focal fatty attenuating structure, 2.2 x 1.6 cm on image 184 within the right mid mesentery suggesting omental infarction, likely postsurgical. There is mild degree of right-sided perinephric inflammatory stranding. No hydronephrosis or renal calculus. Urinary bladder is collapsed with a Willson catheter in place and large air-fluid level. Prior hysterectomy. Moderate atherosclerotic plaquing of the abdominal aorta is noted. Not enlarged. Aortic lymph nodes are seen without bulky adenopathy identified. There is no bowel obstruction or focal bowel wall thickening. The appendix appears noninflamed. Mild nonspecific stranding is seen within the presacral tissues. Moderate stool burden of the rectum noted. Soft tissues are unremarkable. Bones appear intact without suspicious lytic or blastic foci. Advanced disc disease noted at L5-S1. IMPRESSION: 1. Extensive postsurgical changes of the upper abdomen with interval removal of the previously noted large complex lobulated mass originating within the region of the left adrenal gland. Splenectomy, left-sided nephrectomy and partial resection of the pancreas also noted. There is a small fluid collection, 1.3 cm adjacent to the suture material at the mid pancreatic body which may reflect seroma or pancreatic fluid collection. 2. 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 3. Mild nonspecific right perinephric and presacral edema. 4. Willson catheter noted within a partially collapsed bladder lumen. Large amount of air within the bladder is likely secondary to instrumentation. Correlate with urinalysis. The above report was generated using voice recognition software. It may contain grammatical, syntax or spelling errors. Electronically signed by: Willie Hong M.D. 02/28/2017 2:04 PM Dictated Date/Time: 02/28/2017 1:50 PM
--- NOTE | 2017-02-28 14:41 | Progress Note ---
Medicine Progress Note Date & Time of Visit: Feb 28, 2017 at 14:40. Subjective seen awake, alert, not in distress conversant, smiling more states she feels ok denies pain appetite improving per weakness slightly improving no other symptoms Objective Last 8 Hrs Date Time Temp Pulse Resp B/P (MAP) Pulse Ox O2 Delivery O2 Flow Rate FiO2 02/28/17 08:00 95 Room Air 02/28/17 07:37 36.7 74 20 149/70 (96) 95 Physical Exam: General- oriented x 3, not in distress, speaks in sentences with no effort Lungs- clear breath sounds, no rales/wheezes BL Heart- regular rhythm; no murmur, normal rate Abdomen- normal bowel sounds, soft, nontender Back- essentially normal Extremities- no pretibial edema, no calf tenderness Neuro- alert, oriented x 2; motor strength 4/5 UE, 3/5 LE Skin- warm & dry Laboratory Results: Last 24 Hours Test 02/27/17 15:54 02/27/17 22:11 02/28/17 08:47 Sodium Level 129 mmol/L 130 mmol/L 132 mmol/L Potassium Level 4.0 mmol/L 3.5 mmol/L 3.1 mmol/L Chloride Level 92 mmol/L 94 mmol/L 96 mmol/L Carbon Dioxide Level 26 mmol/L 25 mmol/L 24 mmol/L Anion Gap 11.0 mmol/L 11.0 mmol/L 12.0 mmol/L Blood Urea Nitrogen 19 mg/dl 18 mg/dl 13 mg/dl Creatinine 0.82 mg/dl 0.75 mg/dl 0.68 mg/dl Est Creatinine Clear Calc Drug Dose 57.7 ml/min 63.1 ml/min 69.6 ml/min Estimated GFR () 84.0 93.6 102.7 Estimated GFR (Non- 72.5 80.8 88.6 BUN/Creatinine Ratio 22.8 23.9 19.4 Random Glucose 256 mg/dl 215 mg/dl 162 mg/dl Calcium Level 10.0 mg/dl 9.5 mg/dl 10.1 mg/dl Assessment & Plan PROGRESSIVE WEAKNESS HX LEIOMYOSARCOMA - patient is s/p resection retroperitoneal sarcoma with left nephrectomy, distal pancreatectomy, [place] [facility] [place] - patient presenting with progressive generalized weakness, BLLE > BLUE over the past couple of months - has had progressive weakness that started during her hospitalization for the surgery - had extensive work up with rheumatology and neurology prior to discharge --likely Multifactorial: Electrolyte Imbalance: Hypo Na, K, Mg - d/c IV lasix and NSS, continue PRN K and Mg supplements - Cosyntropin Test negative - Nephro on board, appreciate the consult Neurologic Etiology - Neuro consulted MRI Brain and Cervical Spine: unrevealing no specific neuromuscular disorder identified at this time studies for MG pending may need muscle and nerve biopsy as an outpatient Rheumatologic Etiology discussed with Dr. Bedoya started trial of Prednisone 10mg po daily for joint pains, improving otherwise, does not fit any rheumatologic condition Deconditioning - STOP Baclofen PRN for hiccups, change to Reglan PRN - PT/OT Component of Depression consulted Psych, Nixonapro started, monitor Na -- CT chest and CT of abdomen and pelvis to check for possible recurrence: unrevealing follows with Surgeon in [facility] -- overall, patient's generalized weakness and mood is improving daily although rather slowly continue PT/OT HYPONATREMIA, HYPOMAGNESEMIA, HYPERCALCEMIA - has been a chronic ongoing issue - Ca+ with steady rise over the past month -- Na 129--> 132 IV NSS + Lasix--> discontinued per discussion with Nephro monitor Na -- Hypercalcemia improving -- replacing K and Mg monitor levels UTI, Enterococcus - patient reports dysuria, U/A suggest UTI - Ceftri changed to Unasyn Day 5 - no signs of sepsis - afebrile, clinically improving HTN - Metoprolol 25mg BID added BP improving - on usual Diltiazem PRN Enalapril HLD - LDL 75 - hold lipitor for now as patient having muscle weakness DVT PROPHYLAXIS - SQ Lovenox CODE STATUS - Patient is a full code as per my discussion with her. DISPO pending will need to return to [facility] for further PT/OT when medically stable Current Inpatient Medications: Current Inpatient Medications Medications (Trade) Dose Ordered Sig/Ana Route Start Time Stop Time Status Last Admin Dose Admin Enoxaparin Sodium (Lovenox Inj) 40 mg Q24H SQ 02/22/17 09:00 03/24/17 08:59 02/28/17 07:50 40 MG Acetaminophen (Tylenol Tab) 650 mg Q4H PRN PO 02/21/17 21:45 03/23/17 21:44 02/27/17 08:59 650 MG Ondansetron HCl (Zofran Inj) 4 mg Q6H PRN IV 02/21/17 21:45 03/23/17 21:44 02/24/17 07:47 4 MG Aspirin (Ecotrin Tab) 81 mg QAM PO 02/22/17 08:00 03/24/17 08:59 02/28/17 07:49 81 MG Bisacodyl (Dulcolax Supp) 10 mg DAILY PRN [place] 02/21/17 22:15 03/23/17 22:14 Diltiazem HCl (Cardizem Cd Cap) 300 mg DAILY PO 02/22/17 08:00 03/24/17 08:59 02/28/17 07:50 300 MG Magnesium Hydroxide (Milk Of Magnesia Susp) 30 ml DAILY PRN PO 02/21/17 22:15 03/23/17 22:14 Magnesium Oxide (Mag-Ox Tab) 400 mg QID PO 02/22/17 08:00 03/24/17 08:59 02/28/17 11:12 400 MG Senna (Senokot Tab) 8.6 mg QAM PO 02/22/17 08:00 03/24/17 08:59 02/28/17 07:49 8.6 MG Thiamine HCl (Vitamin B-1 Tab) 50 mg QAM PO 02/22/17 08:00 03/24/17 08:59 02/28/17 07:49 50 MG Ergocalciferol (Vitamin D Cap) 50,000 interunit TuFr@0900 PO 02/24/17 09:00 03/26/17 08:59 02/28/17 07:50 50,000 INTERUNIT Enteral Nutritional Formula (Prosource No Carb) 30 ml BID PO 02/22/17 20:00 03/24/17 19:59 02/28/17 07:49 30 ML Metoclopramide HCl (Reglan Inj) 10 mg Q6H PRN IV 02/23/17 13:30 03/25/17 13:29 02/24/17 07:47 10 MG Prednisone (PredniSONE TAB) 10 mg DAILY PO 02/24/17 08:00 03/26/17 07:59 02/28/17 07:49 10 MG Enalaprilat 0.625 mg/Dextrose 25.5 ml @ 100 mls/hr Q6H PRN IV 02/23/17 23:30 03/25/17 23:29 02/25/17 23:18 100 MLS/HR Ampicillin Sodium/ Sulbactam Sodium 3000 mg/Sodium Chloride 108 ml @ 200 mls/hr Q6@0200,0800,1400,2000 IV 02/24/17 15:00 03/06/17 14:59 02/28/17 13:19 200 MLS/HR Escitalopram Oxalate (Lexapro Tab) 5 mg QAM PO 02/26/17 08:00 03/28/17 07:59 02/28/17 07:49 5 MG Lidocaine (Lidoderm Patch 5%) 1 patch QAM TD 02/26/17 08:00 03/28/17 07:59 02/28/17 07:50 1 PATCH Miscellaneous (Remove Lidoderm Patch) 1 ea DAILY@21 N/A 02/25/17 21:00 03/27/17 20:59 02/27/17 20:57 1 EA Metoprolol Tartrate (Lopressor Tab) 25 mg BID PO 02/26/17 08:00 03/28/17 07:59 02/28/17 07:49 25 MG
[2017-02-28 14:58] VITALS: BP 147/83; PULSE 72; TEMP 36.7; O2SAT 94
[2017-02-28 19:58] VITALS: BP 140/82; PULSE 76
[2017-03-01 00:11] VITALS: BP 168/90; PULSE 76; TEMP 36.7; O2SAT 96
[2017-03-01] MEDS: AMPICILLIN/SULBACTAM SOD INJ 3,000 MG in SODIUM CHLORIDE 0.9% 100ML 100 ML IV SCH ×4 (02:18→21:17)
[2017-03-01 07:12] VITALS: BP 164/76; PULSE 71; TEMP 36.5; O2SAT 95
[2017-03-01] MEDS: LIDODERM (LIDOCAINE) PATCH 5% TD SCH (07:41)
[2017-03-01] MEDS: ENOXAPARIN 40 MG/0.4 ML SYR SQ SCH (07:41)
[2017-03-01] MEDS: METOPROLOL TARTRATE 25 MG TAB PO SCH ×2 (07:42→21:25)
[2017-03-01] MEDS: PROSOURCE NOCARB 30ML/PKT PO SCH ×2 (07:42→21:19)
[2017-03-01] MEDS: ASPIRIN 81 MG ECTAB PO SCH (07:42)
[2017-03-01] MEDS: SENNA 8.6 MG TAB PO SCH (07:42)
[2017-03-01] MEDS: DILTIAZEM HCL 300 MG CAPCR PO SCH (07:42)
[2017-03-01] MEDS: THIAMINE HCL 50 MG TAB PO SCH (07:42)
[2017-03-01] MEDS: ESCITALOPRAM OXALATE 10 MG TAB PO SCH (07:42)
[2017-03-01 08:00] VITALS: O2SAT 95
[2017-03-01 09:50] LABS: BUN/CREATININE RATIO 24.9 (10-20); CALCIUM 10.1 mg/dl (8.5-10.1); CREATININE 0.61 mg/dl (0.60-1.20); POTASSIUM 3.2 mmol/L (3.5-5.1)
[2017-03-01 09:52] LABS: MAGNESIUM 1.4 mg/dl (1.8-2.4)
[2017-03-01 15:05] VITALS: BP 161/91; PULSE 75; TEMP 36.8; O2SAT 95
--- NOTE | 2017-03-01 18:06 | Progress Note ---
Subjective Date of Service: Mar 01, 2017. Subjective Pt evaluation today including: conversation w/ patient, physical exam, lab review, review of studies, review of inpatient medication list Saw/examined the patient in room 460 +weakness persists slowed psychomotor response Has no pain Good PO intake as per patient Problem List Medical Problems: (1) Hypernatremia Status: Acute (2) Hypomagnesemia Status: Acute (3) Weakness Status: Acute Review of Systems Constitutional: + weakness, + fatigue Respiratory: No shortness of breath Cardiac: No chest pain Abdomen: No pain, No nausea, No vomiting, No diarrhea Medications Current Inpatient Medications Medications (Trade) Dose Ordered Sig/Ana Route Start Time Stop Time Status Last Admin Dose Admin Enoxaparin Sodium (Lovenox Inj) 40 mg Q24H SQ 02/22/17 09:00 03/24/17 08:59 03/01/17 07:41 40 MG Acetaminophen (Tylenol Tab) 650 mg Q4H PRN PO 02/21/17 21:45 03/23/17 21:44 02/27/17 08:59 650 MG Ondansetron HCl (Zofran Inj) 4 mg Q6H PRN IV 02/21/17 21:45 03/23/17 21:44 02/24/17 07:47 4 MG Aspirin (Ecotrin Tab) 81 mg QAM PO 02/22/17 08:00 03/24/17 08:59 03/01/17 07:42 81 MG Bisacodyl (Dulcolax Supp) 10 mg DAILY PRN ID 02/21/17 22:15 03/23/17 22:14 Diltiazem HCl (Cardizem Cd Cap) 300 mg DAILY PO 02/22/17 08:00 03/24/17 08:59 03/01/17 07:42 300 MG Magnesium Hydroxide (Milk Of Magnesia Susp) 30 ml DAILY PRN PO 02/21/17 22:15 03/23/17 22:14 Senna (Senokot Tab) 8.6 mg QAM PO 02/22/17 08:00 03/24/17 08:59 03/01/17 07:42 8.6 MG Thiamine HCl (Vitamin B-1 Tab) 50 mg QAM PO 02/22/17 08:00 03/24/17 08:59 03/01/17 07:42 50 MG Ergocalciferol (Vitamin D Cap) 50,000 interunit TuFr@0900 PO 02/24/17 09:00 03/26/17 08:59 02/28/17 07:50 50,000 INTERUNIT Enteral Nutritional Formula (Prosource No Carb) 30 ml BID PO 02/22/17 20:00 03/24/17 19:59 03/01/17 07:42 30 ML Metoclopramide HCl (Reglan Inj) 10 mg Q6H PRN IV 02/23/17 13:30 03/25/17 13:29 02/24/17 07:47 10 MG Prednisone (PredniSONE TAB) 10 mg DAILY PO 02/24/17 08:00 03/26/17 07:59 03/01/17 07:42 10 MG Enalaprilat 0.625 mg/Dextrose 25.5 ml @ 100 mls/hr Q6H PRN IV 02/23/17 23:30 03/25/17 23:29 02/25/17 23:18 100 MLS/HR Ampicillin Sodium/ Sulbactam Sodium 3000 mg/Sodium Chloride 108 ml @ 200 mls/hr Q6@0200,0800,1400,2000 IV 02/24/17 15:00 03/06/17 14:59 03/01/17 13:29 200 MLS/HR Escitalopram Oxalate (Lexapro Tab) 5 mg QAM PO 02/26/17 08:00 03/28/17 07:59 03/01/17 07:42 5 MG Lidocaine (Lidoderm Patch 5%) 1 patch QAM TD 02/26/17 08:00 03/28/17 07:59 03/01/17 07:41 1 PATCH Miscellaneous (Remove Lidoderm Patch) 1 ea DAILY@21 N/A 02/25/17 21:00 03/27/17 20:59 02/28/17 20:33 1 EA Metoprolol Tartrate (Lopressor Tab) 25 mg BID PO 02/26/17 08:00 03/28/17 07:59 03/01/17 07:42 25 MG Objective Vital Signs Date Time Temp Pulse Resp B/P (MAP) Pulse Ox O2 Delivery O2 Flow Rate FiO2 03/01/17 16:00 Room Air 03/01/17 15:05 36.8 75 20 161/91 (114) 95 Room Air 03/01/17 08:00 95 Room Air 03/01/17 07:12 36.5 71 20 164/76 (105) 95 Room Air 03/01/17 00:11 36.7 76 20 168/90 (116) 96 Room Air 03/01/17 00:00 Room Air 02/28/17 19:58 76 140/82 (101) Physical Exam General Appearance: no apparent distress Respiratory/Chest: lungs clear, normal breath sounds, no respiratory distress, no accessory muscle use Cardiovascular: regular rate, rhythm, no edema, no murmur Abdomen: normal bowel sounds, non tender, soft Extremities: normal inspection, no pedal edema Laboratory Results Last 24 Hours Test 03/01/17 08:36 Sodium Level 134 mmol/L Potassium Level 3.2 mmol/L Chloride Level 98 mmol/L Carbon Dioxide Level 27 mmol/L Anion Gap 9.0 mmol/L Blood Urea Nitrogen 15 mg/dl Creatinine 0.61 mg/dl Est Creatinine Clear Calc Drug Dose 77.5 ml/min Estimated GFR () 106.5 Estimated GFR (Non- 91.9 BUN/Creatinine Ratio 24.9 Random Glucose 159 mg/dl Calcium Level 10.1 mg/dl Magnesium Level 1.4 mg/dl Assessment and Plan PROGRESSIVE WEAKNESS 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 patient continues to be weak continue PT/OT while in patient outpatient nerve/muscle biopsy continue prednisone for now as per rheumatology plan is to get patient back to [facility] in 1-2 days - patient is s/p resection retroperitoneal sarcoma with left nephrectomy, distal pancreatectomy, and splenectomy at [facility] 12/30/16 - patient presenting with progressive generalized weakness, BLLE > BLUE over the past couple of months - has had progressive weakness that started during her hospitalization for the surgery - had extensive work up with rheumatology and neurology prior to discharge --likely Multifactorial: Electrolyte Imbalance: Hypo Na, K, Mg - d/c IV lasix and NSS, continue PRN K and Mg supplements - Cosyntropin Test negative - Nephro on board, appreciate the consult Neurologic Etiology - Neuro consulted MRI Brain and Cervical Spine: unrevealing no specific neuromuscular disorder identified at this time studies for MG pending may need muscle and nerve biopsy as an outpatient Rheumatologic Etiology discussed with Dr. Bedoya started trial of Prednisone 10mg po daily for joint pains, improving otherwise, does not fit any rheumatologic condition Deconditioning - STOP Baclofen PRN for hiccups, change to Reglan PRN - PT/OT Component of Depression consulted Psych, Lexapro started, monitor Na -- CT chest and CT of abdomen and pelvis to check for possible recurrence: unrevealing follows with Surgeon in [facility] -- overall, patient's generalized weakness and mood is improving daily although rather slowly continue PT/OT HYPONATREMIA, HYPOMAGNESEMIA, HYPERCALCEMIA - has been a chronic ongoing issue - Ca+ with steady rise over the past month -- Na 129--> 132 IV NSS + Lasix--> discontinued per discussion with Nephro monitor Na -- Hypercalcemia improving -- replacing K and Mg monitor levels UTI, Enterococcus - patient reports dysuria, U/A suggest UTI - Ceftri changed to Unasyn Day 5 - no signs of sepsis - afebrile, clinically improving HTN - Metoprolol 25mg BID added BP improving - on usual Diltiazem PRN Enalapril HLD - LDL 75 - hold lipitor for now as patient having muscle weakness DVT PROPHYLAXIS - SQ Lovenox CODE STATUS - Patient is a full code as per my discussion with her. DISPO pending will need to return to [facility] for further PT/OT when medically stable
[2017-03-01] MEDS ORDERED: POTASSIUM CHLR 20 MEQ / WTR 20 MEQ in PREMIXED WATER 100 ML IV STA (18:09)
--- NOTE | 2017-03-01 18:37 | ELECTROENCEPHALOGRAPH REPORT ---
CLINICAL DIAGNOSIS: Mild encephalopathy with generalized weakness. EEG DIAGNOSIS: Mildly diffusely abnormal EEG during wakefulness. DESCRIPTION OF TRACING: This EEG was done as a bedside recording with a simultaneous video analysis of patient movement and behavior. No stimulus parameters were utilized. Drowsiness is not clearly recorded. During apparent clinical wakefulness, there is evidence for a background rhythm in the lower alpha and upper theta range between 8 and 9 Hz of maximum frequency and 30 microvolts of maximum amplitude. This is maximum in posterior head regions bilaterally symmetrical. Polymorphic mid to lower frequency modest amplitude theta activity intermixed with waveforms in the delta range is seen over all head regions without clear focal or regional predominance other than they are a little more prominent bifrontally. Beta activity is difficult to ascertain beneath the higher amplitude activity in the frontal regions. At no time during the waking tracing is there evidence for potentially epileptogenic activity in the form of polyspike or spike wave bursts, focal sharp waves or focal spikes. INTERPRETATION: This EEG reveals evidence for mild nonspecific generalized encephalopathy without focal abnormalities and without potentially epileptogenic features. The pattern is nonspecific and correlates with any one of a number of toxic or metabolic encephalopathies and in this particular case may correlate with the electrolyte disturbances that are part of the clinical syndrome.
[2017-03-01] MEDS: POTASSIUM CHLR 10MEQ / WTR IV SCH ×2 (19:14→22:02)
[2017-03-01] MEDS: MAGNESIUM SULFATE 1GM / D5W 1 GM in PREMIXED IN D5W 100 ML IV SCH ×2 (19:14→22:01)
[2017-03-01 21:22] VITALS: BP 142/85; PULSE 74; O2SAT 94
[2017-03-02 00:31] VITALS: BP 178/96; PULSE 77; TEMP 36.8; O2SAT 96
[2017-03-02 02:05] VITALS: BP 155/77
[2017-03-02] MEDS: AMPICILLIN/SULBACTAM SOD INJ 3,000 MG in SODIUM CHLORIDE 0.9% 100ML 100 ML IV SCH ×2 (02:15→08:07)
[2017-03-02 07:18] VITALS: BP 164/77; PULSE 68; TEMP 36.8; O2SAT 96
[2017-03-02] MEDS: THIAMINE HCL 50 MG TAB PO SCH (08:49)
[2017-03-02] MEDS: DILTIAZEM HCL 300 MG CAPCR PO SCH (08:50)
[2017-03-02] MEDS: ESCITALOPRAM OXALATE 10 MG TAB PO SCH (08:50)
[2017-03-02] MEDS: METOPROLOL TARTRATE 25 MG TAB PO SCH (08:51)
[2017-03-02] MEDS: ASPIRIN 81 MG ECTAB PO SCH (08:51)
[2017-03-02] MEDS: SENNA 8.6 MG TAB PO SCH (08:52)
[2017-03-02] MEDS: PROSOURCE NOCARB 30ML/PKT PO SCH (08:52)
[2017-03-02] MEDS: ENOXAPARIN 40 MG/0.4 ML SYR SQ SCH (08:53)
[2017-03-02] MEDS: LIDODERM (LIDOCAINE) PATCH 5% TD SCH (08:53)
[2017-03-02 09:09] LABS: BUN/CREATININE RATIO 23.2 (10-20); CALCIUM 10.3 mg/dl (8.5-10.1); CREATININE 0.76 mg/dl (0.60-1.20); MAGNESIUM 1.6 mg/dl (1.8-2.4)
--- NOTE | 2017-03-02 10:08 | Progress Note ---
Subjective Date of Service: Mar 02, 2017. Subjective Pt evaluation today including: conversation w/ patient, physical exam, lab review, review of studies, review of inpatient medication list Saw/examined the patient in room 460 She is weak; but feels ready to go to [facility] no problems/issues to note Problem List Medical Problems: (1) Hypernatremia Status: Acute (2) Hypomagnesemia Status: Acute (3) Weakness Status: Acute Review of Systems Constitutional: + weakness, No fever, No chills Respiratory: No shortness of breath Cardiac: No chest pain Abdomen: No pain, No nausea, No vomiting, No diarrhea Medications Current Inpatient Medications Medications (Trade) Dose Ordered Sig/Ana Route Start Time Stop Time Status Last Admin Dose Admin Enoxaparin Sodium (Lovenox Inj) 40 mg Q24H SQ 02/22/17 09:00 03/24/17 08:59 03/02/17 08:53 40 MG Acetaminophen (Tylenol Tab) 650 mg Q4H PRN PO 02/21/17 21:45 03/23/17 21:44 02/27/17 08:59 650 MG Ondansetron HCl (Zofran Inj) 4 mg Q6H PRN IV 02/21/17 21:45 03/23/17 21:44 02/24/17 07:47 4 MG Aspirin (Ecotrin Tab) 81 mg QAM PO 02/22/17 08:00 03/24/17 08:59 03/02/17 08:51 81 MG Bisacodyl (Dulcolax Supp) 10 mg DAILY PRN NM 02/21/17 22:15 03/23/17 22:14 Diltiazem HCl (Cardizem Cd Cap) 300 mg DAILY PO 02/22/17 08:00 03/24/17 08:59 03/02/17 08:50 300 MG Magnesium Hydroxide (Milk Of Magnesia Susp) 30 ml DAILY PRN PO 02/21/17 22:15 03/23/17 22:14 Senna (Senokot Tab) 8.6 mg QAM PO 02/22/17 08:00 03/24/17 08:59 03/02/17 08:52 8.6 MG Thiamine HCl (Vitamin B-1 Tab) 50 mg QAM PO 02/22/17 08:00 03/24/17 08:59 03/02/17 08:49 50 MG Ergocalciferol (Vitamin D Cap) 50,000 interunit TuFr@0900 PO 02/24/17 09:00 03/26/17 08:59 02/28/17 07:50 50,000 INTERUNIT Enteral Nutritional Formula (Prosource No Carb) 30 ml BID PO 02/22/17 20:00 03/24/17 19:59 03/02/17 08:52 30 ML Metoclopramide HCl (Reglan Inj) 10 mg Q6H PRN IV 02/23/17 13:30 03/25/17 13:29 02/24/17 07:47 10 MG Prednisone (PredniSONE TAB) 10 mg DAILY PO 02/24/17 08:00 03/26/17 07:59 03/02/17 08:52 10 MG Enalaprilat 0.625 mg/Dextrose 25.5 ml @ 100 mls/hr Q6H PRN IV 02/23/17 23:30 03/25/17 23:29 02/25/17 23:18 100 MLS/HR Ampicillin Sodium/ Sulbactam Sodium 3000 mg/Sodium Chloride 108 ml @ 200 mls/hr Q6@0200,0800,1400,2000 IV 02/24/17 15:00 03/06/17 14:59 03/02/17 08:07 200 MLS/HR Escitalopram Oxalate (Lexapro Tab) 5 mg QAM PO 02/26/17 08:00 03/28/17 07:59 03/02/17 08:50 5 MG Lidocaine (Lidoderm Patch 5%) 1 patch QAM TD 02/26/17 08:00 03/28/17 07:59 03/02/17 08:53 1 PATCH Miscellaneous (Remove Lidoderm Patch) 1 ea DAILY@21 N/A 02/25/17 21:00 03/27/17 20:59 03/01/17 21:28 1 EA Metoprolol Tartrate (Lopressor Tab) 25 mg BID PO 02/26/17 08:00 03/28/17 07:59 03/02/17 08:51 25 MG Objective Vital Signs Date Time Temp Pulse Resp B/P (MAP) Pulse Ox O2 Delivery O2 Flow Rate FiO2 03/02/17 07:18 36.8 68 18 164/77 (106) 96 Room Air 03/02/17 02:05 155/77 (103) 03/02/17 00:31 36.8 77 18 178/96 (123) 96 Room Air 03/02/17 00:00 Room Air 03/01/17 21:22 74 142/85 (104) 94 Room Air 03/01/17 20:00 Room Air 03/01/17 16:00 Room Air 03/01/17 15:05 36.8 75 20 161/91 (114) 95 Room Air Physical Exam General Appearance: no apparent distress Respiratory/Chest: no respiratory distress, no accessory muscle use Cardiovascular: regular rate, rhythm Neurologic/Psychiatric: alert, normal mood/affect, + motor weakness Laboratory Results Last 24 Hours Test 03/02/17 08:14 Sodium Level 133 mmol/L Potassium Level 3.0 mmol/L Chloride Level 97 mmol/L Carbon Dioxide Level 25 mmol/L Anion Gap 11.0 mmol/L Blood Urea Nitrogen 18 mg/dl Creatinine 0.76 mg/dl Est Creatinine Clear Calc Drug Dose 62.2 ml/min Estimated GFR () 92.1 Estimated GFR (Non- 79.5 BUN/Creatinine Ratio 23.2 Random Glucose 159 mg/dl Calcium Level 10.3 mg/dl Magnesium Level 1.6 mg/dl Assessment and Plan PROGRESSIVE WEAKNESS HX LEIOMYOSARCOMA 03/02 PT/OT oral K and Mg as per nephrology prednisone outpatient muscle biopsy, nerve testing d/c back to [facility] today 03/01 patient continues to be weak continue PT/OT while in patient outpatient nerve/muscle biopsy continue prednisone for now as per rheumatology plan is to get patient back to [facility] in 1-2 days - patient is s/p resection retroperitoneal sarcoma with left nephrectomy, distal pancreatectomy, and splenectomy at [facility] [place] 12/30/16 - patient presenting with progressive generalized weakness, BLLE > BLUE over the past couple of months - has had progressive weakness that started during her hospitalization for the surgery - had extensive work up with rheumatology and neurology prior to discharge --likely Multifactorial: Electrolyte Imbalance: Hypo Na, K, Mg - d/c IV lasix and NSS, continue PRN K and Mg supplements - Cosyntropin Test negative - Nephro on board, appreciate the consult Neurologic Etiology - Neuro consulted MRI Brain and Cervical Spine: unrevealing no specific neuromuscular disorder identified at this time studies for MG pending may need muscle and nerve biopsy as an outpatient Rheumatologic Etiology discussed with Dr. Bedoya started trial of Prednisone 10mg po daily for joint pains, improving otherwise, does not fit any rheumatologic condition Deconditioning - STOP Baclofen PRN for hiccups, change to Reglan PRN - PT/OT Component of Depression consulted Psych, Lexapro started, monitor Na -- CT chest and CT of abdomen and pelvis to check for possible recurrence: unrevealing follows with Surgeon in [facility] -- overall, patient's generalized weakness and mood is improving daily although rather slowly continue PT/OT HYPONATREMIA, HYPOMAGNESEMIA, HYPERCALCEMIA - has been a chronic ongoing issue - Ca+ with steady rise over the past month -- Na 129--> 132 IV NSS + Lasix--> discontinued per discussion with Nephro monitor Na -- Hypercalcemia improving -- replacing K and Mg monitor levels UTI, Enterococcus - patient reports dysuria, U/A suggest UTI - Ceftri changed to Unasyn Day 5 - no signs of sepsis - afebrile, clinically improving HTN - Metoprolol 25mg BID added BP improving - on usual Diltiazem PRN Enalapril HLD - LDL 75 - hold lipitor for now as patient having muscle weakness DVT PROPHYLAXIS - SQ Lovenox CODE STATUS - Patient is a full code as per my discussion with her. DISPO pending will need to return to [facility] for further PT/OT when medically stable
[2017-03-02] MEDS ORDERED: LPR25 PO (10:15)
[2017-03-02] MEDS ORDERED: LXP10 PO (10:15)
[2017-03-02] MEDS ORDERED: PRD10 PO (10:15)
--- NOTE | 2017-03-02 10:17 | Discharge Instructions ---
Discharge Instructions Date of Service Mar 02, 2017. Admission Reason for Admission: Generalized Weakness Discharge Discharge Diagnosis / Problem: Generalized Weakness Discharge Goals Goal(s): Decrease discomfort, Improve function, Diagnostic testing, Therapeutic intervention Activity Recommendations Activity Level: Up Ad Marylou Therapies: Physical Therapy, Occupational Therapy . Additional Information Patient informed of condition: Yes Advance Directives: No DNR: No Level of Care: Acute Rehab Communicable Disease: No Prognosis: Stable Willson Catheter: Yes Instructions / Follow-Up Instructions / Follow-Up Patient to be on prednisone 10mg daily - outpatient rheumatology input recommended Started on metoprolol 25mg BID - monitor BP and adjust accordingly Outpatient neurology input - possible muscle biopsy, EMG/NCV Current Hospital Diet Patient's current hospital diet: Regular Diet, Low Lactose Diet Discharge Diet Recommended Diet: Regular Diet, Low Lactose Diet Pending Studies Studies pending at discharge: no Laboratory Results Hemoglobin A1c Test 02/02/17 06:56 Range/Units Estimated Average Glucose 154 mg/dl Hemoglobin A1c 7.0 H 4.5-5.6 % Lipid Panel Test 02/26/17 07:35 Range/Units Triglycerides Level 118 0-150 mg/dl Cholesterol Level 156 0-200 mg/dl HDL Cholesterol 57 mg/dl Cholesterol/HDL Ratio 2.7 LDL Cholesterol, Calculated 75 mg/dl Medical Emergencies . Who to Call and When: Medical Emergencies: If at any time you feel your situation is an emergency, please call 911 immediately. . Non-Emergent Contact Non-Emergency issues call your: Primary Care Provider . . "Provider Documentation" section prepared by Marybeth King. . Core Measure Problem Core Measures: None
--- NOTE | 2017-03-02 10:19 | Discharge Summary ---
Discharge Summary Date of Service Mar 02, 2017. Discharge Summary Admission Date: Feb 21, 2017 at 21:46 Discharge Date: Mar 02, 2017 Discharge Disposition: [facility] facility Principal Diagnosis: Generalized Weakness Medication Reconciliation New Medications: Escitalopram Oxalate (Escitalopram Oxalate) 10 Mg Tab 5 MG PO QAM for 30 Days, #30 TAB Metoprolol Tartrate (Lopressor) 25 Mg Tab 25 MG PO BID for 30 Days, #60 TAB Prednisone (Prednisone) 10 Mg Tab 10 MG PO DAILY for 30 Days, #30 TAB Continued Medications: Acetaminophen (Tylenol) 500 Mg Tab 500 MG PO Q6H PRN for Pain, TAB Aspirin (Aspirin Chewable) 81 Mg Chew 81 MG PO QPM, TAB Baclofen (Lioresal) 10 Mg Tab 5 MG PO Q12H PRN for hiccups, TAB Bisacodyl (Dulcolax) 10 Mg Sup 1 SUPP IN UD PRN for Constipation, SUP NEEDED DAY 4 AFTER 9 SHIFTS WITHOUT A BOWEL MOVEMENT, ADMINISTER IN THE AM Cholecalciferol (Vitamin D3) 50,000 Unit Cap 00821 INTER.UNIT PO 2XWK ORDER 02/16/2017 FOR 8 WEEKS. TAKE THIS MEDICATION DIRECTED EVERY MONDAY AND MONDAY Diltiazem Hcl Coated Beads (Diltiazem Hcl Er) 300 Mg Cap 300 MG PO DAILY Esomeprazole Magnesium (Nexium) 20 Mg Cap 20 MG PO DAILY, CAP Magnesium Hydroxide (Milk Of Magnesia) 30 Ml Susp 30 ML PO UD PRN for Constipation, ML NEEDED DAY 3 AFTER 6 SHIFTS WITHOUT A BOWEL MOVEMENT, ADMINISTER IN THE AM Magnesium Oxide (Mag-Ox) 400 Mg Tab 400 MG PO QID, TAB Nutritional Supplements (Prosource) 1 Liq Liq 30 ML PO BID Sennosides (Senokot) 8.6 Mg Tab 8.6 MG PO QAM, TAB Sodium Phosphate/Biphosphate (Fleet Enema) Aneta 1 EA IN UD PRN for Constipation, BTL NEEDED ON DAY 4 IF NO BOWEL MOVEMENT BY 1300 HOURS Thiamine Hcl (Vitamin B-1) 50 Mg Tab 50 MG PO QAM, TAB [Fortified Milkshake] () 1 EA PO DAILY ONE EVERY AFTERNOON [Premarin Cream] () 0.625 MG/GM CR 1 APPLN PV WK Discontinued Medications: Atorvastatin (Lipitor) 10 Mg Tab 10 MG PO HS, TAB Prednisone (Prednisone) 5 Mg Tab 5 MG PO QAM, TAB Admission Information HPI (per Admitting provider): 71 year old female who presents to the ER with worsening generalized weakness. Patient recent past medical is complication. 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 Course has been complicated since that time with progressive generalized weakness and critical hyponatremia. Patient was admitted to [facility] 01/20 - 02/02 for generalized weakness and hyponatremia. Patient was evaluated by neurology who advised no further work up at that time. Weakness was felt to be due to patient's recent surgery and electrolyte derangements. At discharge, patient was started on Tolvaptan for the hyponatremia which can only be taken for month. Patient completed the course a couple of days ago. She was discharged to [facility] for rehab. Patient has continued to get worse. She currently requires assist of two to get out of bed to the chair and cannot bear weight on her legs. She has weakness in her upper extremities as well however the legs are worse. She denies any pain, numbness, or tingling. She denies any difficulty speaking or swallowing. No chest pain or shortness of breath. Chronic lower extremity weakness is unchanged. She denies lightheadedness and dizziness. Appetite has been fair. She denies abdominal pain, nausea, vomiting, or diarrhea. She reports feeling chills on occasion but denies fevers. Reports some urinary burning recently. Work up in the ED is unremarkable. Physical Exam (per Admitting): General Appearance: no apparent distress Head: normocephalic, atraumatic Eyes: normal inspection, sclerae normal ENT: hearing grossly normal Neck: supple, no JVD Respiratory/Chest: lungs clear, normal breath sounds, no respiratory distress Cardiovascular: regular rate, rhythm, normal peripheral pulses, + pertinent finding (+1-2 BLLE edema) Abdomen/GI: normal bowel sounds, non tender, soft Extremities/Musculoskelatal: normal inspection, no calf tenderness Neurologic/Psych: alert, oriented x 3, + motor weakness (BLLE > BLUE ) Skin: normal color, warm/dry Hospital Course PROGRESSIVE WEAKNESS HX LEIOMYOSARCOMA 03/02 PT/OT oral K and Mg as per nephrology prednisone outpatient muscle biopsy, nerve testing d/c back to [facility] 03/01 patient continues to be weak continue PT/OT while in patient outpatient nerve/muscle biopsy continue prednisone for now as per rheumatology plan is to get patient back to [facility] in 1-2 days - patient is s/p resection retroperitoneal sarcoma with left nephrectomy, distal pancreatectomy, and splenectomy at [facility] 12/30/16 - patient presenting with progressive generalized weakness, BLLE > BLUE over the past couple of months - has had progressive weakness that started during her hospitalization for the surgery - had extensive work up with rheumatology and neurology prior to discharge --likely Multifactorial: Electrolyte Imbalance: Hypo Na, K, Mg - d/c IV lasix and NSS, continue PRN K and Mg supplements - Cosyntropin Test negative - Nephro on board, appreciate the consult Neurologic Etiology - Neuro consulted MRI Brain and Cervical Spine: unrevealing no specific neuromuscular disorder identified at this time studies for MG pending may need muscle and nerve biopsy as an outpatient Rheumatologic Etiology discussed with Dr. Bedoya started trial of Prednisone 10mg po daily for joint pains, improving otherwise, does not fit any rheumatologic condition Deconditioning - STOP Baclofen PRN for hiccups, change to Reglan PRN - PT/OT Component of Depression consulted Psych, Lexapro started, monitor Na -- CT chest and CT of abdomen and pelvis to check for possible recurrence: unrevealing follows with Surgeon in [facility] -- overall, patient's generalized weakness and mood is improving daily although rather slowly continue PT/OT HYPONATREMIA, HYPOMAGNESEMIA, HYPERCALCEMIA - has been a chronic ongoing issue - Ca+ with steady rise over the past month -- Na 129--> 132 IV NSS + Lasix--> discontinued per discussion with Nephro monitor Na -- Hypercalcemia improving -- replacing K and Mg monitor levels UTI, Enterococcus - patient reports dysuria, U/A suggest UTI - Ceftri changed to Unasyn Day 5 - no signs of sepsis - afebrile, clinically improving HTN - Metoprolol 25mg BID added BP improving - on usual Diltiazem PRN Enalapril HLD - LDL 75 - hold lipitor for now as patient having muscle weakness DVT PROPHYLAXIS - SQ Lovenox CODE STATUS - Patient is a full code as per my discussion with her. DISPO pending will need to return to [facility] for further PT/OT when medically stable Total time spent on discharge = 45 minutes This includes examination of the patient, discharge planning, medication reconciliation, and communication with other providers. Discharge Instructions Patient to be on prednisone 10mg daily - outpatient rheumatology input recommended Started on metoprolol 25mg BID - monitor BP and adjust accordingly Outpatient neurology input - possible muscle biopsy, EMG/NCV
--- NOTE | 2017-03-02 10:22 | Nephrology Progress Note ---
Nephrology Progress Note Date of Service: Mar 02, 2017. Subjective no pain or dyspnea; still very weak; for poss d/c today; N w/ po frequently ongoing hiccups Objective Date Time Temp Pulse Resp B/P (MAP) Pulse Ox O2 Delivery O2 Flow Rate FiO2 03/02/17 07:18 36.8 68 18 164/77 (106) 96 Room Air 03/02/17 02:05 155/77 (103) 03/02/17 00:31 36.8 77 18 178/96 (123) 96 Room Air 03/02/17 00:00 Room Air 03/01/17 21:22 74 142/85 (104) 94 Room Air 03/01/17 20:00 Room Air 03/01/17 16:00 Room Air 03/01/17 15:05 36.8 75 20 161/91 (114) 95 Room Air Physical Exam: General-aaox3 Eyes-no scleral icterus ENT-mmm Neck-stiff/ pulled to R Lungs-clear but diminished BL bases Heart-regular Abdomen-bs+ s/nt/nd, miles+ Extremities-no edema Neuro-generalized muscle weakness Current Inpatient Medications Medications (Trade) Dose Ordered Sig/Ana Route Start Time Stop Time Status Last Admin Dose Admin Enoxaparin Sodium (Lovenox Inj) 40 mg Q24H SQ 02/22/17 09:00 03/24/17 08:59 03/02/17 08:53 40 MG Acetaminophen (Tylenol Tab) 650 mg Q4H PRN PO 02/21/17 21:45 03/23/17 21:44 02/27/17 08:59 650 MG Ondansetron HCl (Zofran Inj) 4 mg Q6H PRN IV 02/21/17 21:45 03/23/17 21:44 02/24/17 07:47 4 MG Aspirin (Ecotrin Tab) 81 mg QAM PO 02/22/17 08:00 03/24/17 08:59 03/02/17 08:51 81 MG Bisacodyl (Dulcolax Supp) 10 mg DAILY PRN [place] 02/21/17 22:15 03/23/17 22:14 Diltiazem HCl (Cardizem Cd Cap) 300 mg DAILY PO 02/22/17 08:00 03/24/17 08:59 03/02/17 08:50 300 MG Magnesium Hydroxide (Milk Of Magnesia Susp) 30 ml DAILY PRN PO 02/21/17 22:15 03/23/17 22:14 Senna (Senokot Tab) 8.6 mg QAM PO 02/22/17 08:00 03/24/17 08:59 03/02/17 08:52 8.6 MG Thiamine HCl (Vitamin B-1 Tab) 50 mg QAM PO 02/22/17 08:00 03/24/17 08:59 03/02/17 08:49 50 MG Ergocalciferol (Vitamin D Cap) 50,000 interunit TuFr@0900 PO 02/24/17 09:00 03/26/17 08:59 02/28/17 07:50 50,000 INTERUNIT Enteral Nutritional Formula (Prosource No Carb) 30 ml BID PO 02/22/17 20:00 03/24/17 19:59 03/02/17 08:52 30 ML Metoclopramide HCl (Reglan Inj) 10 mg Q6H PRN IV 02/23/17 13:30 03/25/17 13:29 02/24/17 07:47 10 MG Prednisone (PredniSONE TAB) 10 mg DAILY PO 02/24/17 08:00 03/26/17 07:59 03/02/17 08:52 10 MG Enalaprilat 0.625 mg/Dextrose 25.5 ml @ 100 mls/hr Q6H PRN IV 02/23/17 23:30 03/25/17 23:29 02/25/17 23:18 100 MLS/HR Ampicillin Sodium/ Sulbactam Sodium 3000 mg/Sodium Chloride 108 ml @ 200 mls/hr Q6@0200,0800,1400,2000 IV 02/24/17 15:00 03/06/17 14:59 03/02/17 08:07 200 MLS/HR Escitalopram Oxalate (Lexapro Tab) 5 mg QAM PO 02/26/17 08:00 03/28/17 07:59 03/02/17 08:50 5 MG Lidocaine (Lidoderm Patch 5%) 1 patch QAM TD 02/26/17 08:00 03/28/17 07:59 03/02/17 08:53 1 PATCH Miscellaneous (Remove Lidoderm Patch) 1 ea DAILY@21 N/A 02/25/17 21:00 03/27/17 20:59 03/01/17 21:28 1 EA Metoprolol Tartrate (Lopressor Tab) 25 mg BID PO 02/26/17 08:00 03/28/17 07:59 03/02/17 08:51 25 MG Last 24 Hours Test 03/02/17 08:14 Sodium Level 133 mmol/L Potassium Level 3.0 mmol/L Chloride Level 97 mmol/L Carbon Dioxide Level 25 mmol/L Anion Gap 11.0 mmol/L Blood Urea Nitrogen 18 mg/dl Creatinine 0.76 mg/dl Est Creatinine Clear Calc Drug Dose 62.2 ml/min Estimated GFR () 92.1 Estimated GFR (Non- 79.5 BUN/Creatinine Ratio 23.2 Random Glucose 159 mg/dl Calcium Level 10.3 mg/dl Magnesium Level 1.6 mg/dl Assessment & Plan 71 yo female with hyponatremia/hypomag who has been slowly worsening over the past couple of months. pt with generalized weakness and tender points. has had multiple specialties doing extensive workup trying to determine the etiology of her weakness. Nephrology has been following for electrolyte issues , janice hyponatremia and hypomag, low K which are chronic issues for her. hyponatremia-sodium stable off the normal saline and lasix combination. goal is to keep sodium above 130. no changes for now. volume status appears appropriate -- d/c on fluid limit 1.5L daily, to which protein shakes do not count. hypomag-mag levels are stable. last checked yesterday and were stable at 1.5. started po mag hypokalemia > started po K hypercalcemia-attributed hypercalcemia to immobilization. calcium levels have improved and are in the normal range now.
[2017-03-02] MEDS ORDERED: MCRK20 PO (10:36)
[2017-03-02] MEDS ORDERED: MAGNESIUM OXIDE 400 MG TAB PO ONE (10:45)
[2017-03-02] MEDS ORDERED: POTASSIUM CHLORIDE 20 MEQ TABCR PO ONE (10:45)
[2017-03-02 11:18] VITALS: BP 164/77; PULSE 68; TEMP 36.8; O2SAT 96
[2017-03-02] MEDS ORDERED: POTASSIUM CHLORIDE 20 MEQ TABCR PO SCH (20:00)
[2017-03-02] MEDS ORDERED: MAGNESIUM OXIDE 400 MG TAB PO SCH (20:00)
[2017-03-03] MEDS ORDERED: BOOST PLUS VANILLA PO SCH ×2 (08:00)
== END 2017-03-02 12:58 | DRG 690 ==
LOC: EDBD 17:03 → C.EDB 17:04 → C.MS4W 21:46 → ENRESERV 22:05 → C.MS4W 02-27 15:10
PROVIDERS: ADMIT Hospitalist; ATTEND Family Medicine
DX: N39.0 Urinary tract infection, site not specified (principal); E87.1 Hypo-osmolality and hyponatremia; C48.0 Malignant neoplasm of retroperitoneum; I25.10 Atherosclerotic heart disease of native coronary artery without angina pectoris; E78.5 Hyperlipidemia, unspecified; I10 Essential (primary) hypertension; E83.42 Hypomagnesemia; E83.52 Hypercalcemia; Z96.653 Presence of artificial knee joint, bilateral; Z79.82 Long term (current) use of aspirin; Z90.710 Acquired absence of both cervix and uterus

== ENCOUNTER 2018-10-11 11:00 | Inpatient (IN) ==
--- OUTSIDE RECORDS SUMMARY | 2018-10-11 11:03 | External Medical Summary | Continuity of Care Document ---
:1945 Author Name Diana Nance, Provider Address Unavailable Unavailable , Care Team Providers Name Role Phone Trent Nance, Anurag Unavailable [email or web address], UNKNOWN Unavailable Unavailable Problems Active medical history not documented Allergies and Adverse Reactions Allergy history not documented Medications Medications not documented Procedures Procedures not documented Immunizations Immunizations not documented Plan of Treatment Planned Observations Planned Goals not documented Results No Known Results Results not documented
[2018-10-11] MEDS ORDERED: SODIUM CHLORIDE 0.9% 1000ML 1,000 ML IV SCH (11:30)
[2018-10-11 11:54] LABS: Basophils # (auto) 0.02 K/uL (0-0.2); Basophils % (auto) 0.1 %; Eosinophils # (auto) 0.37 K/uL (0-0.5); Eosinophils % (auto) 2.3 %; Hematocrit (blood only) 38.7 % (37-47); Hemoglobin 13.2 g/dL (12.0-16.0); Immature Granulocytes # (auto) 0.08 K/uL (0.00-0.02); Immature Granulocytes % (auto) 0.5 %; Lymphocytes # (auto) 1.38 K/uL (1.2-3.4); Lymphocytes % (auto) 8.5 %; Mean Corpuscular Hgb Conc 34.1 g/dL (32-36); Mean Corpuscular Volume 89.2 fL (80-100); Mean Platelet Volume 9.6 fL (7.4-10.4); Monocytes # (auto) 1.71 K/uL (0.11-0.59); Monocytes % (auto) 10.5 %; Neutrophils # (auto) 12.75 K/uL (1.4-6.5); Neutrophils % (auto) 78.1 %; Platelet Count 577 K/uL (130-400); RDW Coefficient of Variation 14.3 % (11.5-14.5); RDW Standard Deviation 46.5 fL (36.4-46.3); Red Blood Count 4.34 M/uL (4.2-5.4); White Blood Count 16.31 K/uL (4.8-10.8)
[2018-10-11 12:14] LABS: BUN Creatinine Ratio 17.3 (10-20); Blood Urea Nitrogen 16 mg/dl (7-18); Carbon Dioxide 28 mmol/L (21-32); Chloride 90 mmol/L (98-107); Est GFR (African American) 73.6; Est GFR (Non-African American) 63.5; Potassium 3.9 mmol/L (3.5-5.1); Sodium 124 mmol/L (136-145)
[2018-10-11 12:15] LABS: Calcium 9.6 mg/dl (8.5-10.1); Glucose 150 mg/dl (70-99); Magnesium 1.6 mg/dl (1.8-2.4); Phosphorus 2.6 mg/dl (2.5-4.9)
[2018-10-11] MEDS ORDERED: ACETAMINOPHEN 325 MG TAB PO STA (12:45)
[2018-10-11] MEDS: SODIUM CHLORIDE 0.9% 500 ML IV SCH ×3 (14:22→20:45)
--- NOTE | 2018-10-11 14:31 | History & Physical Report ---
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 difficile, who presents to [facility] ED secondary to fatigue and weakness for 10 days. In ED patient serum sodium noted to be 124, K3.9, BUN 16, creatinine 0.91, glucose 150, WBC 16.3, H/H 13.2 and 38.7, platelet 577, mag 1.6. TSH WNL. EKG revealed normal sinus rhythm. Urinalysis was abnormal. She was noted to have slightly elevated temperature at 37.7. Pt with hx of chronic electrolyte abnormalities including Na, Mag. She follows closely with Dr. Escalera. Hospitalized in past requiring tolvaptan. Sx likely secondary to symptomatic hyponatremia as patient appears dry on exam. This may also be multifactorial given below diagnoses. Cannot entirely rule out infection. Spoke with nephrology Dr. Escalera, appreciate her input urine studies still pending Admit to med/surge telemetry Patient to receive 1.5 L of IVF in ED Repeat BMP at 4 PM Consult nephrology Hold Lasix obtain orthostatics Will reevaluate fluid needs/treatment plan according to results of BMP (3) Leukocytosis: WBC 16.3, temp mildly elevated 37.7 Urinalysis negative for infection Blood cultures ordered obtain cxr Follow CBC and temperature curve Will hold off on antibiotics for now, no definitive infection Patient with history of C. difficile (4) Hypomagnesemia: Mag 1.6 Patient continues mag supplementation Give additional mag sulfate 1 g x 2 Repeat mag in a.m. (5) Leiomyosarcoma of retroperitoneum: Hx of Retroperitoneal leiomyosarcoma status post neoadjuvant radiation with resection of sarcoma along with left nephrectomy, distal pancreatectomy, splenectomy 12/30/2016 Now with liver mets s/p chemoembolization and microwave ablation 08/14 and additional chemoembolization 10/01 at [facility] Follows Dr. 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 Hoang 10/15 PT OT consulted (10) Dyslipidemia: Continue statin (11) DVT prophylaxis: Lovenox and SCDs Disposition: Likely home, but tbd, case management consulted, PT OT consulted Follow-up: PCP Patient was seen and examined in collaboration with Dr. Archibald, please see addendum Starting 10/12/2018 patient will be under the care of Dr. Soto History of Present Illness Chief Complaint: Fatigue and weakness x 10 days. 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 difficile, who presents to [facility] ED secondary to fatigue and weakness for 10 days. is at bedside. Unfortunately patient recently diagnosed with liver mets in which she has been following with [facility]. She underwent chemo embolization and microwave ablation on 08/14 and underwent chemo ablation on 10/01. feels weakness and fatigue are a cumulative effect of 2 recent trips to [facility] and her chemoembolization. He also feels her Parkinson's has been exacerbated and states she has an appointment with Dr. Hoang neurology 10/15. Further patient elicits to muscle aches, increased tremors and shaking, dizziness, decreased appetite. She normally has a decreased appetite however it has been worse in the recent days including her oral fluid intake. She has had no recent falls. She did have an elevated temp yesterday of 100.4. called physician at [facility] who notes elevated temp not abnormal status post chemoembolization. Patient denies any other recent illness, chills,sweats, lightheadedness, syncope, chest pain, shortness of breath, palpitations, cough, n/v/d, abd pain, change in bowel or urinary habits. She denies any melena or hematochezia. She ambulates with a walker and has noted increased difficulty with ambulating and doing ADLs given her Parkinson's. Allergies Allergy/AdvReac Type Severity Reaction Status Date / Time nickel Allergy Unknown RASH Verified 10/11/18 11:34 Home Medications Home Medications Medication Instructions Recorded Confirmed Type acetaminophen [Tylenol Extra 500 mg PO Q6H PRN 10/11/18 10/11/18 History Strength] aspirin 81 mg PO PM 10/11/18 10/11/18 History atenolol 25 mg PO DAILY 10/11/18 10/11/18 History atorvastatin 20 mg PO HS 10/11/18 10/11/18 History carbidopa-levodopa See Rx Instructions .ROUTE .COMPLEX 10/11/18 10/11/18 History conjugated estrogens [Premarin] 1 applic VAGINAL WK 10/11/18 10/11/18 History diltiazem HCl 120 mg PO DAILY 10/11/18 10/11/18 History escitalopram oxalate 10 mg PO QAM 10/11/18 10/11/18 History furosemide 40 mg PO DAILY 10/11/18 10/11/18 History magnesium chloride 2 tab PO BID 10/11/18 10/11/18 History thiamine HCl (vitamin B1) 50 mg PO HS 10/11/18 10/11/18 History Past Med/Surg History Medical History Parkinsons disease (Chronic) Leiomyosarcoma HTN (hypertension) (Chronic) Hyponatremia (Chronic) Dyslipidemia (Chronic) CAD (coronary artery disease) (Chronic) "angioplasty ~ 1991 at [facility]" 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) "12/30/16 - s/p resection with left nephrectomy, distal pancreatectomy, and splenectomy" Now with mets to the liver currently undergoing chemoembolization and Microwave ablation at [facility] Amputated toe (Chronic) History of nephrectomy, unilateral (Chronic) "left" Hypomagnesemia Surgical History History of cataract surgery (Chronic) History of tonsillectomy and adenoidectomy (Chronic) History of total bilateral knee replacement (Chronic) S/P trigger finger release (Chronic) H/O total hysterectomy (Chronic) History of pancreatectomy (Chronic) H/O splenectomy (Chronic) Social History Preferred Language: Citizen Of [place] Communication Ability: Effective Armorer Technician Required: No Beliefs That Will Affect Care: Yazidi Yazidi Beliefs: Christian Current Living Situation: Spouse Other Information That Helps Us Care for You: No Feels Safe at Home: Yes Safety Concerns: Feels Safe At This Time Smoking Status: Never smoker Do You Dip or Chew Tobacco: No Second Hand Exposure: No Hx Alcohol Use: Yes Hx Substance Use: No Review of Systems Review of Systems: As noted per HPI, 10 systems reviewed and negative unless noted above. Physical Exam Physical Exam: Gen: WD/WN, elderly F, appears older than stated age, NAD, sitting up in bed, pleasant, conversing easily Head: Normocephalic, Atraumatic Eyes: Sclera normal, no conjunctival injection, PERRLA, EOMI ENT: Gross hearing intact, normal pharynx, mucous membranes dry Neck: supple, no adenopathy, No JVD, no bruit, Resp: Clear to auscultation b/l, no wheeze, rales, rhonchi. Normal insp/exp effort, no accessory muscle use CV: Regular rate, regular rhythm, no murmur, rub, gallop, or ectopy Abd: +BS x 4, soft, nontender, nondistended Musculoskeletal: moves extremities active rom x 4, strength intact 5/5 except b/l hip flexors 4/5, good hat band attacher strength Extremities: No edema bilaterally, bilateral pedal pulse +2 and equal Skin: warm, moist, no rash, mild turgor, cap refill < 2sec Neuro: Alert and oriented x 3, speech normal but slow, good mood/affect, cran nerve 2-12 intact grossly, positive cogwheeling, shuffled gait : deferred Results & Data Vital Signs (Past 12 Hours) Vital Signs Temp Pulse Resp BP Pulse Ox 10/11/18 14:03 63 24 98 10/11/18 13:50 62 26 H 100 10/11/18 13:40 63 20 98 10/11/18 13:30 63 18 97 10/11/18 13:20 62 16 100 10/11/18 13:10 66 20 100 10/11/18 13:07 66 22 10/11/18 13:06 66 23 150/81 H 99 10/11/18 13:00 69 19 10/11/18 12:50 68 19 10/11/18 12:40 66 20 10/11/18 12:30 66 23 10/11/18 12:24 69 27 H 10/11/18 12:18 37.7 C H 10/11/18 12:10 67 22 98 10/11/18 12:00 66 24 95 10/11/18 11:50 65 19 96 10/11/18 11:45 97 10/11/18 11:44 66 22 96 10/11/18 11:03 37.1 C 76 20 129/76 96 Laboratory Results Short CBC 10/11/18 10/11/18 Range/Units 11:44 11:44 WBC 16.31 H (4.8-10.8) K/uL Hgb 13.2 (12.0-16.0) g/dL Hct 38.7 (37-47) % Plt Count 577 H (130-400) K/uL Sodium 124 L (136-145) mmol/L Creatinine 0.91 (0.6-1.2) mg/dl BMP 10/11/18 11:44 Sodium 124 L Potassium 3.9 Chloride 90 L Carbon Dioxide 28 BUN 16 Creatinine 0.91 Glucose 150 H Calcium 9.6 Medications Administered Sodium Chloride (Nss) 500 mls @ 125 mls/hr IV .Q4H BRENDA Stop: 11/10/18 12:44 Last Admin: 10/11/18 14:22 Dose: 125 mls/hr Documented by: [id number] Discontinued Medications Acetaminophen (Tylenol) 650 mg PO NOW STA Stop: 10/11/18 12:46 Last Admin: 10/11/18 13:07 Dose: 650 mg Documented by: [id number] Sodium Chloride (Nss 1000ml) 1,000 mls @ 999 mls/hr IV .Q1H1M BRENDA Stop: 10/11/18 12:30 Last Infusion: 10/11/18 14:22 Dose: 0 mls/hr Documented by: [id number] Admin: 10/11/18 13:07 Dose: 999 mls/hr Documented by: [id number] ECG Rate (beats per minute): 66 Rhythm: normal sinus Code Status & VTE Plan Code Status Full Code VTE Prophylaxis Plan VTE Prophylaxis will be ordered: Yes Supervising Physician Co-Signing Physician Notes I have seen and examined the patient and have discussed the case with the provider above. I agree with the assessment and plan as stated with the following exceptions. Mrs. Santos is feeling better since receiving IVF and Na is around 127. IVF per Nephrology. Trend Na overnight. Parkinson's present and worse per patient and her with respect to worsened tremors and gait. Replaced Mg and will replace K as needed. On my exam, VSS, mentating clearly, lungs clear to auscultation, S1/2 heard without m/g/r, no peripheral edema, abdomen is soft and nontender, nondistended. Skin warm and dry. Otherwise continue with plan as above. Dragan, Active issues: symptomatic hypotonic, hypovolemic hyponatremia hypomagnesemia leiomyosarcoma undergoing chemoembolization therapy Parkinson's disease
[2018-10-11 14:36] LABS: Appearance Urine Clear (Clear); Bacteria Urine Automated Negative (Negative); Bilirubin Urine Negative (Negative); Blood Urine Trace (Negative); Cast Urine Automated 0 /lpf (0-5); Color Urine Yellow; Epithelial Cell Urine Auto 20-30 /lpf (0-5); Glucose Urine UA Negative (Negative); Ketones Urine Negative (Negative); Leukocyte Esterase Urine Negative (Negative); Nitrite Urine Negative (Negative); Protein Urine Negative (Negative); RBC Urine Automated 0-4 /hpf (0-4); Specific Gravity Urine 1.012 (1.000-1.030); Urobilinogen Urine Negative (Negative)
--- NOTE | 2018-10-11 15:25 | XRay Report ---
XR chest 1V portable CLINICAL HISTORY: Fever. Elevated white count. COMPARISON STUDY: 02/21/2017 FINDINGS: The cardiac and mediastinal contours are normal. There is no evidence of focal pulmonary co nsolidation. There is no evidence of failure. No pleural effusions are visualized.[ There is minor le ft basilar atelectasis. IMPRESSION: No active disease in the chest. Electronically signed by: Juanpablo Steele M.D. 10/11/2018 3:23 PM
[2018-10-11] MEDS ORDERED: MAGNESIUM HYDROXIDE SUSP 30 ML UDC PO PRN (15:30)
[2018-10-11] MEDS ORDERED: ALUMINUM/MAGNESIUM SUSP 30 ML UDC PO PRN (15:30)
[2018-10-11] MEDS: MAGNESIUM SULFATE / D5W 1 GM/100 ML BAG IV SCH ×2 (15:57→16:59)
[2018-10-11] MEDS: CARBIDOPA/LEVODOPA 25/100MG TAB PO SCH ×2 (16:07→19:50)
[2018-10-11 16:15] LABS: INR 1.1 (0.9-1.1)
[2018-10-11 16:28] LABS: Calcium 9.3 mg/dl (8.5-10.1); Creatinine Clr Calc Pharmacy 61.4 ml/min; Est GFR (Non-African American) 69.9; Potassium 3.7 mmol/L (3.5-5.1)
[2018-10-11] MEDS ORDERED: [UNRECOGNIZED DRUG - OTHER] PO SCH (17:00)
[2018-10-11] MEDS: ENOXAPARIN INJ 40 MG/0.4 ML SYR SQ SCH (17:00)
--- NOTE | 2018-10-11 17:14 | Nephrology Consultation ---
Date of Consultation October 11, 2018 Assessment & Plan (1) Hyponatremia: responding acceptably to hydration > c/w hypotonic hypovolemic hyponatremia -will lower NS rate since she has already corrected nearly half way to 50 mL/ hr -recheck bmp 2100 (order in) > will adjust IVF accordingly -goal is sNa 130 tomorrow AM >maintain normal K >> put K in ivf if needed to do this Care coordinated w/ admitting team. Present on Admission?: Yes (2) Hypomagnesemia: -agree w/ IV mag; agree w/ continuing OP regimen of mag and recheck in AM; not critical drops at this point Present on Admission?: Yes History of Present Illness Reason for Consultation: hyponatremia Requesting Physician: Dr Archibald Attending Physician: Jamey Soto MD History of Present Illness 71 y/o F whom I'm asked to see for hyponatremia, hypomagnesemia. She follows w/ me in CKD clinic for same. 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 She had a very challenging /slow recovery in part d/t Parkinson's disease diagnosed fall 2016 and d/t exacerbation of electrolyte disorders janice of hyponatremia, hypomagnesemia; some disorders at times w/ Ca and K as well; also c/b C diff. She did eventually recover and electrolyte issues and parkinson's stabilized. 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 on 10/08/2018 her electrolyte issues started to worsen again> her sodium was 129, K 3.6, BG elevated for her at 223, Mag 1.2>> she had just had liver lesion ablated at [facility] on 10/01 to treat metastatic sarcoma. her reported that her parkinson's sx had worsened markedly just after procedure. We recommended ensuring adequate po intake, taking mag as directed; f/u labs in one week. Her weakness and fatigue were not improving so she came to ER for eval. Found to have sNa 124 today at 1145; WBC 16K w/ temp 37.7; K 3.9, mag 1.6 on presentation. serum osms were 266; urine osms (obtained after hydration underway) 312, Razia 103. Clinical impression on presentation was of hypovolemia etiology (she wavers between this and low solute diet/SIADH) >> she had 1.5L NS since presentation. Repeat labs showed sNa 127 at 1600, k 3.7. She received 2 gm mag IV and continued po supplements. She is being monitored closely but team is holding off on broad abtx > urine bland; blood cxs pending; cxr w/o active disease. Temp is trending down for now. no hypotension. Allergies Allergy/AdvReac Type Severity Reaction Status Date / Time nickel Allergy Unknown RASH Verified 10/11/18 11:34 Home Medications Home Medications Medication Instructions Recorded Confirmed Type acetaminophen [Tylenol Extra 500 mg PO Q6H PRN 10/11/18 10/11/18 History Strength] aspirin 81 mg PO PM 10/11/18 10/11/18 History atenolol 25 mg PO DAILY 10/11/18 10/11/18 History atorvastatin 20 mg PO HS 10/11/18 10/11/18 History carbidopa-levodopa See Rx Instructions .ROUTE .COMPLEX 10/11/18 10/11/18 History conjugated estrogens [Premarin] 1 applic VAGINAL WK 10/11/18 10/11/18 History diltiazem HCl 120 mg PO DAILY 10/11/18 10/11/18 History escitalopram oxalate 10 mg PO QAM 10/11/18 10/11/18 History furosemide 40 mg PO DAILY 10/11/18 10/11/18 History magnesium chloride 2 tab PO BID 10/11/18 10/11/18 History thiamine HCl (vitamin B1) 50 mg PO HS 10/11/18 10/11/18 History Patient History Medical History Parkinsons disease (Chronic) Leiomyosarcoma HTN (hypertension) (Chronic) Hyponatremia (Chronic) Dyslipidemia (Chronic) CAD (coronary artery disease) (Chronic) "angioplasty ~ [address] [facility] [place]" 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) "12/30/16 - s/p resection with left nephrectomy, distal pancreatectomy, and splenectomy" Now with mets to the liver currently undergoing chemoembolization and Microwave ablation at [facility] Amputated toe (Chronic) History of nephrectomy, unilateral (Chronic) "left" Hypomagnesemia Surgical History History of cataract surgery (Chronic) History of tonsillectomy and adenoidectomy (Chronic) History of total bilateral knee replacement (Chronic) S/P trigger finger release (Chronic) H/O total hysterectomy (Chronic) History of pancreatectomy (Chronic) H/O splenectomy (Chronic) Social History Preferred Language: Yi Communication Ability: Effective 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: No Beliefs That Will Affect Care: Zoroastrian Zoroastrian Beliefs: Hindu Current Living Situation: Spouse Other Information That Helps Us Care for You: No Feels Safe at Home: Yes Safety Concerns: Feels Safe At This Time Smoking Status: Never smoker Do You Dip or Chew Tobacco: No Second Hand Exposure: No Hx Alcohol Use: Yes Hx Substance Use: No Review of Systems Review of Systems: All systems reviewed & are unremarkable except as noted in HPI & below Constitutional: + fever (low grade), + weakness and + anorexia Eyes: no worsening vision Ear, Nose, Mouth, Throat: + dry mouth Respiratory: + pain on inspiration (R posterior flank pain w/ deep insp very occasional); no cough Cardiovascular: no chest pain, no palpitations, no lightheadedness, no syncope and no edema Gastrointestinal: + early satiety and + vomiting (x 1 a few days ago) Genitourinary: no dysuria, no difficulty urinating and no urinary frequency Musculoskeletal: + stiffness and + muscle weakness Integumentary: no rash and no non-healing lesions Neurologic: + gait abnormality, + unsteadiness, + tremor(s) and + abnormal movements; no abnormal speech increasing parkinson sx >> leans / lists to L; per walked into wall a few times instead of straight line; getting too weak to raise bent leg 2=4 inches off of floor to put on foot rest, many more tremors Psychiatric: no behavioral changes Physical Exam Constitutional: well developed and well nourished; no acute distress A& 0 x 3, listing L as she used to 2 years ago, nad Eyes: + anicteric sclerae; no conjunctival abnormality, no scleral abnormality and no EOM movement deficit ENMT: Mouth: + dry oral mucous membranes Neck: no nuchal rigidity Respiratory: normal respiratory effort; no respiratory distress Auscultation: lungs clear to auscultation bilaterally and + diminished lung sounds Cardiovascular: RRR, no murmur, no edema Gastrointestinal (Abdomen): Inspection/Auscultation: normal bowel sounds Percussion/Palpation: abdomen soft; abdomen nontender Musculoskeletal: araiza but visibly tired to do it Skin: no rashes, warm and dry Neurologic: araiza, fluent speech; no caio tremor; some mask like fascies, listing to one side/axial weakness Psychiatric: A+Ox3, euthymic affect Results & Data Vital Signs (Past 12 Hours) Vital Signs Temp Pulse Pulse Resp BP BP Pulse Ox 10/11/18 16:00 71 10/11/18 15:31 36.6 C 67 18 127/73 91 10/11/18 14:22 37.2 C 10/11/18 14:20 62 19 98 10/11/18 14:10 61 23 97 10/11/18 14:08 62 17 159/74 H 99 10/11/18 14:03 63 24 98 10/11/18 13:50 62 26 H 100 10/11/18 13:40 63 20 98 10/11/18 13:30 63 18 97 10/11/18 13:20 62 16 100 10/11/18 13:10 66 20 100 10/11/18 13:07 66 22 10/11/18 13:06 66 23 150/81 H 99 10/11/18 13:00 69 19 10/11/18 12:50 68 19 10/11/18 12:40 66 20 10/11/18 12:30 66 23 10/11/18 12:24 69 27 H 10/11/18 12:18 37.7 C H 10/11/18 12:10 67 22 98 10/11/18 12:00 66 24 95 10/11/18 11:50 65 19 96 10/11/18 11:45 97 10/11/18 11:44 66 22 96 10/11/18 11:03 37.1 C 76 20 129/76 96 Laboratory Results Abnormal lab results 10/11/18 10/11/18 10/11/18 Range/Units 11:44 11:44 11:44 WBC 16.31 H (4.8-10.8) K/uL RDW Std Deviation 46.5 H (36.4-46.3) fL Plt Count 577 H (130-400) K/uL Immature Gran # (Auto) 0.08 H (0.00-0.02) K/uL Neut # (Auto) 12.75 H (1.4-6.5) K/uL Deuel # (Auto) 1.71 H (0.11-0.59) K/uL Sodium 124 L (136-145) mmol/L Chloride 90 L (98-107) mmol/L Glucose 150 H (70-99) mg/dl Osmolality 266 L (280-300) mOsm/kg Magnesium 1.6 L (1.8-2.4) mg/dl Urine Blood (Negative) U Epithel Cells (Auto) (0-5) /lpf Urine Osmolality (500-800) mOsm/kg 10/11/18 10/11/18 10/11/18 Range/Units 14:04 14:04 16:02 WBC (4.8-10.8) K/uL RDW Std Deviation (36.4-46.3) fL Plt Count (130-400) K/uL Immature Gran # (Auto) (0.00-0.02) K/uL Neut # (Auto) (1.4-6.5) K/uL Deuel # (Auto) (0.11-0.59) K/uL Sodium 127 L (136-145) mmol/L Chloride 94 L (98-107) mmol/L Glucose 125 H (70-99) mg/dl Osmolality (280-300) mOsm/kg Magnesium (1.8-2.4) mg/dl Urine Blood Trace H (Negative) U Epithel Cells (Auto) 20-30 H (0-5) /lpf Urine Osmolality 312 L (500-800) mOsm/kg Diagnostic Findings see HPI
--- NOTE | 2018-10-11 18:16 | Emergency Department Note ---
Entered by Enrique العلي acting as a scribe for History of Present Illness General Chief complaint: Testing Request Stated complaint: NEEDS ELECTROLYTES CHECKED, CHEMO PT Time Seen by Provider: 10/11/18 11:10 Source: patient Limitations: no limitations History of Present Illness Provider complaint: dehydration Onset (ago): day(s) (couple days ago) Radiation: non-radiation Severity: moderate Maximum Pain Intensity: 4 Relieved By: + none Exacerbated By: + none (not drinking/eating) Associated symptoms: + loss of appetite and + weakness; no chest pain, no nausea/vomiting and no shortness of breath Treatments prior to arrival: none The patient is a 72 white female w/ PMHx HTN, Parkinsons, hyponatremia, leiomyosarcoma dyslipidemia, CAD, and leiomyosarcoma of retroperitoneum who presents to the ED w/ CC of electrolyte imbalance beginning a couple days ago. The patient states she is getting active treatment of cancer. She states she has not been eating and drinking as much because of her loss of appetite. She notes she had pain up till 3 days ago when she breathed. She notes she has been producing bowels and urinating normally. The patient denies chest pain, nausea, vomiting, and SOB. The patient states she did microwave ablation and is getting embolization. The patient notes her media consultant outside sales is Dr. Love and her oncologist is Dr. العلي. She states she does not do chemo therapy. The patient notes her neurologist is Dr. Ureña. Home Medications Home Medications Medication Instructions Recorded Confirmed Type acetaminophen [Tylenol Extra 500 mg PO Q6H PRN 10/11/18 10/11/18 History Strength] aspirin 81 mg PO PM 10/11/18 10/11/18 History atenolol 25 mg PO DAILY 10/11/18 10/11/18 History atorvastatin 20 mg PO HS 10/11/18 10/11/18 History carbidopa-levodopa See Rx Instructions .ROUTE .COMPLEX 10/11/18 10/11/18 History conjugated estrogens [Premarin] 1 applic VAGINAL WK 10/11/18 10/11/18 History diltiazem HCl 120 mg PO DAILY 10/11/18 10/11/18 History escitalopram oxalate 10 mg PO QAM 10/11/18 10/11/18 History furosemide 40 mg PO DAILY 10/11/18 10/11/18 History magnesium chloride 2 tab PO BID 10/11/18 10/11/18 History thiamine HCl (vitamin B1) 50 mg PO HS 10/11/18 10/11/18 History Allergies Allergy/AdvReac Type Severity Reaction Status Date / Time nickel Allergy Unknown RASH Verified 10/11/18 11:34 Past Med/Surg History Medical History Parkinsons disease (Chronic) Leiomyosarcoma HTN (hypertension) (Chronic) Hyponatremia (Chronic) Dyslipidemia (Chronic) CAD (coronary artery disease) (Chronic) "angioplasty ~ 1991 at [facility]" 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) "12/30/16 - s/p resection with left nephrectomy, distal pancreatectomy, and splenectomy" Now with mets to the liver currently undergoing chemoembolization and Microwave ablation at [facility] Amputated toe (Chronic) History of nephrectomy, unilateral (Chronic) "left" Hypomagnesemia Surgical History History of cataract surgery (Chronic) History of tonsillectomy and adenoidectomy (Chronic) History of total bilateral knee replacement (Chronic) S/P trigger finger release (Chronic) H/O total hysterectomy (Chronic) History of pancreatectomy (Chronic) H/O splenectomy (Chronic) Social History Preferred Language: Tamaz[place] Communication Ability: Effective Trim Machine Operator Required: No Beliefs That Will Affect Care: Congregation Congregation Beliefs: Restorationist Current Living Situation: Spouse Other Information That Helps Us Care for You: No Feels Safe at Home: Yes Safety Concerns: Feels Safe At This Time Smoking Status: Never smoker Do You Dip or Chew Tobacco: No Second Hand Exposure: No Hx Alcohol Use: Yes Hx Substance Use: No Review of Systems See HPI for pertinent positives & negatives. and A total of 10 systems reviewed and were otherwise negative Physical Exam Vital Signs Vital Signs - 24 hr 10/11/18 12:24 10/11/18 12:30 10/11/18 12:40 Temperature Temperature Source Pulse Rate 69 66 66 Pulse Rate [Right Radial] Pulse Rate from SpO2 Sensor Pulse Rhythm [Right Radial] Pulse Strength [Right Radial] Respiratory Rate 27 H 23 20 Respiratory Effort / Characteristics Respiratory Depth Respiratory Pattern Blood Pressure Blood Pressure [Right Arm] Blood Pressure Mean Blood Pressure Mean [Right Arm] Blood Pressure Position [Right Arm] Pulse Oximetry Oxygen Delivery Method 10/11/18 12:50 10/11/18 13:00 10/11/18 13:06 Temperature Temperature Source Pulse Rate 68 69 66 Pulse Rate [Right Radial] Pulse Rate from SpO2 Sensor Pulse Rhythm [Right Radial] Pulse Strength [Right Radial] Respiratory Rate 19 19 23 Respiratory Effort / Characteristics Respiratory Depth Respiratory Pattern Blood Pressure 150/81 H Blood Pressure [Right Arm] Blood Pressure Mean 104 Blood Pressure Mean [Right Arm] Blood Pressure Position [Right Arm] Pulse Oximetry 99 Oxygen Delivery Method 10/11/18 13:07 10/11/18 13:10 10/11/18 13:20 Temperature Temperature Source Pulse Rate 66 66 62 Pulse Rate [Right Radial] Pulse Rate from SpO2 Sensor 68 62 Pulse Rhythm [Right Radial] Pulse Strength [Right Radial] Respiratory Rate 22 20 16 Respiratory Effort / Characteristics Respiratory Depth Respiratory Pattern Blood Pressure Blood Pressure [Right Arm] Blood Pressure Mean Blood Pressure Mean [Right Arm] Blood Pressure Position [Right Arm] Pulse Oximetry 100 100 Oxygen Delivery Method 10/11/18 13:30 10/11/18 13:36 10/11/18 13:40 Temperature Temperature Source Pulse Rate 63 63 Pulse Rate [Right Radial] Pulse Rate from SpO2 Sensor 61 61 Pulse Rhythm [Right Radial] Pulse Strength [Right Radial] Respiratory Rate 18 20 Respiratory Effort / Characteristics Respiratory Depth Respiratory Pattern Blood Pressure Blood Pressure [Right Arm] Blood Pressure Mean Blood Pressure Mean [Right Arm] Blood Pressure Position [Right Arm] Pulse Oximetry 97 98 Oxygen Delivery Method Room Air 10/11/18 13:50 10/11/18 14:03 10/11/18 14:08 Temperature Temperature Source Pulse Rate 62 63 62 Pulse Rate [Right Radial] Pulse Rate from SpO2 Sensor 63 64 62 Pulse Rhythm [Right Radial] Pulse Strength [Right Radial] Respiratory Rate 26 H 24 17 Respiratory Effort / Characteristics Respiratory Depth Respiratory Pattern Blood Pressure 159/74 H Blood Pressure [Right Arm] Blood Pressure Mean 102 Blood Pressure Mean [Right Arm] Blood Pressure Position [Right Arm] Pulse Oximetry 100 98 99 Oxygen Delivery Method 10/11/18 14:10 10/11/18 14:20 10/11/18 14:22 Temperature 37.2 C Temperature Source Oral Pulse Rate 61 62 Pulse Rate [Right Radial] Pulse Rate from SpO2 Sensor 62 62 Pulse Rhythm [Right Radial] Pulse Strength [Right Radial] Respiratory Rate 23 19 Respiratory Effort / Characteristics Respiratory Depth Respiratory Pattern Blood Pressure Blood Pressure [Right Arm] Blood Pressure Mean Blood Pressure Mean [Right Arm] Blood Pressure Position [Right Arm] Pulse Oximetry 97 98 Oxygen Delivery Method 10/11/18 15:31 10/11/18 16:00 10/11/18 19:35 Temperature 36.6 C 37.1 C Temperature Source Oral Oral Pulse Rate 71 Pulse Rate [Right Radial] 67 66 Pulse Rate from SpO2 Sensor Pulse Rhythm [Right Radial] Regular Regular Pulse Strength [Right Radial] Normal Normal Respiratory Rate 18 18 Respiratory Effort / Characteristics Non-Labored Non-Labored Respiratory Depth Normal Normal Respiratory Pattern Regular Regular Blood Pressure Blood Pressure [Right Arm] 127/73 146/70 H Blood Pressure Mean Blood Pressure Mean [Right Arm] 91 95 Blood Pressure Position [Right Arm] Sitting Lying Pulse Oximetry 91 95 Oxygen Delivery Method Room Air Room Air 10/11/18 23:40 10/12/18 00:44 10/12/18 03:55 Temperature 36.8 C 37.1 C Temperature Source Oral Oral Pulse Rate 58 L Pulse Rate [Right Radial] 68 62 Pulse Rate from SpO2 Sensor Pulse Rhythm [Right Radial] Regular Regular Pulse Strength [Right Radial] Normal Normal Respiratory Rate 16 18 Respiratory Effort / Characteristics Non-Labored Non-Labored Respiratory Depth Normal Normal Respiratory Pattern Regular Regular Blood Pressure Blood Pressure [Right Arm] 145/74 H 144/62 H Blood Pressure Mean Blood Pressure Mean [Right Arm] 97 89 Blood Pressure Position [Right Arm] Lying Lying Pulse Oximetry 97 94 Oxygen Delivery Method Room Air Room Air 10/12/18 07:43 10/12/18 11:28 Temperature 37.0 C 37.3 C Temperature Source Oral Oral Pulse Rate Pulse Rate [Right Radial] 67 69 Pulse Rate from SpO2 Sensor Pulse Rhythm [Right Radial] Pulse Strength [Right Radial] Respiratory Rate 16 16 Respiratory Effort / Characteristics Respiratory Depth Respiratory Pattern Blood Pressure Blood Pressure [Right Arm] 121/63 116/70 Blood Pressure Mean Blood Pressure Mean [Right Arm] 82 85 Blood Pressure Position [Right Arm] Lying Lying Pulse Oximetry 95 92 Oxygen Delivery Method Room Air GENERAL: Well appearing, well nourished, NAD, non-toxic. EYE EXAM: Normal conjunctiva. PERRL, no anisocoria and EOM's grossly intact w/o pain. OROPHARYNX: Dry mucous membranes. Normal dentition. NECK: Supple, no nuchal rigidity, no adenopathy, non-tender. no signs of meningismus. LUNGS: Clear to auscultation. Normal chest wall mechanics. HEART: NSR, no MRG. ABDOMEN: Abdomen soft, non-tender, normo-active bowel sounds, no masses, no rebound or guarding. BACK: No CVA TTP. SKIN: No rashes and no bruising. UPPER EXTREMITIES: Upper extremities are grossly normal. LOWER EXTREMITIES: No pitting edema. No calf pain. NEURO EXAM: Cranial nerves II-XII grossly intact, normal speech. Moves all 4 extremities on command w/o issue. Course 1118: The patient was evaluated in room C3, and a complete history and physical examination were performed. 1250: I reevaluated the patient. I talked to her about getting admitted. She agrees with the plan. 0100: I talked to Grgeoria Mon PA-C. She states Dr. Archibald will evaluate the patient for further management. Administered Medications Acetaminophen (Tylenol) 650 mg PO Q4H PRN PRN Reason: Pain or Fever Stop: 11/10/18 15:29 Last Admin: 10/12/18 05:58 Dose: 650 mg Documented by: [id number] Admin: 10/11/18 23:34 Dose: 650 mg Documented by: [id number] Admin: 10/11/18 19:49 Dose: 650 mg Documented by: [id number] Aspirin (Ecotrin Ectab) 81 mg PO PM BRENDA Stop: 11/10/18 20:59 Last Admin: 10/11/18 19:50 Dose: 81 mg Documented by: [id number] Atenolol (Tenormin) 25 mg PO DAILY BRENDA Stop: 11/11/18 08:59 Last Admin: 10/12/18 09:17 Dose: 25 mg Documented by: [id number] Atorvastatin Calcium (Lipitor) 20 mg PO HS BRENDA Stop: 11/10/18 20:59 Last Admin: 10/11/18 19:51 Dose: 20 mg Documented by: [id number] Carbidopa/Levodopa (Sinemet 25/100 Mg) 1 tab PO BID@1200,2000 BRENDA Stop: 11/10/18 19:59 Last Admin: 10/12/18 12:20 Dose: 1 tab Documented by: [id number] Admin: 10/11/18 19:50 Dose: 1 tab Documented by: [id number] Carbidopa/Levodopa (Sinemet 25/100 Mg) 1.5 tab PO BID@0800,1600 BRENDA Stop: 11/10/18 15:59 Last Admin: 10/12/18 09:19 Dose: 1.5 tab Documented by: [id number] Admin: 10/11/18 16:07 Dose: 1.5 tab Documented by: [id number] Diltiazem HCl (Tiazac) 120 mg PO DAILY BRENDA Stop: 11/11/18 08:59 Last Admin: 10/12/18 09:19 Dose: 120 mg Documented by: [id number] Enoxaparin Sodium (Lovenox) 40 mg SQ Q24H BRENDA Stop: 11/10/18 16:59 Last Admin: 10/11/18 17:00 Dose: 40 mg Documented by: [id number] Escitalopram Oxalate (Lexapro) 10 mg PO QAM BRENDA Stop: 11/11/18 08:59 Last Admin: 10/12/18 09:18 Dose: 10 mg Documented by: [id number] Potassium Chloride 30 meq/ (Sodium Chloride) 1,015 mls @ 100 mls/hr IV .Q10H9M BRENDA Stop: 11/11/18 11:59 Last Admin: 10/12/18 12:19 Dose: 100 mls/hr Documented by: [id number] Sodium Chloride (Nss) 500 mls @ 50 mls/hr IV .Q10H STA Stop: 10/12/18 21:05 Last Admin: 10/12/18 12:19 Dose: 50 mls/hr Documented by: [id number] Magnesium Chloride (Slow-Mag) 128 mg PO BID BRENDA Stop: 11/10/18 20:59 Last Admin: 10/12/18 09:17 Dose: 128 mg Documented by: [id number] Admin: 10/11/18 19:50 Dose: 128 mg Documented by: [id number] Thiamine HCl (Vitamin B-1) 50 mg PO HS BRENDA Stop: 11/10/18 20:59 Last Admin: 10/11/18 19:51 Dose: 50 mg Documented by: [id number] Discontinued Medications Acetaminophen (Tylenol) 650 mg PO NOW STA Stop: 10/11/18 12:46 Last Admin: 10/11/18 13:07 Dose: 650 mg Documented by: [id number] Sodium Chloride (Nss 1000ml) 1,000 mls @ 999 mls/hr IV .Q1H1M BRENDA Stop: 10/11/18 12:30 Last Infusion: 10/11/18 14:22 Dose: 0 mls/hr Documented by: [id number] Admin: 10/11/18 13:07 Dose: 999 mls/hr Documented by: [id number] Sodium Chloride (Nss) 500 mls @ 50 mls/hr IV .Q10H BRENDA Stop: 11/10/18 12:44 Last Admin: 10/12/18 05:58 Dose: 50 mls/hr Documented by: [id number] Infusion: 10/12/18 05:58 Dose: 50 mls/hr Documented by: [id number] Admin: 10/11/18 20:45 Dose: 50 mls/hr Documented by: [id number] Infusion: 10/11/18 19:41 Dose: 0 mls/hr Documented by: [id number] Admin: 10/11/18 15:41 Dose: 125 mls/hr Documented by: [id number] Infusion: 10/11/18 15:41 Dose: 125 mls/hr Documented by: [id number] Admin: 10/11/18 14:22 Dose: 125 mls/hr Documented by: [id number] Magnesium Sulfate/Dextrose (Magnesium Sulfate / D5w) 1 gm in 100 mls @ 100 mls/hr IV Q1H BRENDA Stop: 10/11/18 17:44 Last Infusion: 10/11/18 18:11 Dose: 0 mls/hr Documented by: [id number] Admin: 10/11/18 16:59 Dose: 100 mls/hr Documented by: [id number] Infusion: 10/11/18 16:58 Dose: 0 mls/hr Documented by: [id number] Admin: 10/11/18 15:57 Dose: 100 mls/hr Documented by: [id number] Potassium Chloride (Paty Ciel Elix) 40 meq PO NOW STA Stop: 10/11/18 22:05 Last Admin: 10/11/18 22:41 Dose: 40 meq Documented by: [id number] Medical Decision Making Medical Records Attestation: I reviewed the patient's medical records. Home Medications Current Medication List: was personally reviewed by me Laboratory Data Attestation: I reviewed the patient's lab results. Result diagrams: 10/12/18 06:26 10/12/18 06:26 Lab Results 10/11/18 10/11/18 10/11/18 Range/Units 11:44 11:44 11:44 WBC 16.31 H (4.8-10.8) K/uL RBC 4.34 (4.2-5.4) M/uL Hgb 13.2 (12.0-16.0) g/dL Hct 38.7 (37-47) % MCV 89.2 (80-100) fL MCH 30.4 (25-34) pg MCHC 34.1 (32-36) g/dL RDW Std Deviation 46.5 H (36.4-46.3) fL RDW Coeff of Bin 14.3 (11.5-14.5) % Plt Count 577 H (130-400) K/uL MPV 9.6 (7.4-10.4) fL Immature Gran % (Auto) 0.5 % Neut % (Auto) 78.1 % Lymph % (Auto) 8.5 % [place] % (Auto) 10.5 % Eos % (Auto) 2.3 % Baso % (Auto) 0.1 % Immature Gran # (Auto) 0.08 H (0.00-0.02) K/uL Neut # (Auto) 12.75 H (1.4-6.5) K/uL Lymph # (Auto) 1.38 (1.2-3.4) K/uL [place] # (Auto) 1.71 H (0.11-0.59) K/uL Eos # (Auto) 0.37 (0-0.5) K/uL Baso # (Auto) 0.02 (0-0.2) K/uL PT (9.0-12.0) Seconds INR (0.9-1.1) Sodium 124 L (136-145) mmol/L Potassium 3.9 (3.5-5.1) mmol/L Chloride 90 L (98-107) mmol/L Carbon Dioxide 28 (21-32) mmol/L Anion Gap 6.0 (3-11) BUN 16 (7-18) mg/dl Creatinine 0.91 (0.6-1.2) mg/dl Est Cr Clr Drug Dosing Not Reportable Est GFR ( Amer) 73.6 Est GFR (Non-Af Amer) 63.5 BUN/Creatinine Ratio 17.3 (10-20) Glucose 150 H (70-99) mg/dl Osmolality 266 L (280-300) mOsm/kg Calcium 9.6 (8.5-10.1) mg/dl Phosphorus 2.6 (2.5-4.9) mg/dl Magnesium 1.6 L (1.8-2.4) mg/dl TSH (0.300-4.500) uIu/ml Urine Color Urine Appearance (Clear) Urine pH (4.5-7.5) Ur Specific [place] (1.000-1.030) Urine Protein (Negative) Urine Glucose (UA) (Negative) Urine Ketones (Negative) Urine Blood (Negative) Urine Nitrite (Negative) Urine Bilirubin (Negative) Urine Urobilinogen (Negative) Ur Leukocyte Esterase (Negative) Urine WBC (Auto) (0-5) /hpf Urine RBC (Auto) (0-4) /hpf U Hyaline Cast (Auto) (0-5) /lpf U Epithel Cells (Auto) (0-5) /lpf Urine Bacteria (Auto) (Negative) Urine Osmolality (500-800) mOsm/kg Urine Sodium mmol/L Urine Potassium mmol/L Urine Chloride mmol/L 10/11/18 10/11/18 10/11/18 Range/Units 11:44 11:45 14:04 WBC (4.8-10.8) K/uL RBC (4.2-5.4) M/uL Hgb (12.0-16.0) g/dL Hct (37-47) % MCV (80-100) fL MCH (25-34) pg MCHC (32-36) g/dL RDW Std Deviation (36.4-46.3) fL RDW Coeff of Bin (11.5-14.5) % Plt Count (130-400) K/uL MPV (7.4-10.4) fL Immature Gran % (Auto) % Neut % (Auto) % Lymph % (Auto) % [place] % (Auto) % Eos % (Auto) % Baso % (Auto) % Immature Gran # (Auto) (0.00-0.02) K/uL Neut # (Auto) (1.4-6.5) K/uL Lymph # (Auto) (1.2-3.4) K/uL [place] # (Auto) (0.11-0.59) K/uL Eos # (Auto) (0-0.5) K/uL Baso # (Auto) (0-0.2) K/uL PT 11.0 (9.0-12.0) Seconds INR 1.1 (0.9-1.1) Sodium (136-145) mmol/L Potassium (3.5-5.1) mmol/L Chloride (98-107) mmol/L Carbon Dioxide (21-32) mmol/L Anion Gap (3-11) BUN (7-18) mg/dl Creatinine (0.6-1.2) mg/dl Est Cr Clr Drug Dosing Est GFR ( Amer) Est GFR (Non-Af Amer) BUN/Creatinine Ratio (10-20) Glucose (70-99) mg/dl Osmolality (280-300) mOsm/kg Calcium (8.5-10.1) mg/dl Phosphorus (2.5-4.9) mg/dl Magnesium (1.8-2.4) mg/dl TSH 2.620 (0.300-4.500) uIu/ml Urine Color Urine Appearance (Clear) Urine pH (4.5-7.5) Ur Specific [place] (1.000-1.030) Urine Protein (Negative) Urine Glucose (UA) (Negative) Urine Ketones (Negative) Urine Blood (Negative) Urine Nitrite (Negative) Urine Bilirubin (Negative) Urine Urobilinogen (Negative) Ur Leukocyte Esterase (Negative) Urine WBC (Auto) (0-5) /hpf Urine RBC (Auto) (0-4) /hpf U Hyaline Cast (Auto) (0-5) /lpf U Epithel Cells (Auto) (0-5) /lpf Urine Bacteria (Auto) (Negative) Urine Osmolality (500-800) mOsm/kg Urine Sodium 103 mmol/L Urine Potassium 25.4 mmol/L Urine Chloride 135 mmol/L 10/11/18 10/11/18 10/11/18 Range/Units 14:04 14:04 16:02 WBC (4.8-10.8) K/uL RBC (4.2-5.4) M/uL Hgb (12.0-16.0) g/dL Hct (37-47) % MCV (80-100) fL MCH (25-34) pg MCHC (32-36) g/dL RDW Std Deviation (36.4-46.3) fL RDW Coeff of Bin (11.5-14.5) % Plt Count (130-400) K/uL MPV (7.4-10.4) fL Immature Gran % (Auto) % Neut % (Auto) % Lymph % (Auto) % [place] % (Auto) % Eos % (Auto) % Baso % (Auto) % Immature Gran # (Auto) (0.00-0.02) K/uL Neut # (Auto) (1.4-6.5) K/uL Lymph # (Auto) (1.2-3.4) K/uL [place] # (Auto) (0.11-0.59) K/uL Eos # (Auto) (0-0.5) K/uL Baso # (Auto) (0-0.2) K/uL PT (9.0-12.0) Seconds INR (0.9-1.1) Sodium 127 L (136-145) mmol/L Potassium 3.7 (3.5-5.1) mmol/L Chloride 94 L (98-107) mmol/L Carbon Dioxide 26 (21-32) mmol/L Anion Gap 7.0 (3-11) BUN 15 (7-18) mg/dl Creatinine 0.84 (0.6-1.2) mg/dl Est Cr Clr Drug Dosing 61.4 Est GFR ( Amer) 81.0 Est GFR (Non-Af Amer) 69.9 BUN/Creatinine Ratio 18.0 (10-20) Glucose 125 H (70-99) mg/dl Osmolality (280-300) mOsm/kg Calcium 9.3 (8.5-10.1) mg/dl Phosphorus (2.5-4.9) mg/dl Magnesium (1.8-2.4) mg/dl TSH (0.300-4.500) uIu/ml Urine Color Yellow Urine Appearance Clear (Clear) Urine pH 5.0 (4.5-7.5) Ur Specific [place] 1.012 (1.000-1.030) Urine Protein Negative (Negative) Urine Glucose (UA) Negative (Negative) Urine Ketones Negative (Negative) Urine Blood Trace H (Negative) Urine Nitrite Negative (Negative) Urine Bilirubin Negative (Negative) Urine Urobilinogen Negative (Negative) Ur Leukocyte Esterase Negative (Negative) Urine WBC (Auto) 1-5 (0-5) /hpf Urine RBC (Auto) 0-4 (0-4) /hpf U Hyaline Cast (Auto) 0 (0-5) /lpf U Epithel Cells (Auto) 20-30 H (0-5) /lpf Urine Bacteria (Auto) Negative (Negative) Urine Osmolality 312 L (500-800) mOsm/kg Urine Sodium mmol/L Urine Potassium mmol/L Urine Chloride mmol/L 10/11/18 10/12/18 10/12/18 Range/Units 20:56 06:26 06:26 WBC 17.71 H (4.8-10.8) K/uL RBC 3.89 L (4.2-5.4) M/uL Hgb 11.7 L (12.0-16.0) g/dL Hct 33.9 L (37-47) % MCV 87.1 (80-100) fL MCH 30.1 (25-34) pg MCHC 34.5 (32-36) g/dL RDW Std Deviation 45.8 (36.4-46.3) fL RDW Coeff of Bin 14.4 (11.5-14.5) % Plt Count 550 H (130-400) K/uL MPV 9.5 (7.4-10.4) fL Immature Gran % (Auto) % Neut % (Auto) % Lymph % (Auto) % [place] % (Auto) % Eos % (Auto) % Baso % (Auto) % Immature Gran # (Auto) (0.00-0.02) K/uL Neut # (Auto) (1.4-6.5) K/uL Lymph # (Auto) (1.2-3.4) K/uL [place] # (Auto) (0.11-0.59) K/uL Eos # (Auto) (0-0.5) K/uL Baso # (Auto) (0-0.2) K/uL PT (9.0-12.0) Seconds INR (0.9-1.1) Sodium 126 L 128 L (136-145) mmol/L Potassium 3.4 L 3.7 (3.5-5.1) mmol/L Chloride 93 L 97 L (98-107) mmol/L Carbon Dioxide 24 23 (21-32) mmol/L Anion Gap 9.0 8.0 (3-11) BUN 13 11 (7-18) mg/dl Creatinine 0.80 0.77 (0.6-1.2) mg/dl Est Cr Clr Drug Dosing 64.4 63.6 Est GFR ( Amer) 86.0 90.0 Est GFR (Non-Af Amer) 74.2 77.7 BUN/Creatinine Ratio 16.5 14.2 (10-20) Glucose 170 H 172 H (70-99) mg/dl Osmolality (280-300) mOsm/kg Calcium 8.9 8.9 (8.5-10.1) mg/dl Phosphorus (2.5-4.9) mg/dl Magnesium 1.8 (1.8-2.4) mg/dl TSH (0.300-4.500) uIu/ml Urine Color Urine Appearance (Clear) Urine pH (4.5-7.5) Ur Specific [place] (1.000-1.030) Urine Protein (Negative) Urine Glucose (UA) (Negative) Urine Ketones (Negative) Urine Blood (Negative) Urine Nitrite (Negative) Urine Bilirubin (Negative) Urine Urobilinogen (Negative) Ur Leukocyte Esterase (Negative) Urine WBC (Auto) (0-5) /hpf Urine RBC (Auto) (0-4) /hpf U Hyaline Cast (Auto) (0-5) /lpf U Epithel Cells (Auto) (0-5) /lpf Urine Bacteria (Auto) (Negative) Urine Osmolality (500-800) mOsm/kg Urine Sodium mmol/L Urine Potassium mmol/L Urine Chloride mmol/L ECG Data Attestation: I personally reviewed and interpreted this ECG as follows: Indication: toxicologic Rate (beats per minute): 66 Rhythm: normal sinus Findings: + other (normal intervals and axis); no acute ischemic change Blood Pressure Blood Pressure Findings: Normal blood pressure Blood Pressure Disposition: further management by hospitalist MENDEZ Mireles The patient is a 72 white female w/ PMHx HTN, Parkinsons, hyponatremia, leiomyosarcoma dyslipidemia, CAD, and leiomyosarcoma of retroperitoneum who presents to the ED w/ CC of electrolyte imbalance beginning a couple days ago. Differential includes acute coronary syndrome, myocardial infarction, CVA, TIA, anemia, infection, pneumonia, UTI, pyelonephritis, poor nutrition, dehydration, electrolyte disturbance,hypoglycemia. Patient was seen and evaluated the bedside. The patient was presenting with concerns for may be some decreased p.o. intake and wanted to have her electro lites checked. The patient does receive treatments for prior history of liver cancer. The patient does not receive oral or radiation chemotherapy. Patient had blood work completed and was given IV fluids. Patient's blood work showed hyponatremia. The patient's prior was in the 130s. I did review a prior admission for hyponatremia that was secondary likely to dehydration. The patient was ordered an IV fluid bolus in addition to meet. The patient also did have urine and serum Moslem's ordered as well as urine I did speak the on-call hospitalist given the patient's decreased p.o. intake, dehydration and hyponatremia. Patient was admitted to the medicine service. Of note the patient did have a low-grade fevers so urinalysis urine culture and blood cultures were obtained. The patient does have a mild white count. I did briefly talk with the patient's at the bedside he stated that the patient's primary interventional radiologist had stated that she would have a low-grade fever after the destruction of tumors within the liver was ongoing and this might continue to persist. Deferred antibiotics to the inpatient team at this time. They are in agreement. Patient does have a mild thrombocytosis. Of note the patient did have a prior left-sided nephrectomy and splenectomy. This may be related to the patient's thrombocytosis given her splenectomy. Patient's kidney function is normal. Impression & Plan Hyponatremia, Fever, Dehydration Discharge Plan Visit Data *Final* Discharge Date/Time: 10/11/18 14:28 Chief Complaint: Testing Request Stated Complaint: NEEDS ELECTROLYTES CHECKED, CHEMO PT ED Provider: Jesus Naranjo Discharge Problem: Hyponatremia, Fever, Dehydration Patient Disposition: Admitted As Inpatient Discharge Instructions Interventions: ED Discharge Assessment Last Done: 10/11/18 14:28 Discharge Problem: Fever Qualifiers: Fever type: unspecified Qualified Code(s): R50.9 - Fever, unspecified The scribe's documentation has been prepared under my direction and personally reviewed by me in its entirety. I confirm that the note above accurately reflects all work, treatment, procedures, and medical decision making performed by me.
[2018-10-11] MEDS: ACETAMINOPHEN 325 MG TAB PO PRN ×2 (19:49→23:34)
[2018-10-11] MEDS: ASPIRIN 81 MG ECTAB PO SCH (19:50)
[2018-10-11] MEDS: MAGNESIUM CHLORIDE 64MG DELAYED REL TAB PO SCH (19:50)
[2018-10-11] MEDS: THIAMINE HCL 50 MG TABLET PO SCH (19:51)
[2018-10-11] MEDS: ATORVASTATIN 20 MG TAB PO SCH (19:51)
[2018-10-11 21:25] LABS: BUN Creatinine Ratio 16.5 (10-20); Calcium 8.9 mg/dl (8.5-10.1); Creatinine Clr Calc Pharmacy 64.4 ml/min; Est GFR (Non-African American) 74.2; Potassium 3.4 mmol/L (3.5-5.1)
[2018-10-11] MEDS ORDERED: POTASSIUM CHLORIDE 20 MEQ/15 ML UDC PO STA (22:04)
[2018-10-12] MEDS: ACETAMINOPHEN 325 MG TAB PO PRN ×2 (05:58→17:14)
[2018-10-12] MEDS: SODIUM CHLORIDE 0.9% 500 ML IV SCH ×2 (05:58→18:02)
[2018-10-12 07:11] LABS: Hematocrit (blood only) 33.9 % (37-47); Hemoglobin 11.7 g/dL (12.0-16.0); Mean Corpuscular Hgb Conc 34.5 g/dL (32-36); Mean Corpuscular Volume 87.1 fL (80-100); Mean Platelet Volume 9.5 fL (7.4-10.4); Platelet Count 550 K/uL (130-400); RDW Coefficient of Variation 14.4 % (11.5-14.5); RDW Standard Deviation 45.8 fL (36.4-46.3); Red Blood Count 3.89 M/uL (4.2-5.4); White Blood Count 17.71 K/uL (4.8-10.8)
[2018-10-12 07:37] LABS: BUN Creatinine Ratio 14.2 (10-20); Calcium 8.9 mg/dl (8.5-10.1); Creatinine Clr Calc Pharmacy 63.6 ml/min; Est GFR (Non-African American) 77.7; Magnesium 1.8 mg/dl (1.8-2.4); Potassium 3.7 mmol/L (3.5-5.1)
[2018-10-12] MEDS: MAGNESIUM CHLORIDE 64MG DELAYED REL TAB PO SCH ×2 (09:17→20:46)
[2018-10-12] MEDS: ATENOLOL 25 MG TABLET PO SCH (09:17)
[2018-10-12] MEDS: ESCITALOPRAM OXALATE 10 MG TAB PO SCH (09:18)
[2018-10-12] MEDS: dilTIAZem ER 120 MG CAPCR PO SCH (09:19)
[2018-10-12] MEDS: CARBIDOPA/LEVODOPA 25/100MG TAB PO SCH ×4 (09:19→20:44)
--- NOTE | 2018-10-12 10:15 | Hospitalist Progress Note ---
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 difficile, who presents to [facility] ED secondary to fatigue and weakness for 10 days. In ED patient serum sodium noted to be 124, K3.9, BUN 16, creatinine 0.91, glucose 150, WBC 16.3, H/H 13.2 and 38.7, platelet 577, mag 1.6. TSH WNL. EKG revealed normal sinus rhythm. Urinalysis was abnormal. She was noted to have slightly elevated temperature at 37.7. Pt with hx of chronic electrolyte abnormalities including Na, Mag. She follows closely with Dr. Escalera. Hospitalized in past requiring tolvaptan. Sx likely secondary to symptomatic hyponatremia as patient appears dry on exam. This may also be multifactorial given below diagnoses. Cannot entirely rule out infection. Weakness likely secondary to hyponatremia from dehydration Also has hypokalemia and hypomagnesemia Patient started on IV NSS, sodium improved from 06 28-07 02 Nephrology consulted, appreciate recommendations Potassium and magnesium replaced Normalized Patient's weakness improving, PT OT evaluation progress (3) Leukocytosis: WBC 16.3, temp mildly elevated 37.7 Urinalysis negative for infection Blood cultures pending Chest x-ray no pneumonia Afebrile, white count elevated 17,000, no clear focus of infection at this time Continue to monitor (4) Hypomagnesemia: Replaced, resolved (5) Leiomyosarcoma of retroperitoneum: Hx of Retroperitoneal leiomyosarcoma status post neoadjuvant radiation with resection of sarcoma along with left nephrectomy, distal pancreatectomy, splenectomy 12/30/2016 Now with liver mets s/p chemoembolization and microwave ablation 08/14 and additional chemoembolization 10/01 at [facility] Follows Dr. 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 Hoang 10/15 PT OT consulted (10) Dyslipidemia: Continue statin (11) DVT prophylaxis: Lovenox and SCDs Disposition: PT and OT evaluation in progress Patient lives at home Follow-up: PCP Oncologist Dr. العلي, [facility] [address] in [place] Subjective Follow-up for weakness Seen resting in bed, comfortable In good spirits States she feels better today compared to yesterday Energy is improving Denies focal weakness or numbness, confusion No fevers or chills, coughing, abdominal pain, shortness of breath, diarrhea, no problems with urinating No other symptoms Review of Systems Review of Systems: All systems reviewed & are unremarkable except as noted in HPI & below Physical Exam Physical Exam: General- oriented x 3, not in distress, speaks in sentences with no effort or accessory muscle use Head- atraumatic Eyes- PERRL, EOMI, anicteric ENT- oropharynx clear Neck- supple, no JVD, no adenopathy, no thyromegaly; carotids +2/2, no bruits appreciated Lungs- clear to auscultation bilaterally, no rales/wheezes Heart- normal rate, regular rhythm; no murmurs Abdomen- normal bowel sounds, nondistended, soft, very mild right upper quadrant tenderness, otherwise nontender abdomen, no masses or hepatosplenomegaly Extremities- no pretibial edema, no calf tenderness; peripheral pulses intact Neuro- alert, oriented x 3; CN 2-12 grossly intact; motor 5/5 bilaterally;sensation 100% on all extremities; no other gross focal neurologic deficits Skin- warm & dry Results & Data Vital Signs (Past 12 Hours) Vital Signs Temp Pulse Pulse Resp BP Pulse Ox 10/12/18 07:43 37.0 C 67 16 121/63 95 10/12/18 03:55 37.1 C 62 18 144/62 H 94 10/12/18 00:44 58 L 10/11/18 23:40 36.8 C 68 16 145/74 H 97 Laboratory Results Laboratory Results - last 24 hr 10/11/18 10/12/18 10/12/18 20:56 06:26 06:26 WBC 17.71 H RBC 3.89 L Hgb 11.7 L Hct 33.9 L MCV 87.1 MCH 30.1 MCHC 34.5 RDW Std Deviation 45.8 RDW Coeff of Bin 14.4 Plt Count 550 H MPV 9.5 Sodium 126 L 128 L Potassium 3.4 L 3.7 Chloride 93 L 97 L Carbon Dioxide 24 23 Anion Gap 9.0 8.0 BUN 13 11 Creatinine 0.80 0.77 Est Cr Clr Drug Dosing 64.4 63.6 Est GFR ( Amer) 86.0 90.0 Est GFR (Non-Af Amer) 74.2 77.7 BUN/Creatinine Ratio 16.5 14.2 Glucose 170 H 172 H Calcium 8.9 8.9 Magnesium 1.8
[2018-10-12] MEDS ORDERED: SODIUM CHLORIDE 0.9% 500 ML IV STA (11:06)
[2018-10-12] MEDS: POTASSIUM CHLORIDE 30 MEQ in SODIUM CHLORIDE 0.9% 1000ML 1,000 ML IV SCH (12:19)
[2018-10-12] MEDS: ENOXAPARIN INJ 40 MG/0.4 ML SYR SQ SCH (17:13)
--- NOTE | 2018-10-12 17:20 | Nephrology Progress Note ---
Date of Service October 12, 2018 Assessment & Plan (1) Hyponatremia: responding acceptably to hydration as of this am> c/w hypotonic hypovolemic hyponatremia -today at about noon I increased NS rate to 100 mL/hr and added 30 mEq/L KCl to bag -repeat bmp is in process ->>goal is sNa 133 tomorrow AM >>>>maintain normal K >>>encouraged protein intake >> take protein shakes if can't eat Care coordinated w/ Dr Soto Present on Admission?: Yes (2) Hypomagnesemia: -1.8 this am; not critical drops at this point Present on Admission?: Yes (3) Fever: intermittent before presentation. 38.5 1700 on 10/12; for repeat blood/urine cxs; Dr Soto aware and considering abtx or not; may also be residual after embolization therapy per 's report of [facility] physician comment to him; WBC increased today Present on Admission?: Yes Subjective just gotten back to bed after trip to bathroom >> she had 2 person asst, felt very anxious/ that she would fall ( did not fall). ongoing poor po. repeat sNa pending . at bedside Review of Systems Review of Systems: All systems reviewed & are unremarkable except as noted in HPI & below Constitutional: + fever (38.5 at 1700), + fatigue, + weakness and + anorexia; no chills Ear, Nose, Mouth, Throat: + dry mouth (worse than yesterday) Respiratory: + pain on inspiration (R posterior flank pain w/ deep insp and today RUQ pain w/ most any inspiration); no cough Gastrointestinal: + early satiety and + vomiting (x 1 a few days ago) Musculoskeletal: + stiffness and + muscle weakness Neurologic: + gait abnormality, + unsteadiness, + tremor(s) and + abnormal mov ements; no abnormal speech Psychiatric: + anxiety Physical Exam Constitutional: well developed and + ill appearing (very mild distress from malaise; on RA; can tell she is putting a good face); + uncomfortable Eyes: + anicteric sclerae; no conjunctival abnormality, no scleral abnormality and no EOM movement deficit ENMT: Mouth: + dry oral mucous membranes licks /wets lips frequently Neck: no nuchal rigidity Respiratory: normal respiratory effort; no respiratory distress Auscultation: lungs clear to auscultation bilaterally and + diminished lung sounds Cardiovascular: RRR, no murmur, no edema Gastrointestinal (Abdomen): Inspection/Auscultation: normal bowel sounds Percussion/Palpation: abdomen soft; abdomen nontender Musculoskeletal: araiza, fluent speech Skin: no rashes, warm and dry Neurologic: less listing today to one side; mask lik efascies still Psychiatric: A+Ox3, euthymic affect Results & Data Vital Signs (Past 12 Hours) Vital Signs Temp Pulse Pulse Resp BP BP Pulse Ox 10/12/18 15:50 37.4 C 73 16 134/80 95 10/12/18 11:28 37.3 C 69 16 116/70 92 10/12/18 07:43 37.0 C 67 16 121/63 95 Laboratory Results Abnormal lab results 10/11/18 10/12/18 10/12/18 Range/Units 20:56 06:26 06:26 WBC 17.71 H (4.8-10.8) K/uL RBC 3.89 L (4.2-5.4) M/uL Hgb 11.7 L (12.0-16.0) g/dL Hct 33.9 L (37-47) % Plt Count 550 H (130-400) K/uL Sodium 126 L 128 L (136-145) mmol/L Potassium 3.4 L (3.5-5.1) mmol/L Chloride 93 L 97 L (98-107) mmol/L Glucose 170 H 172 H (70-99) mg/dl (1) Fever Fever type: unspecified Qualified Code(s): R50.9 - Fever, unspecified
[2018-10-12 17:24] LABS: BUN Creatinine Ratio 16.7 (10-20); Calcium 9.1 mg/dl (8.5-10.1); Creatinine Clr Calc Pharmacy 62.8 ml/min; Est GFR (African American) 88.6; Est GFR (Non-African American) 76.5
[2018-10-12] MEDS ORDERED: CONSULT PHARMACY STA (17:55)
[2018-10-12] MEDS ORDERED: PIPERACILL/TAZOBAC CONSULT ACTIVE PRN (18:01)
[2018-10-12] MEDS ORDERED: PIPERACILLIN/TAZOBACTAM 3.375 GM in DEXTROSE 5% 100 ML IV ONE (18:15)
[2018-10-12] MEDS ORDERED: IOVERSOL 100ml IV PRN (20:19)
[2018-10-12] MEDS: ASPIRIN 81 MG ECTAB PO SCH (20:44)
--- NOTE | 2018-10-12 20:44 | CT Scan Report ---
CT abd pelvis IV con only CLINICAL HISTORY: RUQ pain, fever, leiomyosarcoma with liver mets COMPARISON STUDY: 02/28/2017 TECHNIQUE: The patient was scanned in a dynamic helical fashion during intravenous administration of 50 cc Optiray 320. A dose lowering technique was utilized adhering to the principles of ALARA. CT DOSE: 368.46 mGy.cm FINDINGS: Lower chest: There are basilar atelectatic changes. Liver: There are multiple space-occupying hepatic masses including a 44 mm left lobe lesion and coale scent right lobe lesions measuring 60 mm in aggregate. There is a metallic density within the right l obe, likely representing a surgical clip or embolic material. Gallbladder: Contracted Spleen: Not visualized and presumed surgically absent Pancreas: Evidence for partial pancreatectomy with resection of the distal body and tail. Adrenal glands: Evidence for prior left adrenalectomy. No right adrenal masses identified Kidneys: Evidence for prior left nephrectomy. No right renal masses identified. Bowel: There are no transition zones indicate bowel obstruction. There is no acute diverticulitis. Th e appendix is at the upper limits of normal diameter measuring 6 mm. Peritoneum: There is no intraperitoneal free air or abdominal ascites. There is a tiny fat-containing umbilical hernia. Vasculature: The abdominal aorta is normal in course and caliber. Adenopathy: None. Pelvic viscera: Uterus is surgically absent. Skeletal structures: The bones are osteopenic. There is a mild superior endplate L1 compression defor mity. No destructive changes are evident. IMPRESSION: 1. Postsurgical changes are prior left nephrectomy, left adrenalectomy, splenectomy, and partial panc reatectomy. 2. Surgically absent uterus 3. Interval development of multiple space-occupying hepatic masses suspicious for extensive hepatic m etastasis 4. No evidence of bowel obstruction. No evidence of free air. Electronically signed by: Juanpablo Steele M.D. 10/12/2018 8:42 PM
[2018-10-12] MEDS: LACTOBACILLUS ACIDOPHILUS (FLORANEX) TAB PO SCH (20:45)
[2018-10-12] MEDS: THIAMINE HCL 50 MG TABLET PO SCH (20:46)
[2018-10-12] MEDS: ATORVASTATIN 20 MG TAB PO SCH (20:46)
[2018-10-12] MEDS: HYDROCODONE/ACETAMOPHEN 5/325MG TAB PO PRN (20:53)
[2018-10-12] MEDS: PIPERACILLIN/TAZOBACTAM 3.375 GM in DEXTROSE 5% 100 ML IV SCH (22:57)
[2018-10-13] MEDS: POTASSIUM CHLORIDE 30 MEQ in SODIUM CHLORIDE 0.9% 1000ML 1,000 ML IV SCH ×3 (00:22→21:31)
[2018-10-13] MEDS: HYDROCODONE/ACETAMOPHEN 5/325MG TAB PO PRN ×5 (02:00→23:32)
[2018-10-13] MEDS: SODIUM CHLORIDE 0.9% 500 ML IV SCH ×2 (05:41→13:12)
[2018-10-13] MEDS: PIPERACILLIN/TAZOBACTAM 3.375 GM in DEXTROSE 5% 100 ML IV SCH ×3 (05:41→21:31)
[2018-10-13 07:36] LABS: Basophils # (auto) 0.05 K/uL (0-0.2); Basophils % (auto) 0.3 %; Eosinophils # (auto) 0.45 K/uL (0-0.5); Eosinophils % (auto) 2.4 %; Hematocrit (blood only) 33.4 % (37-47); Hemoglobin 11.1 g/dL (12.0-16.0); Immature Granulocytes % (auto) 0.5 %; Lymphocytes # (auto) 1.07 K/uL (1.2-3.4); Lymphocytes % (auto) 5.7 %; Mean Corpuscular Hgb Conc 33.2 g/dL (32-36); Mean Corpuscular Volume 89.5 fL (80-100); Mean Platelet Volume 9.2 fL (7.4-10.4); Monocytes # (auto) 1.94 K/uL (0.11-0.59); Monocytes % (auto) 10.4 %; Neutrophils # (auto) 15.06 K/uL (1.4-6.5); Neutrophils % (auto) 80.7 %; Nucleated RBC # (auto) 0.02 K/uL (0-0); Nucleated RBC % (auto) 0.1 %; Platelet Count 505 K/uL (130-400); RDW Coefficient of Variation 14.4 % (11.5-14.5); RDW Standard Deviation 47.1 fL (36.4-46.3); Red Blood Count 3.73 M/uL (4.2-5.4); White Blood Count 18.67 K/uL (4.8-10.8)
[2018-10-13 08:09] LABS: Potassium 4.4 mmol/L (3.5-5.1)
[2018-10-13 08:10] LABS: BUN Creatinine Ratio 11.6 (10-20); Calcium 9.3 mg/dl (8.5-10.1); Creatinine Clr Calc Pharmacy 66.7 ml/min; Est GFR (Non-African American) 82.9
[2018-10-13] MEDS: ATENOLOL 25 MG TABLET PO SCH (08:55)
[2018-10-13] MEDS: ESCITALOPRAM OXALATE 10 MG TAB PO SCH (08:55)
[2018-10-13] MEDS: LACTOBACILLUS ACIDOPHILUS (FLORANEX) TAB PO SCH ×4 (08:55→21:10)
[2018-10-13] MEDS: MAGNESIUM CHLORIDE 64MG DELAYED REL TAB PO SCH ×2 (08:56→21:10)
[2018-10-13] MEDS: dilTIAZem ER 120 MG CAPCR PO SCH (08:56)
[2018-10-13] MEDS: CARBIDOPA/LEVODOPA 25/100MG TAB PO SCH ×4 (08:57→21:09)
--- NOTE | 2018-10-13 09:54 | Hospitalist Progress Note ---
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 difficile, who presents to [facility] ED secondary to fatigue and weakness for 10 days. In ED patient serum sodium noted to be 124, K3.9, BUN 16, creatinine 0.91, glucose 150, WBC 16.3, H/H 13.2 and 38.7, platelet 577, mag 1.6. TSH WNL. EKG revealed normal sinus rhythm. Urinalysis was abnormal. She was noted to have slightly elevated temperature at 37.7. Pt with hx of chronic electrolyte abnormalities including Na, Mag. She follows closely with Dr. Escalera. Hospitalized in past requiring tolvaptan. Sx likely secondary to symptomatic hyponatremia as patient appears dry on exam. This may also be multifactorial given below diagnoses. Cannot entirely rule out infection. Weakness likely secondary to hyponatremia from dehydration Na improving with IV NSS Na 130 Nephrology consulted, appreciate recommendations Potassium and magnesium replaced r/o Infection management noted below (3) Fever: r/o infection CT abd/pelvis: no abscess, signs of infection Urine culture: pending Blood culture: pending afebrile since starting empiric Zosyn continue Zosyn for now ID consulted (4) Leukocytosis: WBC still elevated at 18k Urinalysis negative for infection urine cultures pending Blood cultures pending Chest x-ray no pneumonia Peripheral smear ordered: pending (5) Hypomagnesemia: Replaced, resolved (6) Leiomyosarcoma of retroperitoneum: Hx of Retroperitoneal leiomyosarcoma status post neoadjuvant radiation with resection of sarcoma along with left nephrectomy, distal pancreatectomy, splenectomy 12/30/2016 Now with liver mets s/p chemoembolization and microwave ablation 08/14 and additional chemoembolization 10/01 at [facility] Follows Dr. 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 العلي, [facility] in [place] Subjective ff up for fever, weakness seen resting in bed, comfortable in good spirits states she feels improved today compared to yesterday RUQ pain improving no fever/chills, headache, nausea, other abdominal pain, changes with BM or urination denies other symptoms Review of Systems Review of Systems: All systems reviewed & are unremarkable except as noted in HPI & below Physical Exam Physical Exam: General- oriented x 3, not in distress, speaks in sentences with no effort or accessory muscle use Eyes- anicteric Neck- no JVD Lungs- clear BS, no rales/wheezing BL Heart- normal rate, regular rhythm; no murmurs Abdomen- normal bowel sounds, nondistended, soft, nontender Extremities- no pretibial edema, no calf tenderness Neuro- alert, oriented x 3; no gross focal neurologic deficits Skin- warm & dry Results & Data Vital Signs (Past 12 Hours) Vital Signs Temp Pulse Pulse Resp BP Pulse Ox 10/13/18 07:50 37.2 C 80 18 128/66 95 10/13/18 03:55 37.3 C 73 16 128/67 94 10/12/18 23:01 36.8 C 68 16 122/76 95 10/12/18 22:20 70 Laboratory Results Laboratory Results - last 24 hr 10/12/18 10/12/18 10/13/18 16:26 18:24 07:22 WBC 18.67 H RBC 3.73 L Hgb 11.1 L Hct 33.4 L MCV 89.5 MCH 29.8 MCHC 33.2 RDW Std Deviation 47.1 H RDW Coeff of Bin 14.4 Plt Count 505 H MPV 9.2 Immature Gran % (Auto) 0.5 Neut % (Auto) 80.7 Lymph % (Auto) 5.7 [place] % (Auto) 10.4 Eos % (Auto) 2.4 Baso % (Auto) 0.3 Immature Gran # (Auto) 0.10 H Neut # (Auto) 15.06 H Lymph # (Auto) 1.07 L [place] # (Auto) 1.94 H Eos # (Auto) 0.45 Baso # (Auto) 0.05 Absolute Nucleated RBC 0.02 H Nucleated RBC % (auto) 0.1 [place] Bodies Occasional Echinocytes 2+ Acanthocytes (Spur) 1+ Sodium 130 L Potassium 4.0 Chloride 99 Carbon Dioxide 24 Anion Gap 7.0 BUN 13 Creatinine 0.78 Est Cr Clr Drug Dosing 62.8 Est GFR ( Amer) 88.6 Est GFR (Non-Af Amer) 76.5 BUN/Creatinine Ratio 16.7 Glucose 153 H Lactate 1.6 Calcium 9.1 Nasal Screen MRSA (PCR) 10/13/18 10/13/18 07:22 10:44 WBC RBC Hgb Hct MCV MCH MCHC RDW Std Deviation RDW Coeff of Bin Plt Count MPV Immature Gran % (Auto) Neut % (Auto) Lymph % (Auto) [place] % (Auto) Eos % (Auto) Baso % (Auto) Immature Gran # (Auto) Neut # (Auto) Lymph # (Auto) [place] # (Auto) Eos # (Auto) Baso # (Auto) Absolute Nucleated RBC Nucleated RBC % (auto) [place] Bodies Echinocytes Acanthocytes (Spur) Sodium 130 L Potassium 4.4 Chloride 100 Carbon Dioxide 22 Anion Gap 8.0 BUN 9 Creatinine 0.73 Est Cr Clr Drug Dosing 66.7 Est GFR ( Amer) 96.0 Est GFR (Non-Af Amer) 82.9 BUN/Creatinine Ratio 11.6 Glucose 150 H Lactate Calcium 9.3 Nasal Screen MRSA (PCR) Negative
--- NOTE | 2018-10-13 10:22 | Communication Note ---
Date of Service: October 13, 2018 I seen Mrs. Ly today, reviewed her chart, and examined her. She has parkinsonism on Sinemet 25/100 1 tablet alternating with 1-1/2 tablets for 4 total doses a day is been on this regimen for several years Recently she has had a decline with generalized weakness but this seems to correlate with her current systemic multifactorial illness and electrolyte disturbances and after admission and correction of her issues and administration of antibiotics she feels significantly better but not back to baseline. Exam shows very little evidence for classic Parkinson's disease. 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
[2018-10-13 10:36] LABS: Acanthocytes 1+; Echinocytes 2+; Howell-Jolly Bodies Occasional
--- NOTE | 2018-10-13 11:44 | Consultation Report ---
DATE OF CONSULTATION: 10/13/2018 CONSULTATION FROM: Dr. Soto HISTORY OF PRESENT ILLNESS: The patient is 72 years old, is right handed. I have not really seen her for about a year or more. I initially got involved in her case about 2-1/2 years ago when she presented with a mild confusional state and a generalized global weakness syndrome occurring in the setting of surgery for sarcoma and for lot of other medical issues. She has been seen at [place]. 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 Martinez and started on Sinemet and she did remarkably well in terms of getting up, walking and needing very little help other than a walker periodically and her dose of Sinemet really has not changed much. She takes Sinemet 25/100 one and half tablets alternating with one tablet for 4 total doses a day. She does have a host of medical problems and surgical problems. She has had a leiomyosarcoma with radiation and resection, a left nephrectomy. She has had distal pancreatectomy, splenectomy. She is post angioplasty. She has hypertension, chronic electrolyte abnormalities including hyponatremia, hypomagnesemia, history of C. difficile and presented to the hospital with generalized weakness and hyponatremia. I suspect this was going on for some time as her had e-mailed me about a week ago saying that her Parkinson's was worse and he was concerned that she needed to be seen and have her medications adjusted. According to her, all of her decline in overall status seems to correlate with the development of a lot of metabolic abnormalities. She was found to have in addition to the hyponatremia, mild hypomagnesemia. She has thrombocytosis post splenectomy. She has some dyslipidemia, her Parkinson's disease and a question now is whether or not she does need to have her medications adjusted upward. She is on antibiotic. Her electrolytes are being adjusted and I refer the reader to multiple progress notes by Internal Medicine. Currently, she feels better. She states that she is not interested in taking more medications and would like to get her current medical problems straightened out before we readdress her parkinsonism. She and I are on the same page on this one. Past medical history, social history, etc., are all outlined on the current chart and will not be reviewed here. I did look for more and see no changes specifically in terms of the medications that I have been giving her for Parkinson's. PHYSICAL EXAMINATION: She is awake, alert, little lethargic. Her speech is clear. Eye movements are normal. Has very little masking of the face. She has no Meyerson sign. There is no real tremor, rigidity or cogwheeling. She moves all extremities fairly well with exception of a global weakness and reflexes are all present except the ankle jerks, which are little reduced and toes are downgoing. Strength is actually pretty good and there may be a little vibratory loss distally. At this point, I agree with the patient that we really do not need to adjust her Parkinson drugs. 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 So at this point, I would simply continue her current regimen of one 25/100 Sinemet tablet alternating with one and half every 4-6 hours for a total of 4 doses during the day and the medications on her EMR seem to correspond to this. I will drop by and see her tomorrow just as a social visit, but for now all I would suggest is post discharge I have a chance to see her in about a month after she gets home to reassess her status. ABHIJEET
--- NOTE | 2018-10-13 13:49 | Nephrology Progress Note ---
Date of Service October 13, 2018 Assessment & Plan (1) Hyponatremia: responding acceptably to hydration as of this am> c/w hypotonic hypovolemic hyponatremia -will stop NS at 50 and continue NS at 100 w/ 30 of K for now -will recheck bmp now and futher adjust accordingly ->>goal is sNa 135 tomorrow AM >>>>maintain normal K >>>encouraged protein intake >> take protein shakes if can't eat (2) Fever: intermittent before presentation. 38.5 1700 on 10/12; so far unrevealing repeat blood/urine cxs; Dr Soto aware; may also be residual after embolization therapy per 's report of [facility] physician comment to him; WBC trending up Subjective no further F; on zosyn; inf dzs to see; neuro eval> no change to sinemet for now; still quite tired; appetite borderline/ low; had RUQ pain ON to significant degree; no sob, no edema, no N Review of Systems Review of Systems: All systems reviewed & are unremarkable except as noted in HPI & below Constitutional: + fever (38.5 at 1700 on 10/12), + fatigue, + weakness and + anorexia; no chills Gastrointestinal: + abdominal pain (RUQ ON) and + early satiety Musculoskeletal: + stiffness and + muscle weakness Neurologic: + gait abnormality, + unsteadiness, + tremor(s) and + abnormal movements; no abnormal speech Psychiatric: + anxiety Physical Exam Constitutional: well developed and + ill appearing (very mild distress from malaise; on RA;lying in bed; obviously exhausted); + uncomfortable Eyes: + anicteric sclerae; no conjunctival abnormality, no scleral abnormality and no EOM movement deficit ENMT: Mouth: + dry oral mucous membranes Neck: no nuchal rigidity Respiratory: normal respiratory effort; no respiratory distress Auscultation: lungs clear to auscultation bilaterally and + diminished lung sounds Cardiovascular: RRR, no murmur, no edema Gastrointestinal (Abdomen): Inspection/Auscultation: normal bowel sounds Percussion/Palpation: abdomen soft; abdomen nontender (avoided RUQ) Skin: no rashes, warm and dry Psychiatric: A+Ox3, euthymic affect Results & Data Vital Signs (Past 12 Hours) Vital Signs Temp Pulse Pulse Resp BP Pulse Ox 10/13/18 12:00 36.5 C 69 18 123/73 93 10/13/18 08:00 74 10/13/18 07:50 37.2 C 80 18 128/66 95 10/13/18 03:55 37.3 C 73 16 128/67 94 Laboratory Results Abnormal lab results 10/12/18 10/13/18 10/13/18 Range/Units 16:26 07:22 07:22 WBC 18.67 H (4.8-10.8) K/uL RBC 3.73 L (4.2-5.4) M/uL Hgb 11.1 L (12.0-16.0) g/dL Hct 33.4 L (37-47) % RDW Std Deviation 47.1 H (36.4-46.3) fL Plt Count 505 H (130-400) K/uL Immature Gran # (Auto) 0.10 H (0.00-0.02) K/uL Neut # (Auto) 15.06 H (1.4-6.5) K/uL Lymph # (Auto) 1.07 L (1.2-3.4) K/uL [place] # (Auto) 1.94 H (0.11-0.59) K/uL Absolute Nucleated RBC 0.02 H (0-0) K/uL Sodium 130 L 130 L (136-145) mmol/L Glucose 153 H 150 H (70-99) mg/dl (1) Fever Fever type: unspecified Qualified Code(s): R50.9 - Fever, unspecified
[2018-10-13 15:29] LABS: BUN Creatinine Ratio 10.7 (10-20); Calcium 8.5 mg/dl (8.5-10.1); Creatinine Clr Calc Pharmacy 65.8 ml/min; Est GFR (African American) 94.5; Est GFR (Non-African American) 81.5; Potassium 4.6 mmol/L (3.5-5.1)
--- NOTE | 2018-10-13 15:43 | Infectious Disease Consult ---
Date of Consultation October 13, 2018 Assessment & Plan (1) Fever: 72-year-old female with metastatic leiomyosarcoma admitted with weakness and fever. Suspect fever from her extensive hepatic metastases, as no other obvious source identifiable at present. Would continue IV antibiotics pending final culture results. Will follow. History of Present Illness Reason for Consultation: Fever, history of splenectomy Attending Physician: Jamey Soto MD History of Present Illness 72-year-old female with history of leiomyosarcoma of retroperitoneum status post pancreatectomy, splenectomy, status post hysterectomy, with recently diagnosed extensive liver metastases status post embolization procedure, who was admitted with 7 to 10 days of progressively worsening weakness, fatigue, anorexia, and low-grade fevers. She has been started empirically on IV Zosyn, cultures are pending. CT scan of the abdomen shows evidence of extensive liver metastases as well as prior surgeries, no evidence of drainable collection or other localized infection. Denies any significant increase in cough or shortness of breath. Allergies Allergy/AdvReac Type Severity Reaction Status Date / Time nickel Allergy Unknown RASH Verified 10/11/18 11:34 Home Medications Home Medications Medication Instructions Recorded Confirmed Type acetaminophen [Tylenol Extra 500 mg PO Q6H PRN 10/11/18 10/11/18 History Strength] aspirin 81 mg PO PM 10/11/18 10/11/18 History atenolol 25 mg PO DAILY 10/11/18 10/11/18 History atorvastatin 20 mg PO HS 10/11/18 10/11/18 History carbidopa-levodopa See Rx Instructions .ROUTE .COMPLEX 10/11/18 10/11/18 History conjugated estrogens [Premarin] 1 applic VAGINAL WK 10/11/18 10/11/18 History diltiazem HCl 120 mg PO DAILY 10/11/18 10/11/18 History escitalopram oxalate 10 mg PO QAM 10/11/18 10/11/18 History furosemide 40 mg PO DAILY 10/11/18 10/11/18 History magnesium chloride 2 tab PO BID 10/11/18 10/11/18 History thiamine HCl (vitamin B1) 50 mg PO HS 10/11/18 10/11/18 History Patient History Medical History Parkinsons disease (Chronic) Leiomyosarcoma HTN (hypertension) (Chronic) Hyponatremia (Chronic) Dyslipidemia (Chronic) CAD (coronary artery disease) (Chronic) "angioplasty ~ 1991 at [facility] [place]" 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) "12/30/16 - s/p resection with left nephrectomy, distal pancreatectomy, and splenectomy" Now with mets to the liver currently undergoing chemoembolization and Microwave ablation at [facility] Amputated toe (Chronic) History of nephrectomy, unilateral (Chronic) "left" Hypomagnesemia Surgical History History of cataract surgery (Chronic) History of tonsillectomy and adenoidectomy (Chronic) History of total bilateral knee replacement (Chronic) S/P trigger finger release (Chronic) H/O total hysterectomy (Chronic) History of pancreatectomy (Chronic) H/O splenectomy (Chronic) Social History Preferred Language: Georgian Communication Ability: Effective 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: No Beliefs That Will Affect Care: Church Church Beliefs: Yazidism Current Living Situation: Spouse Other Information That Helps Us Care for You: No Feels Safe at Home: Yes Safety Concerns: Feels Safe At This Time Smoking Status: Never smoker Do You Dip or Chew Tobacco: No Second Hand Exposure: No Hx Alcohol Use: Yes Hx Substance Use: No Review of Systems Review of Systems: All systems reviewed & are unremarkable except as noted in HPI & below Physical Exam Constitutional: WD/WN, vitals as above + ill appearing and comfortable; no acute distress Eyes: PERRL, conjunctivae normal, anicteric sclerae ENMT: external ear and nose normal, oropharynx normal Neck: trachea midline, no thyromegaly neck nontender Respiratory: normal respiratory effort, lungs clear to auscultation normal percussion; does not use accessory muscles Cardiovascular: Rate/Rhythm: regular rate and regular rhythm Heart Sounds: normal S1 and normal S2; no gallop, no murmur and no cardiac rub Vessels: normal peripheral pulses; no JVD Gastrointestinal (Abdomen): normal bowel sounds, soft, nontender, no hepatosplenomegaly Musculoskeletal: no cyanosis or clubbing, extremities motor strength 5/5 Spine: thoracic spine normal to inspection and lumbar spine normal to inspection; no cervical spinal tenderness Skin: no rashes, warm and dry normal turgor; no lesions Neurologic: patellar DTR's 2+ bilat, sensation intact no focal motor deficits Psychiatric: A+Ox3, euthymic affect Orientation: cooperative Lymphatic: no cervical or axillary lymphadenopathy no inguinal lymphaden opathy Results & Data Vital Signs (Past 12 Hours) Vital Signs Temp Pulse Pulse Resp BP Pulse Ox 10/13/18 12:00 36.5 C 69 18 123/73 93 10/13/18 08:00 74 10/13/18 07:50 37.2 C 80 18 128/66 95 10/13/18 03:55 37.3 C 73 16 128/67 94 Laboratory Results Short CBC 10/13/18 Range/Units 07:22 WBC 18.67 H (4.8-10.8) K/uL Hgb 11.1 L (12.0-16.0) g/dL Hct 33.4 L (37-47) % Plt Count 505 H (130-400) K/uL BMP 10/12/18 10/13/18 10/13/18 16:26 07:22 14:57 Sodium 130 L 130 L 128 L Potassium 4.0 4.4 4.6 Chloride 99 100 100 Carbon Dioxide 24 22 23 BUN 13 9 8 Creatinine 0.78 0.73 0.74 Glucose 153 H 150 H 143 H Calcium 9.1 9.3 8.5 Diagnostic Findings Microbiology 10/11/18 12:56 Blood Blood Culture - Preliminary No growth to date. cc: ~ CT abd pelvis IV con only CLINICAL HISTORY: RUQ pain, fever, leiomyosarcoma with liver mets COMPARISON STUDY: 02/28/2017 TECHNIQUE: The patient was scanned in a dynamic helical fashion during intravenous administration of 50 cc Optiray 320. A dose lowering technique was utilized adhering to the principles of ALARA. CT DOSE: 368.46 mGy.cm FINDINGS: Lower chest: There are basilar atelectatic changes. Liver: There are multiple space-occupying hepatic masses including a 44 mm left lobe lesion and coalescent right lobe lesions measuring 60 mm in aggregate. There is a metallic density within the right lobe, likely representing a surgical clip or embolic material. Gallbladder: Contracted Spleen: Not visualized and presumed surgically absent Pancreas: Evidence for partial pancreatectomy with resection of the distal body and tail. Adrenal glands: Evidence for prior left adrenalectomy. No right adrenal masses identified Kidneys: Evidence for prior left nephrectomy. No right renal masses identified. Bowel: There are no transition zones indicate bowel obstruction. There is no acute diverticulitis. The appendix is at the upper limits of normal diameter measuring 6 mm. Peritoneum: There is no intraperitoneal free air or abdominal ascites. There is a tiny fat-containing umbilical hernia. Vasculature: The abdominal aorta is normal in course and caliber. Adenopathy: None. Pelvic viscera: Uterus is surgically absent. Skeletal structures: The bones are osteopenic. There is a mild superior endplate L1 compression deformity. No destructive changes are evident. IMPRESSION: 1. Postsurgical changes are prior left nephrectomy, left adrenalectomy, splen ectomy, and partial pancreatectomy. 2. Surgically absent uterus 3. Interval development of multiple space-occupying hepatic masses suspicious for extensive hepatic metastasis 4. No evidence of bowel obstruction. No evidence of free air. Electronically signed by: Juanpablo Steele M.D. 10/12/2018 8:42 PM Dictated: 10/12/182034 Transcribed: 10/12/182034
[2018-10-13] MEDS: ENOXAPARIN INJ 40 MG/0.4 ML SYR SQ SCH (16:42)
[2018-10-13] MEDS: ASPIRIN 81 MG ECTAB PO SCH (21:10)
[2018-10-13] MEDS: THIAMINE HCL 50 MG TABLET PO SCH (21:10)
[2018-10-13] MEDS: ATORVASTATIN 20 MG TAB PO SCH (21:10)
[2018-10-14] MEDS: PIPERACILLIN/TAZOBACTAM 3.375 GM in DEXTROSE 5% 100 ML IV SCH ×3 (05:28→22:03)
[2018-10-14 06:49] LABS: Basophils # (auto) 0.06 K/uL (0-0.2); Basophils % (auto) 0.4 %; Eosinophils # (auto) 0.62 K/uL (0-0.5); Eosinophils % (auto) 3.8 %; Hemoglobin 10.9 g/dL (12.0-16.0); Immature Granulocytes # (auto) 0.09 K/uL (0.00-0.02); Immature Granulocytes % (auto) 0.6 %; Lymphocytes # (auto) 1.25 K/uL (1.2-3.4); Lymphocytes % (auto) 7.7 %; Mean Corpuscular Volume 89.4 fL (80-100); Mean Platelet Volume 9.3 fL (7.4-10.4); Monocytes # (auto) 2.04 K/uL (0.11-0.59); Monocytes % (auto) 12.5 %; Neutrophils # (auto) 12.22 K/uL (1.4-6.5); Platelet Count 526 K/uL (130-400); RDW Coefficient of Variation 14.5 % (11.5-14.5); RDW Standard Deviation 47.6 fL (36.4-46.3); Red Blood Count 3.69 M/uL (4.2-5.4); White Blood Count 16.28 K/uL (4.8-10.8)
[2018-10-14 07:18] LABS: BUN Creatinine Ratio 11.5 (10-20); Calcium 8.9 mg/dl (8.5-10.1); Creatinine Clr Calc Pharmacy 74.7 ml/min; Est GFR (African American) 101.5; Est GFR (Non-African American) 87.6; Potassium 4.3 mmol/L (3.5-5.1)
--- NOTE | 2018-10-14 09:09 | Hospitalist Progress Note ---
Date of Service October 14, 2018 Assessment & Plan (1) Generalized weakness: (2) Hyponatremia: This is a 72-year-old female who has a PMH of 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 difficile, who presents to [facility] ED secondary to fatigue and weakness for 10 days. In ED patient serum sodium noted to be 124, K3.9, BUN 16, creatinine 0.91, glucose 150, WBC 16.3, H/H 13.2 and 38.7, platelet 577, mag 1.6. TSH WNL. EKG revealed normal sinus rhythm. Urinalysis was abnormal. She was noted to have slightly elevated temperature at 37.7. Pt with hx of chronic electrolyte abnormalities including Na, Mag. She follows closely with Dr. Escalera. Hospitalized in past requiring tolvaptan. Sx likely secondary to symptomatic hyponatremia as patient appears dry on exam. This may also be multifactorial given below diagnoses. Cannot entirely rule out infection. Weakness likely secondary to hyponatremia from dehydration Na down to 127 again today IV fluids restarted Nephrology consulted, appreciate recommendations Potassium and magnesium replaced r/o Infection management noted below (3) Fever: r/o infection CT abd/pelvis: no abscess, signs of infection Urine culture: Negative so far Blood culture: Negative so far Remains afebrile WBC slightly lower today Cultures are negative tomorrow, will AMARI Renteria ID consulted (4) Leukocytosis: WBC slightly lower today Urinalysis negative for infection urine cultures negative so far Blood cultures THROAT: No sore throat, difficulty swallowing, or hoarseness. Chest x-ray no pneumonia Peripheral smear ordered: pending (5) Hypomagnesemia: Replaced, resolved (6) Leiomyosarcoma of retroperitoneum: Hx of Retroperitoneal leiomyosarcoma status post neoadjuvant radiation with resection of sarcoma along with left nephrectomy, distal pancreatectomy, splenectomy 12/30/2016 Now with liver mets s/p chemoembolization and microwave ablation 08/14 and additional chemoembolization 10/01 at [facility] Follows Dr. 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 Hoang who will see the patient again today (11) Dyslipidemia: Continue statin (12) DVT prophylaxis: Lovenox and SCDs Disposition: PT and OT evaluation in progress Patient lives at home Follow-up: PCP Oncologist Dr. العلي, [facility] in [place] Subjective ff up for fever Seen sitting up in bedside chair, not in distress, appears somewhat weak but better than yesterday Patient she has more muscle weakness and pain is leans towards the right today Denies fevers or chills, shortness of breath, cough, abdominal pain Change of bowel movement or urination No other symptoms Review of Systems Review of Systems: All systems reviewed & are unremarkable except as noted in HPI & below Physical Exam Physical Exam: General- oriented x 3, not in distress, speaks in sentences with no effort or accessory muscle use Eyes- anicteric Neck- no JVD Lungs- clear BS, no crackles no wheezes bilaterally Heart- normal rate, regular rhythm; no murmurs Abdomen- normal bowel sounds, very mild right upper quadrant tenderness, soft, nontender Extremities- no pretibial edema, no calf tenderness Neuro- alert, oriented x 3; no gross focal neurologic deficits, leans towards the right side when seen seated Skin- warm & dry Results & Data Vital Signs (Past 12 Hours) Vital Signs Temp Pulse Pulse Resp BP Pulse Ox 10/14/18 08:06 37.4 C 85 18 154/84 H 93 10/14/18 03:45 36.9 C 78 18 151/82 H 91 10/13/18 23:35 70 10/13/18 23:13 36.7 C 73 20 129/75 93 Laboratory Results Laboratory Results - last 24 hr 10/13/18 10/14/18 10/14/18 19:13 06:31 06:31 WBC 16.28 H RBC 3.69 L Hgb 10.9 L Hct 33.0 L MCV 89.4 MCH 29.5 MCHC 33.0 RDW Std Deviation 47.6 H RDW Coeff of Bin 14.5 Plt Count 526 H MPV 9.3 Immature Gran % (Auto) 0.6 Neut % (Auto) 75.0 Lymph % (Auto) 7.7 [place] % (Auto) 12.5 Eos % (Auto) 3.8 Baso % (Auto) 0.4 Immature Gran # (Auto) 0.09 H Neut # (Auto) 12.22 H Lymph # (Auto) 1.25 [place] # (Auto) 2.04 H Eos # (Auto) 0.62 H Baso # (Auto) 0.06 Sodium 127 L Potassium 4.3 Chloride 96 L Carbon Dioxide 22 Anion Gap 8.0 BUN 8 Creatinine 0.69 Est Cr Clr Drug Dosing 74.7 Est GFR ( Amer) 101.5 Est GFR (Non-Af Amer) 87.6 BUN/Creatinine Ratio 11.5 Glucose 144 H Calcium 8.9 Stl C. diff Tox B Gene Negative Cdiff Gene
[2018-10-14] MEDS: HYDROCODONE/ACETAMOPHEN 5/325MG TAB PO PRN (09:29)
[2018-10-14] MEDS: dilTIAZem ER 120 MG CAPCR PO SCH (09:30)
[2018-10-14] MEDS: CARBIDOPA/LEVODOPA 25/100MG TAB PO SCH ×4 (09:30→19:39)
[2018-10-14] MEDS: ESCITALOPRAM OXALATE 10 MG TAB PO SCH (09:30)
[2018-10-14] MEDS: MAGNESIUM CHLORIDE 64MG DELAYED REL TAB PO SCH ×2 (09:30→21:06)
[2018-10-14] MEDS: ATENOLOL 25 MG TABLET PO SCH (09:30)
[2018-10-14] MEDS: LACTOBACILLUS ACIDOPHILUS (FLORANEX) TAB PO SCH ×4 (09:30→21:05)
[2018-10-14] MEDS: NORMOSOL-R 1,000 ML IV SCH (09:38)
--- NOTE | 2018-10-14 11:03 | Communication Note ---
Date of Service: October 14, 2018 I saw Dilia today in the company of her . She looks more lethargic than she did yesterday and according to her her right sided weakness wh ich has been coming and going now for several weeks seems to be worse today All of this began to emergency weeks ago and that about the same time her sodium levels were found to be low and currently her sodium is beginning to fall again and is now down to 127 Exam is a little different than yesterday she is more lethargic is a little more bradykinetic there may be a touch of cogwheeling on the right and to a lesser degree left side but there is no real tremor and there is no classic signs of Parkinson's nor has ever really been in her case. At this point I am still a little reluctant to push her Sinemet any higher for fear of inducing Sinemet side effects which in this particular setting with a leiomyosarcoma, the hepatic metastases etc. might produce confusion diagnostically and be falsely attributed to the effects of the tumor and/or the metastatic deposits rather than the drug itself. I am also not sure that her response to more Sinemet will be that great until her sodium level is back to its normal baseline at around 1 34-1 35 Rare occasions chronic sustained hyponatremia can produce a parkinsonian type of picture and this of course would not be responsive to Sinemet anyway. At this point I am simply going to check her again tomorrow and make a decision about whether we bump her Sinemet to 1-1/2 tablets 4 times a day from his current level of 1 tablet alternating with 1/2 tablets for 4 doses a day Hector Hoang MD
[2018-10-14] MEDS: ACETAMINOPHEN 325 MG TAB PO PRN ×2 (13:15→16:45)
[2018-10-14] MEDS: ENOXAPARIN INJ 40 MG/0.4 ML SYR SQ SCH (16:46)
[2018-10-14] MEDS: ASPIRIN 81 MG ECTAB PO SCH (21:04)
[2018-10-14] MEDS: ATORVASTATIN 20 MG TAB PO SCH (21:05)
[2018-10-14] MEDS: THIAMINE HCL 50 MG TABLET PO SCH (21:06)
[2018-10-15] MEDS: ACETAMINOPHEN 325 MG TAB PO PRN (02:08)
[2018-10-15] MEDS: PIPERACILLIN/TAZOBACTAM 3.375 GM in DEXTROSE 5% 100 ML IV SCH ×2 (06:05→14:27)
[2018-10-15] MEDS: NORMOSOL-R 1,000 ML IV SCH (06:07)
[2018-10-15 07:36] LABS: Basophils # (auto) 0.05 K/uL (0-0.2); Basophils % (auto) 0.4 %; Eosinophils # (auto) 0.36 K/uL (0-0.5); Eosinophils % (auto) 2.6 %; Hematocrit (blood only) 33.6 % (37-47); Hemoglobin 11.3 g/dL (12.0-16.0); Immature Granulocytes # (auto) 0.09 K/uL (0.00-0.02); Immature Granulocytes % (auto) 0.6 %; Lymphocytes # (auto) 1.15 K/uL (1.2-3.4); Lymphocytes % (auto) 8.3 %; Mean Corpuscular Hgb Conc 33.6 g/dL (32-36); Mean Corpuscular Volume 88.9 fL (80-100); Mean Platelet Volume 9.4 fL (7.4-10.4); Monocytes # (auto) 1.91 K/uL (0.11-0.59); Monocytes % (auto) 13.7 %; Neutrophils # (auto) 10.34 K/uL (1.4-6.5); Neutrophils % (auto) 74.4 %; Platelet Count 585 K/uL (130-400); RDW Coefficient of Variation 14.6 % (11.5-14.5); RDW Standard Deviation 47.5 fL (36.4-46.3); Red Blood Count 3.78 M/uL (4.2-5.4)
[2018-10-15] MEDS: MAGNESIUM CHLORIDE 64MG DELAYED REL TAB PO SCH ×2 (07:41→20:31)
[2018-10-15] MEDS: CARBIDOPA/LEVODOPA 25/100MG TAB PO SCH ×4 (07:41→20:29)
[2018-10-15] MEDS: LACTOBACILLUS ACIDOPHILUS (FLORANEX) TAB PO SCH ×4 (07:42→20:31)
[2018-10-15] MEDS: ESCITALOPRAM OXALATE 10 MG TAB PO SCH (07:43)
[2018-10-15] MEDS: ATENOLOL 25 MG TABLET PO SCH (07:43)
[2018-10-15] MEDS: dilTIAZem ER 120 MG CAPCR PO SCH (07:43)
[2018-10-15 08:13] LABS: BUN Creatinine Ratio 9.4 (10-20); Calcium 9.3 mg/dl (8.5-10.1); Creatinine Clr Calc Pharmacy 58.9 ml/min; Est GFR (African American) 82.2; Est GFR (Non-African American) 70.9; Potassium 3.9 mmol/L (3.5-5.1)
--- NOTE | 2018-10-15 15:12 | Nephrology Progress Note ---
Date of Service October 15, 2018 Assessment & Plan (1) Hyponatremia: challenging pt w/ sNa stuck in high 120s. initially studies c/w hypotonic hypovolemic hyponatremia; historically she has had low Na from low solute diet -will reassess w/ labs - blood work in am, urine today -cont normosol current low rate ->>goal is sNa 135 tomorrow AM >>>>maintain normal K >>>encouraged protein intake >> take protein shakes if can't eat (2) Fever: intermittent before presentation. 38.5 1700 on 10/12; no further F since then; WBC improving. most likely residual after embolization therapy per 's report of [facility] physician comment to him Subjective feels a bit improved; less ruq pain / fewer pleuritic R sided pains; no further f; not sure if she's had protein shakes or not Review of Systems Constitutional: + fatigue, + weakness and + anorexia; no fever (38.5 at 1700 on 10/12) and no chills Ear, Nose, Mouth, Throat: no dry mouth Respiratory: no cough and no pain on inspiration Gastrointestinal: + abdominal pain (RUQ less today) and + early satiety Musculoskeletal: + stiffness and + muscle weakness Integumentary: ? new facial rash Neurologic: + gait abnormality, + unsteadiness, + tremor(s) and + abnormal movements; no abnormal speech Psychiatric: + anxiety Physical Exam Constitutional: well developed and + ill appearing (very mild distress from malaise; on RA;lying in bed; obviously exhausted); + uncomfortable Eyes: + anicteric sclerae; no conjunctival abnormality, no scleral abnormality and no EOM movement deficit ENMT: Mouth: + dry oral mucous membranes Neck: no nuchal rigidity Respiratory: normal respiratory effort; no respiratory distress Auscultation: lungs clear to auscultation bilaterally and + diminished lung sounds Cardiovascular: RRR, no murmur, no edema Gastrointestinal (Abdomen): Inspection/Auscultation: normal bowel sounds Percussion/Palpation: abdomen soft; abdomen nontender (avoided RUQ) Skin: + rash (blotchy patches red on face) Neurologic: Motor/Sensory: + tremor and + abnormal movement weaker today, has a lot of trouble putting phone on table next to her; rigid Psychiatric: A+Ox3, euthymic affect Results & Data Vital Signs (Past 12 Hours) Vital Signs Temp Pulse Pulse Resp BP BP Pulse Ox 10/15/18 11:36 36.9 C 71 16 133/74 96 10/15/18 07:38 36.7 C 73 16 160/87 H 94 10/15/18 07:00 65 10/15/18 05:12 36.6 C 66 18 138/82 94 (1) Fever Fever type: unspecified Qualified Code(s): R50.9 - Fever, unspecified
--- NOTE | 2018-10-15 15:41 | Communication Note ---
Date of Service: October 15, 2018 I saw Dilia today. Her is not in the room she feels subjectively better than yesterday and her serum sodium is now back up to 129 but is still le ss than her baseline which apparently is in the mid 130s She continues to have a little bradykinesia and minimal rigidity but has quite normal facial expressions, negative Myerson sign and it most of cogwheeling on the right and left arms induced by reinforcement with no tremor This is always been a very atypical parkinsonism and his response to Sinemet has been reasonably good but at this point I do not think pushing the Sinemet higher is going to improve her overall status which is and is primarily due to her metabolic disturbances and now to protracted bedrest over the past several days Rather than increase her Sinemet have encouraged her to participate in physical therapy activities and assess how she does with a little more time and further correction of her serum sodium. I check back with her tomorrow but for now I am again reluctant to push her Sinemet any higher unless we really need to present I do not think increasing the dose is going to help her overall condition significantly Hector Hoang MD
--- NOTE | 2018-10-15 16:25 | Hospitalist Progress Note ---
Date of Service October 15, 2018 Assessment & Plan (1) Generalized weakness: (2) Hyponatremia: This is a 72-year-old female who has a PMH of 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 difficile, who presents to [facility] ED secondary to fatigue and weakness for 10 days. In ED patient serum sodium noted to be 124, K3.9, BUN 16, creatinine 0.91, glucose 150, WBC 16.3, H/H 13.2 and 38.7, platelet 577, mag 1.6. TSH WNL. EKG revealed normal sinus rhythm. Urinalysis was abnormal. She was noted to have slightly elevated temperature at 37.7. Pt with hx of chronic electrolyte abnormalities including Na, Mag. She follows closely with Dr. Escalera. Hospitalized in past requiring tolvaptan. Sx likely secondary to symptomatic hyponatremia as patient appears dry on exam. This may also be multifactorial given below diagnoses. Cannot entirely rule out infection. Weakness likely secondary to hyponatremia from dehydration Na up to 129 IV fluids restarted Nephrology consulted, appreciate recommendations Potassium and magnesium replaced r/o Infection management noted below (3) Fever: r/o infection CT abd/pelvis: no abscess, signs of infection Urine culture: Negative so far Blood culture: Negative so far Remains afebrile x at least 2 days WBC down to 13k Cultures are negative x 2 days will d/c Zosyn in light of patient having history of C diff will monitor ID consulted (4) Leukocytosis: WBC down to 13 k Urinalysis negative for infection urine cultures negative so far Blood cultures THROAT: No sore throat, difficulty swallowing, or hoarseness. Chest x-ray no pneumonia Peripheral smear ordered: unrevealing no clear focus of infection fever from live mets? monitor (5) Hypomagnesemia: Replaced, resolved (6) Leiomyosarcoma of retroperitoneum: Hx of Retroperitoneal leiomyosarcoma status post neoadjuvant radiation with resection of sarcoma along with left nephrectomy, distal pancreatectomy, splenectomy 12/30/2016 Now with liver mets s/p chemoembolization and microwave ablation 08/14 and lexie tional chemoembolization 10/01 at [facility] Follows Dr. 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 Hoang not recommending increase in Sinemet at at this time weakness improving PT/OT eval (11) Dyslipidemia: Continue statin (12) DVT prophylaxis: Lovenox and SCDs Disposition: PT and OT evaluation in progress Patient lives at home Follow-up: PCP Oncologist Dr. العلي, [facility] in [place] Subjective ff up for fever, weakness seen resting in bed, comfortable states she feels slightly better today has less weakness denies chills, cough abdominal pain improving denies other symptoms Review of Systems Review of Systems: All systems reviewed & are unremarkable except as noted in HPI & below Physical Exam Physical Exam: General- oriented x 3, not in distress, speaks in sentences with no effort or accessory muscle use Eyes- anicteric Neck- no JVD Lungs- clear BS , no rales BL Heart- normal rate, regular rhythm; no murmurs Abdomen- normal bowel sounds, nondistended, soft, nontender Extremities- no pretibial edema, no calf tenderness Neuro- alert, oriented x 3; tends to lean more to the right side, no gross focal neurologic deficits Skin- warm & dry Results & Data Vital Signs (Past 12 Hours) Vital Signs Temp Pulse Pulse Resp BP BP Pulse Ox 10/15/18 11:36 36.9 C 71 16 133/74 96 10/15/18 07:38 36.7 C 73 16 160/87 H 94 10/15/18 07:00 65 10/15/18 05:12 36.6 C 66 18 138/82 94 Laboratory Results Laboratory Results - last 24 hr 10/12/18 10/15/18 10/15/18 17:42 06:52 06:52 WBC 13.90 H RBC 3.78 L Hgb 11.3 L Hct 33.6 L MCV 88.9 MCH 29.9 MCHC 33.6 RDW Std Deviation 47.5 H RDW Coeff of Bin 14.6 H Plt Count 585 H MPV 9.4 Immature Gran % (Auto) 0.6 Neut % (Auto) 74.4 Lymph % (Auto) 8.3 [place] % (Auto) 13.7 Eos % (Auto) 2.6 Baso % (Auto) 0.4 Immature Gran # (Auto) 0.09 H Neut # (Auto) 10.34 H Lymph # (Auto) 1.15 L [place] # (Auto) 1.91 H Eos # (Auto) 0.36 Baso # (Auto) 0.05 Peripher Smr Path Cons Sodium 129 L Potassium 3.9 Chloride 93 L Carbon Dioxide 27 Anion Gap 8.0 BUN 8 Creatinine 0.83 Est Cr Clr Drug Dosing 58.9 Est GFR ( Amer) 82.2 Est GFR (Non-Af Amer) 70.9 BUN/Creatinine Ratio 9.4 L Glucose 138 H Calcium 9.3
[2018-10-15] MEDS: ENOXAPARIN INJ 40 MG/0.4 ML SYR SQ SCH (18:07)
[2018-10-15] MEDS: ASPIRIN 81 MG ECTAB PO SCH (20:29)
[2018-10-15] MEDS: THIAMINE HCL 50 MG TABLET PO SCH (20:30)
[2018-10-15] MEDS: ATORVASTATIN 20 MG TAB PO SCH (20:31)
--- NOTE | 2018-10-15 21:24 | Infectious Disease Progress Nt ---
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 Suspect fever from her extensive hepatic metastases, as no other obvious source identifiable at present. Antibiotics to be held for now, will follow. Subjective Patient seen in follow-up for fever. Patient still weak and fatigued, but feeling slightly better. No new complaints. Review of Systems Review of Systems: All systems reviewed & are unremarkable except as noted in HPI & below Physical Exam Constitutional: WD/WN, vitals as above + ill appearing and comfortable; no acute distress Eyes: PERRL, conjunctivae normal, anicteric sclerae ENMT: external ear and nose normal, oropharynx normal Neck: trachea midline, no thyromegaly neck nontender Respiratory: normal respiratory effort, lungs clear to auscultation normal percussion; does not use accessory muscles Cardiovascular: Rate/Rhythm: regular rate and regular rhythm Heart Sounds: normal S1 and normal S2; no gallop, no murmur and no cardiac rub Vessels: normal peripheral pulses; no JVD Gastrointestinal (Abdomen): normal bowel sounds, soft, nontender, no hepatosplenomegaly Musculoskeletal: no cyanosis or clubbing, extremities motor strength 5/5 Spine: thoracic spine normal to inspection and lumbar spine normal to inspection; no cervical spinal tenderness Skin: no rashes, warm and dry normal turgor; no lesions Neurologic: patellar DTR's 2+ bilat, sensation intact no focal motor deficits Psychiatric: A+Ox3, euthymic affect Orientation: cooperative Lymphatic: no cervical or axillary lymphadenopathy no inguinal lymphadenopathy Results & Data Vital Signs (Past 12 Hours) Vital Signs Temp Pulse Pulse Resp BP BP Pulse Ox 10/15/18 20:04 37.1 C 71 20 148/82 H 96 10/15/18 16:00 74 10/15/18 11:36 36.9 C 71 16 133/74 96 Laboratory Results Short CBC 10/15/18 Range/Units 06:52 WBC 13.90 H (4.8-10.8) K/uL Hgb 11.3 L (12.0-16.0) g/dL Hct 33.6 L (37-47) % Plt Count 585 H (130-400) K/uL BMP 10/15/18 06:52 Sodium 129 L Potassium 3.9 Chloride 93 L Carbon Dioxide 27 BUN 8 Creatinine 0.83 Glucose 138 H Calcium 9.3 Diagnostic Findings Microbiology 10/13/18 00:28 Urine,Clean Catch Urine Culture - Final Three types of organisms present, all moderate counts. Repeat collection recommended. No further identifications or sensitivities to follow. 10/12/18 17:47 Blood Blood Culture - Preliminary No growth to date. 10/12/18 17:41 Blood Blood Culture - Preliminary No growth to date. 10/11/18 12:56 Blood Blood Culture - Preliminary No growth to date.
[2018-10-16] MEDS: NORMOSOL-R 1,000 ML IV SCH (02:03)
[2018-10-16 06:59] LABS: BUN Creatinine Ratio 10.1 (10-20); Calcium 8.7 mg/dl (8.5-10.1); Creatinine Clr Calc Pharmacy 77.6 ml/min; Est GFR (African American) 104.6; Est GFR (Non-African American) 90.2; Potassium 3.4 mmol/L (3.5-5.1)
[2018-10-16 07:15] LABS: Basophils # (auto) 0.04 K/uL (0-0.2); Basophils % (auto) 0.3 %; Eosinophils # (auto) 0.29 K/uL (0-0.5); Eosinophils % (auto) 2.3 %; Hematocrit (blood only) 32.3 % (37-47); Immature Granulocytes # (auto) 0.09 K/uL (0.00-0.02); Immature Granulocytes % (auto) 0.7 %; Lymphocytes # (auto) 1.41 K/uL (1.2-3.4); Lymphocytes % (auto) 11.1 %; Mean Corpuscular Hgb Conc 34.1 g/dL (32-36); Mean Corpuscular Volume 87.1 fL (80-100); Mean Platelet Volume 9.1 fL (7.4-10.4); Monocytes # (auto) 2.14 K/uL (0.11-0.59); Monocytes % (auto) 16.8 %; Neutrophils # (auto) 8.76 K/uL (1.4-6.5); Neutrophils % (auto) 68.8 %; Platelet Count 604 K/uL (130-400); RDW Coefficient of Variation 14.3 % (11.5-14.5); RDW Standard Deviation 45.5 fL (36.4-46.3); Red Blood Count 3.71 M/uL (4.2-5.4); White Blood Count 12.73 K/uL (4.8-10.8)
[2018-10-16] MEDS: ONDANSETRON INJ 2 MG/ML 2 ML VIAL IV PRN ×2 (07:36→16:11)
[2018-10-16] MEDS: LACTOBACILLUS ACIDOPHILUS (FLORANEX) TAB PO SCH (07:37)
[2018-10-16] MEDS: CARBIDOPA/LEVODOPA 25/100MG TAB PO SCH ×4 (07:37→20:42)
[2018-10-16] MEDS: dilTIAZem ER 120 MG CAPCR PO SCH (07:37)
[2018-10-16] MEDS: MAGNESIUM CHLORIDE 64MG DELAYED REL TAB PO SCH ×2 (07:37→20:48)
[2018-10-16] MEDS: ESCITALOPRAM OXALATE 10 MG TAB PO SCH (07:37)
[2018-10-16] MEDS: ATENOLOL 25 MG TABLET PO SCH (07:37)
[2018-10-16] MEDS ORDERED: FUROSEMIDE 20 MG TAB PO SCH (09:00)
--- NOTE | 2018-10-16 10:25 | Hospitalist Progress Note ---
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 difficile, who presents to [facility] ED secondary to fatigue and weakness for 10 days. In ED patient serum sodium noted to be 124, K3.9, BUN 16, creatinine 0.91, glucose 150, WBC 16.3, H/H 13.2 and 38.7, platelet 577, mag 1.6. TSH WNL. EKG revealed normal sinus rhythm. Urinalysis was abnormal. She was noted to have slightly elevated temperature at 37.7. Pt with hx of chronic electrolyte abnormalities including Na, Mag. She follows closely with Dr. Escalera. Hospitalized in past requiring tolvaptan. Sx likely secondary to symptomatic hyponatremia as patient appears dry on exam. This may also be multifactorial given below diagnoses. Cannot entirely rule out infection. Weakness likely secondary to hyponatremia from dehydration Na decreased from 129 to 127 Lasix started Nephrology consulted, appreciate recommendations Potassium and magnesium replaced r/o Infection management noted below (3) Fever: Infection ruled out from recent chemoembolization? liver mets? CT abd/pelvis: no abscess, signs of infection Urine culture: Negative Blood culture: Negative Remains afebrile x at least 3 days WBC down to 13k Cultures are negative x 2 days will d/c Zosyn in light of patient having history of C diff will monitor ID consulted (4) Leukocytosis: WBC down to 12k Urinalysis negative for infection urine cultures negative so far Blood cultures THROAT: No sore throat, difficulty swallowing, or hoarseness. Chest x-ray no pneumonia Peripheral smear ordered: unrevealing no clear focus of infection Zosyn discontinued 10/15/18 monitor (5) Hypomagnesemia: Replaced, resolved (6) Leiomyosarcoma of retroperitoneum: Hx of Retroperitoneal leiomyosarcoma status post neoadjuvant radiation with resection of sarcoma along with left nephrectomy, distal pancreatectomy, splenectomy 12/30/2016 Now with liver mets s/p chemoembolization and microwave ablation 08/14 and additional chemoembolization 10/01 at [facility] Follows Dr. 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 Hoang not recommending increase in Sinemet at at this time weakness improving PT/OT eval (11) Dyslipidemia: Continue statin (12) DVT prophylaxis: Lovenox and SCDs Disposition: PT and OT evaluation in progress Patient lives at home Follow-up: PCP Oncologist Dr. العلي, [facility] in [place] Subjective ff up for weakness, fever seen resting in bed, not in distress (+) nausea /vomiting after breakfast no abdominal pain no chest pain, dyspnea feels less weak today no other symptoms Review of Systems Review of Systems: All systems reviewed & are unremarkable except as noted in HPI & below Physical Exam Physical Exam: General- oriented x 3, not in distress, speaks in sentences with no effort or accessory muscle use Eyes- anicteric Neck- no JVD Lungs- clear breath sounds bilaterally Heart- normal rate, regular rhythm; no murmurs Abdomen- normal bowel sounds, nondistended, soft, MILD RUQ tenderness Extremities- no pretibial edema, no calf tenderness Neuro- alert, oriented x 3; no gross focal neurologic deficits Skin- warm & dry Results & Data Vital Signs (Past 12 Hours) Vital Signs Temp Pulse Pulse Resp BP BP Pulse Ox 10/16/18 07:36 36.7 C 71 16 176/84 H 94 10/16/18 03:25 37.1 C 87 18 110/74 90 10/16/18 00:31 78 10/15/18 23:06 37.5 C 84 19 134/72 92
[2018-10-16] MEDS ORDERED: POTASSIUM CHLORIDE IV SCH (14:30)
[2018-10-16] MEDS ORDERED: NORMOSOL R IV SCH (14:30)
[2018-10-16] MEDS: POTASSIUM CHLORIDE 20 MEQ TABCR PO SCH (14:36)
--- NOTE | 2018-10-16 15:37 | Infectious Disease Progress Nt ---
Date of Service October 16, 2018 Assessment & Plan (1) Fever: 72-year-old female with metastatic leiomyosarcoma admitted with weakness and fever. Suspect fever from her extensive hepatic metastases, as no other obvious source identifiable at present. Patient to be followed off IV antibiotics. Subjective Patient seen in follow-up for fever. Patient still weak and fatigued, but feeling slightly better. No fever for several days. No new complaints. Review of Systems Review of Systems: All systems reviewed & are unremarkable except as noted in HPI & below Physical Exam Constitutional: WD/WN, vitals as above + ill appearing and comfortable; no acute distress Eyes: PERRL, conjunctivae normal, anicteric sclerae ENMT: external ear and nose normal, oropharynx normal Neck: trachea midline, no thyromegaly neck nontender Respiratory: normal respiratory effort, lungs clear to auscultation normal percussion; does not use accessory muscles Cardiovascular: Rate/Rhythm: regular rate and regular rhythm Heart Sounds: normal S1 and normal S2; no gallop, no murmur and no cardiac rub Vessels: normal peripheral pulses; no JVD Gastrointestinal (Abdomen): normal bowel sounds, soft, nontender, no hepatosplenomegaly Musculoskeletal: no cyanosis or clubbing, extremities motor strength 5/5 Spine: thoracic spine normal to inspection and lumbar spine normal to inspection; no cervical spinal tenderness Skin: no rashes, warm and dry normal turgor; no lesions Neurologic: patellar DTR's 2+ bilat, sensation intact no focal motor deficits Psychiatric: A+Ox3, euthymic affect Orientation: cooperative Lymphatic: no cervical or axillary lymphadenopathy no inguinal lymphadenopathy Results & Data Vital Signs (Past 12 Hours) Vital Signs Temp Pulse Pulse Resp BP BP Pulse Ox 10/16/18 11:02 69 10/16/18 07:36 36.7 C 71 16 176/84 H 94 10/16/18 03:25 37.1 C 87 18 110/74 90 Laboratory Results Short CBC 10/16/18 10/16/18 Range/Units 05:49 07:04 WBC Cancelled 12.73 H Hgb Cancelled 11.0 L Hct Cancelled 32.3 L Plt Count Cancelled 604 H BMP 10/16/18 05:49 Sodium 127 L Potassium 3.4 L Chloride 93 L Carbon Dioxide 25 BUN 6 L Creatinine 0.63 Glucose 159 H Calcium 8.7 Diagnostic Findings Microbiology 10/11/18 12:56 Blood Blood Culture - Final No growth 10/13/18 00:28 Urine,Clean Catch Urine Culture - Final Three types of organisms present, all moderate counts. Repeat collection recommended. No further identifications or sensitivities to follow. 10/12/18 17:47 Blood Blood Culture - Preliminary No growth to date. 10/12/18 17:41 Blood Blood Culture - Preliminary No growth to date.
--- NOTE | 2018-10-16 15:38 | Communication Note ---
Date of Service: October 16, 2018 Dilia is better today and actually looks about the same as she did yesterday. There is minimal if any rigidity quite animated Myerson sign is negative for any cogwheeling and this requires reinforcement to demonstrate there is no tremor. Serum sodium is down to 127 Continue to feel that additional Sinemet is not going to help her lethargy and lassitude I will check back with her tomorrow for now not going to increase her Sinemet beyond its current level Hector Hoang MD
[2018-10-16] MEDS ORDERED: FUROSEMIDE 10 MG in SYRINGE 0 ML IV ONE (16:00)
[2018-10-16] MEDS: ENOXAPARIN INJ 40 MG/0.4 ML SYR SQ SCH (16:14)
--- NOTE | 2018-10-16 18:15 | Nephrology Progress Note ---
Date of Service October 16, 2018 Assessment & Plan (1) Hyponatremia: challenging pt w/ sNa stuck in high 120s. initially studies c/w hypotonic hypovolemic hyponatremia; historically she has had low Na from low solute diet; has been very challenging to manage in past -now w/ emesis all day; poor po intake; I had stopped her iV fluid this am and considered FR w/ emphasis on protein shakes - but to replete K had to give 500 mL of normosol w/ K in it -recheck labs this evening-orders in > sNa 126; await am lab ->>goal is sNa 131 tomorrow AM >>>>maintain normal K >>>encouraged protein intake >> take protein shakes if can't eat (2) Fever: intermittent before presentation. 38.5 1700 on 10/12; no further F since then; WBC improving. most likely residual after embolization therapy per 's report of [facility] physician comment to him Subjective sNa 127 this am; vomiting earlier in day and unable to tolerate po including po K; also w/ diarrhea; not taking much po; abtx stopped today Review of Systems Constitutional: + body aches, + weakness and + anorexia Respiratory: no dyspnea and no pain on inspiration Cardiovascular: no chest pain, no palpitations and no edema Gastrointestinal: as per Subjective / HPI Genitourinary: no dysuria, no urinary frequency and no urinary hesitancy Physical Exam Constitutional: well developed, + ill appearing (on RA;sitting in bed; a bit less exhausted than last visit) and comfortable Eyes: + anicteric sclerae; no conjunctival abnormality, no scleral abnormality and no EOM movement deficit ENMT: Mouth: + dry oral mucous membranes Neck: no nuchal rigidity Respiratory: normal respiratory effort; no respiratory distress Auscultation: lungs clear to auscultation bilaterally and + diminished lung sounds Cardiovascular: RRR, no murmur, no edema Gastrointestinal (Abdomen): Inspection/Auscultation: normal bowel sounds Percussion/Palpation: abdomen soft; abdomen nontender Skin: no rashes, warm and dry + rash (blotchy patches red on face) Neurologic: Motor/Sensory: + tremor and + abnormal movement Psychiatric: A+Ox3, euthymic affect Results & Data Vital Signs (Past 12 Hours) Vital Signs Temp Pulse Pulse Resp BP BP Pulse Ox 10/16/18 16:13 36.9 C 62 16 161/82 H 92 10/16/18 15:00 66 10/16/18 11:02 69 10/16/18 07:36 36.7 C 71 16 176/84 H 94 Laboratory Results Abnormal lab results 10/16/18 10/16/18 10/16/18 Range/Units 05:37 05:49 05:49 WBC (4.8-10.8) K/uL RBC (4.2-5.4) M/uL Hgb (12.0-16.0) g/dL Hct (37-47) % Plt Count (130-400) K/uL Immature Gran # (Auto) (0.00-0.02) K/uL Neut # (Auto) (1.4-6.5) K/uL [place] # (Auto) (0.11-0.59) K/uL Sodium 127 L (136-145) mmol/L Potassium 3.4 L (3.5-5.1) mmol/L Chloride 93 L (98-107) mmol/L BUN 6 L (7-18) mg/dl BUN/Creatinine Ratio (10-20) Glucose 159 H (70-99) mg/dl Osmolality 259 L (280-300) mOsm/kg Urine Osmolality 353 L (500-800) mOsm/kg 10/16/18 10/16/18 Range/Units 07:04 20:57 WBC 12.73 H (4.8-10.8) K/uL RBC 3.71 L (4.2-5.4) M/uL Hgb 11.0 L (12.0-16.0) g/dL Hct 32.3 L (37-47) % Plt Count 604 H (130-400) K/uL Immature Gran # (Auto) 0.09 H (0.00-0.02) K/uL Neut # (Auto) 8.76 H (1.4-6.5) K/uL [place] # (Auto) 2.14 H (0.11-0.59) K/uL Sodium 126 L (136-145) mmol/L Potassium (3.5-5.1) mmol/L Chloride 90 L (98-107) mmol/L BUN (7-18) mg/dl BUN/Creatinine Ratio 9.8 L (10-20) Glucose 209 H (70-99) mg/dl Osmolality (280-300) mOsm/kg Urine Osmolality (500-800) mOsm/kg (1) Fever Fever type: unspecified Qualified Code(s): R50.9 - Fever, unspecified
[2018-10-16] MEDS: ATORVASTATIN 20 MG TAB PO SCH (20:41)
[2018-10-16] MEDS: ASPIRIN 81 MG ECTAB PO SCH (20:42)
[2018-10-16] MEDS: THIAMINE HCL 50 MG TABLET PO SCH (20:49)
[2018-10-16] MEDS ORDERED: LACTOBACILLUS ACIDOPHILUS (FLORANEX) TAB PO SCH (21:00)
[2018-10-16 21:27] LABS: BUN Creatinine Ratio 9.8 (10-20); Creatinine Clr Calc Pharmacy 65.8 ml/min; Est GFR (African American) 91.5; Est GFR (Non-African American) 78.9; Potassium 3.8 mmol/L (3.5-5.1)
[2018-10-16] MEDS: PROBIOTIC PO SCH (21:38)
[2018-10-17] MEDS: ACETAMINOPHEN 325 MG TAB PO PRN ×3 (01:17→20:22)
[2018-10-17 07:24] LABS: Basophils # (auto) 0.04 K/uL (0-0.2); Basophils % (auto) 0.3 %; Eosinophils % (auto) 2.5 %; Hematocrit (blood only) 32.5 % (37-47); Immature Granulocytes # (auto) 0.07 K/uL (0.00-0.02); Immature Granulocytes % (auto) 0.6 %; Lymphocytes # (auto) 1.27 K/uL (1.2-3.4); Lymphocytes % (auto) 10.6 %; Mean Corpuscular Hgb Conc 33.8 g/dL (32-36); Mean Corpuscular Volume 87.8 fL (80-100); Mean Platelet Volume 9.2 fL (7.4-10.4); Monocytes # (auto) 2.18 K/uL (0.11-0.59); Monocytes % (auto) 18.1 %; Neutrophils # (auto) 8.17 K/uL (1.4-6.5); Neutrophils % (auto) 67.9 %; Platelet Count 666 K/uL (130-400); RDW Coefficient of Variation 14.4 % (11.5-14.5); RDW Standard Deviation 46.2 fL (36.4-46.3); White Blood Count 12.03 K/uL (4.8-10.8)
--- NOTE | 2018-10-17 07:25 | Nephrology Progress Note ---
Date of Service October 17, 2018 Assessment & Plan (1) Hyponatremia: challenging pt w/ sNa stuck in high 120s. initially studies c/w hypotonic hypovolemic hyponatremia; historically she has had low Na from low solute diet; has been very challenging to manage in past -yesterday w/ emesis and some loose BM all day; pt also w/ ongoing poor po intake>repeat sNa last evening 126 >> she had -currently on no IV fluids or las -recheck labs last evening > sNa 126; await am lab which is pending ->>goal is sNa 129 >>>>maintain normal K >>>encouraged protein intake >> take protein shakes if can't eat Subjective no further N or diarrhea or abd pain including RUQ or pleuritic chest pain ON. still no appetite. no f. feels her parkinsons is worse in terms of tremor, balance, limits these put on her motor strength. no sob; denies voiding c/o. no rash, no bleeding, no palpitations chest pain edema. Review of Systems Review of Systems: per subjective above Physical Exam Constitutional: well developed, + ill appearing (on RA;sitting in bed; a bit less exhausted than last visit) and comfortable on RA A& 0 x 3 nad Eyes: + anicteric sclerae; no conjunctival abnormality, no scleral abnormality and no EOM movement deficit ENMT: Mouth: + dry oral mucous membranes Neck: no nuchal rigidity Respiratory: normal respiratory effort; no respiratory distress Auscultation: lungs clear to auscultation bilaterally and + diminished lung sounds Cardiovascular: RRR, no murmur, no edema Gastrointestinal (Abdomen): Inspection/Auscultation: normal bowel sounds Percussion/Palpation: abdomen soft; abdomen nontender Skin: no rashes, warm and dry Neurologic: Motor/Sensory: + tremor and + abnormal movement lists backwards and to her R w/ standing unless holding on to walker; too weak to reposition rayna f in bed Psychiatric: A+Ox3, euthymic affect Results & Data Vital Signs (Past 12 Hours) Vital Signs Temp Pulse Pulse Resp BP BP Pulse Ox 10/17/18 04:51 36.5 C 67 18 157/82 H 95 10/16/18 23:41 37.4 C 76 20 148/74 H 92 10/16/18 23:36 73 Laboratory Results today's labs pending Abnormal lab results 10/16/18 Range/Units 20:57 Sodium 126 L (136-145) mmol/L Chloride 90 L (98-107) mmol/L BUN/Creatinine Ratio 9.8 L (10-20) Glucose 209 H (70-99) mg/dl
[2018-10-17 07:52] LABS: BUN Creatinine Ratio 10.2 (10-20); Calcium 8.9 mg/dl (8.5-10.1); Est GFR (Non-African American) 82.9; Potassium 3.6 mmol/L (3.5-5.1)
[2018-10-17] MEDS: ATENOLOL 25 MG TABLET PO SCH (08:57)
[2018-10-17] MEDS: POTASSIUM CHLORIDE 20 MEQ TABCR PO SCH (08:58)
[2018-10-17] MEDS: PROBIOTIC PO SCH ×2 (08:58→20:22)
[2018-10-17] MEDS: CARBIDOPA/LEVODOPA 25/100MG TAB PO SCH ×4 (08:59→20:21)
[2018-10-17] MEDS: dilTIAZem ER 120 MG CAPCR PO SCH (08:59)
[2018-10-17] MEDS: ESCITALOPRAM OXALATE 10 MG TAB PO SCH (09:00)
[2018-10-17] MEDS: MAGNESIUM CHLORIDE 64MG DELAYED REL TAB PO SCH ×2 (09:00→20:20)
[2018-10-17] MEDS: FUROSEMIDE 40 MG TAB PO SCH (09:08)
--- NOTE | 2018-10-17 15:24 | Communication Note ---
Date of Service: October 17, 2018 I saw Dilia today she really seems much improved she is anxious to try to go home she just got through walking with therapy and feels significantly better having gotten out of bed and moving around her serum sodium is up into the 130 range Plans are to have her discharged home care with in home physical therapy nursing etc. and I totally agree with this Again I do not see the need to increase her Sinemet over its current level Neurology will be happy to see her in follow-up in about 3 to 4 weeks after discharge acting on the assumption that she will return home become more active and her current medical problems will be stabilized specifically the electrolyte disturbance may have been 1 of the primary reasons for admission and her neurologic decline We are going to sign off at this point I be happy to take a look at her again if there are any subsequent neurologic developments that would need our attention prior to discharge Hector Hoang MD
[2018-10-17] MEDS: ENOXAPARIN INJ 40 MG/0.4 ML SYR SQ SCH (16:31)
--- NOTE | 2018-10-17 19:26 | Hospitalist Progress Note ---
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 difficile, who presents to [facility] ED secondary to fatigue and weakness for 10 days. symptoms attributed to hyponatremia (2) Hyponatremia: -initially studies consistently with hypotonic hypovolemic hyponatremia; historically she has had low Na from low solute diet -admission serum sodium 124 -recently during hospitalization patient's serum sodium more consistently in the upper 120s to 130. serum sodium is 130 on 10/17/18 -nephrology recommends fluid restriction as 1.5L daily , lasix 40 mg daily, K 20 mEq daily and follow up in nephrology clinic in 4 to 6 weeks with weekly basic metabolic panels and weekly serum magnesium levels while on oral magnesium supplements (3) Fever: Infection ruled out on this admission CT abd/pelvis: no abscess, signs of infection Urine culture: Negative Blood culture: Negative patient was empirically treated with Zosyn but was stopped after 3 days on 10/15/18 (4) Leukocytosis: admission WBC above 17,000 WBC downtrended to 12,000 (5) Hypomagnesemia: Replaced, resolved continue daily magnesium supplements (6) Leiomyosarcoma of retroperitoneum: Hx of Retroperitoneal leiomyosarcoma status post neoadjuvant radiation with resection of sarcoma along with left nephrectomy, distal pancreatectomy, splenectomy 12/30/2016 Now with liver mets s/p chemoembolization and microwave ablation 08/14 and additional chemoembolization 10/01 at [facility] Follows Dr. 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 Hoang not recommending increase in Sinemet at at this time will need neurology clinic follow up continue PT/OT evaluation and will need home health (11) Dyslipidemia: Continue statin (12) DVT prophylaxis: Lovenox and SCDs Follow-up: PCP Oncologist Dr. العلي, [facility] in [place] Subjective Patient breathing on room air. denies acute pain. patient's nurse reports ambulates with some assistance. no vomiting today and no fever today Physical Exam Constitutional: WD/WN, vitals as above Eyes: PERRL, conjunctivae normal, anicteric sclerae EOM intact bilaterally ENMT: external ear and nose normal, oropharynx normal Neck: trachea midline, no thyromegaly normal visual inspection Respiratory: normal respiratory effort, lungs clear to auscultation Cardiovascular: RRR, no murmur, no edema Gastrointestinal (Abdomen): normal bowel sounds, soft, nontender, no hepatosplenomegaly Neurologic: PERRL, EOMI, accommodation nl, no face palsy, no dysarthria Psychiatric: A+Ox3, euthymic affect Results & Data Vital Signs (Past 12 Hours) Vital Signs Temp Pulse Pulse Resp BP BP Pulse Ox 10/17/18 17:33 69 10/17/18 15:25 36.3 C L 64 18 110/63 96 10/17/18 11:37 36.8 C 68 16 160/81 H 93 10/17/18 07:51 67
[2018-10-17] MEDS: ATORVASTATIN 20 MG TAB PO SCH (20:21)
[2018-10-17] MEDS: ASPIRIN 81 MG ECTAB PO SCH (20:21)
[2018-10-17] MEDS: THIAMINE HCL 50 MG TABLET PO SCH (20:22)
[2018-10-18] MEDS: ACETAMINOPHEN 325 MG TAB PO PRN (04:26)
[2018-10-18 08:01] LABS: Basophils # (auto) 0.06 K/uL (0-0.2); Basophils % (auto) 0.5 %; Eosinophils # (auto) 0.46 K/uL (0-0.5); Eosinophils % (auto) 3.7 %; Hematocrit (blood only) 30.9 % (37-47); Hemoglobin 10.5 g/dL (12.0-16.0); Immature Granulocytes # (auto) 0.13 K/uL (0.00-0.02); Mean Corpuscular Volume 86.6 fL (80-100); Mean Platelet Volume 9.1 fL (7.4-10.4); Monocytes # (auto) 2.23 K/uL (0.11-0.59); Monocytes % (auto) 17.9 %; Neutrophils # (auto) 8.08 K/uL (1.4-6.5); Neutrophils % (auto) 64.9 %; Platelet Count 786 K/uL (130-400); RDW Coefficient of Variation 14.4 % (11.5-14.5); RDW Standard Deviation 45.7 fL (36.4-46.3); Red Blood Count 3.57 M/uL (4.2-5.4); White Blood Count 12.46 K/uL (4.8-10.8)
[2018-10-18] MEDS: FUROSEMIDE 40 MG TAB PO SCH (08:11)
[2018-10-18] MEDS: PROBIOTIC PO SCH (08:11)
[2018-10-18] MEDS: CARBIDOPA/LEVODOPA 25/100MG TAB PO SCH ×2 (08:12→13:18)
[2018-10-18] MEDS: ATENOLOL 25 MG TABLET PO SCH (08:12)
[2018-10-18] MEDS: ESCITALOPRAM OXALATE 10 MG TAB PO SCH (08:12)
[2018-10-18] MEDS: MAGNESIUM CHLORIDE 64MG DELAYED REL TAB PO SCH (08:13)
[2018-10-18] MEDS: POTASSIUM CHLORIDE 20 MEQ TABCR PO SCH (08:13)
[2018-10-18 08:33] LABS: BUN Creatinine Ratio 18.8 (10-20); Calcium 8.7 mg/dl (8.5-10.1); Creatinine Clr Calc Pharmacy 72.9 ml/min; Est GFR (African American) 102.5; Est GFR (Non-African American) 88.4; Magnesium 1.5 mg/dl (1.8-2.4); Potassium 3.6 mmol/L (3.5-5.1)
[2018-10-18 08:36] LABS: Albumin Globulin Ratio 0.5 (0.9-2); Bilirubin,Total 0.4 mg/dl (0.2-1)
[2018-10-18] MEDS: dilTIAZem ER 120 MG CAPCR PO SCH (08:40)
[2018-10-18] MEDS ORDERED: POTASSIUM CHLORIDE 20 MEQ TABCR PO STA (08:42)
[2018-10-18] MEDS: MAGNESIUM SULFATE / D5W 1 GM/100 ML BAG IV SCH ×3 (09:28→11:54)
--- NOTE | 2018-10-18 14:32 | Hospitalist Progress Note ---
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 difficile, who presents to [facility] ED secondary to fatigue and weakness for 10 days. symptoms primarily attributed to hyponatremia but patient also with history of malignancy and Parkinson's disease (2) Hyponatremia: -initially studies consistently with hypotonic hypovolemic hyponatremia; historically she has had low Na from low solute diet -admission serum sodium 124 -recently during hospitalization patient's serum sodium more consistently in the upper 120s to 130. serum sodium is 130 on 10/17/18 and 129 on 10/18/18 -nephrology recommends fluid restriction as 1.5L daily , lasix 40 mg daily, K 20 mEq daily and follow up in nephrology clinic in 4 to 6 weeks with weekly basic metabolic panels and weekly serum magnesium levels while on oral magnesium supplements 11/28/2018 9:00 AM Provider Tiff Escalera MD Department Nephrology, [facility] (3) Fever: Infection ruled out on this admission CT abd/pelvis: no abscess, signs of infection Urine culture: Negative Blood culture: Negative patient was empirically treated with Zosyn but was stopped after 3 days on 10/15/18 (4) Leukocytosis: admission WBC above 17,000 WBC downtrended to 12,000 (5) Hypomagnesemia: has had chronic low magnesium levels in the past based on cahrt review serum magnesium was 1.5 n AM of 10/18/18 while patient been on daily oral magnesium supplements, after IV magnesium the serum magnesium increased to 2.5. will dischareg with BID 400 mg magnesium oxide supplements (6) Leiomyosarcoma of retroperitoneum: History of Retroperitoneal leiomyosarcoma status post neoadjuvant radiation with resection of sarcoma along with left nephrectomy, distal pancreatectomy, splenectomy 12/30/2016 Then with liver mets s/p chemoembolization and microwave ablation 08/14 and additional chemoembolization 10/01 at [facility] Follows Dr. 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 Hoang not recommending increase in Sinemet during this hospital stay neurology clinic follow up 11/08/2018 10:40 AM Provider YELENA Pulliam Department Neurology [facility] (11) Dyslipidemia: Continue statin (12) DVT prophylaxis: Lovenox and SCDs while inpatient Discharge Diagnosis Generalized weakness, Hyponatremia, Hypomagnesemia, Fever (resolved), Parkinson's disease, History of Leiomyosarcoma of retroperitoneum Discharge to Home with home health services nephrology recommends fluid restriction as 1.5L daily , lasix 40 mg daily, K 20 mEq daily and follow up in nephrology clinic in 4 to 6 weeks with weekly basic metabolic panels and weekly serum magnesium levels while on oral magnesium supplements 10/22/2018 10:20 AM Provider Rossy Vance MD Department General Internal Medicine [facility] 11/01/2018 10:45 AM Provider Prince العلي MD Department Hematology/Oncology [facility] 11/08/2018 10:40 AM Provider Chelsy Guillermo PA-C Department Neurology [facility] 11/28/2018 9:00 AM Provider Tiff Escalera MD Department Nephrology, [facility] 12/11/2018 9:20 AM Provider Rossy Vance MD Department General Internal Medicine [facility] 01/07/2019 9:40 AM Provider Tiff Escalera MD Department Nephrology, [facility] Subjective Patient sitting in chair. she is not in distress. answers questions appropriately. had her meals. no vomiting. she tolerated the IV magnesium supplements. denies acute pain. denies shortness of breath. patient is eager to go home Physical Exam Constitutional: WD/WN, vitals as above Eyes: PERRL, conjunctivae normal, anicteric sclerae EOM intact bilaterally ENMT: external ear and nose normal, oropharynx normal Neck: trachea midline, no thyromegaly normal visual inspection Respiratory: normal respiratory effort, lungs clear to auscultation Cardiovascular: RRR, no murmur, no edema Gastrointestinal (Abdomen): normal bowel sounds, soft, nontender, no hepatosplenomegaly Neurologic: PERRL, EOMI, accommodation nl, no face palsy, no dysarthria Psychiatric: A+Ox3, euthymic affect Results & Data Vital Signs (Past 12 Hours) Vital Signs Temp Pulse Pulse Resp BP Pulse Ox 10/18/18 11:26 36.7 C 74 18 136/75 98 10/18/18 07:39 36.8 C 71 20 151/75 H 94 10/18/18 07:36 68 10/18/18 04:00 36.8 C 72 20 159/78 H 94
--- NOTE | 2018-10-18 14:42 | Discharge Summary ---
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 difficile, who presents to [facility] ED secondary to fatigue and weakness for 10 days. is at bedside. Unfortunately patient recently diagnosed with liver mets in which she has been following with [facility]. She underwent chemo embolization and microwave ablation on 08/14 and underwent chemo ablation on 10/01. feels weakness and fatigue are a cumulative effect of 2 recent trips to [facility] and her chemoembolization. He also feels her Parkinson's has been exacerbated and states she has an appointment with Dr. Hoang neurology 10/15. Further patient elicits to muscle aches, increased tremors and shaking, dizziness, decreased appetite. She normally has a decreased appetite however it has been worse in the recent days including her oral fluid intake. She has had no recent falls. She did have an elevated temp yesterday of 100.4. called physician at [facility] who notes elevated temp not abnormal status post chemoembolization. Patient denies any other recent illness, chills,sweats, lightheadedness, syncope, chest pain, shortness of breath, palpitations, cough, n/v/d, abd pain, change in bowel or urinary habits. She denies any melena or hematochezia. She ambulates with a walker and has noted increased difficulty with ambulating and doing ADLs given her Parkinson's. Admission Exam Per Admitting Provider Gen: WD/WN, elderly F, appears older than stated age, NAD, sitting up in bed, pleasant, conversing easily Head: Normocephalic, Atraumatic Eyes: Sclera normal, no conjunctival injection, PERRLA, EOMI ENT: Gross hearing intact, normal pharynx, mucous membranes dry Neck: supple, no adenopathy, No JVD, no bruit, Resp: Clear to auscultation b/l, no wheeze, rales, rhonchi. Normal insp/exp effort, no accessory muscle use CV: Regular rate, regular rhythm, no murmur, rub, gallop, or ectopy Abd: +BS x 4, soft, nontender, nondistended Musculoskeletal: moves extremities active rom x 4, strength intact 5/5 except b/l hip flexors 4/5, good drywall hanger strength Extremities: No edema bilaterally, bilateral pedal pulse +2 and equal Skin: warm, moist, no rash, mild turgor, cap refill < 2sec Neuro: Alert and oriented x 3, speech normal but slow, good mood/affect, cran nerve 2-12 intact grossly, positive cogwheeling, shuffled gait : deferred Principal Diagnosis Generalized weakness, Hyponatremia, Hypomagnesemia, Fever (resolved), Parkinson's disease, History of Leiomyosarcoma of retroperitoneum Discharge Exam Constitutional WD/WN, vitals as above Eyes PERRL, conjunctivae normal, anicteric sclerae EOM intact bilaterally ENMT external ear and nose normal, oropharynx normal Neck trachea midline, no thyromegaly normal visual inspection Respiratory normal respiratory effort, lungs clear to auscultation Cardiovascular RRR, no murmur, no edema Gastrointestinal (Abdomen) normal bowel sounds, soft, nontender, no hepatosplenomegaly Neurologic PERRL, EOMI, accommodation nl, no face palsy, no dysarthria Psychiatric A+Ox3, euthymic affect Discharge Data Allergies Allergy/AdvReac Type Severity Reaction Status Date / Time nickel Allergy Unknown RASH Verified 10/11/18 11:34 Consultations 10/11/18 12:55 ED Decision to Admit Stat 10/11/18 13:50 Consult Nephrology Routine 10/11/18 15:30 Consult Case Management - Discharge Planning Routine 10/12/18 17:44 Consult Infectious Diseases Routine 10/12/18 17:46 Consult Neurology Routine Ordered Studies 10/12/18 17:44 CT abd pelvis IV con only Stat Hospital Course (1) Generalized weakness: This is a 72-year-old female who has a PMH of 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 difficile, who presents to [facility] ED secondary to fatigue and weakness for 10 days. symptoms primarily attributed to hyponatremia but patient also with history of malignancy and Parkinson's disease (2) Hyponatremia: -initially studies consistently with hypotonic hypovolemic hyponatremia; historically she has had low Na from low solute diet -admission serum sodium 124 -recently during hospitalization patient's serum sodium more consistently in the upper 120s to 130. serum sodium is 130 on 10/17/18 and 129 on 10/18/18 -nephrology recommends fluid restriction as 1.5L daily , lasix 40 mg daily, K 20 mEq daily and follow up in nephrology clinic in 4 to 6 weeks with weekly basic metabolic panels and weekly serum magnesium levels while on oral magnesium supplements 11/28/2018 9:00 AM Provider Tiff Escalera MD Department Nephrology, [facility] (3) Fever: Infection ruled out on this admission CT abd/pelvis: no abscess, signs of infection Urine culture: Negative Blood culture: Negative patient was empirically treated with Zosyn but was stopped after 3 days on 10/15/18 (4) Leukocytosis: admission WBC above 17,000 WBC downtrended to 12,000 (5) Hypomagnesemia: has had chronic low magnesium levels in the past based on cahrt review serum magnesium was 1.5 n AM of 10/18/18 while patient been on daily oral magnesium supplements, after IV magnesium the serum magnesium increased to 2.5. will dischareg with BID 400 mg magnesium oxide supplements (6) Leiomyosarcoma of retroperitoneum: History of Retroperitoneal leiomyosarcoma status post neoadjuvant radiation with resection of sarcoma along with left nephrectomy, distal pancreatectomy, splenectomy 12/30/2016 Then with liver mets s/p chemoembolization and microwave ablation 08/14 and additional chemoembolization 10/01 at [facility] Follows Dr. 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 Hoang not recommending increase in Sinemet during this hospital stay neurology clinic follow up 11/08/2018 10:40 AM Provider YELENA Pulliam Department Neurology [facility] (11) Dyslipidemia: Continue statin (12) DVT prophylaxis: Lovenox and SCDs while inpatient Discharge Diagnosis Generalized weakness, Hyponatremia, Hypomagnesemia, Fever (resolved), Parkinson's disease, History of Leiomyosarcoma of retroperitoneum Discharge to Home with home health services nephrology recommends fluid restriction as 1.5L daily , lasix 40 mg daily, K 20 mEq daily and follow up in nephrology clinic in 4 to 6 weeks with weekly basic metabolic panels and weekly serum magnesium levels while on oral magnesium supplements 10/22/2018 10:20 AM Provider Rossy Vance MD Department General Internal Medicine [facility] 11/01/2018 10:45 AM Provider Prince العلي MD Department Hematology/Oncology [facility] 11/08/2018 10:40 AM Provider Chelsy Guillermo PA-C Department Neurology [facility] 11/28/2018 9:00 AM Provider Tiff Escalera MD Department Nephrology, [facility] 12/11/2018 9:20 AM Provider Rossy Vance MD Department General Internal Medicine [facility] 01/07/2019 9:40 AM Provider Tiff Escalera MD Department Nephrology, [facility] Total Time Total Time Spent Total Time Spent (In Minutes): 40 minutes Total Time Includes: Examination of the Patient, Discharge Planning, Medication Reconciliation and Communication With Other Providers Discharge Plan Discharge Items Patient Disposition: Home - Home Health Services Reason For Visit: HYPONATREMIA, WEAKNESS Discharge Diagnosis: Generalized weakness, Hyponatremia, Hypomagnesemia, Fever (resolved), Parkinson's disease, History of Leiomyosarcoma of retroperitoneum Condition: Good Discharge Goals: Improve disease control Activity: Resume your previous activity Non-emergency contact: Primary Care Provider Call non-emergency contact if: you have any medication questions Follow-up/Referrals: Rossy Soria MD [Primary Care Provider] - Diet: Regular Fluids: 2000ml (8 cups) Addtl Provider Instructions: Discharge to Home with home health services nephrology recommends fluid restriction as 1.5L daily , lasix 40 mg daily, K 20 mEq daily and follow up in nephrology clinic in 4 to 6 weeks with weekly basic metabolic panels and weekly serum magnesium levels while on oral magnesium supplements 10/22/2018 10:20 AM Provider Rossy Vance MD Department General Internal Medicine [facility] 11/01/2018 10:45 AM Provider Prince العلي MD Department Hematology/Oncology [facility] 11/08/2018 10:40 AM Provider Chelsy Guillermo PA-C Department Neurology [facility] 11/28/2018 9:00 AM Provider Tiff Escalera MD Department Nephrology, [facility] 12/11/2018 9:20 AM Provider Rossy Vance MD Department General Internal Medicine [facility] 01/07/2019 9:40 AM Provider Tiff Escalera MD Department Nephrology, [facility] Prescriptions: New furosemide 40 mg Tablet 40 mg PO QAM 30 Days Qty: 30 RF: 0 potassium chloride [Klor-Con M20] 20 mEq Tablet,Er Particles/Crystals 20 meq PO QAM 30 Days Qty: 30 RF: 0 magnesium oxide 400 mg magnesium tablet 400 mg PO BID 30 Days Qty: 60 RF: 0 Continued atorvastatin 20 mg tablet 20 mg PO HS RF: 0 aspirin 81 mg Tablet,Delayed Release (Dr/Ec) 81 mg PO PM RF: 0 Premarin 0.625 mg/gram cream 1 applic vaginal WK RF: 0 carbidopa-levodopa 25-100 mg tablet See Rx Instructions .ROUTE .COMPLEX RF: 0 thiamine HCl (vitamin B1) 50 mg Tablet 50 mg PO HS RF: 0 escitalopram oxalate 10 mg tablet 10 mg PO QAM RF: 0 acetaminophen [Tylenol Extra Strength] 500 mg Tablet 500 mg PO Q6H PRN (Reason: pain/fever) RF: 0 atenolol 25 mg Tablet 25 mg PO DAILY RF: 0 diltiazem HCl 120 mg Capsule,Extended Release 24 Hr 120 mg PO DAILY RF: 0 magnesium chloride 64 mg Tablet,Delayed Release (Dr/Ec) 2 tab PO BID RF: 0 Discontinued furosemide 40 mg Tablet 40 mg PO DAILY RF: 0 Stand-Alone Forms: [facility] Discharge Orders: Discharge Order (Routine); Ordered 10/18/18 Ordered By: Jez Mccartney Admission Data Admit Date/Time: 10/11/18 13:50 Attending Provider: Jez Mccartney Admit Provider: Karena Archibald Primary Care Provider: Rossy Soria Other Providers: Tiff Escalera ; Karena Archibald ; Herber Manley ; Patricia Cardenas ; Chelsy Guillermo ; Hector Hoang ; Chelsy Hayward ; Evelyn Manzanares ; Dane Dahl Service: Telemetry Medical
[2018-10-18] MEDS ORDERED: MAGNESIUM OXIDE 400 MG TAB PO SCH (21:00)
== END 2018-10-18 15:49 | disposition home health service (06) | DRG 641 ==
LOC: ED 11:00 → 2N 13:50 → SUATTDRO 13:50 → 2N 14:28

== ENCOUNTER 2020-09-29 18:02 | Inpatient (IN) ==
--- NOTE | 2020-09-29 18:41 | Emergency Department Note ---
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 Raulito Floyd) presenting here today just for 14 days status post last liver mass chemotherapy complaining of persistent symptoms. Both her and her states she has been following closely with the doctors [facility] did expect some low-grade fevers after the treatment. Usually resolves in 10 days but he has been persistent with fever as high as 101.7 Fahrenheit today at home. Came here after discussion with him for further evaluation with some concern for possible liver abscess. Patient denies significant down pain or nausea or vomiting. She reports generalized fatigue but no significant falls or fainting. Denies any headache or significant shortness of breath. Does report a little bit of pain in her right calf. Denies significant leg swelling. Has received both this was the Covid vaccine previously. Does states that her Parkinson's seems a bit worse recently as w theron. Patient states she been having some chills. REVIEW OF SYSTEMS: A total of 10 review of systems was obtained and negative except as stated above in the HPI. PAST MEDICAL HISTORY: As noted above MEDICATIONS: Reviewed home medication list SOCIAL HISTORY: Lives at home with , Moravian PHYSICAL EXAM: GENERAL: alert and oriented in no acute distress on stretcher Head: normocephalic and atraumatic EYES: No injection, discharge or icterus. NECK: Trachea midline. Supple. LUNGS: Airway patent. No retractions. Breath sounds clear HEART: Regular rate and rhythm. No chest wall tenderness ABDOMEN: Soft and non-tender, without guarding or rebound. SKIN: Acyanotic, warm, dry, without rashes EXTREMITIES: Without swelling, tenderness or deformity except for some slight right calf tenderness posteriorly. NEUROLOGICAL: No focal deficits. No aphasia. No facial droop or slurred speech. EK bpm normal sinus rhythm. No PVC or PAC. No acute ST segment elevation or depression. QTC 453. CONTINUOUS CARDIAC MONITORING: was ordered and showed a heart rate of 70s to 80s bpm in normal sinus rhythm Patient's laboratory studies and imaging reviewed. Differential includes Infection, dehydration, metabolic abnormality, hypo/hyperglycemia, electrolyte disturbance, anemia, hypoxia, cardiac sources, intracerebral event, toxicologic, neurologic, as well as other pathologies. IMPRESSION/MEDICAL DECISION MAKING: Patient is complaining of 2 weeks well on higher directed chemotherapy of liver mets persistent fevers and was 101.7 Fahrenheit at home today. Report some we akness and worsening Parkinson symptoms. Denies any severe headache or significant URI symptoms or cough. Covid test was sent although has had Covid vaccine. CT the abdomen pelvis to look for possible liver abscess given her procedure that recently was completed. Cultures and lactate and blood work was obtained. Ultrasound of the right calf given some tenderness here to exclude DVT with her oncological process was completed although it is not significantly swollen. No evidence of overlying cellulitis here. Patient does not appear meningitic. Benign abdomen without significant abdominal tenderness on exam. No significant groin abscess or cellulitis appreciated from IR access. Chest x-ray without evidence of pneumonia, pleural effusion, pulmonary edema, or pneumothorax. Covid & influenza testing was negative. Some delay in obtaining blood work here and patient did develop a fever while here. Some Tylenol was ordered. Her evening dose of Sinemet was given. Patient does have a slight leukocytosis of 13.5 although compared to previous does have chronically some small degree of elevated white blood cell compared to previous available in the system. Chemistries reveal evidence of worsening hyponatremia 126 with hypomagnesemia 1.6. No significant renal dysfunction or acidosis noted. AST is elevated 326 but ALT of 56. Alkaline phosphatase 447. Question how much this is related to the injection she received on these liver masses. Bilirubin 0.7. TSH within normal limits. Lipase not elevated. Patient does not appear septic. Procalcitonin returned at 0.15. Lactate not elevated 1.6. CT report per radiology of the abdomen pelvis reviewed reporting multiple punctate foci of gas and central pedicle lesions likely related to the chemo embolic agent however cannot exclude infective findings. Prominent pericardial/diaphragmatic/mesenteric lymph nodes are noted per the report slightly increased in size. No bowel obstruction or wall thickening noted. No appendicitis appreciated. Some IV magnesium was ordered. Discussed with patient's and these findings. Small fluid bolus and magnesium supplementation intravenously was ordered. Right lower extremity ultrasound per report below without DVT. Question of the right calf pain could be related to some electrolyte derangements. Given hyponatremia, hypomagnesemia, fevers and leukocytosis do believe she should be admitted. The phone number given by the patient's to contact me if the [place] did not answer at this time of night. Had our corrections unit supervisor reach out to the office to [place] discussed with IR staff there if they believe transfer to them should be made tonight. Given limitations here were unable to obtain sampling of any fluid collections in her liver. Patient has followed locally with Dr. العلي of oncology who primarily follows with oncology for treatment guidance at [facility] Dr. Jalil Jean. Discussed via phone with regarding labs and findings. Discussion does not frankly appear like abscess at this time and he does expect some low- grade fevers after chemoembolization. He believes that likely her fever is more pronounced as they hopefully got the bulk of the tumor the time of the embolization. He expects the LFT abnormalities as noted. Reports he has experience with another patient similar post chemo embolic fevers improved over time. His recommendation were to follow blood cultures and unless she looked toxic to avoid antibiotics. Recommended treating her fever and again was given Tylenol here. Also states he would not recommend aspiration of anything in the liver at this point. He did not feel emergent transfer to [place] was necessary. Discussed with the patient and her . Hospitalist was contacted here. DIAGNOSIS: Fever, acute hyponatremia, hypomagnesemia, right calf pain DISPOSITION: Hospitalist will evaluate. Patient was been agreeable with this plan at this time. Preliminary Findings Only See Final Report For Complete Findings US VENOUS RIGHT LOWER EXTREMITY: No evidence of DVT within the right lower extremity. Radiologist: Toño Domínguez M.D. Study ready at 21:16 and initial results transmitted at 21:20 Past Med/Surg History Medical History (Updated 09/29/20 @ 21:29 by Randal Oconnor M.D.) Amputated toe C. 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, distal pancreatectomy, and splenectomy" Now with mets to the liver currently undergoing chemoembolization and Microwave ablation at [facility] Parkinsons disease Surgical History H/O splenectomy H/O total hysterectomy History of cataract surgery History of pancreatectomy History of tonsillectomy and adenoidectomy History of total bilateral knee replacement S/P trigger finger release Social History Smoking Status: Never smoker Second Hand Exposure: No; Hx Alcohol Use: Yes Hx Substance Use: No Preferred Language: Turkish Communication Ability: Effective Barrel Filler Required: No Beliefs That Will Affect Care: Orthodox Orthodox Beliefs: Moravian Current Living Situation: Spouse Feels Safe at Home: Yes Assistive Devices: Walker Allergies Allergies Allergy/AdvReac Type Severity Reaction Status Date / Time nickel Allergy Unknown RASH Verified 09/29/20 18:39 Home Meds Home Medications Medication Instructions Recorded Confirmed Premarin 1 applic VAGINAL WK 10/11/18 09/29/20 acetaminophen [Tylenol Extra 500 mg PO Q6H PRN 10/11/18 09/29/20 Strength] aspirin 81 mg PO PM 10/11/18 09/29/20 atenolol 25 mg PO HS 10/11/18 09/29/20 carbidopa-levodopa See Rx Instructions .ROUTE .COMPLEX 10/11/18 09/29/20 escitalopram oxalate 10 mg PO QAM 10/11/18 09/29/20 alendronate 70 mg PO WK 09/29/20 09/29/20 atorvastatin 10 mg PO DAILY 09/29/20 09/29/20 furosemide 40 mg PO 3XWK 09/29/20 09/29/20 magnesium 600 mg PO DAILY 09/29/20 09/29/20 Results & Data (ED) Vital Signs Vital Signs - 24 hr 09/29/20 18:16 09/29/20 18:51 09/29/20 18:59 Temperature 36.3 C L 38.1 C H Temperature Source Temporal Artery Scan Oral Pulse Rate 101 H Pulse Rate [Apical] 75 Pulse Rhythm Regular Pulse Strength Normal Respiratory Rate 18 20 Respiratory Effort / Characteristics Non-Labored Spontaneous Respiratory Depth Normal Respiratory Pattern Regular Blood Pressure 118/72 Blood Pressure [Left Arm] 162/81 H Blood Pressure Mean 87 Blood Pressure Mean [Left Arm] 108 Blood Pressure Position Sitting Pulse Oximetry 100 99 Oxygen Delivery Method Room Air Room Air Sepsis Recent Fever Within 48 Hours Yes Sepsis New/Unexplained Change in Mental Status No Sepsis Action Taken by Nursing No Action Required 09/29/20 20:33 09/29/20 21:16 Temperature 38.3 C H Temperature Source Oral Pulse Rate Pulse Rate [Apical] 76 78 Pulse Rhythm Pulse Strength Respiratory Rate 16 16 Respiratory Effort / Characteristics Respiratory Depth Respiratory Pattern Blood Pressure Blood Pressure [Left Arm] 136/79 145/74 H Blood Pressure Mean Blood Pressure Mean [Left Arm] 98 97 Blood Pressure Position Pulse Oximetry 96 Oxygen Delivery Method Room Air Sepsis Recent Fever Within 48 Hours Sepsis New/Unexplained Change in Mental Status Sepsis Action Taken by Nursing Laboratory Data Result diagrams: 09/29/20 19:53 09/29/20 19:53 Lab Results 09/29/20 09/29/20 09/29/20 Range/Units 18:53 19:53 19:53 WBC 13.51 H (4.8-10.8) K/uL RBC 4.58 (4.2-5.4) M/uL Hgb 14.2 (12.0-16.0) g/dL POC Hgb (12.0-16.0) g/dl Hct 41.9 (37-47) % POC Hct (37-47) % MCV 91.5 (80-100) fL MCH 31.0 (25-34) pg MCHC 33.9 (32-36) g/dL RDW Std Deviation 45.9 (36.4-46.3) fL RDW Coeff of Bin 14.0 (11.5-14.5) % Plt Count 534 H (130-400) K/uL MPV 9.6 (7.4-10.4) fL Immature Gran % (Auto) 0.3 % Neut % (Auto) 68.9 % Lymph % (Auto) 16.7 % Shoshone % (Auto) 12.8 % Eos % (Auto) 0.9 % Baso % (Auto) 0.4 % Neut # (Auto) 9.30 H (1.4-6.5) K/uL Lymph # (Auto) 2.26 (1.2-3.4) K/uL Shoshone # (Auto) 1.73 H (0.11-0.59) K/uL Eos # (Auto) 0.12 (0-0.5) K/uL Baso # (Auto) 0.06 (0-0.2) K/uL Immature Gran # (Auto) 0.04 H (0.00-0.02) K/uL PT 10.4 (9.0-12.0) Seconds INR 1.0 (0.9-1.1) APTT 28.9 (21.0-31.0) Seconds PTT Ratio 1.1 POC Sodium (135-144) mmol/L Sodium 126 L (136-145) mmol/L POC Potassium (3.3-5.0) mmol/L Potassium 3.9 (3.5-5.1) mmol/L POC Chloride (101-112) mmol/L Chloride 92 L (98-107) mmol/L Carbon Dioxide 27 (21-32) mmol/L POC Total CO2 (24-31) mmol/L Anion Gap 8.0 (3-11) POC Anion Gap (16-25) mmol/L POC BUN (7-18) mg/dl BUN 12 (7-18) mg/dl Creatinine 0.87 (0.6-1.2) mg/dl POC Creatinine (0.6-1.3) mg/dl Est Cr Clr Drug Dosing 52.6 ml/min Est GFR ( Amer) 76.6 Est GFR (Non-Af Amer) 66.1 BUN/Creatinine Ratio 13.9 (10-20) Glucose 160 H (70-99) mg/dl POC Glucose (other) (70-99) mg/dl Lactate (0.4-2.0) mmol/L Calcium 9.6 (8.5-10.1) mg/dl POC Ioniz Calcium Rohith (1.12-1.32) mmol/l Magnesium 1.6 L (1.8-2.4) mg/dl Total Bilirubin 0.7 (0.2-1) mg/dl AST 326 H (15-37) U/L ALT 56 (12-78) U/L Alkaline Phosphatase 477 H (45-117) U/L Troponin I < 0.015 (0-0.045) ng/ml Total Protein 7.6 (6.4-8.2) gm/dl Albumin 3.0 L (3.4-5.0) gm/dl Globulin 4.6 H (2.5-4.0) gm/dl Albumin/Globulin Ratio 0.7 L (0.9-2) Lipase 60 L (73-393) U/L Procalcitonin (0-0.5) ng/ml TSH 2.660 (0.300-4.500) uIu/ml COVID-19 Eval Order SARS-CoV-2 (PCR) (Negative) Influenza Type A (PCR) (Neg) Influenza Type B (PCR) (Neg) RSV (RT-PCR) (Neg) 09/29/20 09/29/20 09/29/20 Range/Units 19:53 19:53 19:54 WBC (4.8-10.8) K/uL RBC (4.2-5.4) M/uL Hgb (12.0-16.0) g/dL POC Hgb 15.6 (12.0-16.0) g/dl Hct (37-47) % POC Hct 46 (37-47) % MCV (80-100) fL MCH (25-34) pg MCHC (32-36) g/dL RDW Std Deviation (36.4-46.3) fL RDW Coeff of Bin (11.5-14.5) % Plt Count (130-400) K/uL MPV (7.4-10.4) fL Immature Gran % (Auto) % Neut % (Auto) % Lymph % (Auto) % [place]oshone % (Auto) % Eos % (Auto) % Baso % (Auto) % Neut # (Auto) (1.4-6.5) K/uL Lymph # (Auto) (1.2-3.4) K/uL [place]oshone # (Auto) (0.11-0.59) K/uL Eos # (Auto) (0-0.5) K/uL Baso # (Auto) (0-0.2) K/uL Immature Gran # (Auto) (0.00-0.02) K/uL PT (9.0-12.0) Seconds INR (0.9-1.1) APTT (21.0-31.0) Seconds PTT Ratio POC Sodium 127 L (135-144) mmol/L Sodium (136-145) mmol/L POC Potassium 3.9 (3.3-5.0) mmol/L Potassium (3.5-5.1) mmol/L POC Chloride 90 L (101-112) mmol/L Chloride (98-107) mmol/L Carbon Dioxide (21-32) mmol/L POC Total CO2 27 (24-31) mmol/L Anion Gap (3-11) POC Anion Gap 16.0 (16-25) mmol/L POC BUN 12 (7-18) mg/dl BUN (7-18) mg/dl Creatinine (0.6-1.2) mg/dl POC Creatinine 0.7 (0.6-1.3) mg/dl Est Cr Clr Drug Dosing ml/min Est GFR ( Amer) Est GFR (Non-Af Amer) BUN/Creatinine Ratio (10-20) Glucose (70-99) mg/dl POC Glucose (other) 162 H (70-99) mg/dl Lactate 1.6 (0.4-2.0) mmol/L Calcium (8.5-10.1) mg/dl POC Ioniz Calcium Rohith 1.11 L (1.12-1.32) mmol/l Magnesium (1.8-2.4) mg/dl Total Bilirubin (0.2-1) mg/dl AST (15-37) U/L ALT (12-78) U/L Alkaline Phosphatase (45-117) U/L Troponin I (0-0.045) ng/ml Total Protein (6.4-8.2) gm/dl Albumin (3.4-5.0) gm/dl Globulin (2.5-4.0) gm/dl Albumin/Globulin Ratio (0.9-2) Lipase (73-393) U/L Procalcitonin 0.15 (0-0.5) ng/ml TSH (0.300-4.500) uIu/ml COVID-19 Eval Order SARS-CoV-2 (PCR) (Negative) Influenza Type A (PCR) (Neg) Influenza Type B (PCR) (Neg) RSV (RT-PCR) (Neg) 09/29/20 09/29/20 Range/Units Unknown Unknown WBC (4.8-10.8) K/uL RBC (4.2-5.4) M/uL Hgb (12.0-16.0) g/dL POC Hgb (12.0-16.0) g/dl Hct (37-47) % POC Hct (37-47) % MCV (80-100) fL MCH (25-34) pg MCHC (32-36) g/dL RDW Std Deviation (36.4-46.3) fL RDW Coeff of Bin (11.5-14.5) % Plt Count (130-400) K/uL MPV (7.4-10.4) fL Immature Gran % (Auto) % Neut % (Auto) % Lymph % (Auto) % [place] % (Auto) % Eos % (Auto) % Baso % (Auto) % Neut # (Auto) (1.4-6.5) K/uL Lymph # (Auto) (1.2-3.4) K/uL [place]one # (Auto) (0.11-0.59) K/uL Eos # (Auto) (0-0.5) K/uL Baso # (Auto) (0-0.2) K/uL Immature Gran # (Auto) (0.00-0.02) K/uL PT (9.0-12.0) Seconds INR (0.9-1.1) APTT (21.0-31.0) Seconds PTT Ratio POC Sodium (135-144) mmol/L Sodium (136-145) mmol/L POC Potassium (3.3-5.0) mmol/L Potassium (3.5-5.1) mmol/L POC Chloride (101-112) mmol/L Chloride (98-107) mmol/L Carbon Dioxide (21-32) mmol/L POC Total CO2 (24-31) mmol/L Anion Gap (3-11) POC Anion Gap (16-25) mmol/L POC BUN (7-18) mg/dl BUN (7-18) mg/dl Creatinine (0.6-1.2) mg/dl POC Creatinine (0.6-1.3) mg/dl Est Cr Clr Drug Dosing ml/min Est GFR ( Amer) Est GFR (Non-Af Amer) BUN/Creatinine Ratio (10-20) Glucose (70-99) mg/dl POC Glucose (other) (70-99) mg/dl Lactate (0.4-2.0) mmol/L Calcium (8.5-10.1) mg/dl POC Ioniz Calcium Rohith (1.12-1.32) mmol/l Magnesium (1.8-2.4) mg/dl Total Bilirubin (0.2-1) mg/dl AST (15-37) U/L ALT (12-78) U/L Alkaline Phosphatase (45-117) U/L Troponin I (0-0.045) ng/ml Total Protein (6.4-8.2) gm/dl Albumin (3.4-5.0) gm/dl Globulin (2.5-4.0) gm/dl Albumin/Globulin Ratio (0.9-2) Lipase (73-393) U/L Procalcitonin (0-0.5) ng/ml TSH (0.300-4.500) uIu/ml COVID-19 Eval Order CovFluRsv at [facility] SARS-CoV-2 (PCR) NEGATIVE (Negative) Influenza Type A (PCR) Negative (Neg) Influenza Type B (PCR) Negative (Neg) RSV (RT-PCR) Negative (Neg) Administered Medications Discontinued Medications Acetaminophen (Acetaminophen 325 Mg Tab) 650 mg PO NOW STA Stop: 09/29/20 20:05 Last Admin: 09/29/20 20:40 Dose: 650 mg Documented by: [id number] Carbidopa/Levodopa (Carbidopa/Levodopa 25/100mg Tab) 1 tab PO ONCE ONE Stop: 09/29/20 20:08 Last Admin: 09/29/20 20:39 Dose: 1 tab Documented by: [id number] Magnesium Sulfate/Dextrose (Magnesium Sulfate / D5w) 1 gm in 100 mls @ 200 mls/hr IV Q30M BRENDA Stop: 09/29/20 21:47 Last Infusion: 09/29/20 21:49 Dose: 0 mls/hr Documented by: [id number] Admin: 09/29/20 21:16 Dose: 200 mls/hr Documented by: [id number] Sodium Chloride (Nss 1000ml) 500 mls @ 999 mls/hr IV .Q31M ONE Stop: 09/29/20 21:18 Last Infusion: 09/29/20 21:49 Dose: 0 mls/hr Documented by: [id number] Admin: 09/29/20 21:16 Dose: 999 mls/hr Documented by: [id number] Ioversol (Optiray 300 100ml) 70 ml IV ONCE ONE Stop: 09/29/20 20:18 Last Admin: 09/29/20 20:17 Dose: 70 ml Documented by: [id number] Imaging Data Radiologist's Impression: Abdomen/Pelvis CT 09/29/20 18:[address] WITH IV CONTRAST CT DOSE: 342.73 mGy.cm HISTORY: Liver cancer with chemo injections, fevers, ?abscess TECHNIQUE: Multiaxial CT images of the abdomen and pelvis were performed following the use of intravenous contrast. A dose lowering technique was utilized adhering to the principles of ALARA. COMPARISON STUDY: Abdomen and pelvis CT 10/12/2018. FINDINGS: The lung bases are clear. The 2 mm nodule within the base of the left lower lobe on image 39. The right lung base is clear. No suspicious lytic or blastic osseous lesions. Decrease in size in the mildly enlarged right anterior diaphragmatic/pericardial lymph nodes. Dominant lymph node measures 8 mm. Posterior pericardial lymph nodes have also slightly increased in size with the dominant lymph node measuring 7 mm. The gallbladder is decompressed. The spleen is surgically absent. Evidence for prior distal pancreatectomy. The left kidney is also surgically absent. The right kidney enhances normally. No right-sided hydronephrosis. Normal right adrenal gland. Subcentimeter retroperitoneal lymph nodes remain stable. Multiple hepatic masses are again noted. These are predominantly within the right hepatic lobe. These contain hyperdense foci consistent with chemoembolization changes. Multiple punctate foci of gas within the central hepatic lesion which also contains the majority of the hyperdense foci. This could represent posttreatment changes from the recent chemoembolization. Secondary infection would be impossible to exclude. The bladder is unremarkable. The uterus is surgically absent. A few colonic diverticula. No evidence for acute diverticulitis. No bowel wall thickening or obstruction. Normal appendix. Slight increase in size in the mildly prominent mesenteric lymph nodes. Dominant lymph node on image 167 measures 6 mm in short axis diameter. IMPRESSION: 1. Interval posttreatment changes suggesting chemoembolization of the hepatic masses. There are multiple punctate foci of gas within the central hepatic lesion which demonstrates the majority of the chemoembolization agent. This may represent posttreatment changes. Secondary infection would be impossible to exclude. 2. Prominent pericardial/anterior diaphragmatic and mesenteric lymph nodes which have slightly increased in size. These could be reactive. 3 month follow-up recommended to exclude the possibility of metastatic change. 3. Postoperative changes as described above. 4. No bowel wall thickening or obstruction. 5. Normal appendix. ACT 112: Negative or not required by law. Electronically signed by: Yo Gonzalez M.D. 09/29/2020 8:39 PM Chest X-Ray 09/29/20 18:34 XR chest 1V portable HISTORY: weakness COMPARISON: Chest 10/11/2018. FINDINGS: The lungs are clear. Cardiac silhouette is normal in size. No pleural effusions. No pneumothorax. IMPRESSION: No acute process. ACT 112: Negative or not required by law. Electronically signed by: Yo Gonzalez M.D. 09/29/2020 6:48 PM Discharge Plan Visit Data Chief Complaint: Fever Stated Complaint: PERSISTING FEVER/ CANCER TREATMENT 2 WEEKS AGO ED Provider: Randal Oconnor Discharge Problem: Fever, Hypomagnesemia, Acute hyponatremia, Pain of right calf Patient Disposition: Being Evaluated by Hospitalist Forms Stand Alone Forms: [facility] Prescriptions Prescriptions: No Action aspirin 81 mg Tablet,Delayed Release (Dr/Ec) 81 mg PO PM RF: 0 Premarin 0.625 mg/gram cream 1 applic vaginal WK RF: 0 carbidopa-levodopa 25-100 mg tablet See Rx Instructions .ROUTE .COMPLEX RF: 0 escitalopram oxalate 10 mg tablet 10 mg PO QAM RF: 0 acetaminophen [Tylenol Extra Strength] 500 mg Tablet 500 mg PO Q6H PRN (Reason: pain/fever) RF: 0 atenolol 25 mg Tablet 25 mg PO HS RF: 0 furosemide 40 mg tablet 40 mg PO 3XWK RF: 0 alendronate 70 mg tablet 70 mg PO WK RF: 0 atorvastatin 10 mg tablet 10 mg PO DAILY RF: 0 magnesium 200 mg Tablet 600 mg PO DAILY RF: 0 Referrals Referrals: Rossy Soria MD [Primary Care Provider] -
--- NOTE | 2020-09-29 18:49 | XRay Report ---
XR chest 1V portable HISTORY: weakness COMPARISON: Chest 10/11/2018. FINDINGS: The lungs are clear. Cardiac silhouette is normal in size. No pleural effusions. No pneumot horax. IMPRESSION: No acute process. ACT 112: Negative or not required by law. Electronically signed by: Yo Gonzalez M.D. 09/29/2020 6:48 PM
[2020-09-29 19:30] LABS: Influenza A virus by PCR Negative (Neg); Influenza B virus by PCR Negative (Neg); RSV by PCR Negative (Neg); SARS CoV2 RNA(COVID-19) InHosp NEGATIVE (Negative)
[2020-09-29 20:03] LABS: Basophils # (auto) 0.06 K/uL (0-0.2); Basophils % (auto) 0.4 %; Eosinophils # (auto) 0.12 K/uL (0-0.5); Eosinophils % (auto) 0.9 %; Hematocrit (blood only) 41.9 % (37-47); Hemoglobin 14.2 g/dL (12.0-16.0); Immature Granulocytes # (auto) 0.04 K/uL (0.00-0.02); Immature Granulocytes % (auto) 0.3 %; Lymphocytes # (auto) 2.26 K/uL (1.2-3.4); Lymphocytes % (auto) 16.7 %; Mean Corpuscular Hgb Conc 33.9 g/dL (32-36); Mean Corpuscular Volume 91.5 fL (80-100); Mean Platelet Volume 9.6 fL (7.4-10.4); Monocytes # (auto) 1.73 K/uL (0.11-0.59); Monocytes % (auto) 12.8 %; Neutrophils % (auto) 68.9 %; Platelet Count 534 K/uL (130-400); RDW Standard Deviation 45.9 fL (36.4-46.3); Red Blood Count 4.58 M/uL (4.2-5.4); White Blood Count 13.51 K/uL (4.8-10.8)
[2020-09-29] MEDS ORDERED: ACETAMINOPHEN 325 MG TAB PO STA (20:04)
[2020-09-29 20:07] LABS: iSTAT Creatinine 0.7 mg/dl (0.6-1.3); iSTAT Hemoglobin 15.6 g/dl (12.0-16.0); iSTAT Ionized Calcium 1.11 mmol/l (1.12-1.32); iSTAT Potassium 3.9 mmol/L (3.3-5.0)
[2020-09-29] MEDS ORDERED: CARBIDOPA/LEVODOPA 25/100MG TAB PO ONE (20:07)
[2020-09-29] MEDS ORDERED: OPTIRAY 300 100mL IV ONE ×3 (20:13→20:17)
[2020-09-29 20:19] LABS: Alanine Aminotransferase 56 U/L (12-78); Aspartate Aminotransferase 326 U/L (15-37); BUN Creatinine Ratio 13.9 (10-20); Blood Urea Nitrogen 12 mg/dl (7-18); Calcium 9.6 mg/dl (8.5-10.1); Carbon Dioxide 27 mmol/L (21-32); Chloride 92 mmol/L (98-107); Creatinine Clr Calc Pharmacy 52.6 ml/min; Est GFR (African American) 76.6; Est GFR (Non-African American) 66.1; Glucose 160 mg/dl (70-99); Lipase 60 U/L (73-393); Magnesium 1.6 mg/dl (1.8-2.4); Potassium 3.9 mmol/L (3.5-5.1); Sodium 126 mmol/L (136-145)
[2020-09-29 20:30] LABS: Albumin Globulin Ratio 0.7 (0.9-2); Alkaline Phosphatase 477 U/L (45-117); Bilirubin,Total 0.7 mg/dl (0.2-1); Globulin 4.6 gm/dl (2.5-4.0); Total Protein 7.6 gm/dl (6.4-8.2); Troponin I < 0.015 ng/ml (0-0.045)
--- NOTE | 2020-09-29 20:40 | CT Scan Report ---
ABDOMEN AND PELVIS CT WITH IV CONTRAST CT DOSE: 342.73 mGy.cm HISTORY: Liver cancer with chemo injections, fevers, ?abscess TECHNIQUE: Multiaxial CT images of the abdomen and pelvis were performed following the use of intrave nous contrast. A dose lowering technique was utilized adhering to the principles of ALARA. COMPARISON STUDY: Abdomen and pelvis CT 10/12/2018. FINDINGS: The lung bases are clear. The 2 mm nodule within the base of the left lower lobe on image 3 9. The right lung base is clear. No suspicious lytic or blastic osseous lesions. Decrease in size in the mildly enlarged right anterior diaphragmatic/pericardial lymph nodes. Dominant lymph node measure s 8 mm. Posterior pericardial lymph nodes have also slightly increased in size with the dominant lymp h node measuring 7 mm. The gallbladder is decompressed. The spleen is surgically absent. Evidence for prior distal pancreatectomy. The left kidney is also surgically absent. The right kidney enhances no rmally. No right-sided hydronephrosis. Normal right adrenal gland. Subcentimeter retroperitoneal lymp h nodes remain stable. Multiple hepatic masses are again noted. These are predominantly within the ri ght hepatic lobe. These contain hyperdense foci consistent with chemoembolization changes. Multiple p unctate foci of gas within the central hepatic lesion which also contains the majority of the hyperde nse foci. This could represent posttreatment changes from the recent chemoembolization. Secondary inf ection would be impossible to exclude. The bladder is unremarkable. The uterus is surgically absent. A few colonic diverticula. No evidence for acute diverticulitis. No bowel wall thickening or obstruct ion. Normal appendix. Slight increase in size in the mildly prominent mesenteric lymph nodes. Dominan t lymph node on image 167 measures 6 mm in short axis diameter. IMPRESSION: 1. Interval posttreatment changes suggesting chemoembolization of the hepatic masses. There are multi ple punctate foci of gas within the central hepatic lesion which demonstrates the majority of the rupesh moembolization agent. This may represent posttreatment changes. Secondary infection would be impossib le to exclude. 2. Prominent pericardial/anterior diaphragmatic and mesenteric lymph nodes which have slightly increa sed in size. These could be reactive. 3 month follow-up recommended to exclude the possibility of met astatic change. 3. Postoperative changes as described above. 4. No bowel wall thickening or obstruction. 5. Normal appendix. ACT 112: Negative or not required by law. Electronically signed by: Yo Gonzalez M.D. 09/29/2020 8:39 PM
[2020-09-29] MEDS ORDERED: SODIUM CHLORIDE 0.9% 1000ML 500 ML IV ONE (20:48)
[2020-09-29 20:57] LABS: Partial Thromboplastin Ratio 1.1; Partial Thromboplastin Time 28.9 Seconds (21.0-31.0); Prothrombin Time 10.4 Seconds (9.0-12.0)
[2020-09-29] MEDS: MAGNESIUM SULFATE / D5W 1 GM/100 ML BAG IV SCH ×2 (21:16→22:17)
--- NOTE | 2020-09-29 22:54 | History & Physical Report ---
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 Well-controlled as of recent hemoglobin A1c 6.10 September 2020 Medical telemetry Careful correction of sodium May need Nephrology consultation. (Patient known to Radha MG.) Cultures, follow UA Hold off on antibiotics until definite bacterial source of sepsis found. Basal insulin, ISS BG goal 1 10-1 40, carb count coverage PT OT eval DVT prophylaxis. Lovenox subcu Full code Patient's requesting updates from providers. Mr. Jez Santos, contact numbers [phone]. Text document was generated using [employer] voice recognition software. It may contain grammatical or spelling errors. Kindly contact undersigned for clarification of any documentation item in question. History of Present Illness Chief Complaint: For, chills Primary Care Provider: Rossy Soria MD History obtained from patient, family, and records. 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 Last confinement October 2018 for hyponatremia. Patient underwent follow-up transarterial chemoembolization of retroperitoneal leiomyosarcoma liver mets at [facility] 2 weeks ago. Post procedure patient told to expect decreased appetite, fever as part of healing process. Poor appetite upon arriving home as per patient. Intermittent fever at home without unusual abdominal pain. Patient denies chest pain, S OB, cough, diarrhea, dysuria symptoms. Ticks outside their home although patient does not recall recent tick bites. Left calf swelling. Patient had a video meeting with PCP today. Directed to ER if any worsening symptoms. Patient brought to ER by . 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 Allergies Allergy/AdvReac Type Severity Reaction Status Date / Time nickel Allergy Unknown RASH Verified 09/29/20 18:39 Home Medications Medication Instructions Recorded Confirmed Type Premarin 1 applic VAGINAL WK 10/11/18 09/29/20 History acetaminophen [Tylenol Extra 500 mg PO Q6H PRN 10/11/18 09/29/20 History Strength] aspirin 81 mg PO PM 10/11/18 09/29/20 History atenolol 25 mg PO HS 10/11/18 09/29/20 History carbidopa-levodopa See Rx Instructions .ROUTE .COMPLEX 10/11/18 09/29/20 History escitalopram oxalate 10 mg PO QAM 10/11/18 09/29/20 History alendronate 70 mg PO WK 09/29/20 09/29/20 History atorvastatin 10 mg PO DAILY 09/29/20 09/29/20 History furosemide 40 mg PO 3XWK 09/29/20 09/29/20 History magnesium 600 mg PO DAILY 09/29/20 09/29/20 History Past Med/Surg History Medical History (Updated 09/30/20 @ 02:42 by Kuldip Parks MD) Amputated toe C. difficile diarrhea CAD (coronary artery disease) "angioplasty ~ 1991 at [facility] [place]" Dyslipidemia History of nephrectomy, unilateral "left" HTN (hypertension) Hypomagnesemia Hyponatremia Leiomyosarcoma Leiomyosarcoma of retroperitoneum "12/30/16 - s/p resection with left nephrectomy, distal pancreatectomy, and splenectomy" Now with mets to the liver currently undergoing chemoembolization and Microwave ablation at [facility] Parkinsons disease Surgical History H/O splenectomy H/O total hysterectomy History of cataract surgery History of pancreatectomy History of tonsillectomy and adenoidectomy History of total bilateral knee replacement S/P trigger finger release Social History Smoking Status: Never smoker Second Hand Exposure: No; Hx Alcohol Use: Yes Hx Substance Use: No Preferred Language: [place]ican Communication Ability: Effective Major General Required: Yes and No Beliefs That Will Affect Care: Pentecostalism Pentecostalism Beliefs: Lutheran Current Living Situation: Spouse Other Information That Helps Us Care for You: No Feels Safe at Home: Yes Safety Concerns: Feels Safe At This Time Assistive Devices: Walker Review of Systems Review of Systems: As per HPI, all 10 systems reviewed, all other ROS negative Physical Exam Physical Exam: GENERAL: Comfortable, pleasant, slightly anxious, no respiratory distress SKIN: Normal color, warm HEENT: [place] palpebral conjunctivae, no ptosis, dry buccal mucosa NECK : Supple, no tenderness CHEST : CTA, no tenderness HEART : RRR, no obvious murmurs ABDOMEN: Some distention, minimal epigastric tenderness EXTREMITIES : Minimal LE swelling, no LE tenderness, no other conspicuous deformities noted NEUROLOGIC : Coherent, no facial asymmetry, no other gross focality Results & Data Results & Data ([facility]) Vital Signs (Past 12 Hours) Vital Signs Temp Pulse Pulse Resp BP BP Pulse Ox 09/29/20 22:46 70 16 137/69 09/29/20 22:19 73 16 135/73 09/29/20 21:16 38.3 C H 78 16 145/74 H 09/29/20 20:33 76 16 136/79 96 09/29/20 18:59 75 20 162/81 H 99 09/29/20 18:51 38.1 C H 09/29/20 18:16 36.3 C L 101 H 18 118/72 100 Laboratory Results Laboratory Results WBC 13.51 K/uL (4.8-10.8) H 09/29/20 19:53 RBC 4.58 M/uL (4.2-5.4) 09/29/20 19:53 Hgb 14.2 g/dL (12.0-16.0) 09/29/20 19:53 POC Hgb 15.6 g/dl (12.0-16.0) 09/29/20 19:54 Hct 41.9 % (37-47) 09/29/20 19:53 POC Hct 46 % (37-47) 09/29/20 19:54 MCV 91.5 fL (80-100) 09/29/20 19:53 MCH 31.0 pg (25-34) 09/29/20 19:53 MCHC 33.9 g/dL (32-36) 09/29/20 19:53 RDW Std Deviation 45.9 fL (36.4-46.3) 09/29/20 19:53 RDW Coeff of Bin 14.0 % (11.5-14.5) 09/29/20 19:53 Plt Count 534 K/uL (130-400) H 09/29/20 19:53 MPV 9.6 fL (7.4-10.4) 09/29/20 19:53 Immature Gran % (Auto) 0.3 % 09/29/20 19:53 Neut % (Auto) 68.9 % 09/29/20 19:53 Lymph % (Auto) 16.7 % 09/29/20 19:53 [place] % (Auto) 12.8 % 09/29/20 19:53 Eos % (Auto) 0.9 % 09/29/20 19:53 Baso % (Auto) 0.4 % 09/29/20 19:53 Neut # (Auto) 9.30 K/uL (1.4-6.5) H 09/29/20 19:53 Lymph # (Auto) 2.26 K/uL (1.2-3.4) 09/29/20 19:53 [place] # (Auto) 1.73 K/uL (0.11-0.59) H 09/29/20 19:53 Eos # (Auto) 0.12 K/uL (0-0.5) 09/29/20 19:53 Baso # (Auto) 0.06 K/uL (0-0.2) 09/29/20 19:53 Immature Gran # (Auto) 0.04 K/uL (0.00-0.02) H 09/29/20 19:53 PT 10.4 Seconds (9.0-12.0) 09/29/20 18:53 INR 1.0 (0.9-1.1) 09/29/20 18:53 APTT 28.9 Seconds (21.0-31.0) 09/29/20 18:53 PTT Ratio 1.1 09/29/20 18:53 POC Sodium 127 mmol/L (135-144) L 09/29/20 19:54 Sodium 126 mmol/L (136-145) L 09/29/20 19:53 POC Potassium 3.9 mmol/L (3.3-5.0) 09/29/20 19:54 Potassium 3.9 mmol/L (3.5-5.1) 09/29/20 19:53 POC Chloride 90 mmol/L (101-112) L 09/29/20 19:54 Chloride 92 mmol/L (98-107) L 09/29/20 19:53 Carbon Dioxide 27 mmol/L (21-32) 09/29/20 19:53 POC Total CO2 27 mmol/L (24-31) 09/29/20 19:54 Anion Gap 8.0 (3-11) 09/29/20 19:53 POC Anion Gap 16.0 mmol/L (16-25) 09/29/20 19:54 POC BUN 12 mg/dl (7-18) 09/29/20 19:54 BUN 12 mg/dl (7-18) 09/29/20 19:53 Creatinine 0.87 mg/dl (0.6-1.2) 09/29/20 19:53 POC Creatinine 0.7 mg/dl (0.6-1.3) 09/29/20 19:54 Est Cr Clr Drug Dosing 52.6 ml/min 09/29/20 19:53 Est GFR ( Amer) 76.6 09/29/20 19:53 Est GFR (Non-Af Amer) 66.1 09/29/20 19:53 BUN/Creatinine Ratio 13.9 (10-20) 09/29/20 19:53 Glucose 160 mg/dl (70-99) H 09/29/20 19:53 POC Glucose (other) 162 mg/dl (70-99) H 09/29/20 19:54 Osmolality 271 mOsm/kg (280-300) L 09/29/20 19:53 Lactate 1.6 mmol/L (0.4-2.0) 09/29/20 19:53 Calcium 9.6 mg/dl (8.5-10.1) 09/29/20 19:53 POC Ioniz Calcium Rohith 1.11 mmol/l (1.12-1.32) L 09/29/20 19:54 Magnesium 1.6 mg/dl (1.8-2.4) L 09/29/20 19:53 Total Bilirubin 0.7 mg/dl (0.2-1) 09/29/20 19:53 AST 326 U/L (15-37) H 09/29/20 19:53 ALT 56 U/L (12-78) 09/29/20 19:53 Alkaline Phosphatase 477 U/L (45-117) H 09/29/20 19:53 Troponin I < 0.015 ng/ml (0-0.045) 09/29/20 19:53 Total Protein 7.6 gm/dl (6.4-8.2) 09/29/20 19:53 Albumin 3.0 gm/dl (3.4-5.0) L 09/29/20 19:53 Globulin 4.6 gm/dl (2.5-4.0) H 09/29/20 19:53 Albumin/Globulin Ratio 0.7 (0.9-2) L 09/29/20 19:53 Lipase 60 U/L (73-393) L 09/29/20 19:53 Procalcitonin 0.15 ng/ml (0-0.5) 09/29/20 19:53 TSH 2.660 uIu/ml (0.300-4.500) 09/29/20 19:53 COVID-19 Eval Order CovFluRsv at [facility] 09/29/20 Unknown SARS-CoV-2 (PCR) NEGATIVE (Negative) 09/29/20 Unknown Influenza Type A (PCR) Negative (Neg) 09/29/20 Unknown Influenza Type B (PCR) Negative (Neg) 09/29/20 Unknown RSV (RT-PCR) Negative (Neg) 09/29/20 Unknown Impressions Abdomen/Pelvis CT 09/29/20 18:[address] WITH IV CONTRAST CT DOSE: 342.73 mGy.cm HISTORY: Liver cancer with chemo injections, fevers, ?abscess TECHNIQUE: Multiaxial CT images of the abdomen and pelvis were performed following the use of intravenous contrast. A dose lowering technique was utilized adhering to the principles of ALARA. COMPARISON STUDY: Abdomen and pelvis CT 10/12/2018. FINDINGS: The lung bases are clear. The 2 mm nodule within the base of the left lower lobe on image 39. The right lung base is clear. No suspicious lytic or blastic osseous lesions. Decrease in size in the mildly enlarged right anterior diaphragmatic/pericardial lymph nodes. Dominant lymph node measures 8 mm. Posterior pericardial lymph nodes have also slightly increased in size with the dominant lymph node measuring 7 mm. The gallbladder is decompressed. The spleen is surgically absent. Evidence for prior distal pancreatectomy. The left kidney is also surgically absent. The right kidney enhances normally. No right-sided hydronephrosis. Normal right adrenal gland. Subcentimeter retroperitoneal lymph nodes remain stable. Multiple hepatic masses are again noted. These are predominantly within the right hepatic lobe. These contain hyperdense foci consistent with chemoembolization changes. Multiple punctate foci of gas within the central hepatic lesion which also contains the majority of the hyperdense foci. This could represent posttreatment changes from the recent chemoembolization. Secondary infection would be impossible to exclude. The bladder is unremarkable. The uterus is surgically absent. A few colonic diverticula. No evidence for acute diverticulitis. No bowel wall thickening or obstruction. Normal appendix. Slight increase in size in the mildly prominent mesenteric lymph nodes. Dominant lymph node on image 167 measures 6 mm in short axis diameter. IMPRESSION: 1. Interval posttreatment changes suggesting chemoembolization of the hepatic masses. There are multiple punctate foci of gas within the central hepatic lesion which demonstrates the majority of the chemoembolization agent. This may represent posttreatment changes. Secondary infection would be impossible to exclude. 2. Prominent pericardial/anterior diaphragmatic and mesenteric lymph nodes which have slightly increased in size. These could be reactive. 3 month follow-up recommended to exclude the possibility of metastatic change. 3. Postoperative changes as described above. 4. No bowel wall thickening or obstruction. 5. Normal appendix. ACT 112: Negative or not required by law. Electronically signed by: Yo Gonzalez M.D. 09/29/2020 8:39 PM Chest X-Ray 09/29/20 18:34 XR chest 1V portable HISTORY: weakness COMPARISON: Chest 10/11/2018. FINDINGS: The lungs are clear. Cardiac silhouette is normal in size. No pleural effusions. No pneumothorax. IMPRESSION: No acute process. ACT 112: Negative or not required by law. Electronically signed by: Yo Gonzalez M.D. 09/29/2020 6:48 PM Diagnostic Findings LE venous Dopplers initial read: No evidence of DVT within RLE. EKG as per my interpretation rate 85, NSR, normal axis, T wave abnormality septal leads
[2020-09-30] MEDS ORDERED: GLUCOSE 10 TABS/TUBE PO PRN (00:45)
[2020-09-30] MEDS ORDERED: PROMETHAZINE HCL 6.25 MG in SODIUM CHLORIDE 0.9% 50 ML IV PRN (00:45)
[2020-09-30] MEDS ORDERED: GLUCOSE 40% GEL 15 GM TUBE PO PRN (00:45)
[2020-09-30] MEDS ORDERED: CARBOHYDRATES FOR HYPOGLYCEMIA PO PRN (00:45)
[2020-09-30] MEDS ORDERED: oxyCODONE HCL IR 5 MG TAB (IMMEDIATE RELEASE) PO PRN (00:45)
[2020-09-30] MEDS ORDERED: GLUCAGON FOR INJ 1 MG VIAL SQ PRN (00:45)
[2020-09-30] MEDS ORDERED: ACETAMINOPHEN 325 MG TAB PO PRN (00:45)
[2020-09-30] MEDS ORDERED: DEXTROSE 50% 50 ML SYRINGE IV PRN (00:45)
[2020-09-30 01:00] LABS: Appearance Urine Clear (Clear); Bilirubin Urine Negative (Negative); Blood Urine Negative (Negative); Color Urine Yellow; Glucose Urine UA Negative (Negative); Ketones Urine Negative (Negative); Leukocyte Esterase Urine Negative (Negative); Nitrite Urine Negative (Negative); Protein Urine Negative (Negative); Specific Gravity Urine 1.021 (1.000-1.030); Urobilinogen Urine Negative (Negative)
[2020-09-30] MEDS: ATENOLOL 25 MG TABLET PO SCH ×2 (01:17→21:26)
[2020-09-30] MEDS: INSULIN ASPART 100 UNITS/ML 3 ML PEN SC SCH ×5 (01:18→21:28)
[2020-09-30 06:33] LABS: Albumin Level 2.6 gm/dl (3.4-5.0); BUN Creatinine Ratio 16.7 (10-20); Calcium 8.7 mg/dl (8.5-10.1); Creatinine Clr Calc Pharmacy 71.5 ml/min; Est GFR (African American) 102.6; Est GFR (Non-African American) 88.5; Magnesium 2.2 mg/dl (1.8-2.4); Potassium 3.9 mmol/L (3.5-5.1)
[2020-09-30 06:36] LABS: Albumin Globulin Ratio 0.6 (0.9-2); Bilirubin,Total 0.8 mg/dl (0.2-1); Globulin 4.2 gm/dl (2.5-4.0); Total Protein 6.8 gm/dl (6.4-8.2)
[2020-09-30 06:40] LABS: Lyme Ab IgG w/WB Rflx Negative (Negative); Lyme Ab IgM w/WB Rflx Negative (Negative)
--- NOTE | 2020-09-30 06:50 | Ultrasound Report ---
US venous doppler LE RT CLINICAL HISTORY: Right leg pain. History of carcinoma COMPARISON STUDY: 07/16/2012 FINDINGS: Real-time and color flow Doppler imaging were performed. Flow was seen within the femoral, popliteal and calf veins with no intraluminal thrombus demonstrated. The saphenous vein is patent. IMPRESSION: No evidence of right lower extremity DVT. ACT 112: Negative or not required by law. Electronically signed by: Juanapblo Steele M.D. 09/30/2020 6:49 AM
[2020-09-30 08:19] LABS: Basophils # (auto) 0.06 K/uL (0-0.2); Basophils % (auto) 0.6 %; Eosinophils # (auto) 0.09 K/uL (0-0.5); Eosinophils % (auto) 0.8 %; Hematocrit (blood only) 38.7 % (37-47); Hemoglobin 13.5 g/dL (12.0-16.0); Immature Granulocytes # (auto) 0.03 K/uL (0.00-0.02); Immature Granulocytes % (auto) 0.3 %; Lymphocytes # (auto) 2.05 K/uL (1.2-3.4); Lymphocytes % (auto) 18.9 %; Mean Corpuscular Hemoglobin 31.5 pg (25-34); Mean Corpuscular Volume 90.4 fL (80-100); Mean Platelet Volume 9.8 fL (7.4-10.4); Monocytes # (auto) 1.85 K/uL (0.11-0.59); Neutrophils # (auto) 6.78 K/uL (1.4-6.5); Neutrophils % (auto) 62.4 %; Platelet Count 583 K/uL (130-400); RDW Coefficient of Variation 14.1 % (11.5-14.5); RDW Standard Deviation 46.8 fL (36.4-46.3); Red Blood Count 4.28 M/uL (4.2-5.4); White Blood Count 10.86 K/uL (4.8-10.8)
[2020-09-30] MEDS: ATORVASTATIN 10 MG TAB PO SCH ×2 (09:04→10:09)
[2020-09-30] MEDS: MAGNESIUM OXIDE 400 MG TAB PO SCH (09:05)
[2020-09-30] MEDS: CARBIDOPA/LEVODOPA 25/100MG TAB PO SCH ×4 (09:06→21:26)
[2020-09-30] MEDS: ENOXAPARIN INJ 30 MG/0.3 ML SYR SQ SCH (09:06)
[2020-09-30] MEDS: INSULIN GLARGINE SOLOSTAR 100 UNITS/ML 3 ML PEN SC SCH (09:07)
[2020-09-30 09:09] LABS: Mean Corpuscular Hgb Conc 34.9 g/dL (32-36)
--- NOTE | 2020-09-30 09:26 | Hospitalist Progress Note ---
Date of Service September 30, 2020 Assessment & Plan (1) Hyponatremia: Acute on chronic likely secondary to mild hypovolemia Poor appetite post recent chemoembolization procedure at 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 (Patient known to [facility]) -Currently sodium 131, at baseline (improved from 126 on admission) -We will recheck BMP again tomorrow morning, and then patient will follow up with her PCP and client care representative -Currently patient feels much improved Low-grade fever secondary to clinical dehydration, recent procedure No obvious source of bacterial infection for now Rule out UTI Cultures, follow UA Hold off on antibiotics until definite bacterial source of sepsis found. hx CAD as per records hypertension, slight elevated hyperlipidemia on statin Rx Parkinson's disease, stable at regimen mood disorder, at baseline DM 2 diet-controlled. Well-controlled as of recent hemoglobin A1c 6.10 September 2020 Basal insulin, ISS BG goal 1 10-1 40, carb count coverage PT OT eval DVT prophylaxis. Lovenox subcu Full code Patient's , Mr. Jez Santos, can be contacted at numbers [phone]. Admission and Anticipated Discharge Date Admission Date: September 29, 2020 Subjective Patient seen in follow-up of hyponatremia, weakness, fevers She is currently sitting up in the chair, in no acute distress, she is inquiring about going home Sodium improved this morning to 131 She is afebrile, feeling well, says her appetite is little better however she is still not eating very much Review of Systems Review of Systems: All systems reviewed & are unremarkable except as noted in HPI & below Constitutional: no fever and no chills Respiratory: no cough and no dyspnea Cardiovascular: no chest pain and no palpitations Gastrointestinal: no abdominal pain, no nausea and no vomiting Physical Exam Physical Exam: GENERAL: Comfortable, pleasant, in NAD SKIN: Normal color, warm HEENT: NC/AT, EOMI, PERRL, [place] palpebral conjunctivae, no ptosis NECK : Supple, no tenderness CHEST : CTAB, no wheezing, rhonchi, crackles noted HEART : RRR, no obvious murmurs ABDOMEN: Some distention, soft, nontender to palpation EXTREMITIES : Minimal LE swelling, no LE tenderness, moves extremities NEUROLOGIC : Alert and oriented x3, no facial asymmetry, speech fluent, moves extremities Results & Data Results & Data ([facility]) Vital Signs (Past 12 Hours) Vital Signs Temp Pulse Pulse Pulse Resp BP BP 09/30/20 07:31 66 09/30/20 07:21 37.3 C 72 16 126/69 09/30/20 05:00 66 09/30/20 04:00 37.1 C 62 20 148/76 H 09/30/20 00:45 36.7 C 74 16 148/78 H 09/30/20 00:00 37.3 C 68 20 147/74 H 09/29/20 22:46 70 16 137/69 09/29/20 22:19 73 16 135/73 Pulse Ox 09/30/20 07:31 09/30/20 07:21 94 09/30/20 05:00 09/30/20 04:00 97 09/30/20 00:45 97 09/30/20 00:00 95 09/29/20 22:46 09/29/20 22:19 Laboratory Results 09/30/20 09/30/20 09/30/20 Range/Units 07:34 07:23 05:41 WBC 10.86 H (4.8-10.8) K/uL RBC 4.28 (4.2-5.4) M/uL Hgb 13.5 (12.0-16.0) g/dL POC Hgb (12.0-16.0) g/dl Hct 38.7 (37-47) % POC Hct (37-47) % MCV 90.4 (80-100) fL MCH 31.5 (25-34) pg MCHC 34.9 (32-36) g/dL RDW Std Deviation 46.8 H (36.4-46.3) fL RDW Coeff of Bin 14.1 (11.5-14.5) % Plt Count 583 H (130-400) K/uL MPV 9.8 (7.4-10.4) fL Immature Gran % (Auto) 0.3 % Neut % (Auto) 62.4 % Lymph % (Auto) 18.9 % Tal[place]ferro % (Auto) 17.0 % Eos % (Auto) 0.8 % Baso % (Auto) 0.6 % Neut # (Auto) 6.78 H (1.4-6.5) K/uL Lymph # (Auto) 2.05 (1.2-3.4) K/uL [place]ferro # (Auto) 1.85 H (0.11-0.59) K/uL Eos # (Auto) 0.09 (0-0.5) K/uL Baso # (Auto) 0.06 (0-0.2) K/uL Immature Gran # (Auto) 0.03 H (0.00-0.02) K/uL Absolute Nucleated RBC Nucleated RBC % (auto) Neutrophils % (Manual) Band Neutrophils % Lymphocytes % (Manual) Prolymphocyte % Reactive Lymphs % (Man) Monocytes % (Manual) Eosinophils % (Manual) Basophils % (Manual) Metamyelocytes % (Man) Myelocytes % (Man) Promyelocytes % (Man) Blast Cells % (Manual) Plasma Cell % (Manual) Other Cells % Nucleated RBC % Neutrophils # (Manual) Band Neutrophils # Total Absolute Neuts Lymphocytes # (Manual) Prolymphocyte # Reactive Lymphs # Total Abs Lymphocytes Monocytes # (Manual) Eosinophils # (Manual) Basophils # (Manual) Metamyelocytes # (Man) Myelocytes # (Manual) Promyelocytes # (Man) Blast Cells # (Man) Plasma Cell # (Manual) Other Cells # Nucleated RBCs # (Man) Hypersegmented Neuts Hyposegmented Neuts Hypogranular Neuts Large Granular Lymphs # Lrg Granular Lymphs Hairy Cells Smudge Cells Toxic Granulation Toxic Vacuolation Dohle Bodies Pastor Rods Platelet Estimate Hypogranular Platelets Clumped Platelets Giant Platelets Platelet Satelliting RBC Morphology Polychromasia Hypochromasia Poikilocytosis Basophilic Stippling Anisocytosis Microcytosis Macrocytosis Spherocytes Pappenheimer Bodies Sickle Cells Target Cells Tear Drop Cells Ovalocytes Stomatocytes Chao-Clover Bodies Echinocytes Acanthocytes (Spur) Rouleaux RBC Agglutinates Schistocytes RBC Morph Comment Sezary Cell PT (9.0-12.0) Seconds INR (0.9-1.1) APTT (21.0-31.0) Seconds PTT Ratio POC Sodium (135-144) mmol/L Sodium (136-145) mmol/L POC Potassium (3.3-5.0) mmol/L Potassium (3.5-5.1) mmol/L POC Chloride (101-112) mmol/L Chloride (98-107) mmol/L Carbon Dioxide (21-32) mmol/L POC Total CO2 (24-31) mmol/L Anion Gap (3-11) POC Anion Gap (16-25) mmol/L POC BUN (7-18) mg/dl BUN (7-18) mg/dl Creatinine (0.6-1.2) mg/dl POC Creatinine (0.6-1.3) mg/dl Est Cr Clr Drug Dosing ml/min Est GFR ( Amer) Est GFR (Non-Af Amer) BUN/Creatinine Ratio (10-20) Glucose (70-99) mg/dl POC Glucose 137 H (70-99) mg/dl POC Glucose (other) (70-99) mg/dl Osmolality (280-300) mOsm/kg Lactate (0.4-2.0) mmol/L Calcium (8.5-10.1) mg/dl POC Ioniz Calcium Rohith (1.12-1.32) mmol/l Magnesium (1.8-2.4) mg/dl Total Bilirubin (0.2-1) mg/dl AST (15-37) U/L ALT (12-78) U/L Alkaline Phosphatase (45-117) U/L Troponin I (0-0.045) ng/ml Total Protein (6.4-8.2) gm/dl Albumin (3.4-5.0) gm/dl Globulin (2.5-4.0) gm/dl Albumin/Globulin Ratio (0.9-2) Lipase (73-393) U/L Procalcitonin (0-0.5) ng/ml TSH (0.300-4.500) uIu/ml Urine Color Urine Appearance (Clear) Urine pH (4.5-7.5) Ur Specific Anderson (1.000-1.030) Urine Protein (Negative) Urine Glucose (UA) (Negative) Urine Ketones (Negative) Urine Blood (Negative) Urine Nitrite (Negative) Urine Bilirubin (Negative) Urine Urobilinogen (Negative) Ur Leukocyte Esterase (Negative) Urine Osmolality (500-800) mOsm/kg Ur Random Sodium mmol/L Lyme Disease IgG Ab Negative (Negative) Lyme Disease IgM Ab Negative (Negative) COVID-19 Eval Order SARS-CoV-2 (PCR) (Negative) Influenza Type A (PCR) (Neg) Influenza Type B (PCR) (Neg) RSV (RT-PCR) (Neg) 09/30/20 09/30/20 09/30/20 Range/Units 05:41 05:41 01:00 WBC Cancelled (4.8-10.8) K/uL RBC Cancelled (4.2-5.4) M/uL Hgb Cancelled (12.0-16.0) g/dL POC Hgb (12.0-16.0) g/dl Hct Cancelled (37-47) % POC Hct (37-47) % MCV Cancelled (80-100) fL MCH Cancelled (25-34) pg MCHC Cancelled (32-36) g/dL RDW Std Deviation Cancelled (36.4-46.3) fL RDW Coeff of Bin Cancelled (11.5-14.5) % Plt Count Cancelled (130-400) K/uL MPV Cancelled (7.4-10.4) fL Immature Gran % (Auto) Cancelled % Neut % (Auto) Cancelled % Lymph % (Auto) Cancelled % [place] % (Auto) Cancelled % Eos % (Auto) Cancelled % Baso % (Auto) Cancelled % Neut # (Auto) Cancelled (1.4-6.5) K/uL Lymph # (Auto) Cancelled (1.2-3.4) K/uL [place] # (Auto) Cancelled (0.11-0.59) K/uL Eos # (Auto) Cancelled (0-0.5) K/uL Baso # (Auto) Cancelled (0-0.2) K/uL Immature Gran # (Auto) Cancelled (0.00-0.02) K/uL Absolute Nucleated RBC Cancelled Nucleated RBC % (auto) Cancelled Neutrophils % (Manual) Cancelled Band Neutrophils % Cancelled Lymphocytes % (Manual) Cancelled Prolymphocyte % Cancelled Reactive Lymphs % (Man) Cancelled Monocytes % (Manual) Cancelled Eosinophils % (Manual) Cancelled Basophils % (Manual) Cancelled Metamyelocytes % (Man) Cancelled Myelocytes % (Man) Cancelled Promyelocytes % (Man) Cancelled Blast Cells % (Manual) Cancelled Plasma Cell % (Manual) Cancelled Other Cells % Cancelled Nucleated RBC % Cancelled Neutrophils # (Manual) Cancelled Band Neutrophils # Cancelled Total Absolute Neuts Cancelled Lymphocytes # (Manual) Cancelled Prolymphocyte # Cancelled Reactive Lymphs # Cancelled Total Abs Lymphocytes Cancelled Monocytes # (Manual) Cancelled Eosinophils # (Manual) Cancelled Basophils # (Manual) Cancelled Metamyelocytes # (Man) Cancelled Myelocytes # (Manual) Cancelled Promyelocytes # (Man) Cancelled Blast Cells # (Man) Cancelled Plasma Cell # (Manual) Cancelled Other Cells # Cancelled Nucleated RBCs # (Man) Cancelled Hypersegmented Neuts Cancelled Hyposegmented Neuts Cancelled Hypogranular Neuts Cancelled Large Granular Lymphs Cancelled # Lrg Granular Lymphs Cancelled Hairy Cells Cancelled Smudge Cells Cancelled Toxic Granulation Cancelled Toxic Vacuolation Cancelled Dohle Bodies Cancelled Pastor Rods Cancelled Platelet Estimate Cancelled Hypogranular Platelets Cancelled Clumped Platelets Cancelled Giant Platelets Cancelled Platelet Satelliting Cancelled RBC Morphology Cancelled Polychromasia Cancelled Hypochromasia Cancelled Poikilocytosis Cancelled Basophilic Stippling Cancelled Anisocytosis Cancelled Microcytosis Cancelled Macrocytosis Cancelled Spherocytes Cancelled Pappenheimer Bodies Cancelled Sickle Cells Cancelled Target Cells Cancelled Tear Drop Cells Cancelled Ovalocytes Cancelled Stomatocytes Cancelled Chao-Clover Bodies Cancelled Echinocytes Cancelled Acanthocytes (Spur) Cancelled Rouleaux Cancelled RBC Agglutinates Cancelled Schistocytes Cancelled RBC Morph Comment Cancelled Sezary Cell Cancelled PT (9.0-12.0) Seconds INR (0.9-1.1) APTT (21.0-31.0) Seconds PTT Ratio POC Sodium (135-144) mmol/L Sodium 131 L (136-145) mmol/L POC Potassium (3.3-5.0) mmol/L Potassium 3.9 (3.5-5.1) mmol/L POC Chloride (101-112) mmol/L Chloride 99 (98-107) mmol/L Carbon Dioxide 26 (21-32) mmol/L POC Total CO2 (24-31) mmol/L Anion Gap 6.0 (3-11) POC Anion Gap (16-25) mmol/L POC BUN (7-18) mg/dl BUN 11 (7-18) mg/dl Creatinine 0.64 (0.6-1.2) mg/dl POC Creatinine (0.6-1.3) mg/dl Est Cr Clr Drug Dosing 71.5 ml/min Est GFR ( Amer) 102.6 Est GFR (Non-Af Amer) 88.5 BUN/Creatinine Ratio 16.7 (10-20) Glucose 136 H (70-99) mg/dl POC Glucose 143 H (70-99) mg/dl POC Glucose (other) (70-99) mg/dl Osmolality (280-300) mOsm/kg Lactate (0.4-2.0) mmol/L Calcium 8.7 (8.5-10.1) mg/dl POC Ioniz Calcium Rohith (1.12-1.32) mmol/l Magnesium 2.2 (1.8-2.4) mg/dl Total Bilirubin 0.8 (0.2-1) mg/dl AST 293 H (15-37) U/L ALT 110 H (12-78) U/L Alkaline Phosphatase 414 H (45-117) U/L Troponin I (0-0.045) ng/ml Total Protein 6.8 (6.4-8.2) gm/dl Albumin 2.6 L (3.4-5.0) gm/dl Globulin 4.2 H (2.5-4.0) gm/dl Albumin/Globulin Ratio 0.6 L (0.9-2) Lipase (73-393) U/L Procalcitonin (0-0.5) ng/ml TSH (0.300-4.500) uIu/ml Urine Color Urine Appearance (Clear) Urine pH (4.5-7.5) Ur Specific Anderson (1.000-1.030) Urine Protein (Negative) Urine Glucose (UA) (Negative) Urine Ketones (Negative) Urine Blood (Negative) Urine Nitrite (Negative) Urine Bilirubin (Negative) Urine Urobilinogen (Negative) Ur Leukocyte Esterase (Negative) Urine Osmolality (500-800) mOsm/kg Ur Random Sodium mmol/L Lyme Disease IgG Ab (Negative) Lyme Disease IgM Ab (Negative) COVID-19 Eval Order SARS-CoV-2 (PCR) (Negative) Influenza Type A (PCR) (Neg) Influenza Type B (PCR) (Neg) RSV (RT-PCR) (Neg) 09/30/20 09/30/20 09/30/20 Range/Units 00:30 00:30 00:30 WBC (4.8-10.8) K/uL RBC (4.2-5.4) M/uL Hgb (12.0-16.0) g/dL POC Hgb (12.0-16.0) g/dl Hct (37-47) % POC Hct (37-47) % MCV (80-100) fL MCH (25-34) pg MCHC (32-36) g/dL RDW Std Deviation (36.4-46.3) fL RDW Coeff of Bin (11.5-14.5) % Plt Count (130-400) K/uL MPV (7.4-10.4) fL Immature Gran % (Auto) % Neut % (Auto) % Lymph % (Auto) % [place] % (Auto) % Eos % (Auto) % Baso % (Auto) % Neut # (Auto) (1.4-6.5) K/uL Lymph # (Auto) (1.2-3.4) K/uL [place] # (Auto) (0.11-0.59) K/uL Eos # (Auto) (0-0.5) K/uL Baso # (Auto) (0-0.2) K/uL Immature Gran # (Auto) (0.00-0.02) K/uL Absolute Nucleated RBC Nucleated RBC % (auto) Neutrophils % (Manual) Band Neutrophils % Lymphocytes % (Manual) Prolymphocyte % Reactive Lymphs % (Man) Monocytes % (Manual) Eosinophils % (Manual) Basophils % (Manual) Metamyelocytes % (Man) Myelocytes % (Man) Promyelocytes % (Man) Blast Cells % (Manual) Plasma Cell % (Manual) Other Cells % Nucleated RBC % Neutrophils # (Manual) Band Neutrophils # Total Absolute Neuts Lymphocytes # (Manual) Prolymphocyte # Reactive Lymphs # Total Abs Lymphocytes Monocytes # (Manual) Eosinophils # (Manual) Basophils # (Manual) Metamyelocytes # (Man) Myelocytes # (Manual) Promyelocytes # (Man) Blast Cells # (Man) Plasma Cell # (Manual) Other Cells # Nucleated RBCs # (Man) Hypersegmented Neuts Hyposegmented Neuts Hypogranular Neuts Large Granular Lymphs # Lrg Granular Lymphs Hairy Cells Smudge Cells Toxic Granulation Toxic Vacuolation Dohle Bodies Pastor Rods Platelet Estimate Hypogranular Platelets Clumped Platelets Giant Platelets Platelet Satelliting RBC Morphology Polychromasia Hypochromasia Poikilocytosis Basophilic Stippling Anisocytosis Microcytosis Macrocytosis Spherocytes Pappenheimer Bodies Sickle Cells Target Cells Tear Drop Cells Ovalocytes Stomatocytes Chao-Clover Bodies Echinocytes Acanthocytes (Spur) Rouleaux RBC Agglutinates Schistocytes RBC Morph Comment Sezary Cell PT (9.0-12.0) Seconds INR (0.9-1.1) APTT (21.0-31.0) Seconds PTT Ratio POC Sodium (135-144) mmol/L Sodium (136-145) mmol/L POC Potassium (3.3-5.0) mmol/L Potassium (3.5-5.1) mmol/L POC Chloride (101-112) mmol/L Chloride (98-107) mmol/L Carbon Dioxide (21-32) mmol/L POC Total CO2 (24-31) mmol/L Anion Gap (3-11) POC Anion Gap (16-25) mmol/L POC BUN (7-18) mg/dl BUN (7-18) mg/dl Creatinine (0.6-1.2) mg/dl POC Creatinine (0.6-1.3) mg/dl Est Cr Clr Drug Dosing ml/min Est GFR ( Amer) Est GFR (Non-Af Amer) BUN/Creatinine Ratio (10-20) Glucose (70-99) mg/dl POC Glucose (70-99) mg/dl POC Glucose (other) (70-99) mg/dl Osmolality (280-300) mOsm/kg Lactate (0.4-2.0) mmol/L Calcium (8.5-10.1) mg/dl POC Ioniz Calcium Rohith (1.12-1.32) mmol/l Magnesium (1.8-2.4) mg/dl Total Bilirubin (0.2-1) mg/dl AST (15-37) U/L ALT (12-78) U/L Alkaline Phosphatase (45-117) U/L Troponin I (0-0.045) ng/ml Total Protein (6.4-8.2) gm/dl Albumin (3.4-5.0) gm/dl Globulin (2.5-4.0) gm/dl Albumin/Globulin Ratio (0.9-2) Lipase (73-393) U/L Procalcitonin (0-0.5) ng/ml TSH (0.300-4.500) uIu/ml Urine Color Yellow Urine Appearance Clear (Clear) Urine pH 6.0 (4.5-7.5) Ur Specific Anderson 1.021 (1.000-1.030) Urine Protein Negative (Negative) Urine Glucose (UA) Negative (Negative) Urine Ketones Negative (Negative) Urine Blood Negative (Negative) Urine Nitrite Negative (Negative) Urine Bilirubin Negative (Negative) Urine Urobilinogen Negative (Negative) Ur Leukocyte Esterase Negative (Negative) Urine Osmolality 198 L (500-800) mOsm/kg Ur Random Sodium 22 mmol/L Lyme Disease IgG Ab (Negative) Lyme Disease IgM Ab (Negative) COVID-19 Eval Order SARS-CoV-2 (PCR) (Negative) Influenza Type A (PCR) (Neg) Influenza Type B (PCR) (Neg) RSV (RT-PCR) (Neg) 09/29/20 09/29/20 09/29/20 Range/Units Unknown Unknown 19:54 WBC (4.8-10.8) K/uL RBC (4.2-5.4) M/uL Hgb (12.0-16.0) g/dL POC Hgb 15.6 (12.0-16.0) g/dl Hct (37-47) % POC Hct 46 (37-47) % MCV (80-100) fL MCH (25-34) pg MCHC (32-36) g/dL RDW Std Deviation (36.4-46.3) fL RDW Coeff of Bin (11.5-14.5) % Plt Count (130-400) K/uL MPV (7.4-10.4) fL Immature Gran % (Auto) % Neut % (Auto) % Lymph % (Auto) % [place] % (Auto) % Eos % (Auto) % Baso % (Auto) % Neut # (Auto) (1.4-6.5) K/uL Lymph # (Auto) (1.2-3.4) K/uL [place] # (Auto) (0.11-0.59) K/uL Eos # (Auto) (0-0.5) K/uL Baso # (Auto) (0-0.2) K/uL Immature Gran # (Auto) (0.00-0.02) K/uL Absolute Nucleated RBC Nucleated RBC % (auto) Neutrophils % (Manual) Band Neutrophils % Lymphocytes % (Manual) Prolymphocyte % Reactive Lymphs % (Man) Monocytes % (Manual) Eosinophils % (Manual) Basophils % (Manual) Metamyelocytes % (Man) Myelocytes % (Man) Promyelocytes % (Man) Blast Cells % (Manual) Plasma Cell % (Manual) Other Cells % Nucleated RBC % Neutrophils # (Manual) Band Neutrophils # Total Absolute Neuts Lymphocytes # (Manual) Prolymphocyte # Reactive Lymphs # Total Abs Lymphocytes Monocytes # (Manual) Eosinophils # (Manual) Basophils # (Manual) Metamyelocytes # (Man) Myelocytes # (Manual) Promyelocytes # (Man) Blast Cells # (Man) Plasma Cell # (Manual) Other Cells # Nucleated RBCs # (Man) Hypersegmented Neuts Hyposegmented Neuts Hypogranular Neuts Large Granular Lymphs # Lrg Granular Lymphs Hairy Cells Smudge Cells Toxic Granulation Toxic Vacuolation Dohle Bodies Pastor Rods Platelet Estimate Hypogranular Platelets Clumped Platelets Giant Platelets Platelet Satelliting RBC Morphology Polychromasia Hypochromasia Poikilocytosis Basophilic Stippling Anisocytosis Microcytosis Macrocytosis Spherocytes Pappenheimer Bodies Sickle Cells Target Cells Tear Drop Cells Ovalocytes Stomatocytes Chao-Clover Bodies Echinocytes Acanthocytes (Spur) Rouleaux RBC Agglutinates Schistocytes RBC Morph Comment Sezary Cell PT (9.0-12.0) Seconds INR (0.9-1.1) APTT (21.0-31.0) Seconds PTT Ratio POC Sodium 127 L (135-144) mmol/L Sodium (136-145) mmol/L POC Potassium 3.9 (3.3-5.0) mmol/L Potassium (3.5-5.1) mmol/L POC Chloride 90 L (101-112) mmol/L Chloride (98-107) mmol/L Carbon Dioxide (21-32) mmol/L POC Total CO2 27 (24-31) mmol/L Anion Gap (3-11) POC Anion Gap 16.0 (16-25) mmol/L POC BUN 12 (7-18) mg/dl BUN (7-18) mg/dl Creatinine (0.6-1.2) mg/dl POC Creatinine 0.7 (0.6-1.3) mg/dl Est Cr Clr Drug Dosing ml/min Est GFR ( Amer) Est GFR (Non-Af Amer) BUN/Creatinine Ratio (10-20) Glucose (70-99) mg/dl POC Glucose (70-99) mg/dl POC Glucose (other) 162 H (70-99) mg/dl Osmolality (280-300) mOsm/kg Lactate (0.4-2.0) mmol/L Calcium (8.5-10.1) mg/dl POC Ioniz Calcium Rohith 1.11 L (1.12-1.32) mmol/l Magnesium (1.8-2.4) mg/dl Total Bilirubin (0.2-1) mg/dl AST (15-37) U/L ALT (12-78) U/L Alkaline Phosphatase (45-117) U/L Troponin I (0-0.045) ng/ml Total Protein (6.4-8.2) gm/dl Albumin (3.4-5.0) gm/dl Globulin (2.5-4.0) gm/dl Albumin/Globulin Ratio (0.9-2) Lipase (73-393) U/L Procalcitonin (0-0.5) ng/ml TSH (0.300-4.500) uIu/ml Urine Color Urine Appearance (Clear) Urine pH (4.5-7.5) Ur Specific Anderson (1.000-1.030) Urine Protein (Negative) Urine Glucose (UA) (Negative) Urine Ketones (Negative) Urine Blood (Negative) Urine Nitrite (Negative) Urine Bilirubin (Negative) Urine Urobilinogen (Negative) Ur Leukocyte Esterase (Negative) Urine Osmolality (500-800) mOsm/kg Ur Random Sodium mmol/L Lyme Disease IgG Ab (Negative) Lyme Disease IgM Ab (Negative) COVID-19 Eval Order Cov[facility] at [facility] SARS-CoV-2 (PCR) NEGATIVE (Negative) Influenza Type A (PCR) Negative (Neg) Influenza Type B (PCR) Negative (Neg) RSV (RT-PCR) Negative (Neg) 09/29/20 09/29/20 09/29/20 Range/Units 19:53 19:53 19:53 WBC (4.8-10.8) K/uL RBC (4.2-5.4) M/uL Hgb (12.0-16.0) g/dL POC Hgb (12.0-16.0) g/dl Hct (37-47) % POC Hct (37-47) % MCV (80-100) fL MCH (25-34) pg MCHC (32-36) g/dL RDW Std Deviation (36.4-46.3) fL RDW Coeff of Bin (11.5-14.5) % Plt Count (130-400) K/uL MPV (7.4-10.4) fL Immature Gran % (Auto) % Neut % (Auto) % Lymph % (Auto) % [place] % (Auto) % Eos % (Auto) % Baso % (Auto) % Neut # (Auto) (1.4-6.5) K/uL Lymph # (Auto) (1.2-3.4) K/uL [place] # (Auto) (0.11-0.59) K/uL Eos # (Auto) (0-0.5) K/uL Baso # (Auto) (0-0.2) K/uL Immature Gran # (Auto) (0.00-0.02) K/uL Absolute Nucleated RBC Nucleated RBC % (auto) Neutrophils % (Manual) Band Neutrophils % Lymphocytes % (Manual) Prolymphocyte % Reactive Lymphs % (Man) Monocytes % (Manual) Eosinophils % (Manual) Basophils % (Manual) Metamyelocytes % (Man) Myelocytes % (Man) Promyelocytes % (Man) Blast Cells % (Manual) Plasma Cell % (Manual) Other Cells % Nucleated RBC % Neutrophils # (Manual) Band Neutrophils # Total Absolute Neuts Lymphocytes # (Manual) Prolymphocyte # Reactive Lymphs # Total Abs Lymphocytes Monocytes # (Manual) Eosinophils # (Manual) Basophils # (Manual) Metamyelocytes # (Man) Myelocytes # (Manual) Promyelocytes # (Man) Blast Cells # (Man) Plasma Cell # (Manual) Other Cells # Nucleated RBCs # (Man) Hypersegmented Neuts Hyposegmented Neuts Hypogranular Neuts Large Granular Lymphs # Lrg Granular Lymphs Hairy Cells Smudge Cells Toxic Granulation Toxic Vacuolation Dohle Bodies Pastor Rods Platelet Estimate Hypogranular Platelets Clumped Platelets Giant Platelets Platelet Satelliting RBC Morphology Polychromasia Hypochromasia Poikilocytosis Basophilic Stippling Anisocytosis Microcytosis Macrocytosis Spherocytes Pappenheimer Bodies Sickle Cells Target Cells Tear Drop Cells Ovalocytes Stomatocytes Chao-Clover Bodies Echinocytes Acanthocytes (Spur) Rouleaux RBC Agglutinates Schistocytes RBC Morph Comment Sezary Cell PT (9.0-12.0) Seconds INR (0.9-1.1) APTT (21.0-31.0) Seconds PTT Ratio POC Sodium (135-144) mmol/L Sodium (136-145) mmol/L POC Potassium (3.3-5.0) mmol/L Potassium (3.5-5.1) mmol/L POC Chloride (101-112) mmol/L Chloride (98-107) mmol/L Carbon Dioxide (21-32) mmol/L POC Total CO2 (24-31) mmol/L Anion Gap (3-11) POC Anion Gap (16-25) mmol/L POC BUN (7-18) mg/dl BUN (7-18) mg/dl Creatinine (0.6-1.2) mg/dl POC Creatinine (0.6-1.3) mg/dl Est Cr Clr Drug Dosing ml/min Est GFR ( Amer) Est GFR (Non-Af Amer) BUN/Creatinine Ratio (10-20) Glucose (70-99) mg/dl POC Glucose (70-99) mg/dl POC Glucose (other) (70-99) mg/dl Osmolality 271 L (280-300) mOsm/kg Lactate 1.6 (0.4-2.0) mmol/L Calcium (8.5-10.1) mg/dl POC Ioniz Calcium Rohith (1.12-1.32) mmol/l Magnesium (1.8-2.4) mg/dl Total Bilirubin (0.2-1) mg/dl AST (15-37) U/L ALT (12-78) U/L Alkaline Phosphatase (45-117) U/L Troponin I (0-0.045) ng/ml Total Protein (6.4-8.2) gm/dl Albumin (3.4-5.0) gm/dl Globulin (2.5-4.0) gm/dl Albumin/Globulin Ratio (0.9-2) Lipase (73-393) U/L Procalcitonin 0.15 (0-0.5) ng/ml TSH (0.300-4.500) uIu/ml Urine Color Urine Appearance (Clear) Urine pH (4.5-7.5) Ur Specific Anderson (1.000-1.030) Urine Protein (Negative) Urine Glucose (UA) (Negative) Urine Ketones (Negative) Urine Blood (Negative) Urine Nitrite (Negative) Urine Bilirubin (Negative) Urine Urobilinogen (Negative) Ur Leukocyte Esterase (Negative) Urine Osmolality (500-800) mOsm/kg Ur Random Sodium mmol/L Lyme Disease IgG Ab (Negative) Lyme Disease IgM Ab (Negative) COVID-19 Eval Order SARS-CoV-2 (PCR) (Negative) Influenza Type A (PCR) (Neg) Influenza Type B (PCR) (Neg) RSV (RT-PCR) (Neg) 09/29/20 09/29/20 09/29/20 Range/Units 19:53 19:53 18:53 WBC 13.51 H (4.8-10.8) K/uL RBC 4.58 (4.2-5.4) M/uL Hgb 14.2 (12.0-16.0) g/dL POC Hgb (12.0-16.0) g/dl Hct 41.9 (37-47) % POC Hct (37-47) % MCV 91.5 (80-100) fL MCH 31.0 (25-34) pg MCHC 33.9 (32-36) g/dL RDW Std Deviation 45.9 (36.4-46.3) fL RDW Coeff of Bin 14.0 (11.5-14.5) % Plt Count 534 H (130-400) K/uL MPV 9.6 (7.4-10.4) fL Immature Gran % (Auto) 0.3 % Neut % (Auto) 68.9 % Lymph % (Auto) 16.7 % [place] % (Auto) 12.8 % Eos % (Auto) 0.9 % Baso % (Auto) 0.4 % Neut # (Auto) 9.30 H (1.4-6.5) K/uL Lymph # (Auto) 2.26 (1.2-3.4) K/uL [place] # (Auto) 1.73 H (0.11-0.59) K/uL Eos # (Auto) 0.12 (0-0.5) K/uL Baso # (Auto) 0.06 (0-0.2) K/uL Immature Gran # (Auto) 0.04 H (0.00-0.02) K/uL Absolute Nucleated RBC Nucleated RBC % (auto) Neutrophils % (Manual) Band Neutrophils % Lymphocytes % (Manual) Prolymphocyte % Reactive Lymphs % (Man) Monocytes % (Manual) Eosinophils % (Manual) Basophils % (Manual) Metamyelocytes % (Man) Myelocytes % (Man) Promyelocytes % (Man) Blast Cells % (Manual) Plasma Cell % (Manual) Other Cells % Nucleated RBC % Neutrophils # (Manual) Band Neutrophils # Total Absolute Neuts Lymphocytes # (Manual) Prolymphocyte # Reactive Lymphs # Total Abs Lymphocytes Monocytes # (Manual) Eosinophils # (Manual) Basophils # (Manual) Metamyelocytes # (Man) Myelocytes # (Manual) Promyelocytes # (Man) Blast Cells # (Man) Plasma Cell # (Manual) Other Cells # Nucleated RBCs # (Man) Hypersegmented Neuts Hyposegmented Neuts Hypogranular Neuts Large Granular Lymphs # Lrg Granular Lymphs Hairy Cells Smudge Cells Toxic Granulation Toxic Vacuolation Dohle Bodies Pastor Rods Platelet Estimate Hypogranular Platelets Clumped Platelets Giant Platelets Platelet Satelliting RBC Morphology Polychromasia Hypochromasia Poikilocytosis Basophilic Stippling Anisocytosis Microcytosis Macrocytosis Spherocytes Pappenheimer Bodies Sickle Cells Target Cells Tear Drop Cells Ovalocytes Stomatocytes Chao-Clover Bodies Echinocytes Acanthocytes (Spur) Rouleaux RBC Agglutinates Schistocytes RBC Morph Comment Sezary Cell PT 10.4 (9.0-12.0) Seconds INR 1.0 (0.9-1.1) APTT 28.9 (21.0-31.0) Seconds PTT Ratio 1.1 POC Sodium (135-144) mmol/L Sodium 126 L (136-145) mmol/L POC Potassium (3.3-5.0) mmol/L Potassium 3.9 (3.5-5.1) mmol/L POC Chloride (101-112) mmol/L Chloride 92 L (98-107) mmol/L Carbon Dioxide 27 (21-32) mmol/L POC Total CO2 (24-31) mmol/L Anion Gap 8.0 (3-11) POC Anion Gap (16-25) mmol/L POC BUN (7-18) mg/dl BUN 12 (7-18) mg/dl Creatinine 0.87 (0.6-1.2) mg/dl POC Creatinine (0.6-1.3) mg/dl Est Cr Clr Drug Dosing 52.6 ml/min Est GFR ( Amer) 76.6 Est GFR (Non-Af Amer) 66.1 BUN/Creatinine Ratio 13.9 (10-20) Glucose 160 H (70-99) mg/dl POC Glucose (70-99) mg/dl POC Glucose (other) (70-99) mg/dl Osmolality (280-300) mOsm/kg Lactate (0.4-2.0) mmol/L Calcium 9.6 (8.5-10.1) mg/dl POC Ioniz Calcium Rohith (1.12-1.32) mmol/l Magnesium 1.6 L (1.8-2.4) mg/dl Total Bilirubin 0.7 (0.2-1) mg/dl AST 326 H (15-37) U/L ALT 56 (12-78) U/L Alkaline Phosphatase 477 H (45-117) U/L Troponin I < 0.015 (0-0.045) ng/ml Total Protein 7.6 (6.4-8.2) gm/dl Albumin 3.0 L (3.4-5.0) gm/dl Globulin 4.6 H (2.5-4.0) gm/dl Albumin/Globulin Ratio 0.7 L (0.9-2) Lipase 60 L (73-393) U/L Procalcitonin (0-0.5) ng/ml TSH 2.660 (0.300-4.500) uIu/ml Urine Color Urine Appearance (Clear) Urine pH (4.5-7.5) Ur Specific Anderson (1.000-1.030) Urine Protein (Negative) Urine Glucose (UA) (Negative) Urine Ketones (Negative) Urine Blood (Negative) Urine Nitrite (Negative) Urine Bilirubin (Negative) Urine Urobilinogen (Negative) Ur Leukocyte Esterase (Negative) Urine Osmolality (500-800) mOsm/kg Ur Random Sodium mmol/L Lyme Disease IgG Ab (Negative) Lyme Disease IgM Ab (Negative) COVID-19 Eval Order SARS-CoV-2 (PCR) (Negative) Influenza Type A (PCR) (Neg) Influenza Type B (PCR) (Neg) RSV (RT-PCR) (Neg) Medications Administered Current Inpatient Medications Acetaminophen (Acetaminophen 325 Mg Tab) 325 mg PO Q6H PRN PRN Reason: Mild Pain Stop: 10/30/20 00:44 Aspirin (Aspirin 81 Mg Ectab) 81 mg PO PM [facility] Stop: 10/30/20 20:59 Atenolol (Atenolol 25 Mg Tablet) 25 mg PO HS [facility] Stop: 10/30/20 00:44 Last Admin: 09/30/20 01:17 Dose: 25 mg Documented by: Atorvastatin Calcium (Atorvastatin 10 Mg Tab) 10 mg PO MoWeFr@0900 [facility] Stop: 10/30/20 08:59 Last Admin: 09/30/20 09:04 Dose: 10 mg Documented by: Carbidopa/Levodopa (Carbidopa/Levodopa 25/100mg Tab) 1.5 tab PO BID@0800,1600 [facility] Stop: 10/30/20 07:59 Last Admin: 09/30/20 09:06 Dose: 1.5 tab Documented by: Carbidopa/Levodopa (Carbidopa/Levodopa 25/100mg Tab) 1 tab PO BID@1200,2000 [facility] Stop: 10/30/20 11:59 Dextrose (Dextrose 50% 50 Ml Syringe) 25 - 50 ml IV UD PRN; Protocol PRN Reason: Hypoglycemia Protocol Stop: 10/30/20 00:44 Enoxaparin Sodium (Enoxaparin Inj 30 Mg/0.3 Ml Syr) 30 mg SQ QAM [facility] Stop: 10/30/20 08:59 Last Admin: 09/30/20 09:06 Dose: 30 mg Documented by: Glucagon (Glucagon For Inj 1 Mg Vial) 1 mg SQ UD PRN; Protocol PRN Reason: Hypoglycemia Protocol Stop: 10/30/20 00:44 Glucose (Glucose 10 Tabs/Tube) 4 - 8 tabs PO UD PRN; Protocol PRN Reason: Hypoglycemia Protocol Stop: 10/30/20 00:44 Glucose (Glucose 40% Gel 15 Gm Tube) 15 - 30 gm PO UD PRN; Protocol PRN Reason: Hypoglycemia Protocol Stop: 10/30/20 00:44 Promethazine HCl 6.25 mg/ (Sodium Chloride) 50.25 mls @ 201 mls/hr IV Q6H PRN PRN Reason: Nausea And Vomiting Stop: 10/30/20 00:44 Insulin Aspart (Insulin Aspart 100 Units/Ml 3 Ml Pen) 0 units SC ACHS [facility] Stop: 10/30/20 00:44 Last Admin: 09/30/20 09:10 Dose: 3 units Documented by: Insulin Glargine (Insulin Glargine Solostar 100 Units/Ml 3 Ml Pen) 5 units SC DAILY [facility] Stop: 10/30/20 08:59 Last Admin: 09/30/20 09:07 Dose: 5 units Documented by: Magnesium Oxide (Magnesium Oxide 400 Mg Tab) 600 mg PO DAILY [facility] Stop: 10/30/20 08:59 Last Admin: 09/30/20 09:05 Dose: 600 mg Documented by: Miscellaneous (Carbohydrates For Hypoglycemia ) 15 - 30 gm PO UD PRN PRN Reason: Hypoglycemia Protocol Stop: 10/30/20 00:44 Oxycodone HCl (Oxycodone Hcl Ir 5 Mg Tab (Immediate Release)) 5 mg PO Q4H PRN PRN Reason: Pain Stop: 10/14/20 00:44
--- NOTE | 2020-09-30 16:08 | Electrocardiogram Report ---
Test Reason : Blood Pressure : / mmHG Vent. Rate : 083 BPM Atrial Rate : 083 BPM P-R Int : 172 ms QRS Dur : 076 ms QT Int : 386 ms P-R-T Axes : 037 016 060 degrees QTc Int : 453 ms Normal sinus rhythm Normal ECG When compared with ECG of 11-OCT-2018 11:38, No significant change was found Confirmed by Josiah Nolasco ([id number]) on 09/30/2020 4:08:06 PM Referred By: REFERRED SELF Confirmed By:Josiah Nolasco
[2020-09-30] MEDS ORDERED: ASPIRIN 81 MG ECTAB PO SCH (21:00)
[2020-10-01 06:18] LABS: Hematocrit (blood only) 36.6 % (37-47); Hemoglobin 12.5 g/dL (12.0-16.0); Mean Corpuscular Hemoglobin 30.6 pg (25-34); Mean Corpuscular Hgb Conc 34.2 g/dL (32-36); Mean Corpuscular Volume 89.7 fL (80-100); Mean Platelet Volume 9.4 fL (7.4-10.4); Platelet Count 593 K/uL (130-400); RDW Standard Deviation 46.5 fL (36.4-46.3); Red Blood Count 4.08 M/uL (4.2-5.4); White Blood Count 10.88 K/uL (4.8-10.8)
[2020-10-01 06:53] LABS: Albumin Level 2.4 gm/dl (3.4-5.0); BUN Creatinine Ratio 23.1 (10-20); Calcium 8.5 mg/dl (8.5-10.1); Creatinine Clr Calc Pharmacy 69.4 ml/min; Est GFR (African American) 101.1; Est GFR (Non-African American) 87.2; Magnesium 1.9 mg/dl (1.8-2.4); Potassium 4.1 mmol/L (3.5-5.1)
[2020-10-01 06:56] LABS: Albumin Globulin Ratio 0.6 (0.9-2); Bilirubin,Total 0.7 mg/dl (0.2-1); Phosphorus 2.6 mg/dl (2.5-4.9); Total Protein 6.4 gm/dl (6.4-8.2)
[2020-10-01] MEDS: ENOXAPARIN INJ 30 MG/0.3 ML SYR SQ SCH (08:48)
[2020-10-01] MEDS: MAGNESIUM OXIDE 400 MG TAB PO SCH (08:49)
[2020-10-01] MEDS: CARBIDOPA/LEVODOPA 25/100MG TAB PO SCH ×2 (08:49→13:17)
[2020-10-01] MEDS: INSULIN ASPART 100 UNITS/ML 3 ML PEN SC SCH ×2 (08:56→12:42)
[2020-10-01] MEDS: INSULIN GLARGINE SOLOSTAR 100 UNITS/ML 3 ML PEN SC SCH (09:21)
--- NOTE | 2020-10-01 09:34 | Hospitalist Progress Note ---
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 hx CAD as per records hypertension, slight elevated hyperlipidemia on statin Rx Parkinson's disease, stable at regimen mood disorder, at baseline DM 2 diet-controlled. Well-controlled as of recent hemoglobin A1c 6.10 September 2020 Basal insulin, ISS BG goal 1 10-1 40, carb count coverage PT OT eval - recommend home PT DVT prophylaxis. Lovenox subcu Full code Patient's , Mr. Jez Santos, can be contacted at numbers [phone]. Admission and Anticipated Discharge Date Admission Date: September 29, 2020 Subjective Patient seen in follow-up of hyponatremia, weakness, fevers She is currently sitting up in the bed, in no acute distress, she is inquiring about going home Sodium improved this morning to 133 (however low last evening) She is afebrile, feeling well, says her appetite is little better Per PT, patient has poor balance, recommend home PT Review of Systems Review of Systems: All systems reviewed & are unremarkable except as noted in HPI & below Constitutional: no fever and no chills Respiratory: no cough and no dyspnea Cardiovascular: no chest pain and no palpitations Gastrointestinal: no abdominal pain, no nausea and no vomiting Physical Exam Physical Exam: GENERAL: Comfortable, pleasant, in NAD SKIN: Normal color, warm HEENT: NC/AT, EOMI, PERRL, [place] palpebral conjunctivae, no ptosis NECK : Supple, no tenderness CHEST : CTAB, no wheezing, rhonchi, crackles noted HEART : RRR, no obvious murmurs ABDOMEN: Some distention, soft, nontender to palpation EXTREMITIES : Minimal LE swelling, no LE tenderness, moves extremities NEUROLOGIC : Alert and oriented x3, no facial asymmetry, speech fluent, moves extremities Results & Data Results & Data ([facility]) Vital Signs (Past 12 Hours) Vital Signs Temp Pulse Pulse Resp BP BP Pulse Ox 10/01/20 07:36 36.9 C 68 16 130/80 97 10/01/20 07:33 67 10/01/20 03:35 37.1 C 67 20 139/78 96 09/30/20 23:10 36.8 C 78 20 129/75 97 09/30/20 22:35 36.8 C 78 20 129/75 97 09/30/20 22:20 82 Laboratory Results 10/01/20 10/01/20 10/01/20 Range/Units 07:34 06:02 06:02 WBC 10.88 H (4.8-10.8) K/uL RBC 4.08 L (4.2-5.4) M/uL Hgb 12.5 (12.0-16.0) g/dL Hct 36.6 L (37-47) % MCV 89.7 (80-100) fL MCH 30.6 (25-34) pg MCHC 34.2 (32-36) g/dL RDW Std Deviation 46.5 H (36.4-46.3) fL RDW Coeff of Bin 14.0 (11.5-14.5) % Plt Count 593 H (130-400) K/uL MPV 9.4 (7.4-10.4) fL Sodium 133 L (136-145) mmol/L Potassium 4.1 (3.5-5.1) mmol/L Chloride 101 (98-107) mmol/L Carbon Dioxide 27 (21-32) mmol/L Anion Gap 5.0 (3-11) BUN 16 (7-18) mg/dl Creatinine 0.67 (0.6-1.2) mg/dl Est Cr Clr Drug Dosing 69.4 ml/min Est GFR ( Amer) 101.1 Est GFR (Non-Af Amer) 87.2 BUN/Creatinine Ratio 23.1 H (10-20) Glucose 138 H (70-99) mg/dl POC Glucose 137 H (70-99) mg/dl Calcium 8.5 (8.5-10.1) mg/dl Phosphorus 2.6 (2.5-4.9) mg/dl Magnesium 1.9 (1.8-2.4) mg/dl Total Bilirubin 0.7 (0.2-1) mg/dl AST 182 H (15-37) U/L ALT 73 (12-78) U/L Alkaline Phosphatase 390 H (45-117) U/L Total Protein 6.4 (6.4-8.2) gm/dl Albumin 2.4 L (3.4-5.0) gm/dl Globulin 4.0 (2.5-4.0) gm/dl Albumin/Globulin Ratio 0.6 L (0.9-2) 09/30/20 09/30/20 09/30/20 Range/Units 20:20 16:24 12:03 WBC (4.8-10.8) K/uL RBC (4.2-5.4) M/uL Hgb (12.0-16.0) g/dL Hct (37-47) % MCV (80-100) fL MCH (25-34) pg MCHC (32-36) g/dL RDW Std Deviation (36.4-46.3) fL RDW Coeff of Bin (11.5-14.5) % Plt Count (130-400) K/uL MPV (7.4-10.4) fL Sodium 129 L (136-145) mmol/L Potassium (3.5-5.1) mmol/L Chloride (98-107) mmol/L Carbon Dioxide (21-32) mmol/L Anion Gap (3-11) BUN (7-18) mg/dl Creatinine (0.6-1.2) mg/dl Est Cr Clr Drug Dosing ml/min Est GFR ( Amer) Est GFR (Non-Af Amer) BUN/Creatinine Ratio (10-20) Glucose (70-99) mg/dl POC Glucose 163 H 94 (70-99) mg/dl Calcium (8.5-10.1) mg/dl Phosphorus (2.5-4.9) mg/dl Magnesium (1.8-2.4) mg/dl Total Bilirubin (0.2-1) mg/dl AST (15-37) U/L ALT (12-78) U/L Alkaline Phosphatase (45-117) U/L Total Protein (6.4-8.2) gm/dl Albumin (3.4-5.0) gm/dl Globulin (2.5-4.0) gm/dl Albumin/Globulin Ratio (0.9-2) 09/30/20 Range/Units 11:31 WBC (4.8-10.8) K/uL RBC (4.2-5.4) M/uL Hgb (12.0-16.0) g/dL Hct (37-47) % MCV (80-100) fL MCH (25-34) pg MCHC (32-36) g/dL RDW Std Deviation (36.4-46.3) fL RDW Coeff of Bin (11.5-14.5) % Plt Count (130-400) K/uL MPV (7.4-10.4) fL Sodium (136-145) mmol/L Potassium (3.5-5.1) mmol/L Chloride (98-107) mmol/L Carbon Dioxide (21-32) mmol/L Anion Gap (3-11) BUN (7-18) mg/dl Creatinine (0.6-1.2) mg/dl Est Cr Clr Drug Dosing ml/min Est GFR ( Amer) Est GFR (Non-Af Amer) BUN/Creatinine Ratio (10-20) Glucose (70-99) mg/dl POC Glucose 172 H (70-99) mg/dl Calcium (8.5-10.1) mg/dl Phosphorus (2.5-4.9) mg/dl Magnesium (1.8-2.4) mg/dl Total Bilirubin (0.2-1) mg/dl AST (15-37) U/L ALT (12-78) U/L Alkaline Phosphatase (45-117) U/L Total Protein (6.4-8.2) gm/dl Albumin (3.4-5.0) gm/dl Globulin (2.5-4.0) gm/dl Albumin/Globulin Ratio (0.9-2) Medications Administered Current Inpatient Medications Acetaminophen (Acetaminophen 325 Mg Tab) 325 mg PO Q6H PRN PRN Reason: Mild Pain Stop: 10/30/20 00:44 Aspirin (Aspirin 81 Mg Ectab) 81 mg PO PM [facility] Stop: 10/30/20 20:59 Last Admin: 09/30/20 21:26 Dose: 81 mg Documented by: Atenolol (Atenolol 25 Mg Tablet) 25 mg PO HS [facility] Stop: 10/30/20 00:44 Last Admin: 09/30/20 21:26 Dose: 25 mg Documented by: Atorvastatin Calcium (Atorvastatin 10 Mg Tab) 10 mg PO MoWeFr@0900 [facility] Stop: 10/30/20 08:59 Last Admin: 09/30/20 10:09 Dose: Not Given Documented by: Carbidopa/Levodopa (Carbidopa/Levodopa 25/100mg Tab) 1.5 tab PO BID@0800,1600 [facility] Stop: 10/30/20 07:59 Last Admin: 10/01/20 08:49 Dose: 1.5 tab Documented by: Carbidopa/Levodopa (Carbidopa/Levodopa 25/100mg Tab) 1 tab PO BID@1200,2000 [facility] Stop: 10/30/20 11:59 Last Admin: 09/30/20 21:26 Dose: 1 tab Documented by: Dextrose (Dextrose 50% 50 Ml Syringe) 25 - 50 ml IV UD PRN; Protocol PRN Reason: Hypoglycemia Protocol Stop: 10/30/20 00:44 Enoxaparin Sodium (Enoxaparin Inj 30 Mg/0.3 Ml Syr) 30 mg SQ QAM [facility] Stop: 10/30/20 08:59 Last Admin: 10/01/20 08:48 Dose: 30 mg Documented by: Glucagon (Glucagon For Inj 1 Mg Vial) 1 mg SQ UD PRN; Protocol PRN Reason: Hypoglycemia Protocol Stop: 10/30/20 00:44 Glucose (Glucose 10 Tabs/Tube) 4 - 8 tabs PO UD PRN; Protocol PRN Reason: Hypoglycemia Protocol Stop: 10/30/20 00:44 Glucose (Glucose 40% Gel 15 Gm Tube) 15 - 30 gm PO UD PRN; Protocol PRN Reason: Hypoglycemia Protocol Stop: 10/30/20 00:44 Promethazine HCl 6.25 mg/ (Sodium Chloride) 50.25 mls @ 201 mls/hr IV Q6H PRN PRN Reason: Nausea And Vomiting Stop: 10/30/20 00:44 Insulin Aspart (Insulin Aspart 100 Units/Ml 3 Ml Pen) 0 units SC ACHS [facility] Stop: 10/30/20 00:44 Last Admin: 10/01/20 08:56 Dose: Not Given Documented by: Insulin Glargine (Insulin Glargine Solostar 100 Units/Ml 3 Ml Pen) 5 units SC DAILY [facility] Stop: 10/30/20 08:59 Last Admin: 10/01/20 09:21 Dose: Not Given Documented by: Magnesium Oxide (Magnesium Oxide 400 Mg Tab) 600 mg PO DAILY [facility] Stop: 10/30/20 08:59 Last Admin: 10/01/20 08:49 Dose: 600 mg Documented by: Miscellaneous (Carbohydrates For Hypoglycemia ) 15 - 30 gm PO UD PRN PRN Reason: Hypoglycemia Protocol Stop: 10/30/20 00:44 Oxycodone HCl (Oxycodone Hcl Ir 5 Mg Tab (Immediate Release)) 5 mg PO Q4H PRN PRN Reason: Pain Stop: 10/14/20 00:44
--- NOTE | 2020-10-01 09:57 | Discharge Summary ---
Date of Service October 01, 2020 Admission HPI Per Admitting Provider History obtained from patient, family, and records. 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 Last confinement October 2018 for hyponatremia. Patient underwent follow-up transarterial chemoembolization of retroperitoneal leiomyosarcoma liver mets at [facility] 2 weeks ago. Post procedure patient told to expect decreased appetite, fever as part of healing process. Poor appetite upon arriving home as per patient. Intermittent fever at home without unusual abdominal pain. Patient denies chest pain, S OB, cough, diarrhea, dysuria symptoms. Ticks outside their home although patient does not recall recent tick bites. Left calf swelling. Patient had a video meeting with PCP today. Directed to ER if any worsening symptoms. Patient brought to ER by . 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 Admission Exam Per Admitting Provider GENERAL: Comfortable, pleasant, slightly anxious, no respiratory distress SKIN: Normal color, warm HEENT: [place] palpebral conjunctivae, no ptosis, dry buccal mucosa NECK : Supple, no tenderness CHEST : CTA, no tenderness HEART : RRR, no obvious murmurs ABDOMEN: Some distention, minimal epigastric tenderness EXTREMITIES : Minimal LE swelling, no LE tenderness, no other conspicuous deformities noted NEUROLOGIC : Coherent, no facial asymmetry, no other gross focality Principal Diagnosis Hyponatremia, weakness Discharge Exam GENERAL: Comfortable, pleasant, in NAD SKIN: Normal color, warm HEENT: NC/AT, EOMI, PERRL, [place] palpebral conjunctivae, no ptosis NECK : Supple, no tenderness CHEST : CTAB, no wheezing, rhonchi, crackles noted HEART : RRR, no obvious murmurs ABDOMEN: Some distention, soft, nontender to palpation EXTREMITIES : Minimal LE swelling, no LE tenderness, moves extremities NEUROLOGIC : Alert and oriented x3, no facial asymmetry, speech fluent, moves extremities Discharge Data Allergies Allergy/AdvReac Type Severity Reaction Status Date / Time nickel Allergy Unknown RASH Verified 09/29/20 18:39 Consultations 09/29/20 21:59 ED Decision to Admit Stat Ordered Studies 09/29/20 18:21 CT abd pelvis IV con only Stat IMPRESSION: 1. Interval posttreatment changes suggesting chemoembolization of the hepatic masses. There are multiple punctate foci of gas within the central hepatic lesion which demonstrates the majority of the chemoembolization agent. This may represent posttreatment changes. Secondary infection would be impossible to exclude. 2. Prominent pericardial/anterior diaphragmatic and mesenteric lymph nodes which have slightly increased in size. These could be reactive. 3 month follow-up recommended to exclude the possibility of metastatic change. 3. Postoperative changes as described above. 4. No bowel wall thickening or obstruction. 5. Normal appendix. 09/29/20 18:33 US venous doppler LE RT Stat IMPRESSION: No evidence of right lower extremity DVT. 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 Elevated LFTs, this was discussed with ED provider and [facility] provider, expected given patient's recent procedure hx CAD as per records hypertension, slight elevated hyperlipidemia on statin Rx Parkinson's disease, stable at regimen mood disorder, at baseline DM 2 diet-controlled. Well-controlled as of recent hemoglobin A1c 6.10 September 2020 Basal insulin, ISS BG goal 1 10-1 40, carb count coverage PT OT eval - recommend home PT DVT prophylaxis. Lovenox subcu Full code Patient's , Mr. Jez Santos, can be contacted at numbers [phone]. Total Time Total Time Spent Total Time Spent (In Minutes): 35 Total Time Includes: Examination of the Patient and Discharge Planning Discharge Plan Discharge Items Patient Disposition: Home - Home Health Services Reason For Visit: HYPONATREMIA Discharge Diagnosis: Hyponatremia, weakness Activity: Per Instructions section Activity Comment: Home PT will be set up for you by our case management Non-emergency contact: Primary Care Provider Call non-emergency contact if: you have any medication questions and your symptoms worsen Follow-up/Referrals: Rossy Soria MD [Primary Care Provider] - (Date & Time 10/06/2020 10:20 AM Provider Rossy Vance MD Department General Internal Medicine [facility] ) Diet: Carb Consistent or DM2 Fluids: 1500ml (6 cups) Addtl Attending Provider Instructions: Follow-up with your primary care provider, the appointment is scheduled for you for October 06. At that time you should have your blood work done, to check for your potassium level, your primary doctor may also check liver enzymes. Pending Studies at Discharge: No Stand-Alone Forms: [facility], Smoking Cessation Medications and DC Order Prescriptions: Continued aspirin 81 mg Tablet,Delayed Release (Dr/Ec) 81 mg PO PM RF: 0 Premarin 0.625 mg/gram cream 1 applic vaginal WK RF: 0 carbidopa-levodopa 25-100 mg tablet See Rx Instructions .ROUTE .COMPLEX RF: 0 escitalopram oxalate 10 mg tablet 10 mg PO QAM RF: 0 acetaminophen [Tylenol Extra Strength] 500 mg Tablet 500 mg PO Q6H PRN (Reason: pain/fever) RF: 0 atenolol 25 mg Tablet 25 mg PO HS RF: 0 furosemide 40 mg tablet 40 mg PO 3XWK RF: 0 alendronate 70 mg tablet 70 mg PO WK RF: 0 atorvastatin 10 mg tablet 10 mg PO DAILY RF: 0 magnesium 200 mg Tablet 600 mg PO DAILY RF: 0 Discharge Orders: Discharge Order (Routine); Ordered 10/01/20 Ordered By: Iam Juan Admission Data Admit Date/Time: 09/29/20 22:56 Attending Provider: Iam Juan Admit Provider: Kuldip Parks Primary Care Provider: Rossy Soria Other Providers: Kuldip Praks ; [facility]
== END 2020-10-01 13:54 | disposition home health service (06) | DRG 641 ==
LOC: ED 18:02 → 2N 22:56